=== PATIENT | female | born 1960 | race Caucasian/White ===

== ENCOUNTER → 2020-01-26 13:50 | Outpatient (BNVA) | payer MEDICARE, MEDICAID, OTHER, SELFPAY | PROVIDERS: PCP Internal Medicine; Referring Provider Internal Medicine; Visit Provider Hospitalist | DX: G47.33 Obstructive sleep apnea (adult) (pediatric) (principal); J44.9 Chronic obstructive pulmonary disease, unspecified; Z79.899 Other long term (current) drug therapy | CPT/HCPCS: 99214 ==

== ENCOUNTER → 2020-01-29 14:03 | Outpatient (BNVA) | payer MEDICARE, MEDICAID, SELFPAY | PROVIDERS: PCP Internal Medicine; Referring Provider Internal Medicine; Visit Provider Internal Medicine Gastroenterology | DX: K21.9 Gastro-esophageal reflux disease without esophagitis (principal); E66.01 Morbid (severe) obesity due to excess calories; Z79.899 Other long term (current) drug therapy | CPT/HCPCS: 99214 ==

== ENCOUNTER → 2020-02-05 14:02 | Outpatient (REF) | payer MEDICARE, SELFPAY | LOC: HO.SL 14:02 | PROVIDERS: PCP Internal Medicine; Visit Provider Hospitalist | DX: G47.33 Obstructive sleep apnea (adult) (pediatric) (principal) | CPT/HCPCS: 95806 ==

== ENCOUNTER 2020-04-01 13:27 | Outpatient (REF) | payer MEDICARE, SELFPAY ==
--- NOTE | 2020-04-01 13:32 | MM_ITS ---
EXAMINATION: MM SCREENING DIGITAL BREAST TOMOSYNTHESIS, BILATERAL CLINICAL INFORMATION: Screening. Asymptomatic. Prior history benign right stereotactic biopsy 02/24/2017 on upright unit [facility] (adenosis and ductal epithelial hyperplasia, without atypia. Microcalcifications are present in association with sclerotic stroma, adenosis and otherwise unremarkable terminal duct lobular units). The lifetime risk of breast cancer based on the Tyrer-Cuzick Model is 6%. COMPARISON: Mammography: 03/27/2019, 03/21/2018, 09/17/2017, 02/10/2017, 02/01/2017 TECHNIQUE: Digital breast tomosynthesis is performed in both the craniocaudal and mediolateral oblique views along with computer-aided detection (CAD). Synthesized 2D images are generated from the tomosynthesis. Additional right CC and right MLO views are provided. FINDINGS: There are scattered areas of fibroglandular density (ACR BI-RADS breast composition Category b). Parenchymal pattern is similar to prior studies. There is no developing density or interval mass or architectural abnormality. Left breast shows no abnormal calcifications. Right breast has a biopsy clip marker central right breast with some adjacent punctate calcifications. There is a group of similar appearing calcifications posterior and inferior to the biopsy clip marker which are increased in number from prior studies. Patient will be recalled for additional imaging. MM/MM tomosynthesis screening BI IMPRESSION: 1. Right: Increased grouped calcifications posterior inferior to prior biopsy clip marker. 2. Left: No mammographic evidence of malignancy. ASSESSMENT: BI-RADS 0: Incomplete - Need Additional Imaging Evaluation RECOMMENDATION: 1. Additional views of the right breast (magnification CC, magnification ML). 2. Radiology department staff will contact the patient for additional imaging. This patient's information was entered into a reminder system with a target due date for their next mammogram.
== END 2020-04-01 13:28 | disposition home or self-care (01) ==
LOC: HO.MAMMO 13:27
PROVIDERS: PCP Internal Medicine; Visit Provider Internal Medicine
DX: Z12.31 Encounter for screening mammogram for malignant neoplasm of breast (principal)
CPT/HCPCS: 77063; 77067

== ENCOUNTER → 2020-04-26 13:38 | Outpatient (BNVA) | payer MEDICARE, MEDICAID, SELFPAY | PROVIDERS: PCP Internal Medicine; Visit Provider Hospitalist | DX: G47.33 Obstructive sleep apnea (adult) (pediatric) (principal); J44.9 Chronic obstructive pulmonary disease, unspecified; E66.01 Morbid (severe) obesity due to excess calories; K21.9 Gastro-esophageal reflux disease without esophagitis; Z71.3 Dietary counseling and surveillance | CPT/HCPCS: 99212 ==

== ENCOUNTER 2020-05-03 13:32 | Outpatient (REF) | payer MEDICARE, MEDICAID, SELFPAY ==
--- NOTE | 2020-05-03 | MM_ITS ---
EXAMINATION: MM DIAGNOSTIC DIGITAL MAMMOGRAPHY, RIGHT CLINICAL INFORMATION: Recall from screening for increased grouped calcifications 6:00 right breast. Prior history benign right stereotactic biopsy central breast 02/24/2017 on upright unit [facility] (adenosis and ductal epithelial hyperplasia, without atypia. Microcalcifications are present in association with sclerotic stroma, adenosis and otherwise unremarkable terminal duct lobular units). COMPARISON: Mammography: 04/01/2020, 03/27/2019, 03/21/2018 TECHNIQUE: Digital mammography is performed in the following views: Magnification CC, magnification ML x4. Some ML views are repeated due to motion. FINDINGS: There are scattered areas of fibroglandular density (ACR BI-RADS breast composition Category b). The calcifications for additional evaluation at 6:00 position are tightly grouped, at least 15 in number, and represent change from prior mammography. Calcifications are predominantly round and slightly vary in size. Results are discussed with the patient at time of visit. The calcifications 6:00 position representing change from prior study. I suspect they may represent similar diagnosis to prior biopsy right breast 2016. Patient unable to lie prone for horizontal stereotactic table due to COPD. Patient willing to go to outside facility for upright stereotactic sampling. Results and recommendation are called to office ([facility]) for Dr. Hakeem Montgomery on 05/03/2020. MM/MM added views RT IMPRESSION: Grouped calcifications 6:00 right breast representing change from prior imaging. ASSESSMENT: BI-RADS 4: Suspicious (subcategory 4A: Low suspicion for malignancy) RECOMMENDATION: Stereotactic biopsy (will need to be performed at outside facility with upright table). This patient's information was entered into a reminder system with a target due date for their next mammogram.
== END 2020-05-03 13:33 | disposition home or self-care (01) ==
LOC: HO.MAMMO 13:32
PROVIDERS: Visit Provider Internal Medicine
DX: R92.1 Mammographic calcification found on diagnostic imaging of breast (principal)
CPT/HCPCS: 77065

== ENCOUNTER → 2020-05-22 15:33 | Outpatient (BNVA) | payer MEDICARE, SELFPAY | PROVIDERS: PCP Internal Medicine; Visit Provider Internal Medicine Gastroenterology | DX: Z76.89 Persons encountering health services in other specified circumstances (principal) | CPT/HCPCS: Q3014 ==

== ENCOUNTER 2020-05-24 13:27 | Outpatient (REF) | payer MEDICARE, SELFPAY ==
[2020-05-24 16:57] LABS: Alanine Aminotransferase 41 U/L (0-31); Albumin Level 4.2 g/dL (3.5-5.0); Alkaline Phosphatase 115 U/L (39-117); Aspartate Amino Transferase 28 U/L (5-31); Bilirubin Direct 0.2 mg/dL (0.0-0.5); Bilirubin Total 0.6 mg/dL (0.0-1.0); Cholesterol 171 mg/dL; HDL Cholesterol 45 mg/dL; LDL Cholesterol Calculated 91 mg/dl; Total Protein 7.2 g/dL (6.5-8.0); Triglycerides 178 mg/dL
[2020-05-24 19:02] LABS: Reflex LDLD? No
[2020-05-25 08:16] LABS: Estimated Average Glucose 120 mg/dL; Hemoglobin A1c % 5.8 %
== END 2020-05-24 13:28 | disposition home or self-care (01) ==
LOC: HO.HMGCLDS 13:27
PROVIDERS: PCP Internal Medicine; Visit Provider Internal Medicine
DX: E78.00 Pure hypercholesterolemia, unspecified (principal); E11.9 Type 2 diabetes mellitus without complications; R79.89 Other specified abnormal findings of blood chemistry
CPT/HCPCS: 36415; 80061; 80076; 83036

== ENCOUNTER 2020-07-08 12:55 | Outpatient (REF) | payer MEDICARE, SELFPAY ==
--- NOTE | ~2020-07-08 | XR_ITS ---
EXAMINATION: XR HIP, LEFT CLINICAL INFORMATION: Pain left hip. COMPARISON: None TECHNIQUE: Two views of the left hip. AP pelvis one view. FINDINGS: AP PELVIS: There is normal symmetry of bilateral SI and right hip joints. Mild loss of left hip joint space is noted. No bony erosive changes or periarticular spurring. No acute fracture, lytic or sclerotic process seen. There is mild pelvic tilt with right hip lower than left. The soft tissues are normal. XR/XR hip LT w PEL1V IMPRESSION: Mild loss of left hip joint space. No visible acute fracture, dislocation or subluxation seen. Mild pelvic tilt as described above.
== END 2020-07-08 12:56 | disposition home or self-care (01) ==
LOC: HO.HOSX 12:55
PROVIDERS: Visit Provider Orthopaedic Surgery
DX: M25.552 Pain in left hip (principal)
CPT/HCPCS: 73502

== ENCOUNTER → 2020-07-09 14:28 | Outpatient (BNVA) | payer MEDICARE, SELFPAY | PROVIDERS: PCP Internal Medicine; Visit Provider Orthopaedic Surgery | DX: M70.62 Trochanteric bursitis, left hip (principal) | CPT/HCPCS: 99212 ==

== ENCOUNTER 2020-09-03 12:55 | Outpatient (REF) | payer MEDICARE, MEDICAID, SELFPAY ==
--- NOTE | ~2020-09-03 | XR_ITS ---
EXAMINATION: XR HAND, LEFT CLINICAL INFORMATION: Left hand pain. COMPARISON: Left hand radiographs dated 05/04/2012. TECHNIQUE: AP, oblique, and lateral views of the left hand as well as AP and oblique views of the left hand. FINDINGS: No acute fracture or dislocation. Severe joint space narrowing with subchondral sclerosis and ossified loose bodies at the 1st carpometacarpal joint, new/increased when compared to the prior examination. Additional joint space narrowing with marginal osteophytes and subchondral cystic change throughout the interphalangeal joints. Possible small central erosions at the 2nd and 3rd distal interphalangeal joints. XR/XR hand LT min 3V IMPRESSION: 1. Severe degenerative arthritis at the 1st carpometacarpal joint with associated ossified loose bodies, new/increased when compared to the prior radiograph. 2. Additional degenerative arthritis throughout the interphalangeal joints, progressed when compared to the prior radiographs. Possible small central erosions at the 2nd and 3rd distal interphalangeal joints, which could indicate erosive osteoarthritis.
== END 2020-09-03 12:56 | disposition home or self-care (01) ==
LOC: HO.HOSX 12:55
PROVIDERS: PCP Internal Medicine; Visit Provider Orthopaedic Surgery
DX: M18.12 Unilateral primary osteoarthritis of first carpometacarpal joint, left hand (principal)
CPT/HCPCS: 20600; 73130; 99202; J1020

== ENCOUNTER → 2020-10-25 13:57 | Outpatient (BNVA) | payer MEDICARE, MEDICAID, SELFPAY | PROVIDERS: PCP Internal Medicine; Visit Provider Hospitalist | DX: G47.33 Obstructive sleep apnea (adult) (pediatric) (principal); J44.9 Chronic obstructive pulmonary disease, unspecified; K21.00 Gastro-esophageal reflux disease with esophagitis, without bleeding | CPT/HCPCS: 99212 ==

== ENCOUNTER → 2020-12-23 12:36 | Outpatient (BNVA) | payer MEDICARE, MEDICAID, SELFPAY | PROVIDERS: Visit Provider Orthopaedic Surgery | DX: M18.12 Unilateral primary osteoarthritis of first carpometacarpal joint, left hand (principal); E66.01 Morbid (severe) obesity due to excess calories; Z68.42 Body mass index [BMI] 45.0-49.9, adult; Z88.0 Allergy status to penicillin; Z88.2 Allergy status to sulfonamides | CPT/HCPCS: 20600; 99212; J1020 ==

== ENCOUNTER → 2020-12-30 13:00 | Outpatient (BNVA) | payer MEDICARE, SELFPAY | PROVIDERS: PCP Internal Medicine; Referring Provider Family Medicine; Visit Provider Internal Medicine Gastroenterology | DX: Z13.89 Encounter for screening for other disorder (principal) | CPT/HCPCS: 99212 ==

== ENCOUNTER 2021-02-11 12:18 | Outpatient (REF) | payer MEDICARE, MEDICAID, SELFPAY ==
[2021-02-11 14:17] LABS: Alanine Aminotransferase 19 U/L (0-31); Albumin Level 4.1 g/dL (3.5-5.0); Alkaline Phosphatase 92 U/L (39-117); Anion Gap 12 (12-20); Aspartate Amino Transferase 16 U/L (5-31); Bilirubin Total 0.5 mg/dL (0.0-1.0); Blood Urea Nitrogen 12 mg/dL (9-16); Calcium 9.5 mg/dL (8.4-10.2); Carbon Dioxide 27 mmol/L (22-29); Chloride 105 mmol/L (96-108); Cholesterol 294 mg/dL; Estimated Glomerular Filt Rate > 60; Glucose Fasting 107 mg/dL (60-99); HDL Cholesterol 45 mg/dL; LDL Cholesterol Calculated 196 mg/dl; Potassium 4.1 mmol/L (3.3-5.1); Sodium 140 mmol/L (135-145); Total Protein 6.9 g/dL (6.5-8.0); Triglycerides 267 mg/dL
[2021-02-11 14:38] LABS: TSH reflex Free T4 2.74 uIU/mL (0.32-4.0)
== END 2021-02-11 12:19 | disposition home or self-care (01) ==
LOC: HO.HMGCLDS 12:18
PROVIDERS: PCP Family Medicine; Visit Provider Family Medicine
DX: Z00.00 Encounter for general adult medical examination without abnormal findings (principal)
CPT/HCPCS: 36415; 80053; 80061; 84443

== ENCOUNTER → 2021-03-19 14:53 | Outpatient (BNVA) | payer MEDICARE, MEDICAID, SELFPAY | PROVIDERS: PCP Family Medicine; Referring Provider Family Medicine; Visit Provider Internal Medicine | DX: I35.9 Nonrheumatic aortic valve disorder, unspecified (principal); I25.10 Atherosclerotic heart disease of native coronary artery without angina pectoris; E66.01 Morbid (severe) obesity due to excess calories; Z68.42 Body mass index [BMI] 45.0-49.9, adult | CPT/HCPCS: 93005; 99202 ==

== ENCOUNTER 2021-03-21 12:16 | Outpatient (REF) | payer MEDICARE, MEDICAID, SELFPAY ==
[2021-03-21 14:15] LABS: Estimated Average Glucose 120 mg/dL; Hemoglobin A1c % 5.8 %
[2021-03-21 14:35] LABS: Alanine Aminotransferase 14 U/L (0-31); Albumin Level 4.1 g/dL (3.5-5.0); Alkaline Phosphatase 97 U/L (39-117); Anion Gap 14 (12-20); Aspartate Amino Transferase 12 U/L (5-31); Bilirubin Direct 0.2 mg/dL (0.0-0.5); Bilirubin Total 0.3 mg/dL (0.0-1.0); Blood Urea Nitrogen 15 mg/dL (9-16); Calcium 9.6 mg/dL (8.4-10.2); Carbon Dioxide 24 mmol/L (22-29); Chloride 107 mmol/L (96-108); Cholesterol 200 mg/dL; Estimated Glomerular Filt Rate > 60; Glucose Random 105 mg/dL (60-115); HDL Cholesterol 46 mg/dL; LDL Cholesterol Calculated 116 mg/dl; Potassium 4.2 mmol/L (3.3-5.1); Sodium 141 mmol/L (135-145); Total Protein 6.7 g/dL (6.5-8.0); Triglycerides 190 mg/dL
== END 2021-03-21 12:17 | disposition home or self-care (01) ==
LOC: HO.HMGCLDS 12:16
PROVIDERS: Absent Provider Internal Medicine; PCP Family Medicine; Visit Provider Family Medicine
DX: Z00.00 Encounter for general adult medical examination without abnormal findings (principal); R73.01 Impaired fasting glucose; R74.01 Elevation of levels of liver transaminase levels; I25.10 Atherosclerotic heart disease of native coronary artery without angina pectoris
CPT/HCPCS: 36415; 80048; 80061; 80076; 83036

== ENCOUNTER 2021-04-02 13:28 | Outpatient (REF) | payer MEDICARE, MEDICAID, SELFPAY ==
--- NOTE | ~2021-04-02 | MM_ITS ---
EXAMINATION: MM DIAGNOSTIC DIGITAL BREAST TOMOSYNTHESIS, BILATERAL CLINICAL INFORMATION: Due for yearly. Status post benign right upright stereotactic biopsy 06/12/2020 (microcalcifications associated with sclerosing adenosis. Minute intraductal papilloma, less than 1 mm). Also prior benign outside right stereotactic biopsy 02/24/2017 (adenosis and ductal epithelial hyperplasia without atypia). The lifetime risk of breast cancer based on the Tyrer-Cuzick Model is 6%. COMPARISON: Mammography: 05/03/2020, 04/01/2020, 03/27/2019; outside pathology report right breast biopsy 06/12/2020 ([facility]). TECHNIQUE: Digital breast tomosynthesis is performed in both the craniocaudal and mediolateral oblique views along with computer-aided detection (CAD). Synthesized 2D images are generated from the tomosynthesis. Additional magnification right CC and magnification right ML views are obtained. FINDINGS: There are scattered areas of fibroglandular density (ACR BI-RADS breast composition Category b). Breast tissue composition borders on predominantly fatty. Background stromal and fibroglandular densities are stable. There is no developing density or interval mass or architectural abnormality. There are no abnormal calcifications. There is old T-shaped biopsy clip marker central right breast. The most recent right biopsy clip marker is more posterior and cylinder shaped. Magnification views show some scattered stable calcifications right breast. The calcifications recently sampled are no longer demonstrated. Results are provided to the patient at time of visit by the technologist. MM/MM tomosynthesis diagnostic BI IMPRESSION: No mammographic evidence of malignancy. ASSESSMENT: BI-RADS 2: Benign RECOMMENDATION: Routine annual mammography screening. This patient's information was entered into a reminder system with a target due date for their next mammogram.
== END 2021-04-02 13:29 | disposition home or self-care (01) ==
LOC: HO.MAMMO 13:28
PROVIDERS: PCP Family Medicine; Visit Provider Family Medicine
DX: R92.8 Other abnormal and inconclusive findings on diagnostic imaging of breast (principal)
CPT/HCPCS: 77062; 77066

== ENCOUNTER → 2021-05-05 13:46 | Outpatient (REF) | payer MEDICARE, MEDICAID, SELFPAY ==
--- NOTE | 2021-05-05 13:53 | CA_ITS ---
Transthoracic Echocardiogram Patient (Last, First, Middle): Daxa Whitt (Mitzy), Gender: Female Date of : 1960 Age: 61 Procedure Date: 05/05/2021 Procedure Type: Transthoracic Echocardiogram Location: OP Height: 160.02 cm Weight: 113.4 kg BSA: 2.13 m2 Heart Rate: bpm BP: 128 / 80 mmHg Assembler Seat: Referring MD: Thad Muñoz MD Roving Teller: Eric Vincent MD Symptoms: I35.9 - Nonrheumatic aortic valve disorder, unspecified Study Quality: Fair ECG Rhythm: Sinus Conclusions: - 1. Normal LV systolic function with mild LVH with impaired relaxation filling pattern 2. Mild aortic stenosis 3. Normal RV systolic pressure 4. No gross pericardial effusion Findings Left Ventricle Normal left ventricular size and systolic function. There is mildly increased left ventricular wall thickness. The visually estimated ejection fraction is between 65-70%. Spectral Doppler is indicative of an impaired relaxation filling pattern. E/E prime ratio is between 8 and 15 consistent with indeterminate filling pressures. Right Ventricle Normal right ventricular cavity size and systolic function. Atria The left atrium is likely dilated. There is lipomatous hypertrophy of the interatrial septum. There is no evidence of interatrial shunt. The right atrium is normal in size. Aortic Valve The aortic valve was not well visualized. There is mild calcification of the aortic valve. There is mild aortic valve stenosis. The peak aortic gradient is 17 mmHg.The mean gradient is 8 mmHg. The aortic valve area is 1.80 cm2. There is no aortic valve regurgitation. Mitral Valve There is mild anterior and moderate posterior mitral leaflet thickening. There is moderate mitral annular calcification. There is trace mitral valve regurgitation. There is no mitral valve stenosis. Pulmonic Valve The pulmonic valve was not well visualized. Tricuspid Valve There is mild tricuspid valve regurgitation. The right ventricular systolic pressure is normal. There is no evidence of pulmonary hypertension. Great Vessels All visible segments of the aorta are normal in size. The pulmonary artery was not well visualized. Venous The inferior vena cava is normal in size and collapses greater than 50% with inspiration. Pericardium/Pleural There is no evidence of pericardial effusion. Prior Study Comparison Changes noted compared to prior study dated: 08/26/2016. Mild aortic stenosis noted Measurements 2D Linear Measurements IVSd: 1.28 0.6-0.9/0.6-1.0 cm LVIDd: 4.38 3.9-5.3/4.2-5.9 cm LVIDd Index: 2.06 2.4-3.2/2.2-3.1 cm/m2 LVIDs: 2.97 2.0-3.6 cm LVPWd: 1.33 0.7-1.1 cm Ao Root: 2.80 2.1-3.5 cm LA Diam: 3.90 2.7-3.8/3.0-4.0 cm LAIDs Index: 1.83 1.5-2.3 cm/m2 LV Mass: 267.80 67-162/88-224 g LV Mass Index: 125.73 43-95/49-115 g/m2 LVOT Diam: 2.00 3.0+(-)1.3 cm 2D Systolic Function EF 4C: 70.30 >55% EF 2C: 68.60 >55% EF BiP: 69.10 >55% Mitral Valve MV VTI: 0.40 MV Pk Ascencion: 1.39 MV Mn Ascencion: 0.80 MV Pk Grad: 8.00 MV Mn Grad: 3.00 MV Pk E: 0.94 MV PK A: 1.39 MV Decel Time: 157.00 E/A: 0.70 E'Lateral: 8.05 E'Medial: 5.87 E/E' Med: 16.00 E/E' Lat: 11.70 PHT: 46.00 MVA PHT: 4.78 MVA Continuity: 1.93 Decel [place]: 5.96 Aortic Valve AoV Pk Ascencion: 2.06 AoV Mn Ascencion: 1.29 AoV VTI: 0.43 AoV Pk Grad: 17.00 Aov Mn Grad: 8.00 JOHANA Cont.VTI: 1.80 LVOT LVOT Pk Ascencion: 1.08 LVOT Mn Ascencion: 0.77 LVOT VTI: 0.24 LVOT Pk Grad: 5.00 LVOT Mn Grad: 3.00 LVOT Diam: 2.00 LVOT Area: 3.14 Diastolic Function MV Pk E: 0.94 MV Pk A: 1.39 E/A: 0.70 E'Medial: 5.87 E/E' Med: 16.00 E' Laterial: 8.05 E/E' Lat: 11.70 Right Ventricle TAPSE (mm): 28.00 TVS' Ascencion: 14.00 Tricuspid Valve TR Pk Ascencion: 2.51 TR Pk Grad: 25.00 RA Press: 3.00 RVSP: 28.00 Great Vessels Aorta Ao Root-2D: 2.80 2.0-3.7 cm Ao Asc: 2.70 2.1-3.4 cm Pulmonary Valve PV Pk Ascencion: 1.21 Peak PV Grad: 6.00 Updated in Other Vendor System with Status of Final Eric Vincent MD electronically signed on 05/06/2021 11:54:40 AM with status of Final
== END ==
LOC: HO.CARD 13:46
PROVIDERS: Visit Provider Internal Medicine
DX: I35.9 Nonrheumatic aortic valve disorder, unspecified (principal)
CPT/HCPCS: 93306

== ENCOUNTER 2021-05-30 11:24 | Outpatient (REF) | payer MEDICARE, MEDICAID, SELFPAY ==
[2021-05-30 15:12] LABS: MANUAL DIFF FLAG NO
[2021-05-30 15:16] LABS: Basophils Percent Auto 0.4 % (0-2); Eosinophils Absolute Auto 0.2 X10*3/uL (0.0-0.4); Hemoglobin 12.4 g/dl (12.0-16.0); Imm Gran Abs Auto 0.03 X10*3/uL (0.00-0.03); Imm Gran Pct Auto 0.4 % (0.0-0.4); Lymphocytes Absolute Auto 1.2 X10*3/uL (1.2-4.9); Lymphocytes Percent Auto 18.1 % (20-40); Mean Corpuscular HGB Conc 32.6 g/dl (31.0-35.0); Mean Corpuscular Hemoglobin 29.9 pg (27.0-33.0); Mean Corpuscular Volume 91.6 fL (80.0-98.0); Mean Platelet Volume 9.7 fL (9.4-12.3); Monocytes Absolute Auto 0.4 X10*3/uL (0.1-1.2); Monocytes Percent Auto 6.4 % (2-11); Neutrophils Absolute Auto 4.8 x10*3/uL (2.0-8.3); Neutrophils Percent Auto 71.7 % (45-73); Platelet Count 323 X10*3/uL (160-400); Red Blood Count 4.15 X10*6/uL (4.20-5.50); Red Cell Distribution Width 12.2 % (11.0-16.0); White Blood Count 6.7 X10*3/uL (4.8-10.8)
[2021-05-30 16:13] LABS: Alanine Aminotransferase 10 U/L (0-31); Alkaline Phosphatase 105 U/L (39-117); Anion Gap 13 (12-20); Aspartate Amino Transferase 11 U/L (5-31); Bilirubin Total 0.2 mg/dL (0.0-1.0); Blood Urea Nitrogen 15 mg/dL (9-16); Calcium 9.3 mg/dL (8.4-10.2); Carbon Dioxide 24 mmol/L (22-29); Chloride 106 mmol/L (96-108); Estimated Glomerular Filt Rate > 60; Ferritin 111 ng/mL (10-250); Glucose Random 121 mg/dL (60-115); Iron 64 mcg/dL (30-160); Percent Iron Saturation 21 % (15-50); Potassium 3.9 mmol/L (3.3-5.1); Sodium 139 mmol/L (135-145); Total Iron Binding Capacity 301 mcg/dL (228-428); Total Protein 6.8 g/dL (6.5-8.0); Unsaturated Iron Binding 237 ug/dL
== END 2021-05-30 11:25 | disposition home or self-care (01) ==
LOC: HO.HMGCLDS 11:24
PROVIDERS: Family Medicine
DX: Z00.00 Encounter for general adult medical examination without abnormal findings (principal); R53.83 Other fatigue
CPT/HCPCS: 36415; 80053; 82728; 83540; 85025

== ENCOUNTER → 2021-06-03 14:25 | Outpatient (BNVA) | payer MEDICARE, MEDICAID, SELFPAY | PROVIDERS: PCP Family Medicine; Referring Provider Family Medicine; Visit Provider Internal Medicine | DX: I25.10 Atherosclerotic heart disease of native coronary artery without angina pectoris (principal); I35.0 Nonrheumatic aortic (valve) stenosis; I05.9 Rheumatic mitral valve disease, unspecified; E03.9 Hypothyroidism, unspecified; R53.83 Other fatigue; J44.9 Chronic obstructive pulmonary disease, unspecified; E66.01 Morbid (severe) obesity due to excess calories; R73.03 Prediabetes; G47.33 Obstructive sleep apnea (adult) (pediatric); Z68.42 Body mass index [BMI] 45.0-49.9, adult; Z88.0 Allergy status to penicillin; Z88.2 Allergy status to sulfonamides; Z79.899 Other long term (current) drug therapy | CPT/HCPCS: 99212 ==

== ENCOUNTER 2021-06-04 12:56 | Outpatient (REF) | payer MEDICARE, MEDICAID, SELFPAY ==
[2021-06-04 14:09] LABS: Appearance Urine HAZY; Color Urine YELLOW; Glucose Urine UA NEG (NEG); Leukocyte Esterase Urine NEG (NEG); Nitrite Urine NEG (NEG); Specific Gravity - Urine >= 1.030 (1.005-1.025); Urine Blood NEG (NEG); Urine Ketones NEG (NEG); Urine Protein TRACE MG/DL (NEG-TRACE)
[2021-06-04 14:53] LABS: Free T4 (Free Thyroxine) 0.88 ng/dL (0.71-1.85)
[2021-06-05 06:01] LABS: Triiodothyronine T3 Total 109 ng/dL (76-181)
== END 2021-06-04 12:57 | disposition home or self-care (01) ==
LOC: HO.HMGCLDS 12:56
PROVIDERS: Visit Provider Family Medicine
DX: Z00.00 Encounter for general adult medical examination without abnormal findings (principal); E03.9 Hypothyroidism, unspecified; R53.83 Other fatigue
CPT/HCPCS: 36415; 81003; 84439; 84443; 84480; 87086

== ENCOUNTER → 2021-06-27 14:24 | Outpatient (BNVA) | payer MEDICARE, MEDICAID, SELFPAY | PROVIDERS: PCP Family Medicine; Visit Provider Hospitalist | DX: G47.33 Obstructive sleep apnea (adult) (pediatric) (principal); J44.9 Chronic obstructive pulmonary disease, unspecified; K21.00 Gastro-esophageal reflux disease with esophagitis, without bleeding | CPT/HCPCS: 99212 ==

== ENCOUNTER 2021-07-03 13:58 | Outpatient (REF) | payer MEDICARE, MEDICAID, SELFPAY ==
[2021-07-03 16:46] LABS: Rheumatoid Factor < 15.0 IU/mL (<15.0)
[2021-07-03 17:20] LABS: Erythrocyte Sedimentation Rate 23 MM/HR (0-20)
[2021-07-04 17:27] LABS: CRP High Sensitivity 0.7 mg/L
[2021-07-05 11:35] LABS: Anti Nuclear Antibody Screen POSITIVE (NEGATIVE)
== END 2021-07-03 13:59 | disposition home or self-care (01) ==
LOC: HO.HMGCLDS 13:58
PROVIDERS: PCP Family Medicine; Visit Provider Family Medicine
DX: R53.83 Other fatigue (principal); M25.50 Pain in unspecified joint
CPT/HCPCS: 36415; 85652; 86038; 86039; 86141; 86431

== ENCOUNTER 2021-07-08 09:05 | Outpatient (REF) | payer MEDICARE, MEDICAID, SELFPAY ==
--- NOTE | ~2021-07-08 | XR_ITS ---
EXAMINATION: XR HAND, LEFT CLINICAL INFORMATION: Pain. COMPARISON: Previous x-ray August 2020. TECHNIQUE: PA, lateral, and oblique views of the left hand. FINDINGS: Bone alignment is normal. No fracture or dislocation is seen. There is arthritis at the IP joints with joint space narrowing, osteophyte formation and some cystic changes. There is arthritis at the 1st NURSING HOME joint with joint space narrowing and osteophyte formation. There are small cysts in the carpal bones. Soft tissues are unremarkable. XR/XR hand LT min 3V IMPRESSION: Arthritis at the IP joints and 1st NURSING HOME joint. Cystic changes in the carpal bones.
== END 2021-07-08 09:06 | disposition home or self-care (01) ==
LOC: HO.HOSX 09:05
PROVIDERS: Visit Provider Orthopaedic Surgery
DX: M18.12 Unilateral primary osteoarthritis of first carpometacarpal joint, left hand (principal)
CPT/HCPCS: 73130; 99212

== ENCOUNTER → 2021-08-14 13:05 | Outpatient (BNVA) | payer MEDICARE, SELFPAY | PROVIDERS: PCP Internal Medicine; Referring Provider Family Medicine; Visit Provider Internal Medicine Gastroenterology | DX: Z12.11 Encounter for screening for malignant neoplasm of colon (principal); K21.00 Gastro-esophageal reflux disease with esophagitis, without bleeding; E66.01 Morbid (severe) obesity due to excess calories; R19.7 Diarrhea, unspecified; K59.09 Other constipation; K80.20 Calculus of gallbladder without cholecystitis without obstruction | CPT/HCPCS: 99212 ==

== ENCOUNTER → 2021-08-18 14:49 | Outpatient (BNVA) | payer MEDICARE, MEDICAID, SELFPAY | PROVIDERS: PCP Family Medicine; Visit Provider Hospitalist | DX: Z23 Encounter for immunization (principal); J44.9 Chronic obstructive pulmonary disease, unspecified; G47.33 Obstructive sleep apnea (adult) (pediatric); K21.00 Gastro-esophageal reflux disease with esophagitis, without bleeding | CPT/HCPCS: 90471; 90732; 99212 ==

== ENCOUNTER → 2021-09-04 14:05 | Outpatient (BNVA) | payer MEDICARE, MEDICAID, SELFPAY | PROVIDERS: PCP Family Medicine; Referring Provider Family Medicine; Visit Provider Internal Medicine | DX: I25.10 Atherosclerotic heart disease of native coronary artery without angina pectoris (principal); I35.0 Nonrheumatic aortic (valve) stenosis; I05.9 Rheumatic mitral valve disease, unspecified; Z79.899 Other long term (current) drug therapy | CPT/HCPCS: 99212 ==

== ENCOUNTER 2021-09-15 15:07 | Outpatient (REF) | payer MEDICARE, MEDICAID, SELFPAY ==
[2021-09-16 15:50] LABS: SARS-COV-2 IgG Spike, Semi-Qnt 126.07 index (<1.00)
== END 2021-09-15 15:08 | disposition home or self-care (01) ==
LOC: HO.HMGCLDS 15:07
PROVIDERS: PCP Family Medicine; Visit Provider Family Medicine
DX: Z20.822 Contact with and (suspected) exposure to COVID-19 (principal); J44.9 Chronic obstructive pulmonary disease, unspecified
CPT/HCPCS: 36415; 86769

== ENCOUNTER 2021-09-30 | Outpatient (REF) | payer MEDICARE, MEDICAID, SELFPAY ==
[2021-10-03 08:01] LABS: FIT Int Ctl YES; FIT1 NEGATIVE (NEGATIVE); FIT2 NEGATIVE (NEGATIVE)
== END 2021-09-30 00:01 | disposition home or self-care (01) ==
LOC: HO.LNP
PROVIDERS: Visit Provider Internal Medicine Gastroenterology
DX: Z12.11 Encounter for screening for malignant neoplasm of colon (principal)
CPT/HCPCS: 82274

== ENCOUNTER 2021-11-14 13:02 | Outpatient (REF) | payer MEDICARE, MEDICAID, SELFPAY ==
--- NOTE | ~2021-11-14 | CT_ITS ---
EXAMINATION: CT CHEST WITHOUT CONTRAST CLINICAL INFORMATION: Pulmonary nodule COMPARISON: Previous chest x-ray January 2019 TECHNIQUE: Multidetector volumetric CT imaging of the chest was done. Axial MIP volume rendering provided. Sagittal and coronal reformatted images were obtained. This CT examination was performed using dose optimization techniques as appropriate, variously including the following: *Automated exposure control *Adjustment of mA and/or kV according to patient size (this includes techniques or standardized protocols for targeted exams where dose is matched to indication/reason for exam; i.e. extremities or head) *Use of iterative reconstruction technique DLP: 478 mGy-cm FINDINGS: LUNGS: There is a 1 to 2 mm right upper lobe nodule axial image 104 series 5. There is a 3 mm left upper lobe nodule axial image 106 series 5. There is a 4 mm peripheral or subpleural left lower lobe nodule adjacent to the fissure axial image 211 series 5. There is a 4 mm peripheral or subpleural right middle lobe nodule axial image 225 series 5. There is a 2 mm peripheral or subpleural left lower lobe nodule adjacent to the fissure axial image 252 series 5. There is scarring or subsegmental atelectasis in the inferior segment of the lingula. MEDIASTINUM: There is diffuse shotty mediastinal lymphadenopathy. Larger lymph nodes are upper normal in size. The heart size is normal. There is coronary artery calcification. There is no pericardial effusion. The thoracic aorta is normal in caliber. PLEURA: There is no pleural effusion. No pleural mass or thickening. AXILLA: No lymphadenopathy. UPPER ABDOMEN: Gallstones. OSSEOUS STRUCTURES: Degenerative changes of the spine. CT/CT chest wo con IMPRESSION: Small pulmonary nodules. Diffuse shotty mediastinal lymphadenopathy. Coronary artery calcification. According to the UPDATED 2017 Fleischner Society recommendations, the advised follow-up imaging for less than 6 mm solid nodule: Low risk, no chest CT follow-up and high risk, optional chest CT follow-up in one year. Fleischner guidelines were followed.
== END 2021-11-14 13:03 | disposition home or self-care (01) ==
LOC: HO.CT 13:02
PROVIDERS: PCP Family Medicine; Visit Provider Hospitalist
DX: R91.1 Solitary pulmonary nodule (principal)
CPT/HCPCS: 71250

== ENCOUNTER → 2021-11-20 13:47 | Outpatient (BNVA) | payer MEDICARE, MEDICAID, SELFPAY | PROVIDERS: PCP Family Medicine; Visit Provider Hospitalist | DX: J44.9 Chronic obstructive pulmonary disease, unspecified (principal); R91.8 Other nonspecific abnormal finding of lung field; G47.33 Obstructive sleep apnea (adult) (pediatric); K21.00 Gastro-esophageal reflux disease with esophagitis, without bleeding; E66.9 Obesity, unspecified | CPT/HCPCS: 99212 ==

== ENCOUNTER 2022-01-09 10:08 | Outpatient (REF) | payer MEDICARE, MEDICAID, SELFPAY ==
[2022-01-09 12:50] LABS: Alanine Aminotransferase 18 U/L (0-31); Albumin Level 4.1 g/dL (3.5-5.0); Alkaline Phosphatase 101 U/L (39-117); Aspartate Amino Transferase 12 U/L (5-31); Bilirubin Direct 0.2 mg/dL (0.0-0.5); Bilirubin Total 0.2 mg/dL (0.0-1.0); Cholesterol 173 mg/dL; HDL Cholesterol 45 mg/dL; LDL Cholesterol Calculated 88 mg/dl; Total Protein 6.4 g/dL (6.5-8.0); Triglycerides 201 mg/dL
== END 2022-01-09 10:09 | disposition home or self-care (01) ==
LOC: HO.WFDLDS 10:08
PROVIDERS: Visit Provider Internal Medicine
DX: I25.10 Atherosclerotic heart disease of native coronary artery without angina pectoris (principal)
CPT/HCPCS: 36415; 80061; 80076

== ENCOUNTER → 2022-03-02 14:50 | Outpatient (BNVA) | payer MEDICARE, MEDICAID, SELFPAY | PROVIDERS: PCP Family Medicine; Visit Provider Hospitalist | DX: J44.9 Chronic obstructive pulmonary disease, unspecified (principal); G47.33 Obstructive sleep apnea (adult) (pediatric); K21.00 Gastro-esophageal reflux disease with esophagitis, without bleeding | CPT/HCPCS: 99212 ==

== ENCOUNTER 2022-03-18 13:07 | Outpatient (REF) | payer MEDICARE, MEDICAID, SELFPAY ==
[2022-03-18 16:30] LABS: MANUAL DIFF FLAG NO
[2022-03-18 16:36] LABS: Basophils Percent Auto 0.7 % (0-2); Eosinophils Absolute Auto 0.2 X10*3/uL (0.0-0.4); Eosinophils Percent Auto 4.4 % (0-4); Hematocrit 37.5 % (37.0-47.0); Hemoglobin 12.2 g/dl (12.0-16.0); Imm Gran Abs Auto 0.02 X10*3/uL (0.00-0.03); Imm Gran Pct Auto 0.4 % (0.0-0.4); Lymphocytes Absolute Auto 1.2 X10*3/uL (1.2-4.9); Lymphocytes Percent Auto 21.9 % (20-40); Mean Corpuscular HGB Conc 32.5 g/dl (31.0-35.0); Mean Corpuscular Hemoglobin 29.8 pg (27.0-33.0); Mean Corpuscular Volume 91.7 fL (80.0-98.0); Mean Platelet Volume 9.6 fL (9.4-12.3); Monocytes Absolute Auto 0.5 X10*3/uL (0.1-1.2); Monocytes Percent Auto 9.3 % (2-11); Neutrophils Absolute Auto 3.5 x10*3/uL (2.0-8.3); Neutrophils Percent Auto 63.3 % (45-73); Platelet Count 292 X10*3/uL (160-400); Red Blood Count 4.09 X10*6/uL (4.20-5.50); Red Cell Distribution Width 12.2 % (11.0-16.0); White Blood Count 5.5 X10*3/uL (4.8-10.8)
[2022-03-18 16:38] LABS: Appearance Urine Turbid; Color Urine Yellow; Glucose Urine UA Negative (Negative); Leukocyte Esterase Urine Negative (Negative); Nitrite Urine Negative (Negative); PH 5.5 (5.0-9.0); Specific Gravity - Urine >= 1.030 (1.005-1.025); UMIC TRIGGER UA YES; Urine Blood Negative (Negative); Urine Ketones Negative (Negative); Urine Protein 30 (1+) mg/dL (Neg-Trace)
[2022-03-18 16:58] LABS: Bacteria Urine 1+ (None Seen); Calcium Oxalate Crystals Urine Present; Hyaline Casts Urine 0-2 /LPF (0-2); RBC Urine >20 /HPF (0-2); Squamous Epithelial Cell Urine >20 /HPF (0-2)
[2022-03-18 17:23] LABS: Alanine Aminotransferase 20 U/L (0-31); Albumin Level 3.9 g/dL (3.5-5.0); Alkaline Phosphatase 95 U/L (39-117); Anion Gap 12 (12-20); Aspartate Amino Transferase 13 U/L (5-31); Bilirubin Total 0.5 mg/dL (0.0-1.0); Blood Urea Nitrogen 11 mg/dL (9-16); Calcium 9.2 mg/dL (8.4-10.2); Carbon Dioxide 27 mmol/L (22-29); Chloride 107 mmol/L (96-108); Estimated Glomerular Filt Rate > 60; Glucose Fasting 93 mg/dL (60-99); Potassium 4.5 mmol/L (3.3-5.1); Sodium 141 mmol/L (135-145); TSH reflex Free T4 2.13 uIU/mL (0.32-4.0); Total Protein 6.2 g/dL (6.5-8.0)
== END 2022-03-18 13:08 | disposition home or self-care (01) ==
LOC: HO.HMGCLDS 13:07
PROVIDERS: PCP Family Medicine; Visit Provider Family Medicine
DX: Z00.00 Encounter for general adult medical examination without abnormal findings (principal)
CPT/HCPCS: 36415; 80053; 81001; 84443; 85025

== ENCOUNTER 2022-04-02 13:28 | Outpatient (REF) | payer MEDICARE, MEDICAID, SELFPAY | END 2022-04-02 13:29 | disposition home or self-care (01) | LOC: HO.MAMMO 13:28 | PROVIDERS: PCP Family Medicine; Visit Provider Family Medicine | DX: Z12.31 Encounter for screening mammogram for malignant neoplasm of breast (principal) | CPT/HCPCS: 77063; 77067 ==

== ENCOUNTER 2022-04-29 13:10 | Outpatient (REF) | payer MEDICARE, MEDICAID, SELFPAY ==
[2022-04-30 12:36] LABS: Influenza A PCR NEGATIVE (Negative); Influenza B PCR NEGATIVE (Negative); Resp Syncy Virus RNA Qual PCR NEGATIVE (Negative); SARS COV2 PCR INHOUSE NEGATIVE (Negative)
== END 2022-04-29 13:11 | disposition home or self-care (01) ==
LOC: HO.LAB 13:10
PROVIDERS: Visit Provider Family Medicine
DX: R09.81 Nasal congestion (principal); Z20.822 Contact with and (suspected) exposure to COVID-19
CPT/HCPCS: 0241U

== ENCOUNTER → 2022-04-30 13:39 | Outpatient (BNVA) | payer MEDICARE, MEDICAID, SELFPAY | PROVIDERS: PCP Family Medicine; Referring Provider Family Medicine; Visit Provider Internal Medicine | DX: I25.10 Atherosclerotic heart disease of native coronary artery without angina pectoris (principal); I35.9 Nonrheumatic aortic valve disorder, unspecified; I35.0 Nonrheumatic aortic (valve) stenosis; I05.9 Rheumatic mitral valve disease, unspecified | CPT/HCPCS: 93005; 99212 ==

== ENCOUNTER → 2022-05-28 13:26 | Outpatient (BNVA) | payer MEDICARE, MEDICAID, SELFPAY | PROVIDERS: PCP Family Medicine; Visit Provider Internal Medicine Gastroenterology | DX: K21.00 Gastro-esophageal reflux disease with esophagitis, without bleeding (principal); R13.10 Dysphagia, unspecified; R19.7 Diarrhea, unspecified; K80.20 Calculus of gallbladder without cholecystitis without obstruction; K86.9 Disease of pancreas, unspecified; E66.01 Morbid (severe) obesity due to excess calories; Z68.42 Body mass index [BMI] 45.0-49.9, adult | CPT/HCPCS: 99212 ==

== ENCOUNTER 2022-06-18 12:41 | Outpatient (REF) | payer MEDICARE, MEDICAID, SELFPAY ==
--- NOTE | ~2022-06-18 | CT_ITS ---
EXAMINATION: CT CHEST WITHOUT CONTRAST CLINICAL INFORMATION: Pulmonary nodule COMPARISON: CT chest 11/14/2021 TECHNIQUE: Multidetector volumetric CT imaging of the chest was done. Axial MIP volume rendering provided. Sagittal and coronal reformatted images were obtained. This CT examination was performed using dose optimization techniques as appropriate, variously including the following: *Automated exposure control *Adjustment of mA and/or kV according to patient size (this includes techniques or standardized protocols for targeted exams where dose is matched to indication/reason for exam; i.e. extremities or head) *Use of iterative reconstruction technique DLP: 322 mGy-cm FINDINGS: LUNGS: There is a 1.1 x 0.7 cm part solid nodule with central 2 mm solid component series 7 image 175. This is likely not significantly changed in size allowing for differences in technique. Additional other nodules are stable and are subpleural or perifissural in location and are likely benign in etiology. No new nodule. MEDIASTINUM: As before, there are shotty mediastinal lymph nodes to the upper limits of size are seen and are stable measuring up to 1.0 cm short axis dimension. CORONARY ARTERY CALCIFICATION: Present PLEURA: There is no pleural effusion. No pleural mass or thickening. AXILLA: No lymphadenopathy. UPPER ABDOMEN: Cholelithiasis. OSSEOUS STRUCTURES: Degenerative changes in the spine. CT/CT chest wo IV con IMPRESSION: Stable 1.1 x 0.7 cm part solid nodule with central 2 mm solid component. As per below recommendation, follow-up chest CT is recommended yearly for 5 years. 2017 Fleischner Society Recommendations for Lung Nodule(s): Follow-Up based on size (average of long- and short-axis diameters). Use most suspicious nodule for followup. Single Part Solid lung nodule >= 6 - <=15 mm: Recommend a non-contrast Chest CT at 3-6 months to confirm persistence. If unchanged and the solid component remains < 6 mm, an annual non-contrast Chest CT should be performed for 5 years. If the solid component is 6 - 8 mm on follow-up, recommend biopsy or resection. If the solid component is > 8 mm on follow-up, recommend PET/CT, biopsy or resection. These guidelines do not apply to patients younger than 35 years, immunocompromised patients, and patients with cancer. Follow up in patients with significant comorbidities as clinically warranted. For lung cancer screening, adhere to Lung-RADS guidelines. Reference: Radiology. 2017 [place]evin; 284(1):228-243 Fleischner guidelines were followed.
== END 2022-06-18 12:42 | disposition home or self-care (01) ==
LOC: HO.CT 12:41
PROVIDERS: Visit Provider Hospitalist
DX: R91.1 Solitary pulmonary nodule (principal)
CPT/HCPCS: 71250

== ENCOUNTER → 2022-06-25 13:50 | Outpatient (BNVA) | payer MEDICARE, MEDICAID, SELFPAY | PROVIDERS: PCP Family Medicine; Visit Provider Hospitalist | DX: J44.9 Chronic obstructive pulmonary disease, unspecified (principal); G47.33 Obstructive sleep apnea (adult) (pediatric); K21.00 Gastro-esophageal reflux disease with esophagitis, without bleeding; Z79.899 Other long term (current) drug therapy | CPT/HCPCS: 99212 ==

== ENCOUNTER 2022-07-02 12:45 | Outpatient (REF) | payer MEDICARE, MEDICAID, SELFPAY ==
--- NOTE | ~2022-07-02 | CT_ITS ---
EXAMINATION: CT SINUS WITHOUT CONTRAST CLINICAL INFORMATION: Sinonasal polyps and deviated septum. COMPARISON: There are no prior studies available for comparison. TECHNIQUE: Multidetector helical imaging was performed in the axial plane with generation of coronal and sagittal reformatted images. This CT examination was performed using dose optimization techniques as appropriate, variously including the following: *Automated exposure control *Adjustment of mA and/or kV according to patient size (this includes techniques or standardized protocols for targeted exams where dose is matched to indication/reason for exam; i.e. extremities or head) *Use of iterative reconstruction technique DLP: 94 mGy-cm. FINDINGS: FRONTAL SINUSES AND DRAINAGE PATHWAYS: The frontal sinuses are well developed bilaterally. They are well-aerated with patent frontal sinus drainage pathways. MAXILLARY SINUSES AND DRAINAGE PATHWAYS: The maxillary sinuses are well-developed and appear clear bilaterally. The ostiomeatal complexes are patent bilaterally. There is a secondary ostium in the medial wall of the right maxillary sinus. ETHMOID SINUSES: The ethmoid sinuses are well-developed and appear clear bilaterally. SPHENOID SINUSES AND DRAINAGE PATHWAYS: The sphenoid sinuses are well-aerated bilaterally. They are clear with patent sphenoethmoidal recesses. NASAL CAVITY AND NASAL SEPTUM: Anteriorly the nasal septum is deviated to the right, and more posteriorly it is slightly deviated to the left with a bony left-sided nasal septal spur. There are multiple small polyps off the inferior turbinate bones posteriorly bilaterally. There is a small left middle turbinate adriana bullosa. ADDITIONAL RELEVANT FINDINGS: The lamina papyracea are intact. The carotid canals are normally covered by bone. The ethmoid roofs are symmetric. The patient is edentulous in the mandible and maxilla. The TMJs and orbits are normal. The visualized mastoid air cells are clear. There are no acute intracranial findings. CT/CT sinus wo IV con IMPRESSION: 1. There is no active sinus disease. 2. The ostiomeatal complexes are patent bilaterally. 3. The nasal septum is deviated as described above and there is a left-sided bony nasal septal spur.
== END 2022-07-02 12:46 | disposition home or self-care (01) ==
LOC: HO.CT 12:45
PROVIDERS: PCP Nurse Practitioner Family; Visit Provider Otolaryngology
DX: J33.9 Nasal polyp, unspecified (principal); J34.2 Deviated nasal septum
CPT/HCPCS: 70486

== ENCOUNTER 2022-07-21 09:31 | Outpatient (REF) | payer MEDICARE, MEDICAID, SELFPAY ==
--- NOTE | ~2022-07-21 | XR_ITS ---
EXAMINATION: Bilateral knee x-ray CLINICAL INFORMATION: Pain COMPARISON: Previous exams most recent November 2018 TECHNIQUE: 3 views of each knee FINDINGS: Right: There is varus angulation. There is slight medial subluxation of the distal femur with respect to the proximal tibia. Bone alignment is otherwise normal. No fracture or dislocation. There is tricompartment arthritis greatest at the medial femoral tibial joint. There is a small joint effusion. Left: There is orthopedic hardware in the lateral plateau suggestive of ORIF of old fracture. No acute fracture or dislocation. There is severe tricompartment osteoarthritis with joint space narrowing and osteophyte formation. There is a small joint effusion. XR/XR knee standing BI IMPRESSION: Bilateral arthritis, left greater than right. Evidence of old trauma to the left proximal tibia.
--- NOTE | ~2022-07-21 | XR_ITS ---
EXAMINATION: Bilateral knee x-ray CLINICAL INFORMATION: Pain COMPARISON: Previous exams most recent November 2018 TECHNIQUE: 3 views of each knee FINDINGS: Right: There is varus angulation. There is slight medial subluxation of the distal femur with respect to the proximal tibia. Bone alignment is otherwise normal. No fracture or dislocation. There is tricompartment arthritis greatest at the medial femoral tibial joint. There is a small joint effusion. Left: There is orthopedic hardware in the lateral plateau suggestive of ORIF of old fracture. No acute fracture or dislocation. There is severe tricompartment osteoarthritis with joint space narrowing and osteophyte formation. There is a small joint effusion. XR/XR knee LT 2V IMPRESSION: Bilateral arthritis, left greater than right. Evidence of old trauma to the left proximal tibia.
--- NOTE | ~2022-07-21 | XR_ITS ---
EXAMINATION: Bilateral knee x-ray CLINICAL INFORMATION: Pain COMPARISON: Previous exams most recent November 2018 TECHNIQUE: 3 views of each knee FINDINGS: Right: There is varus angulation. There is slight medial subluxation of the distal femur with respect to the proximal tibia. Bone alignment is otherwise normal. No fracture or dislocation. There is tricompartment arthritis greatest at the medial femoral tibial joint. There is a small joint effusion. Left: There is orthopedic hardware in the lateral plateau suggestive of ORIF of old fracture. No acute fracture or dislocation. There is severe tricompartment osteoarthritis with joint space narrowing and osteophyte formation. There is a small joint effusion. XR/XR knee RT 2V IMPRESSION: Bilateral arthritis, left greater than right. Evidence of old trauma to the left proximal tibia.
== END 2022-07-21 09:32 | disposition home or self-care (01) ==
LOC: HO.HOSX 09:31
PROVIDERS: Visit Provider Physician Assistant
DX: M17.0 Bilateral primary osteoarthritis of knee (principal)
CPT/HCPCS: 20610; 73560; 73565; 99202; J1040

== ENCOUNTER → 2022-09-02 13:00 | Outpatient (BNVA) | payer MEDICARE, MEDICAID, SELFPAY | PROVIDERS: PCP Family Medicine; Visit Provider Nurse Practitioner Family | DX: J44.9 Chronic obstructive pulmonary disease, unspecified (principal); R05.9 Cough, unspecified; Z79.52 Long term (current) use of systemic steroids | CPT/HCPCS: 99212 ==

== ENCOUNTER 2022-10-29 13:24 | Outpatient (AMB) | payer MEDICARE, MEDICAID, SELFPAY ==
--- NOTE | 2022-10-29 13:30 | MHC.OFFVIS ---
Intake Vital Signs 10/29/22 13:37 Height 5 ft 3 in Weight 270 lb BMI 47.8 BP 132/76 Blood Pressure Location Lt brachial Position Sitting Pulse 76 Intake Visit Reasons: 4-5 month fu Intake Note: Patient follow up for Cholelithiasis. Patient cc: Nauseas, abdominal pain/bloating, GERD, and Constipation. Internal Communications Writer Required: No Accompanied by: Self / Same As Patient Allergies Penicillins Allergy (Intermediate, Verified 09/23/22 11:05) RASH-FULL BODY Sulfa (Sulfonamide Antibiotics) Allergy (Intermediate, Verified 09/23/22 11:05) RASH-FULL BODY Medication List - Last Reconciled 10/29/22 by Tonio Christianson MD albuterol sulfate 2.5 mg inhalation BID PRN albuterol sulfate 90 mcg/actuation 2 puffs PO Q6H PRN arformoterol 15 mcg (2 mL) inhalation BID aspirin 81 mg PO DAILY atorvastatin 80 mg PO QPM budesonide 0.25 mg (2 mL) inhalation BID [id number]-xmkmginuel-yxy-cod [id number] mg 1 cap PO Q4H PRN clobetasol 0.05% 1 appl topical BID PRN cyclobenzaprine 10 mg PO BEDTIME PRN 14 days Daliresp (roflumilast) 500 mcg PO DAILY NS estradiol 0.01%(0.1mg/gram) 1 g vaginal 3XW fluticasone propionate 50 mcg/actuation (Flonase Allergy Relief) 1 spray intranasal Q12H 30 days lorazepam 0.5 mg PO DAILY meclizine 12.5 mg PO DAILY PRN 30 days moxifloxacin 0.5% 1 drp ophthalmic (eye) TID 7 days nebulizers As directed omeprazole 40 mg PO BID 90 days Spiriva Respimat 2.5 mcg/actuation (tiotropium bromide) 2 puffs PO DAILY NS HPI 4-5 month fu HPI Details GI CLINIC VISIT FOR THIS 62-YEAR-OLD FEMALE FOR FOLLOW-UP OF GERD AND CHRONIC DIARRHEA IMAGING STUDIES:? 2017 GASTRIC EMPTYING STUDY SHOWED: Only subtle retention of activity noted at the end of 4 hours. Some of the measured retention may be from superimposed bowel activity. Visually there is no significant residual activity. ENDOSCOPIC STUDIES: 2013 EGD SHOWED: IMPRESSION: 1. Superficial gastritis primarily antral in location. 2. Possibility of diffuse esophageal spasm is raised. ?COMMENT: With patients elevated BMI and increased soft tissue presence in the posterior pharynx, this is certainly consistent with risk factors for obstructive sleep apnea. Some of these actually have difficulty swallowing due to redundant soft tissue in the posterior pharynx, which may allow food to collect in the vallecular region, etc. The patient will be seen back in our office in approximately 6 weeks to review options for further management. 2008 colonoscopy was performed by Dr. Austin - normal except small hemorrhoids. September, - stool FIT test was negative ?TODAY'S VISIT: Patient cc: Nauseas, abdominal pain/bloating, GERD, and Constipation. Not doing so good. Food seems to back up when she has a decent size meals Takes 1 meal a day and protein shakes the rest of the day. She is able to swallow and feels food and fluids move slowly from the esophagus into the stomach and feels pressure in her chest after eating Having reflux symptoms despite taking Omeprazole. Also had some constipation corretable with some laxatives Can feel very full in the upper abdomen. Had 4 courses of Prednisone for sinus infection over the past few months. PAST VISIT: Patient follow up for Asymptomatic gallstones. Pt upset since she lost her 58 year old friend and room mate - of small cell cancer (diagnosed in Dec, 2021) Denies RUQ or shoulder pain. Feels bloated after eating - likely related to gastroparesis Occasional LLQ pain after eating fatty foods. Has chronic LBP and a hx of kidney stones. Back pain improves with taking a muscle relaxant. Patient cc: abdominal bloating come and go, heart burn, diarrhea/constipation, and some dysphagia. Denies any other GI issues. Has been undergoing evaluation for fatigue/exhaustion - Cardiology and Pulmonary Seen by a Geographic Area Intelligence Officer for a positive ESTEBAN Intermittent dysphagia with solids - chicken, pasta. Taking more fruits and vegetables and takes an MVI daily. Having more reflux and indigestion especially an hour after dinner at night (between 6 and 8 pm) while she is sitting. Concerned about reaction to COVID Booster injection. Feels like indigestion. Also feels wiped out a few days a week. denies fever, chills or sweating. Takes Omeprazole at bedtime - 10 or 11 pm. Diagnosed with kidney stones and scheduled for cystoscopic removal at [facility]. Had CT scan recently at [facility] which showed gallstones. GERD symptoms well controlled with Omeprazole 40 mg twice daily. Continues to have dysphagia with pills and nuts - eats after taking pills to help swallow her medications. Denies dysphagia with liquids. Denies diarrhea and has constipation. Having a BM every 2-3 days with laxatives. Decreased appetite and is eating lightly. Patient denies major cardiac or pulmonary problems, and has a hx of sleep apnea Denies problems with anesthesia in the past. Denies being on chronic anticoagulation. Patient denies known family history of colon polyps, colon cancer or other GI malignancy [facility] Medical History Asthma-COPD overlap syndrome Blepharitis of eyelid of left eye GERD (gastroesophageal reflux disease) Morbid obesity ROSITA (obstructive sleep apnea) Surgical History H/O esophagogastroduodenoscopy H/O wisdom tooth extraction History of colonoscopy History of hernia repair History of tonsillectomy and adenoidectomy Family History Father Aneurysm Peptic ulcer disease Mother Cardiovascular disease Asthma Social History Household Members: Friend(s) Housing: House Alcohol intake: never Patient Tobacco Use Status: Never used Tobacco e-Cigarette/Vaping Use: Never Used Second Hand Smoke Exposure: No service: No Current occupational status: employed and disabled 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 Current occupational exposures/hazards: No Cognitive needs: No Hearing needs: No Vision needs: No Review of Systems Const All systems reviewed & are unremarkable except as noted in HPI and below Physical Exam Vital Signs: Last Vital Signs Pulse 76 10/29/22 13:37 BP 132/76 10/29/22 13:37 BMI result Body Mass Index 47.8 Const General: no acute distress Nutritional Appearance: obese Orientation/consciousness: patient oriented x3 Limitations: ambulation with cane and wheelchair HEENT Head: Yes normal to inspection Ears: hearing grossly normal bilaterally Eyes Sclerae: sclerae normal Pupils: Equal, round and reactive pupils present Neck Neck: Yes normal visual inspection Chest Chest palpation & inspection: normal inspection of the chest Resp Effort & Inspection: normal respiratory effort Auscultation: clear to auscultation bilaterally Cardio Palpation: normal PMI Rate: regular rate Rhythm: regular rhythm Heart sounds: S1 normal heart sound present, S2 normal heart sound present and no murmurs GI Palpation (GI): Soft to palpation, Tenderness to palpation present (GI) (Minimal left lower quadrant tenderness) and No hepatosplenomegaly present Auscultation: normal bowel sounds Rectal Exam - Female: deferred Skin General skin exam: no rashes or lesions noted Neuro General: patient oriented x3, gait normal and moves all extremities Cranial nerves: Yes Equal, round and reactive pupils present Psych Appearance: grossly normal Mental Status: mental status grossly normal Assessment & Plan Assessment & Plan (1) Cholelithiasis: Code(s): K80.20 - Calculus of gallbladder without cholecystitis without obstruction (2) Pancreatic lesion: Code(s): K86.9 - Disease of pancreas, unspecified (3) Colon cancer screening: Code(s): Z12.11 - Encounter for screening for malignant neoplasm of colon (4) Chronic constipation: Code(s): K59.09 - Other constipation (5) GERD (gastroesophageal reflux disease): Code(s): K21.9 - Gastro-esophageal reflux disease without esophagitis Qualifiers: Esophagitis bleeding: without hemorrhage Esophagitis presence: with esophagitis Qualified Code(s): K21.00 - Gastro-esophageal reflux disease with esophagitis, without bleeding (6) Diarrhea: Code(s): R19.7 - Diarrhea, unspecified (7) Abnormal CT scan: Comment: 03/[address] scan without contrast at [facility] showed mild to moderate tree true peritoneal lymphadenopathy. A 3.2 cm lobular lesion in left upper quadrant (stable since August 2020 and increased in size since 2016) - possible peripancreatic fluid collection, retroperitoneal lymph angioma, or necrotic lymph nodes. Pt is unable to have an open or closed MRI due to severe claustrophobia. 10/2022 order placed for follow-up CT scan with contrast Code(s): R93.89 - Abnormal findings on diagnostic imaging of other specified body structures (8) Dysphagia, pharyngoesophageal phase: Code(s): R13.14 - Dysphagia, pharyngoesophageal phase Plan 62 YF followed in GI for GERD, dysphagia and IBS with constipation and diarrhea. 2017 gastric emptying study showed subtle retention of activity noted at the end of 4 hours. Some of the measured retention may be from superimposed bowel activity - visually no significant residual activity. Had CT scan at [facility] which showed gallstones. GERD symptoms well controlled with Omeprazole 40 mg twice daily. Continues to have dysphagia with pills and nuts - eats after taking pills to help swallow her medications. Dysphagia felt to be related to esophageal spasm/ motility disorder 05/28/22 Fu of gallstones noted on outside CT scan. Denies RUQ or shoulder pain. Feels bloated after eating - likely related to gastroparesis Occasional LLQ pain after eating fatty foods. Has chronic LBP and a hx of kidney stones. Back pain improves with taking a muscle relaxant. HIDA scan was ordered - pt is concerned about claustrophobia and lying on the exam table for extended period of time. She was advised to hold off scheduling the HIDA scan since she does not have any biliary symptoms. Post prandial bloating is likely related to Gastroparesis. Pt was advised dietary modification. If symptoms persist, I will schedule repeat GES and EGD (Pt has COPD and sleep apnea). 03/[address] scan without contrast at [facility] showed mild to moderate tree true peritoneal lymphadenopathy. A 3.2 cm lobular lesion in left upper quadrant (stable since August 2020 and increased in size since 2016) - possible peripancreatic fluid collection, retroperitoneal lymph angioma, or necrotic lymph nodes. Pt is unable to have an open or closed MRI due to severe claustrophobia. 10/2022 order placed for follow-up CT scan with contrast Patient complains of dysphagia to solids and liquids - advised further evaluation with a barium swallow. FU in [address] scan and barium swallow Orders: Orders CT abdomen w IV con Today R93.89 - Abnormal findings on diagnostic imaging of other specified body structures FL barium swallow Today R13.14 - Dysphagia, pharyngoesophageal phase Coding Level of Care Code Est Pt Level 4 (71003) Diagnoses Cholelithiasis K80.20 Pancreatic lesion K86.9 Colon cancer screening Z12.11 Chronic constipation K59.09 GERD (gastroesophageal reflux disease) K21.00 Esophagitis bleeding: without hemorrhage Esophagitis presence: with esophagitis Diarrhea R19.[address] scan R93.89 Dysphagia, pharyngoesophageal phase R13.14 Time Spent (min) 29
[2022-10-29 13:37] VITALS: BP 132/76; PULSE 76; BMI 47.8
== END 2022-10-29 14:32 | disposition home or self-care (01) ==
PROVIDERS: PCP Family Medicine; Visit Provider Internal Medicine Gastroenterology
DX: K80.20 Calculus of gallbladder without cholecystitis without obstruction (principal)
CPT/HCPCS: 99213

== ENCOUNTER → 2022-10-29 13:24 | Outpatient (BNVA) | payer MEDICAID, SELFPAY | PROVIDERS: PCP Family Medicine; Visit Provider Internal Medicine Gastroenterology ==

== ENCOUNTER 2022-11-03 12:57 | Outpatient (REF) | payer MEDICARE, MEDICAID, SELFPAY ==
[2022-11-10 21:14] LABS: HPV mRNA E6/E7 rflx Not Detected (Not Detected)
== END 2022-11-03 12:58 | disposition home or self-care (01) ==
LOC: HO.LNP 12:57
PROVIDERS: PCP Family Medicine; Visit Provider Obstetrics & Gynecology
DX: Z01.419 Encounter for gynecological examination (general) (routine) without abnormal findings (principal)
CPT/HCPCS: 87624; 88142

== ENCOUNTER 2022-11-03 12:57 | Outpatient (AMB) | payer MEDICARE, MEDICAID, SELFPAY ==
--- NOTE | 2022-11-03 12:58 | A.OFFVIS_ITS ---
Intake Vital Signs 11/03/22 13:01 Height 5 ft 3 in Weight 270 lb BMI 47.8 BP 134/62 Intake Visit Reasons: New patient Annual Candy Wrapping Machine Operator Required: No Information Interpreted: non-clinical & clinical It Training Specialist: It Training Specialist Present (Aidyn) Allergies Penicillins Allergy (Intermediate, Verified 11/03/22 13:03) RASH-FULL BODY Sulfa (Sulfonamide Antibiotics) Allergy (Intermediate, Verified 11/03/22 13:03) RASH-FULL BODY Is last menstrual period known: No Post menopausal: Yes HPI HPI Comments History of Present Illness Details Presenting for annual exam. No complaints. Last Pap/HPV was negative in 11/25 Last Mammogram was BI-RADS 1 in 04/02 Last Colonoscopy was in 2019 and since then the patient has been having yearly guaiac test through her GI because of COPD and high surgical /anesthesia risk [facility] Medical History Asthma-COPD overlap syndrome Blepharitis of eyelid of left eye GERD (gastroesophageal reflux disease) Morbid obesity ROSITA (obstructive sleep apnea) Surgical History H/O esophagogastroduodenoscopy H/O wisdom tooth extraction History of colonoscopy History of hernia repair History of tonsillectomy and adenoidectomy Family History Father Aneurysm Peptic ulcer disease Mother Cardiovascular disease Asthma Social History Household Members: Friend(s) Housing: House Alcohol intake: never Patient Tobacco Use Status: Never used Tobacco e-Cigarette/Vaping Use: Never Used Second Hand Smoke Exposure: No service: No Current occupational status: employed and disabled 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 Current occupational exposures/hazards: No Cognitive needs: No Hearing needs: No Vision needs: No Female Reproductive History Menstrual Age of Menarche: 7 control method: none Total pregnancies: 0 Date of last pap smear: 11/21/15 Date of Mammogram: 04/02/22 Review of Systems Const All systems reviewed & are unremarkable except as noted in HPI and below Card Reports as per HPI Resp Reports as per HPI GI Reports as per HPI and Reports no additional complaints Reports as per HPI Physical Exam Vital Signs: Last Vital Signs BP 134/62 11/03/22 13:01 BMI result Body Mass Index 47.8 Const General: cooperative, healthy appearing and comfortable Chest Chest palpation & inspection: normal inspection of the chest and normal palpation of entire chest wall Breast/axilla inspection: normal inspection of the breasts and normal inspection of the axillae Breast/axilla palpation: normal palpation of the breasts, normal palpation of the axillae and no axillary lymphadenopathy Resp Effort & Inspection: normal respiratory effort Auscultation: clear to auscultation bilaterally Percussion: percussion normal Cardio Palpation: normal PMI Rate: regular rate Rhythm: regular rhythm Heart sounds: no murmurs and no rubs Peripheral pulses: Peripheral pulses 2+ throughout GI Inspection: Yes normal to inspection Palpation (GI): Soft to palpation, nontender, no guarding, not rigid and No hepatosplenomegaly present Percussion: Yes normal to percussion Auscultation: normal bowel sounds Rectal Exam - Female: deferred General: Yes bladder normal to palpation External Female Exam: No lesion Speculum Exam - Vagina: normal appearance of the vagina, normal palpation, normal vaginal discharge and not erythematous Speculum Exam - Cervix: normal appearance of the cervix and normal palpation Bimanual exam- vagina & uterus: normal bimanual exam, normal palpation, uterine size normal, bladder normal to palpation, consistency normal and normal palpation Bimanual Exam- Adnexa, other: normal adnexae, no masses and no tenderness Assessment & Plan Assessment & Plan (1) Well woman exam: Code(s): Z01.419 - Encounter for gynecological examination (general) (routine) without abnormal findings Plan: Co testing done. Counseled the patient about the recommended dietary allowance of 1200 mg of Calcium & 600 IU of vitamin D. Mammogram ordered for 04/03 , the patient being manage by GI for screening for colon cancer. Recommended DEXA scan at age of 63 the patient elected to discuss it with her PCP. The patient was instructed to perform monthly self-breast exams and schedule annual exam in a year; all questions answered and the patient verbalized understanding. Orders: Orders Pap Smear Today Z01.419 - Encounter for gynecological examination (general) (routine) without abnormal findings MM screening mammo BI 6 Months Z12.31 - Encounter for screening mammogram for malignant neoplasm of breast Coding Level of Care Code New Pt Prev Care 40-64y(84098) Diagnoses Well woman exam Z01.419
[2022-11-03 13:01] VITALS: BP 134/62; BMI 47.8
== END 2022-11-03 13:39 | disposition home or self-care (01) ==
LOC: HO.HWS 12:57
PROVIDERS: PCP Family Medicine; Visit Provider Obstetrics & Gynecology
DX: Z01.419 Encounter for gynecological examination (general) (routine) without abnormal findings (principal)
CPT/HCPCS: 99386

== ENCOUNTER 2022-11-12 14:00 | Outpatient (AMB) | payer MEDICARE, MEDICAID, SELFPAY ==
--- NOTE | 2022-11-12 14:07 | A.OFFPC_ITS ---
Vital Signs 11/12/22 14:09 Height 5 ft 3 in BP 122/68 Blood Pressure Location Lt brachial Position Sitting Pulse 73 Pulse Source Pulse Oximeter Temp 98.3 F Temp Source Oral Pulse Oximetry (%) 98 Oxygen Delivery Method Room Air Oxygen Flow Rate 98.3 Intake Visit Reasons: fatigue, lightheaded Intake Note: Patient is here with migraine headache, nausea, lightheaded, that comes and goes for 3 weeks. Allergies Penicillins Allergy (Intermediate, Verified 11/12/22 14:11) RASH-FULL BODY Sulfa (Sulfonamide Antibiotics) Allergy (Intermediate, Verified 11/12/22 14:11) RASH-FULL BODY Tobacco use date assessed: 11/12/22 Fall risk assessment: No Falls in past year Last assessed Fall Risk: 11/12/22 Dental Screening Dental Screen Date: 11/12/22 Did you have a dental visit in the last 12 months?: No Did you have a dental problem in the last 6 months where you did not have access to dental care?: No Was dental information given to patient?: No HPI fatigue, lightheaded HPI Details 62 y/o female presents today with complaints of fatigue/lightheadedness. No recent labs to review. Pt reports fatigue/lightheadedness that is worse in the afternoon. Pt reports she does have a mild sleep apnea. She does not use a CPAP machine. She has an appt. with Cardiology coming up. She continues to use a steroid nasal spray and zyrtec for her breathing daily. [facility] Medical History Asthma-COPD overlap syndrome Blepharitis of eyelid of left eye GERD (gastroesophageal reflux disease) Morbid obesity ROSITA (obstructive sleep apnea) Surgical History H/O esophagogastroduodenoscopy H/O wisdom tooth extraction History of colonoscopy History of hernia repair History of tonsillectomy and adenoidectomy Family History Father Aneurysm Peptic ulcer disease Mother Cardiovascular disease Asthma Social History Household Members: Friend(s) Housing: House Alcohol intake: never Patient Tobacco Use Status: Never used Tobacco e-Cigarette/Vaping Use: Never Used Second Hand Smoke Exposure: No service: No Current occupational status: employed and disabled 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 Current occupational exposures/hazards: No Cognitive needs: No Hearing needs: No Vision needs: No Female Reproductive History Menstrual Age of Menarche: 7 Questionnaire Thrive Questionnaire Date Thrive assessed: 04/02/21 Review of Systems Const Denies chills, Reports fatigue, Denies fever(s), Denies headache(s) and Denies w eakness ENT Denies dizziness and Denies headache(s) Card Denies dyspnea Resp Denies cough, Denies dyspnea, Denies wheezing and Denies other (shortness of breath) Musc Denies numbness and Denies tingling Neuro Denies dizziness, Denies headache(s), Denies numbness, Denies tingling and Denies weakness Psych Denies anxiety and Denies depression Endo Reports fatigue Aller/Immun Denies wheezing Physical exam (Primary Care) Vital Signs: Last Vital Signs Temp 98.3 F 11/12/22 14:09 Pulse 73 11/12/22 14:09 BP 122/68 11/12/22 14:09 Pulse Ox 98 11/12/22 14:09 Oxygen Delivery Method Room Air 11/12/22 14:09 Oxygen Flow Rate 98.3 11/12/22 14:09 Tobacco/Smoking Status: Tobacco use Status Tobacco use date assessed 11/12/22 11/12/22 14:18 Patient Tobacco Use Status Never used Tobacco 11/12/22 14:18 e-Cigarette/Vaping Use Never Used 11/12/22 14:18 Thrive Assessment: Date of Thrive Assessment Date Thrive assessed 04/02/21 11/12/22 14:18 Const General: well developed; No acute distress Nutritional Appearance: well nourished Orientation/consciousness: patient oriented x3 HENMT Head: Yes normocephalic and Yes atraumatic Eyes General: appearance normal, both eyes and all related structures Pupils: Equal, round and reactive pupils present EOM: EOMs intact bilaterally Resp Effort & Inspection: normal respiratory effort Neuro General: patient oriented x3 and gait normal Cranial nerves: Yes Equal, round and reactive pupils present Psych Affect: normal affect Assessment and Plan Assessment & Plan (1) Fatigue: Code(s): R53.83 - Other fatigue Plan: Fatigue and lightheadedness with unclear cause Symptoms occur her most often in the afternoon in a cyclic fashion so unlikely to be related to her heart. She has an appointment with cardiology at the end of the year. No cardiac chest pain. She does have fibromyalgia which can lead to fatigue. She does have sleep apnea without a CPAP and this may have worsened. Advised she sleep on her side with a wedge. May have electrolyte or metabolic changes causing fatigue so I am checking labs. Possibly allergic-continue nasal steroid and antihistamine Will follow-up in 1-2 weeks. Call or return to office if any new concerning symptoms (2) Lightheadedness: Code(s): R42 - Dizziness and giddiness Plan: As above (3) Sleep apnea: Code(s): G47.30 - Sleep apnea, unspecified Plan: As above (4) Asthma-COPD overlap syndrome: Code(s): J44.9 - Chronic obstructive pulmonary disease, unspecified Plan: As above (5) Migraines: Code(s): G43.909 - Migraine, unspecified, not intractable, without status migrainosus Plan: Frequent migraines and saw neurology who suggested beta-swathi medication Patient was apprehensive about this and concerned that her blood pressures would become too low. We discussed that in low doses beta-blockers can be effective at decreasing the incidence of migraines without significantly affecting blood pressure. She will continue to consider this. Follow-up with Neurology Orders: Orders Comprehensive [place]. Panel Fast Today R53.83 - Other fatigue, Z00.00 - Encounter for general adult medical examination without abnormal findings Troponin-I High Sensitivity Today R53.83 - Other fatigue TSH reflex Free T4 Today R53.83 - Other fatigue, Z00.00 - Encounter for general adult medical examination without abnormal findings Complete Blood Count Auto Diff Today R53.83 - Other fatigue, Z00.00 - Encounter for general adult medical examination without abnormal findings Vitamin B12 and Folate Today E53.8 - Deficiency of other specified B group vitamins, R53.83 - Other fatigue IRON PROFILE Today R53.83 - Other fatigue Vitamin D 25-OH Total Today E55.9 - Vitamin D deficiency, unspecified, R53.83 - Other fatigue Coding Level of Care Code Est Pt Level 4 (65292) Diagnoses Fatigue R53.83 Lightheadedness R42 Sleep apnea G47.30 Asthma-COPD overlap syndrome J44.9 Migraines G43.909
[2022-11-12 14:09] VITALS: BP 122/68; PULSE 73; TEMP 36.8; O2SAT 98
== END 2022-11-12 14:46 | disposition home or self-care (01) ==
PROVIDERS: PCP Family Medicine; Visit Provider Family Medicine
DX: R53.83 Other fatigue (principal); R42 Dizziness and giddiness; J44.9 Chronic obstructive pulmonary disease, unspecified; G47.30 Sleep apnea, unspecified
CPT/HCPCS: 99214

== ENCOUNTER 2022-11-13 12:38 | Outpatient (REF) | payer MEDICARE, MEDICAID, SELFPAY ==
[2022-11-13 16:09] LABS: MANUAL DIFF FLAG NO
[2022-11-13 16:28] LABS: Basophils Percent Auto 0.6 % (0-2); Eosinophils Absolute Auto 0.2 X10*3/uL (0.0-0.4); Eosinophils Percent Auto 3.6 % (0-4); Hematocrit 38.4 % (37.0-47.0); Hemoglobin 12.3 g/dl (12.0-16.0); Imm Gran Abs Auto 0.02 X10*3/uL (0.00-0.03); Imm Gran Pct Auto 0.3 % (0.0-0.4); Lymphocytes Absolute Auto 1.1 X10*3/uL (1.2-4.9); Mean Corpuscular Hemoglobin 29.6 pg (27.0-33.0); Mean Corpuscular Volume 92.3 fL (80.0-98.0); Mean Platelet Volume 10.1 fL (9.4-12.3); Monocytes Absolute Auto 0.4 X10*3/uL (0.1-1.2); Monocytes Percent Auto 6.6 % (2-11); Neutrophils Absolute Auto 4.8 x10*3/uL (2.0-8.3); Neutrophils Percent Auto 71.9 % (45-73); Platelet Count 309 X10*3/uL (160-400); Red Blood Count 4.16 X10*6/uL (4.20-5.50); Red Cell Distribution Width 12.8 % (11.0-16.0); White Blood Count 6.7 X10*3/uL (4.8-10.8)
[2022-11-13 16:54] LABS: Troponin-I High Sensitivity 4.2 ng/L (<3.5-17.0)
[2022-11-13 16:56] LABS: Alanine Aminotransferase 16 U/L (0-31); Alkaline Phosphatase 90 U/L (39-117); Anion Gap 15 (12-20); Aspartate Amino Transferase 13 U/L (5-31); Bilirubin Total 0.3 mg/dL (0.0-1.0); Blood Urea Nitrogen 16 mg/dL (9-16); Calcium 9.3 mg/dL (8.4-10.2); Carbon Dioxide 20 mmol/L (22-29); Chloride 110 mmol/L (96-108); Estimated Glomerular Filt Rate > 60; Glucose Fasting 130 mg/dL (60-99); Iron 79 mcg/dL (30-160); Percent Iron Saturation 30 % (15-50); Potassium 4.1 mmol/L (3.3-5.1); Sodium 141 mmol/L (135-145); Total Iron Binding Capacity 266 mcg/dL (228-428); Total Protein 6.8 g/dL (6.5-8.0); Unsaturated Iron Binding 187 ug/dL
[2022-11-13 17:12] LABS: TSH reflex Free T4 1.91 uIU/mL (0.32-4.0); Vitamin D 25-OH Total 35.5 ng/mL (>30)
[2022-11-13 17:17] LABS: Folate 13.1 ng/mL (> or = 4.0); Vitamin B12 442 pg/mL (200-900)
== END 2022-11-13 12:39 | disposition home or self-care (01) ==
LOC: HO.HMGCLDS 12:38
PROVIDERS: Absent Provider Internal Medicine Gastroenterology; PCP Family Medicine; Visit Provider Family Medicine
DX: Z00.00 Encounter for general adult medical examination without abnormal findings (principal); R53.83 Other fatigue; E55.9 Vitamin D deficiency, unspecified; E53.8 Deficiency of other specified B group vitamins; R93.89 Abnormal findings on diagnostic imaging of other specified body structures
CPT/HCPCS: 36415; 80053; 82306; 82607; 82746; 83540; 84443; 84484; 85025; 85027

== ENCOUNTER 2022-11-17 10:31 | Outpatient (REF) | payer MEDICARE, MEDICAID, SELFPAY ==
--- NOTE | ~2022-11-17 | FL_ITS ---
EXAMINATION: FL BARIUM SWALLOW CLINICAL INFORMATION: Dysphasia, parapharyngeal esophageal phase. Rule out stricture or motility disorder. COMPARISON: None available. TECHNIQUE: Barium swallow examination is performed using fluoroscopic evaluation in addition to multiple fluoroscopic spot views. The patient is imaged both upright addition only due to patient limitations using both thick barium sulfate along with effervescent granules. Fluoroscopy time: 1.0 minutes DAP: 8.495 Gycm2 Images: 15 FINDINGS: Study was somewhat limited due to patient inability to tolerate prolonged upright positioning. The oropharyngeal phase was normal. There is a prominent cricopharyngeal bar present, consistent with cricopharyngeal achalasia. There was significant hypopharyngeal contrast distention (best seen image 2 of 5 of series 1) which passed quickly without functional obstruction. No mass or mucosal lesion identified in the hypopharynx or proximal esophagus. There was significant pooling in the vallecula and mild pooling in the perform sinuses which cleared upon subsequent swallows. No esophageal stricture, mass, or definite mucosal abnormality identified. In particular, the proximal one half the esophagus appears normal. Mild presbyesophagus was noted in the distal one half of the esophagus although the primary peristaltic wave was propulsive. No definite reflux or hiatus hernia was seen. Incidentally noted moderate degenerative changes of the thoracic spine. FL/FL barium swallow IMPRESSION: 1. Slightly limited study due to inability of the patient to tolerate upright and generalized positioning for the examination due to knee pain and disabilities. 2. 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 The hypopharynx was somewhat significantly distended in the hypopharyngeal phase, however. 3. Contrast pooling in the vallecula and piriform sinuses, both which cleared upon subsequent swallows. No aspiration was evident. 4. Mild presbyesophagus. Esophagus otherwise normal.
== END 2022-11-17 10:32 | disposition home or self-care (01) ==
LOC: HO.XRAY 10:31
PROVIDERS: PCP Family Medicine; Visit Provider Internal Medicine Gastroenterology
DX: R13.14 Dysphagia, pharyngoesophageal phase (principal)
CPT/HCPCS: 20600; 74220; 99212; J1020

== ENCOUNTER → 2022-11-17 10:32 | Outpatient (BNV) | payer MEDICARE, MEDICAID, SELFPAY | PROVIDERS: PCP Family Medicine; Visit Provider Radiology Diagnostic Radiology | DX: R13.12 Dysphagia, oropharyngeal phase (principal) | CPT/HCPCS: 74221 ==

== ENCOUNTER 2022-11-17 12:17 | Outpatient (AMB) | payer MEDICARE, MEDICAID, SELFPAY ==
[2022-11-17 12:23] VITALS: BMI 47.8
--- NOTE | 2022-11-17 12:23 | MHC.OFFVIS ---
Intake Vital Signs 11/17/22 12:23 Height 5 ft 3 in Weight 270 lb BMI 47.8 Intake Visit Reasons: New Prob- b/L hand pain Intake Note: Daxa 62 yr old female presents today for a new problem visit for her right CMC joint pain. Patient is S/P left CMC joint injection from 12/23/[address] Caruso. Patient states her right index feels tight with extension motion and soreness in her right thumb CMC joint. Also she is having pain in her left CMC joint. States in October 2021 she received an injection by her tape stringer with some relief. 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 She has left basal joint OA, and has received multiple injections. By me: 09/03/20 & 12/23/20, and by her Global Account Manager in 10/2021, all with relief. She complains of pain in her right thumb with pinching and gripping activities, and says it is similar to her left thumb pain. She says her right thumb pain has improved somewhat in the last few months She complains of pain and a feeling of tightness in the dorsal aspect of the right index finger when she tries to bring it into a fist. She has bilateral knee OA and finds it difficult to walk. She has Fibromyalgia and cardiovascular disease [facility] Medical History Asthma-COPD overlap syndrome Blepharitis of eyelid of left eye GERD (gastroesophageal reflux disease) Morbid obesity ROSITA (obstructive sleep apnea) Surgical History H/O esophagogastroduodenoscopy H/O wisdom tooth extraction History of colonoscopy History of hernia repair History of tonsillectomy and adenoidectomy Family History Father Aneurysm Peptic ulcer disease Mother Cardiovascular disease Asthma Social History Household Members: Friend(s) Housing: House Alcohol intake: never Patient Tobacco Use Status: Never used Tobacco e-Cigarette/Vaping Use: Never Used Second Hand Smoke Exposure: No service: No Current occupational status: employed and disabled 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 Current occupational exposures/hazards: No Cognitive needs: No Hearing needs: No Vision needs: No Female Reproductive History Menstrual Age of Menarche: 7 Review of Systems Const All systems reviewed & are unremarkable except as noted in HPI and below Physical Exam Vital Signs: BMI result Body Mass Index 47.8 Const General: no acute distress and alert Orientation/consciousness: patient oriented x3 Neuro General: patient oriented x3 Extrem Other: Evaluation of Bilateral Upper Extremity: The patient is alert, oriented, and in no acute distress Neuro: Median, Ulnar, Radial nerves motor and sensory intact and sensation is normal to the tips of all digits Vascular: Cap refill brisk ROM: She can make a fist and extend all her digits Initially she could bring her right index finger MCP joint from full extension to ~70 degrees of flexion We worked on ROM exercises in clinic, and before leaving she could bring her MCP joint to ~85 degrees of flexion Some extrinsic tightness of the index finger No locking or catching Tender over the left basal joint Mild tenderness over the dorsal aspect of the right index finger MCP joint No tenderness over the 1st dorsal compartment No tenderness over the a1 gretel Psych Appearance: grossly normal Affect: normal affect Attitude: cooperative Office Procedures Fracture Care Details: No fracture, injection Fracture Billing Code: Fracture Billing Code Results Reviewed Results Reviewed: 11/17/22 12:39 Lidocaine HCl 1 % [Xylocaine 1 %] 2 ml .ROUTE .STK-MED ONE methylPREDNISolone acetate [DEPO-MedroL] 40 mg .ROUTE .STK-MED ONE Assessment & Plan Assessment & Plan (1) Arthritis of carpometacarpal (CMC) joint of left thumb: Code(s): M18.12 - Unilateral primary osteoarthritis of first carpometacarpal joint, left hand (2) Stiffness of finger joint of right hand: Code(s): M25.641 - Stiffness of right hand, not elsewhere classified Plan Assessment and plan: 1. Left basal joint osteoarthritis Date of injections: 11/17/22, 12/23/20, 09/03/20 by wi Rheumatology injection: 10/2021 I educated the patient about this condition I discussed treatment options I recommend a steroid injection and she continue to wear her splint I discussed activity modification, she is to limit or avoid any heavy or repetitive pinching or gripping activities She was fitted for a new comfort cool brace today to wear with activity Injection #1 : The risks and benefits of a steroid injection including but not limited to risk of damage to blood vessels, nerve, tendon, infection, skin bleaching, persistent or worsening pain, and failure to improve symptoms were discussed with the patient and they wish to proceed with the steroid injection. Once consent was obtained the skin over the dorsum of the left basal joint was sterilely prepped. The joint was then injected with a combination of 1 mL of (40 mg/ml} Depo-Medrol and 1% plain Lidocaine. The patient appears to have tolerated the procedure well and with no complications. She had good early relief before leaving clinic today. She knows that they may not have another steroid injection into this joint for least 4 months. 2. Right index finger pain & stiffness I educated her about arthritis and about stiffness. She is going to work on ROM exercises at home Follow-up p.r.n. Scribed for Montserrat Caruso MD by Surjit Cortez, medical support assistant, on 11/17/22 at 12:45 PM, EST. Coding Level of Care Code Est Pt Level 3 (30043) Diagnoses Arthritis of carpometacarpal (CMC) joint of left thumb M18.12 Stiffness of finger joint of right hand M25.641 CPT Codes Fracture Care - Fracture Billing Code: Fracture Billing Code ([id number])
== END 2022-11-17 13:01 | disposition home or self-care (01) ==
PROVIDERS: PCP Family Medicine; Visit Provider Orthopaedic Surgery
DX: M18.12 Unilateral primary osteoarthritis of first carpometacarpal joint, left hand (principal); M25.641 Stiffness of right hand, not elsewhere classified
CPT/HCPCS: 20600; 99213

== ENCOUNTER 2022-11-25 14:35 | Outpatient (AMB) | payer MEDICARE, MEDICAID, SELFPAY ==
--- NOTE | 2022-11-25 14:54 | MHC.PC.OV ---
Vital Signs 11/25/22 14:57 Height 5 ft 3 in BMI Reason not done Patient refused/unable BP 120/60 Blood Pressure Location Lt brachial Position Sitting Pulse 89 Pulse Source Pulse Oximeter Pulse Oximetry (%) 97 Oxygen Delivery Method Room Air Intake Visit Reasons: f/u chronic conditons Intake Note: Patient is here for follow up visit on chronic conditions. Allergies Penicillins Allergy (Intermediate, Verified 11/25/22 14:58) RASH-FULL BODY Sulfa (Sulfonamide Antibiotics) Allergy (Intermediate, Verified 11/25/22 14:58) RASH-FULL BODY Tobacco use date assessed: 11/12/22 HPI f/u chronic conditons HPI Details 62 y/o female presents to f/u chronic conditions. Labs were drawn 11/13/22. Reviewed labs with pt. RBC mildly low at 4.16. Labs were unrevealing. Pt reports medications seem to be working for her migraines but does feel fatigued after her migraines. She reports it has been about 10 days since her last migraine episode. She reports she continues to try and reduce her stress and has been watching what she eats. Pt reports ongoing ear pain. [facility] Medical History (Updated 11/25/22 @ 15:39 by Deny Geiger) Asthma-COPD overlap syndrome Blepharitis of eyelid of left eye GERD (gastroesophageal reflux disease) Morbid obesity ROSITA (obstructive sleep apnea) Pulmonary nodules Surgical History H/O esophagogastroduodenoscopy H/O wisdom tooth extraction History of colonoscopy History of hernia repair History of tonsillectomy and adenoidectomy Family History Father Aneurysm Peptic ulcer disease Mother Cardiovascular disease Asthma Social History Household Members: Friend(s) Housing: House Alcohol intake: never Patient Tobacco Use Status: Never used Tobacco e-Cigarette/Vaping Use: Never Used Second Hand Smoke Exposure: No service: No Current occupational status: employed and disabled 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 Current occupational exposures/hazards: No Cognitive needs: No Hearing needs: No Vision needs: No Female Reproductive History Menstrual Age of Menarche: 7 Questionnaire Thrive Questionnaire Date Thrive assessed: 04/02/21 Review of Systems Const Reports fatigue, Denies headache(s) and Denies weakness ENT Denies dizziness and Denies headache(s) Card Denies chest pain, Denies lightheadedness, Denies dyspnea and Denies other (Palpitations) Resp Denies cough, Denies dyspnea, Denies wheezing and Denies other ( shortness of breath) Musc Denies numbness and Denies tingling Neuro Denies dizziness, Denies headache(s), Denies numbness, Denies tingling, Denies paresthesias and Denies weakness Psych Denies anxiety and Denies depression Endo Reports fatigue Aller/Immun Denies wheezing Physical exam (Primary Care) Vital Signs: Last Vital Signs Pulse 89 11/25/22 14:57 BP 120/60 11/25/22 14:57 Pulse Ox 97 11/25/22 14:57 Oxygen Delivery Method Room Air 11/25/22 14:57 Tobacco/Smoking Status: Tobacco use Status Tobacco use date assessed 11/12/22 11/25/22 14:55 Patient Tobacco Use Status Never used Tobacco 11/25/22 14:55 e-Cigarette/Vaping Use Never Used 11/25/22 14:55 Thrive Assessment: Date of Thrive Assessment Date Thrive assessed 04/02/21 11/25/22 14:55 Const General: no acute distress and well developed Nutritional Appearance: well nourished Orientation/consciousness: patient oriented x3 HENMT Head: Yes normocephalic and Yes atraumatic Eyes General: appearance normal, both eyes and all related structures Pupils: Equal, round and reactive pupils present EOM: EOMs intact bilaterally Resp Effort & Inspection: normal respiratory effort Auscultation: clear to auscultation bilaterally Cardio Rate: regular rate Rhythm: regular rhythm Heart sounds: S1 normal heart sound present, S2 normal heart sound present, no gallops, no murmurs and no rubs Neuro General: patient oriented x3 and gait normal Cranial nerves: Yes Equal, round and reactive pupils present Psych Affect: normal affect Assessment and Plan Assessment & Plan (1) Fatigue: Code(s): R53.83 - Other fatigue Plan: Ongoing fatigue which is likely multifactorial in cause. Labs were unremarkable and no single underlying cause is found. She does have fibromyalgia and sleep apnea which may be more pronounced than she suspects. She refuses CPAP sleeps on her side. Encouraged optimization of some of the potential causes of her fatigue such as working on stress reduction and headache treatments. Getting good nutrition and good sleep. Getting regular exercise. She has an appointment with pulmonology in December and she has an appointment with her laborer mine in April. (2) Sleep apnea: Code(s): G47.30 - Sleep apnea, unspecified Plan: As above (3) Migraines: Code(s): G43.909 - Migraine, unspecified, not intractable, without status migrainosus Plan: Continue current medication regimen (4) Fibromyalgia: Code(s): M79.7 - Fibromyalgia Plan: Encouraged regular exercise as tolerated (5) Ear pain: Code(s): H92.09 - Otalgia, unspecified ear Plan: Ongoing and mildly worsened ear pain. Offer referral back to her ENT but she says she will think about this. Coding Level of Care Code Est Pt Level 4 (87561) Diagnoses Fatigue R53.83 Sleep apnea G47.30 Migraines G43.909 Fibromyalgia M79.7 Ear pain H92.09
[2022-11-25 14:57] VITALS: BP 120/60; PULSE 89; O2SAT 97
== END 2022-11-25 15:48 | disposition home or self-care (01) ==
PROVIDERS: PCP Family Medicine; Visit Provider Family Medicine
DX: R53.83 Other fatigue (principal); G47.30 Sleep apnea, unspecified; G43.909 Migraine, unspecified, not intractable, without status migrainosus; M79.7 Fibromyalgia; H92.09 Otalgia, unspecified ear
CPT/HCPCS: 99214

== ENCOUNTER 2022-12-08 13:20 | Outpatient (REF) | payer MEDICARE, MEDICAID, SELFPAY ==
--- NOTE | ~2022-12-08 | CT_ITS ---
EXAMINATION: CT CHEST WITHOUT IV CONTRAST CT ABDOMEN WITH IV CONTRAST CLINICAL INFORMATION: History of pulmonary nodule. Nonspecific abnormal finding of lung field. Also, history of abnormal findings on prior diagnostic imaging. Follow-up peripancreatic fluid collection. COMPARISON: Chest CT from 11/14/2021 and 06/18/2022. Abdomen CT from 03/30/2022. TECHNIQUE: Noncontrast multidetector CT imaging examination of the chest was performed. Also, multidetector CT imaging of the abdomen was performed with intravenous administration of 85 mL Omnipaque 350. Axial images are displayed at 0.6 mm and 5 mm slice thickness. Oral contrast was given. Coronal and sagittal reformatted images were generated at the technologist's workstation and submitted for review. This CT examination was performed using dose optimization techniques as appropriate, variously including the following: *Automated exposure control *Adjustment of mA and/or kV according to patient size (this includes techniques or standardized protocols for targeted exams where dose is matched to indication/reason for exam; i.e. extremities or head) *Use of iterative reconstruction technique DLP: 809 mGy-cm for the chest and abdomen CT FINDINGS: CHEST - LUNGS AND PLEURA: The airways are unremarkable. Findings include small stable lymph nodes or nodules along the left major fissure (images 221 and 235, series 5) and stable pleural-based nodule of 0.4 cm average diameter of the right middle lobe (223, series 5). 1 x 0.6 cm subsolid nodule of the left upper lobe (images 100-106, series 5) has a 0.3 cm solid component which remains unchanged compared to 11/14/2021, although the surrounding groundglass opacity is increased compared to 11/14/2021. This groundglass opacity is stable since 06/18/2022. No new pulmonary nodule, mass or pleural effusion. Mild atelectasis at lung bases. MEDIASTINUM/LOWER NECK: Cardiac chambers are normal in size. Mitral valve annulus is calcified. Mild atherosclerosis of the thoracic aorta without aneurysm. Pulmonary arteries are normal in caliber. There is atherosclerotic calcification of the left anterior descending coronary artery. The esophagus and thyroid gland are unremarkable. LYMPHATICS: No axillary or internal mammary lymphadenopathy. Again noted is mild prominence of mediastinal lymph nodes, largest measuring up to 1 cm short axis dimension. No enlarging lymph nodes. CHEST WALL/BONES OF THORAX: Large body habitus. No chest wall mass. No acute abnormalities within the degenerated spine. Skeletal hyperostosis with presence of bulky flowing anterior ligament ossification of the thoracic spine. ABDOMEN - HEPATOBILIARY: Liver is unremarkable. Cholelithiasis. No dilated bile ducts. PANCREAS: No edema, mass or pancreatic ductal dilatation. An old small peripancreatic fluid collection or simple cyst of the retroperitoneum located superior to the splenic vein is 1.4 x 2.5 cm, compared to 1.6 x 2.6 cm if measured in a similar fashion on 03/30/2022. It has a density in range of 13 - 21 HU on this current exam. It has a stable appearance compared to 11/14/2021. SPLEEN: Normal. ADRENAL GLANDS: Normal. KIDNEYS AND URETERS: Kidneys are normal in size. A few bilateral simple renal cortical cysts are present. No renal imaging follow-up is recommended for simple cysts. Again noted are bilateral calyceal stones without hydronephrosis. The largest stone of the mid right kidney measures up to 0.9 cm maximum dimension. A somewhat curvilinear shaped stone of the posterior lower pole of the left kidney measures up to 0.8 cm. The ureters are unremarkable. BOWEL AND PERITONEUM: No dilated loops of bowel. No overt bowel wall thickening. No mesenteric fat stranding, ascites or pneumoperitoneum. ABDOMINAL WALL: Unremarkable. VESSELS: Mild atherosclerosis of the abdominal aorta without aneurysm. LYMPH NODES: No pathologic sized lymph nodes. OTHER MUSCULOSKELETAL: No suspicious bone lesions. Disc degenerative change and lumbar spine is worst at L3-L4. CT/CT abdomen w IV con IMPRESSION: * 1 x 0.6 cm subsolid nodule of the left upper lobe is stable compared to 06/18/2022, although the surrounding groundglass opacity is increased compared to 11/14/2021. Based on Fleischner Society guidelines, and since the solid component remains small at < 0.6 cm, recommend annual CT to confirm stability for 5 years. No new pulmonary nodule, mass or pleural effusion. * Mild mediastinal lymphadenopathy is unchanged. * Cholelithiasis. * Bilateral nephrolithiasis without hydronephrosis. * Small simple appearing cyst or old peripancreatic fluid collection of the retroperitoneum superior to the splenic vein is stable compared to 11/14/2021. No new abnormalities in the abdomen compared to 11/14/2021.
[2022-12-08] MEDS: iohexoL 350 MG/ML 100 ML INFUS..BTL IV (15:23)
[2022-12-08] MEDS: Barium Sulfate Oral (Berry) 450 ML ORAL.SUSP PO (15:23)
== END 2022-12-08 13:21 | disposition home or self-care (01) ==
LOC: HO.CT 13:20
PROVIDERS: PCP Family Medicine; Visit Provider Internal Medicine Gastroenterology
DX: R91.8 Other nonspecific abnormal finding of lung field (principal); R93.89 Abnormal findings on diagnostic imaging of other specified body structures
CPT/HCPCS: 71250; 74160; Q9967

== ENCOUNTER 2022-12-23 15:41 | Outpatient (AMB) | payer MEDICARE, MEDICAID, SELFPAY ==
--- NOTE | 2022-12-23 15:50 | MHC.PC.OV ---
Vital Signs 12/23/22 15:52 Height 5 ft 3 in BMI Reason not done Patient refused/unable BP 122/68 Blood Pressure Location Lt brachial Position Sitting Respiration 14 Pulse 89 Pulse Source Pulse Oximeter Temp 97.9 F Temp Source Temporal Artery Scan Pulse Oximetry (%) 99 Oxygen Delivery Method Room Air Intake Visit Reasons: f/u pre-diabetes and chronic conditions Intake Note: Patient is here to discuss pre-diatebic care and reports she if feeling aches and pains due to her fibromyalgia. Ramp Lead Required: No Accompanied by: Self / Same As Patient Allergies Penicillins Allergy (Intermediate, Verified 12/23/22 15:58) RASH-FULL BODY Sulfa (Sulfonamide Antibiotics) Allergy (Intermediate, Verified 12/23/22 15:58) RASH-FULL BODY Medication List - Last Reconciled 12/23/22 by Stan Davila MD albuterol sulfate 2.5 mg inhalation BID PRN albuterol sulfate 90 mcg/actuation 2 puffs PO Q6H PRN arformoterol 15 mcg (2 mL) inhalation BID aspirin 81 mg PO DAILY atorvastatin 80 mg PO QPM budesonide 0.25 mg (2 mL) inhalation BID [id number]-[id number]-cod [id number] mg 1 cap PO Q4H PRN clobetasol 0.05% 1 appl topical BID PRN cyclobenzaprine 10 mg PO BEDTIME PRN 14 days Daliresp (roflumilast) 500 mcg PO DAILY NS fluticasone propionate 50 mcg/actuation (Flonase Allergy Relief) 1 spray intranasal Q12H 30 days lorazepam 0.5 mg PO DAILY meclizine 12.5 mg PO DAILY PRN 30 days moxifloxacin 0.5% 1 drp ophthalmic (eye) TID 7 days nebulizers As directed omeprazole 40 mg PO BID 90 days [propanolol PO] Spiriva Respimat 2.5 mcg/actuation (tiotropium bromide) 2 puffs PO DAILY NS Tobacco use date assessed: 11/12/22 Fall risk assessment: No Falls in past year (Does not want to be asked this question. ) Last assessed Fall Risk: 12/23/22 HPI f/u pre-diabetes and chronic conditions HPI Details 62 y/o female presents to f/u pre-diabetes and chronic conditions. Last A1c 06/22/22 was 6.0%. A1c today 12/23/22 is 5.9%. Pt reports ongoing complaints of fibromyalgia. Pt reports ongoing migraines. She declines going back to her neurologist. [facility] Medical History (Updated 12/23/22 @ 16:50 by Deny Geiger) Pulmonary nodules Blepharitis of eyelid of left eye Morbid obesity GERD (gastroesophageal reflux disease) Asthma-COPD overlap syndrome ROSITA (obstructive sleep apnea) Surgical History History of hernia repair H/O esophagogastroduodenoscopy History of colonoscopy H/O wisdom tooth extraction History of tonsillectomy and adenoidectomy Family History Father Aneurysm Peptic ulcer disease Mother Cardiovascular disease Asthma Social History Household Members: Friend(s) Housing: House Alcohol intake: never Patient Tobacco Use Status: Never used Tobacco e-Cigarette/Vaping Use: Never Used Second Hand Smoke Exposure: No service: No Current occupational status: employed and disabled 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 Current occupational exposures/hazards: No Cognitive needs: No Hearing needs: No Vision needs: No Female Reproductive History Menstrual Age of Menarche: 7 Questionnaire Thrive Questionnaire Date Thrive assessed: 04/02/21 Review of Systems Const Denies chills, Denies fatigue, Denies fever(s), Denies headache(s) and Denies weakness ENT Denies dizziness and Denies headache(s) Card Denies chest pain, Denies lightheadedness, Denies dyspnea and Denies other (Palpitations) Resp Denies cough, Denies dyspnea, Denies wheezing and Denies other ( shortness of breath) Musc Denies numbness and Denies tingling Neuro Denies dizziness, Denies headache(s), Denies numbness, Denies tingling, Denies paresthesias and Denies weakness Psych Denies anxiety and Denies depression Endo Denies fatigue Aller/Immun Denies wheezing Physical exam (Primary Care) Vital Signs: Last Vital Signs Temp 97.9 F 12/23/22 15:52 Pulse 89 12/23/22 15:52 Resp 14 12/23/22 15:52 BP 122/68 12/23/22 15:52 Pulse Ox 99 12/23/22 15:52 Oxygen Delivery Method Room Air 12/23/22 15:52 Tobacco/Smoking Status: Tobacco use Status Tobacco use date assessed 11/12/22 12/23/22 15:52 Patient Tobacco Use Status Never used Tobacco 12/23/22 15:52 e-Cigarette/Vaping Use Never Used 12/23/22 15:52 Thrive Assessment: Date of Thrive Assessment Date Thrive assessed 04/02/21 12/23/22 15:52 Const General: no acute distress and well developed Nutritional Appearance: well nourished Orientation/consciousness: patient oriented x3 HENMT Head: Yes normocephalic and Yes atraumatic Eyes General: appearance normal, both eyes and all related structures Pupils: Equal, round and reactive pupils present EOM: EOMs intact bilaterally Resp Effort & Inspection: normal respiratory effort Auscultation: clear to auscultation bilaterally Cardio Rate: regular rate Rhythm: regular rhythm Heart sounds: S1 normal heart sound present, S2 normal heart sound present, no gallops, no murmurs and no rubs Neuro General: patient oriented x3 and gait normal Cranial nerves: Yes Equal, round and reactive pupils present Psych Affect: normal affect Results AMB Hemoglobin A1c AMB Hemoglobin A1c 5.9 % Last Edit by Lisa Meyer on 12/23/22 16:06 Assessment and Plan Assessment & Plan (1) Prediabetes: Code(s): R73.03 - Prediabetes Plan: A1c 5.9% which is slightly improved from 6% at last check. Pre diabetes range (2) Fibromyalgia: Code(s): M79.7 - Fibromyalgia Plan: Ongoing chronic pain Has tried tricyclic antidepressants and gabapentin and Lyrica Has not tried duloxetine We can start duloxetine at 20 mg b.i.d. Follow-up in 1 month (3) Migraines: Code(s): G43.909 - Migraine, unspecified, not intractable, without status migrainosus Plan: Ongoing migraine headaches Did not tolerate topiramate. She is on low-dose propranolol and takes Fioricet p.r.n. Continue current medication regimen Use Fioricet sparingly and watch for rebound headaches Starting duloxetine as mentioned above and hopefully this will help with her headaches as well Seeing a chiropractor and this may help also (4) Fatigue: Code(s): R53.83 - Other fatigue Plan: No clear cause of her fatigue She is followed by pulmonology will see them tomorrow and she will discuss there as well Encouraged increased activity and exercise (5) Left thigh pain: Code(s): M79.652 - Pain in left thigh Plan: Left thigh pain and quadriceps and hamstring strain Will give her a short course of cyclobenzaprine (6) Lower extremity weakness: Code(s): R29.898 - Other symptoms and signs involving the musculoskeletal system Plan: Lower extremity weakness, knee pain and unsteady gait She uses a walker She has difficulty with long distances and would benefit from a motorized scooter - ordered (7) Unsteady gait: Code(s): R26.81 - Unsteadiness on feet Plan: As above Medications: New duloxetine 20 mg PO BID 30 days 60 caps 2RF miscellaneous medical supply Motorized scooter. Daily As directed, 999 days 1 ea 0RF M17.11 - Unilateral primary osteoarthritis, right knee, M17.12 - Unilateral primary osteoarthritis, left knee, M54.50 - Low back pain, unspecified, R26.81 - Unsteadiness on feet, R29.898 - Other symptoms and signs involving the musculoskeletal system Refilled lorazepam 0.5 mg PO DAILY 28 tabs 1RF cyclobenzaprine 10 mg PO BEDTIME 14 days PRN 14 tabs 0RF muscle spasm Coding Level of Care Code Est Pt Level 4 (72747) Diagnoses Prediabetes R73.03 Fibromyalgia M79.7 Migraines G43.909 Fatigue R53.83 Left thigh pain M79.652 Lower extremity weakness R29.898 Unsteady gait R26.81
[2022-12-23 15:52] VITALS: BP 122/68; PULSE 89; RESP 14; TEMP 36.6; O2SAT 99
== END 2022-12-23 16:49 | disposition home or self-care (01) ==
PROVIDERS: PCP Family Medicine; Visit Provider Family Medicine
DX: R73.03 Prediabetes (principal); M79.7 Fibromyalgia; G43.909 Migraine, unspecified, not intractable, without status migrainosus; R53.83 Other fatigue; M79.652 Pain in left thigh; R29.898 Other symptoms and signs involving the musculoskeletal system; R26.81 Unsteadiness on feet
CPT/HCPCS: 99214

== ENCOUNTER 2022-12-24 14:16 | Outpatient (AMB) | payer MEDICARE, MEDICAID, SELFPAY ==
--- NOTE | 2022-12-24 14:24 | A.OFFVIS_ITS ---
Intake Vital Signs 12/24/22 14:25 Height 5 ft 3 in Weight 270 lb 8.115 oz BMI 47.9 Pulse 80 Pulse Source Pulse Oximeter Pulse Oximetry (%) 97 Oxygen Delivery Method Room Air Intake Visit Reasons: copd Lead Qa Analyst Required: No Allergies Penicillins Allergy (Intermediate, Verified 12/24/22 14:26) RASH-FULL BODY Sulfa (Sulfonamide Antibiotics) Allergy (Intermediate, Verified 12/24/22 14:26) RASH-FULL BODY HPI HPI Comments History of Present Illness Details The patient is a 62-year-old woman with a known history of COPD, obstructive sleep apnea and obesity. Overall she has been responding very well to the respiratory therapy. Her respiratory status has improved dramatically. She has also been able to lose a good amunt f weigt with a combination of diet and also medications Daliresp. Hopefully she can lose enough weight to have her knee surgery. In the meantime she still has a diagnosis sleep apnea. She her allergy med. She does have daytime drowsiness. Her [place] score still elevated 1224. the patient needs to have a sleep study at this time. 04/26/2020 the patient is here for pulmo nary follow-up visit. She had been responded very well to the nebulized therapy with Brovana and budesonide. However, her [employer] is no longer covering the Brovana. She is concerned because she has finally gotten some stabilization. We did talk about considering Perforomist instead of the Brovana which may be covered by insurance. She does continue to have shortness of breath with activity. She does use a walker and also has a wheelchair available if needed. She has been responding well to the Daliresp. She also underwent a sleep study demonstrating very mild sleep apnea. Will further discuss during her next visit to see if she continues to be symptomatic. In the meantime positional therapy is warranted. 10/25/2020 the patient is here for pulmonary follow-up visit. She is doing better. She finally did get the Brovana and has been using the budesonide twice a day. Also continues to use the Spiriva and Daliresp. the patient has not required any prednisone. She has not to use her rescue inhaler more than twice a week. Patient is content where she is right now and the plan is to continue the respiratory regimen. 06/27/2021 the patient is here for a pulmonary follow-up visit. Since we last spoke the patient did follow-up with cardiology. She has been evaluated for her CAD ans aortic sclerosis.. She was referred for a cardiac CT. However, she could not lay flat for the amount of time needed to complete the imaging study. Therefore she had to reschedule. She felt very short of breath when she was lying flat. Therefore, we had her ambulate in the office and her pulse ox was within normal limits are 96%. Her shortness of breath was noted although she was also complaining of her significant knee discomfort and difficulty ambulating using her walker. the patient also was lay down flat on room air and she was able to maintain a pulse ox of 96% while laying completely flat for around 5 minutes. Patient seems very comfortable. I do believe that she is going to be able to lay flat for the procedure. Although she needs to be able to take all her medications and also consider anti anxiety medication as needed for the procedure. 08/19/2021 the patient is here for pulmonary follow-up visit. She continues to have dyspnea on exertion. Moderate severity. Even with minimal activity. Denies any chest pain associated with it. Denies any significant coughing wheezing. She is adherent to her respiratory therapy. She did try the prednisone but she did not feel any improvement. [facility] and the patient did not have any significant desaturation. She did not think she was going to have any. She usually sees well and wakes up rested. The patient continues on the current respiratory therapy. She is having a full cardiac evaluation in view of her symptoms that appear to be more multifactorial. She continues use a walker. She has significant limitations due to her musculoskeletal conditions. In the office we did provide her with a wheelchair that better assisted her. at this point will continue with current respiratory regimen and will follow up with cardiac evaluation. 11/20/2021 the patient is here for a pulmonary follow-up visit. Her respiratory status appears to be improved. Her breathing has improved and she is back to her baseline. She continues with respiratory therapy with good response. She is tolerating the Daliresp. The patient did undergo a CT scan of the chest to further evaluate the pulmonary nodules. The patient does have multiple pulmonary nodules measuring 1-4 mm in size. She also had some slightly enlarged mediastinal lymph nodes. Clinically the patient is feeling better will plan to repeat the CT scan in a year's time. In the meantime she will continue with current respiratory regimen. 03/02/2022 the patient is here for a Sick visit. Apparently she started developing worsening cough and shortness of breath along with chest tightness. She did test negative for COVID-19. We did call in some prednisone in addition to a course of doxycycline. She did complete the course of partially improved. Although still having some shortness of breath and chest tightness along with cough. She was evaluated by ENT just this morning. [place] to have a component of sinusitis. She had an azithromycin pack sent to the pharmacy. On examination she does not have any wheezing at this time. Therefore is likely that she does have upper airway cough syndrome. We did talk about using cough medications including Mucinex DM in addition to bed tonight. no imaging studies at this time. The patient is no better she will call us otherwise follow-up in June. 06/26/2022 the patient is here for pulmon michelle follow-up visit. The patient is back to her baseline. Her breathing is better. She has been very sad by the fact that she lost a good friend and roommate. She had early onset colon cancer. In regards of her pulmonary nodule she did undergo a repeat CT scan of the chest demonstrating a ground-glass nodular density measuring about 1.2 cm. Therefore, based on the fact that this nodular densities now greater than a cm and she has other pulmonary nodules will go ahead and repeat her CT scan in 6 months. In the meantime she will continue with current respiratory therapy. 12/24/2022 the patient is here for pulmonary follow-up visit. She does not feel well. Has been having increasing dyspnea in addition to cough. Moderate severity. Her respiratory therapy has been partially helpful. Over the summer she was diagnosed with migraines. She has been having hard time. She was placed on propanolol. Explained to her that possibly the propranolol is causing her respiratory symptoms to be worse. Although the propanolol seems to be helping her migraines. She will talk to her primary care doctor about potentially switching the beta-swathi to a calcium channel swathi or different agent altogether. The patient get try the Tessalon Perles. I did provide her with good Rx card that she can use to try to get it for a more reasonable cost. We also reviewed her CT scan of the chest that she had recently. We compared to the CT scan that she had back 6 months ago and also CT scan that she had a year ago. All were personally by me. It appears that this nodular density is subsolid nature and appears to be increasing size when compared to year ago. Therefore, based on the fact that is measuring 1 with 2 cm and appears to be slightly larger will go ahead and repeat the CT scan again 6 months. If he continues to change and or increase in size the patient will need to be evaluated by thoracic surgery. [facility] Medical History (Updated 12/23/22 @ 16:50 by Deny Geiger) Pulmonary nodules Blepharitis of eyelid of left eye Morbid obesity GERD (gastroesophageal reflux disease) Asthma-COPD overlap syndrome ROSITA (obstructive sleep apnea) Surgical History History of hernia repair H/O esophagogastroduodenoscopy History of colonoscopy H/O wisdom tooth extraction History of tonsillectomy and adenoidectomy Family History Father Aneurysm Peptic ulcer disease Mother Cardiovascular disease Asthma Social History Household Members: Friend(s) Housing: House Alcohol intake: never Patient Tobacco Use Status: Never used Tobacco e-Cigarette/Vaping Use: Never Used Second Hand Smoke Exposure: No service: No Current occupational status: employed and disabled 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 Current occupational exposures/hazards: No Cognitive needs: No Hearing needs: No Vision needs: No Female Reproductive History Menstrual Age of Menarche: 7 Review of Systems Const Denies chills, Denies fatigue, Denies fever(s), Denies headache(s) and Denies weakness ENT Denies dizziness and Denies headache(s) Card Denies dyspnea and Reports dyspnea on exertion Resp Denies cough, Denies dyspnea, Reports dyspnea on exertion, Denies wheezing and Denies other (shortness of breath) Musc Reports back pain, Reports myalgias, Denies numbness and Denies tingling Neuro Denies dizziness, Denies headache(s), Denies numbness, Denies tingling and Denies weakness Psych Denies anxiety and Denies depression Endo Denies fatigue Aller/Immun Denies wheezing Physical Exam Vital Signs: Last Vital Signs Pulse 80 12/24/22 14:25 Pulse Ox 97 12/24/22 14:25 Oxygen Delivery Method Room Air 12/24/22 14:25 BMI result Body Mass Index 47.9 Const General: comfortable and no acute distress Orientation/consciousness: patient oriented x3 HEENT Other: Unremarkable Head: Yes normal to inspection Neck Neck: Yes normal visual inspection Chest Chest palpation & inspection: normal inspection of the chest Resp Auscultation: no crackles, no rales, no rhonchi, no wheezes and diminished lung sounds Cardio Palpation: normal PMI Heart sounds: S1 normal heart sound present, S2 normal heart sound present, no gallops, Murmur heart sound present systolic early, II/ and at the right sternal border and no rubs GI Palpation (GI): Soft to palpation Back/Spine/Pelvis Other: unremarkable Skin General skin exam: no rashes or lesions noted Neuro General: patient oriented x3 Extrem General: Yes normal to inspection Psych Mental Status: mental status grossly normal Assessment & Plan Assessment & Plan (1) Asthma-COPD overlap syndrome: Code(s): J44.9 - Chronic obstructive pulmonary disease, unspecified (2) ROSITA (obstructive sleep apnea): Code(s): G47.33 - Obstructive sleep apnea (adult) (pediatric) (3) GERD (gastroesophageal reflux disease): Code(s): K21.9 - Gastro-esophageal reflux disease without esophagitis Qualifiers: Esophagitis bleeding: without hemorrhage Esophagitis presence: with esophagitis Qualified Code(s): K21.00 - Gastro-esophageal reflux disease with esophagitis, without bleeding (4) Pulmonary nodules: Code(s): R91.8 - Other nonspecific abnormal finding of lung field Plan continue respiratory therapy: Brovana, budesonide and Spiriva Benzonates as needed continue Daliresp 500 mcg daily short-acting beta agonist consider changing beta swathi therapy to CCB or alternative as it may be worsening her asthma symptoms repeat CT chest in 6 months follow-up in 6 months Orders: Orders CT chest wo IV con 6 Months R91.8 - Other nonspecific abnormal finding of lung field Medications: New benzonatate 200 mg PO BID 30 days PRN 30 caps 0RF cough benzonatate 200 mg PO BID PRN 30 caps 0RF cough 30 days Coding Level of Care Code Est Pt Level 4 (58649) Diagnoses Asthma-COPD overlap syndrome J44.9 ROSITA (obstructive sleep apnea) G47.33 Gastroesophageal reflux disease with esophagitis without hemorrhage K21.00 Esophagitis bleeding: without hemorrhage Esophagitis presence: with esophagitis Pulmonary nodules R91.8 Time Spent (min) 18
[2022-12-24 14:25] VITALS: PULSE 80; O2SAT 97; BMI 47.9
== END 2022-12-24 14:56 | disposition home or self-care (01) ==
PROVIDERS: PCP Family Medicine; Visit Provider Hospitalist
DX: J44.9 Chronic obstructive pulmonary disease, unspecified (principal); G47.33 Obstructive sleep apnea (adult) (pediatric); K21.00 Gastro-esophageal reflux disease with esophagitis, without bleeding; R91.8 Other nonspecific abnormal finding of lung field
CPT/HCPCS: 99214

== ENCOUNTER → 2022-12-24 14:16 | Outpatient (BNVA) | payer MEDICARE, MEDICAID, SELFPAY | PROVIDERS: PCP Family Medicine; Visit Provider Hospitalist | DX: J44.9 Chronic obstructive pulmonary disease, unspecified (principal); G47.33 Obstructive sleep apnea (adult) (pediatric); R91.8 Other nonspecific abnormal finding of lung field; K21.00 Gastro-esophageal reflux disease with esophagitis, without bleeding | CPT/HCPCS: 99212 ==

== ENCOUNTER 2022-12-31 13:39 | Outpatient (AMB) | payer MEDICARE, MEDICAID, SELFPAY ==
[2022-12-31 13:45] VITALS: BMI 47.8
--- NOTE | 2022-12-31 13:45 | MHC.OFFVIS ---
Intake Vital Signs 12/31/22 13:45 Height 5 ft 3 in Weight 270 lb BMI 47.8 Intake Visit Reasons: OV - B/L knee Durolane gel inj Intake Note: Daxa 62 yr old female presents today for her bilateral knee gel injection Durolane. Allergies Penicillins Allergy (Intermediate, Verified 12/31/22 13:47) RASH-FULL BODY Sulfa (Sulfonamide Antibiotics) Allergy (Intermediate, Verified 12/31/22 13:47) RASH-FULL BODY HPI OV - B/L knee Durolane gel inj HPI Details 62-year-old female who presents in the office today for a follow up of bilateral knee pain. She presents in the office today for Durolane injections in the bilateral knees. [facility] Medical History (Updated 12/31/22 @ 13:50 by Kristina Hardwick) Pulmonary nodules Blepharitis of eyelid of left eye Morbid obesity GERD (gastroesophageal reflux disease) Asthma-COPD overlap syndrome ROSITA (obstructive sleep apnea) Surgical History History of hernia repair H/O esophagogastroduodenoscopy History of colonoscopy H/O wisdom tooth extraction History of tonsillectomy and adenoidectomy Family History Father Aneurysm Peptic ulcer disease Mother Cardiovascular disease Asthma Social History Household Members: Friend(s) Housing: House Alcohol intake: never Patient Tobacco Use Status: Never used Tobacco e-Cigarette/Vaping Use: Never Used Second Hand Smoke Exposure: No service: No Current occupational status: employed and disabled 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 Current occupational exposures/hazards: No Cognitive needs: No Hearing needs: No Vision needs: No Female Reproductive History Menstrual Age of Menarche: 7 Review of Systems Const All systems reviewed & are unremarkable except as noted in HPI and below Physical Exam Vital Signs: BMI result Body Mass Index 47.8 Const General: cooperative, healthy appearing and no acute distress Resp Effort & Inspection: normal respiratory effort and able to speak in complete sentences Cardio Rate: regular rate Peripheral pulses: Peripheral pulses 2+ throughout GI Palpation (GI): Soft to palpation Skin Lesions: no lesions Rashes: no rashes Extrem Other: Bilateral knees: Normal to inspection. No ecchymosis, erythema, or joint effusion. Crepitus felt with ROM. ROM is 0-100 degrees. NVI. Office Procedures Joint Injection/Drain Joint Injection/Drain Primary Site: right knee Secondary Site: left knee Prep: site was prepped using aseptic technique, ethochloride spray was applied and injection warnings given Injected: in the joint (Durolane injection) Approach Used: anterolateral Procedure: The patient tolerated the procedure well, but had some pain with the injection and there was some relief with the local anesthesia Coding 75325 - Large joint Procedure code (CPT) selection complete Results Reviewed Results Reviewed: 12/31/22 13:37 Hyaluronate Sodium, Stabilized [Durolane] 60 mg INTRAARTIC .[facility] [employer] Assessment & Plan Assessment & Plan (1) Osteoarthritis of left knee: Code(s): M17.12 - Unilateral primary osteoarthritis, left knee Qualifiers: Osteoarthritis type: unspecified Qualified Code(s): M17.12 - Unilateral primary osteoarthritis, left knee (2) Osteoarthritis of right knee: Code(s): M17.11 - Unilateral primary osteoarthritis, right knee Qualifiers: Osteoarthritis type: unspecified Qualified Code(s): M17.11 - Unilateral primary osteoarthritis, right knee Plan Ms. Whitt is a 62-year-old female who presents in the office today for a follow up of bilateral knee pain. She presents in the office today for Durolane injections in the bilateral knees. The patient was offered a Durolane injection in the bilateral knees. The patient was explained the risk, benefits, and alternatives to receiving this injection. After receiving consent for the injection, the patient had the procedure done while in office today. The patient tolerated the procedure well with no complications. Follow up will be PRN, or sooner if needed. Patient Instructions: Scribed for Nallely Rocha PA-C by pola Daugherty scribe, on 12/31/2022 at 1:47 pm, EST. Coding Level of Care Code Procedure Only Diagnoses Osteoarthritis of left knee, unspecified osteoarthritis type M17.12 Osteoarthritis type: unspecified Osteoarthritis of right knee, unspecified osteoarthritis type M17.11 Osteoarthritis type: unspecified CPT Codes Coding - 77291 Large joint: 01717 - Large joint ([id number])
== END 2022-12-31 14:10 | disposition home or self-care (01) ==
PROVIDERS: PCP Family Medicine; Visit Provider Physician Assistant
DX: M17.0 Bilateral primary osteoarthritis of knee (principal)
CPT/HCPCS: 20610

== ENCOUNTER → 2022-12-31 13:39 | Outpatient (BNVA) | payer MEDICARE, MEDICAID, SELFPAY | PROVIDERS: PCP Family Medicine; Visit Provider Physician Assistant | DX: M17.12 Unilateral primary osteoarthritis, left knee (principal); M17.11 Unilateral primary osteoarthritis, right knee | CPT/HCPCS: 20610; J7318 ==

== ENCOUNTER 2023-01-25 14:16 | Outpatient (AMB) | payer MEDICARE, MEDICAID, SELFPAY ==
[2023-01-25 14:23] VITALS: BP 120/68; PULSE 83; O2SAT 96
--- NOTE | 2023-01-25 14:23 | MHC.PC.OV ---
Vital Signs 01/25/23 14:23 Height 5 ft 3 in BMI Reason not done Patient refused/unable BP 120/68 Blood Pressure Location Lt brachial Position Sitting Pulse 83 Pulse Source Pulse Oximeter Pulse Oximetry (%) 96 Oxygen Delivery Method Room Air Intake Visit Reasons: f/u fibromyalgia and migraines Intake Note: Patient is here to follow up on fibromyalgia and migraines. Allergies Penicillins Allergy (Intermediate, Verified 01/25/23 14:26) RASH-FULL BODY Sulfa (Sulfonamide Antibiotics) Allergy (Intermediate, Verified 01/25/23 14:26) RASH-FULL BODY Medication List - Last Reconciled 01/25/23 by Stan Davila MD albuterol sulfate 2.5 mg inhalation BID PRN albuterol sulfate 90 mcg/actuation 2 puffs PO Q6H PRN arformoterol 15 mcg (2 mL) inhalation BID aspirin 81 mg PO DAILY atorvastatin 80 mg PO QPM benzonatate 200 mg PO BID PRN 30 days budesonide 0.25 mg (2 mL) inhalation BID lnzoowmmwg-[id number] [id number] mg 1 cap PO Q4H PRN clobetasol 0.05% 1 appl topical BID PRN cyclobenzaprine 10 mg PO BEDTIME PRN 14 days Daliresp (roflumilast) 500 mcg PO DAILY NS duloxetine 20 mg PO BID 30 days fluticasone propionate 50 mcg/actuation (Flonase Allergy Relief) 1 spray intranasal Q12H 30 days lorazepam 0.5 mg PO DAILY meclizine 12.5 mg PO DAILY PRN 30 days miscellaneous medical supply Motorized Vquenceooter. Daily As directed, 999 days moxifloxacin 0.5% 1 drp ophthalmic (eye) TID 7 days nebulizers As directed omeprazole 40 mg PO BID 90 days [propanolol PO] tiotropium bromide 2.5 mcg/actuation (Spiriva Respimat) 2 puffs PO DAILY Tobacco use date assessed: 01/25/23 HPI f/u fibromyalgia and migraines HPI Details 62 y/o female presents to f/u fibromyalgia and migraines. Had given her a script for duloxetine. Had also given her a short course of cyclobenzaprine for muscle strain of hamstring and quadriceps. She reports she thinks duloxetine has been working. Pt reports cervicalgia and is requesting physical therapy. She reports L hand pain. [facility] Medical History (Updated 01/25/23 @ 15:31 by Deny Geiger) Pulmonary nodules Blepharitis of eyelid of left eye Morbid obesity GERD (gastroesophageal reflux disease) Asthma-COPD overlap syndrome ROSITA (obstructive sleep apnea) Surgical History History of hernia repair H/O esophagogastroduodenoscopy History of colonoscopy H/O wisdom tooth extraction History of tonsillectomy and adenoidectomy Family History Father Aneurysm Peptic ulcer disease Mother Cardiovascular disease Asthma Social History Household Members: Friend(s) Housing: House Alcohol intake: never Patient Tobacco Use Status: Never used Tobacco e-Cigarette/Vaping Use: Never Used Second Hand Smoke Exposure: No service: No Current occupational status: employed and disabled 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 Current occupational exposures/hazards: No Cognitive needs: No Hearing needs: No Vision needs: No Female Reproductive History Menstrual Age of Menarche: 7 Questionnaire Thrive Questionnaire Date Thrive assessed: 04/02/21 ACT Questionnaire In the past 4 weeks, how much of the time did your asthma keep you from getting as much done at work, school or at home?: None of the time During the past 4 weeks, how often have you had shortness of breath?: Not at all During the past 4 weeks, how often did your asthma symptoms wake you up at night or earlier than usual in the morning?: Once or twice per week (once in the past 4 months.) During the past 4 weeks, how often have you had to use your rescue inhaler or nebulizer medication?: 2-3 times a week How would you rate your asthma control during the past 4 weeks?: Well controlled Score: 21 Review of Systems Const Denies chills, Denies fatigue, Denies fever(s), Denies headache(s) and Denies weakness ENT Denies dizziness and Denies headache(s) Card Denies dyspnea Resp Denies cough, Denies dyspnea, Denies wheezing and Denies other (shortness of breath) Musc Denies numbness and Denies tingling Neuro Denies dizziness, Denies headache(s), Denies numbness, Denies tingling and Denies weakness Psych Denies anxiety and Denies depression Endo Denies fatigue Aller/Immun Denies wheezing Physical exam (Primary Care) Vital Signs: Last Vital Signs Pulse 83 01/25/23 14:23 BP 120/68 01/25/23 14:23 Pulse Ox 96 01/25/23 14:23 Oxygen Delivery Method Room Air 01/25/23 14:23 Tobacco/Smoking Status: Tobacco use Status Tobacco use date assessed 01/25/23 01/25/23 14:29 Patient Tobacco Use Status Never used Tobacco 01/25/23 14:29 e-Cigarette/Vaping Use Never Used 01/25/23 14:29 Thrive Assessment: Date of Thrive Assessment Date Thrive assessed 04/02/21 01/25/23 14:29 Const General: well developed; No acute distress Nutritional Appearance: well nourished Orientation/consciousness: patient oriented x3 HENMT Head: Yes normocephalic and Yes atraumatic Eyes General: appearance normal, both eyes and all related structures Pupils: Equal, round and reactive pupils present EOM: EOMs intact bilaterally Resp Effort & Inspection: normal respiratory effort Auscultation: clear to auscultation bilaterally Cardio Rate: regular rate Rhythm: regular rhythm Heart sounds: S1 normal heart sound present, S2 normal heart sound present, no gallops, no murmurs and no rubs Neuro General: patient oriented x3 and gait normal Cranial nerves: Yes Equal, round and reactive pupils present Extrem Other: 1 cm lump at the base of the thumb at the webbing area No erythema No warmth Mobile Psych Affect: normal affect Assessment and Plan Assessment & Plan (1) Fibromyalgia: Code(s): M79.7 - Fibromyalgia Plan: Improved?with?duloxetine Also?improving?with?chiropractic.??Patient?requests?x-rays?for?chiropractic?and?I?have?ordered?these. Continue?duloxetine Encouraged?exercise?as?tolerated (2) Migraines: Code(s): G43.909 - Migraine, unspecified, not intractable, without status migrainosus Plan: Uses?propranolol?for?prevention?which?helps.??Discussed?that?beta-blockers?can?worsen?asthma?but?patient?says?her?asthma?has?been?quite?stable?and?she?does?not?feel?that?the?propranolol?exacerbates?this She?will?continue?to?monitor Continue?propranolol?and?she?can?use?Fioricet?for?acute?onset?of?her?migraine (3) Left hand pain: Code(s): M79.642 - Pain in left hand Plan: She?has?a?small?lump?adjacent?to?the?base?of?her?thumb?and?the?webbing?which?is?tender.??No?warmth?or?erythema. Possible?tendon?sheath?cyst Check?x-ray May?need?ultrasound May?need?referral?to?hand?surgery?for?drainage Use?heat?and?elevation?for?now. (4) Back pain: Code(s): M54.9 - Dorsalgia, unspecified Plan: Back?pain?and?neck?pain. Checking?x-rays?for?her?chiropractor. Improved?with?duloxetine?which?she?will?continue (5) Left hand pain: Code(s): M79.642 - Pain in left hand Plan: As?above (6) Back pain: Code(s): M54.9 - Dorsalgia, unspecified Plan: As?above Orders: Orders XR cervical spine 2V Today M54.2 - Cervicalgia, M54.9 - Dorsalgia, unspecified XR lumbar spine 2-3V Today M54.9 - Dorsalgia, unspecified XR hand LT 2V Today M79.642 - Pain in left hand XR thoracic spine 2V Today M54.9 - Dorsalgia, unspecified Coding Level of Care Code Est Pt Level 4 (67430) Diagnoses Fibromyalgia M79.7 Migraines G43.909 Left hand pain M79.642 Back pain M54.9
== END 2023-01-25 15:51 | disposition home or self-care (01) ==
PROVIDERS: PCP Family Medicine; Visit Provider Family Medicine
DX: Z23 Encounter for immunization (principal)
CPT/HCPCS: 90471; 90686; 99214

== ENCOUNTER 2023-01-26 12:56 | Outpatient (REF) | payer MEDICARE, MEDICAID, SELFPAY ==
--- NOTE | ~2023-01-26 | XR_ITS ---
EXAMINATION: XR THORACOLUMBAR SPINE CLINICAL INFORMATION: Pain in thoracic spine COMPARISON: None available. TECHNIQUE: AP and lateral views of thoracic spine FINDINGS: Vertebral bodies are well aligned and intervertebral discs are preserved. There is marginal spurring along the lateral and anterior margins of thoracic spine vertebral bodies due to degenerative spondylosis. Pedicles are preserved soft tissues unremarkable. There is no fracture or subluxation seen. XR/XR thoracic spine 2V IMPRESSION: Multilevel degenerative changes with marginal spurring.
--- NOTE | ~2023-01-26 | XR_ITS ---
EXAMINATION: XR LUMBOSACRAL SPINE CLINICAL INFORMATION: Low back pain COMPARISON: CT of abdomen from 12/08/2022 TECHNIQUE: Three views of the lumbosacral spine. FINDINGS: There are 5 not ribs bearing vertebral bodies and lumbar spine. There are multilevel degenerative changes in lumbar spine with narrowing, subchondral sclerosis, vacuum phenomenon and marginal spurring. The level of L5-S1 and L3-L4. There is no very mild anterior spondylolysis of L3 over L4 XR/XR lumbar spine 2-3V IMPRESSION: Multilevel degenerative changes in lumbar spine.
--- NOTE | ~2023-01-26 | XR_ITS ---
EXAMINATION: XR HAND, LEFT CLINICAL INFORMATION: Pain in left hand COMPARISON: June 2021 TECHNIQUE: PA, lateral, and oblique views of the left hand. FINDINGS: When compared to the previous study, there is no significant interval change in an appearance of periarticular osteopenia and marked narrowing of interphalangeal joints, more prominent in the second and third fingers, but seen through the second, third and fourth fingers with narrowing cough distal interphalangeal joints less prominent medially interphalangeal joints. There is soft tissue swelling surrounding second-fourth fingers. There are changes of osteoarthritis at the base of the first metacarpal joint with deformity of first carpometacarpal joint and osteophytes formation in the soft tissues medially. No evidence of fractures. XR/XR hand LT 2V IMPRESSION: Changes of osteoarthritis in the left hand.
--- NOTE | ~2023-01-26 | XR_ITS ---
EXAMINATION: XR CERVICAL SPINE CLINICAL INFORMATION: Cervicalgia COMPARISON: None available. TECHNIQUE: 3 views of the cervical spine were obtained. FINDINGS: Vertebral bodies are well aligned. C7 vertebral body is obscured by soft tissues of shoulders. There is narrowing of C5-C6 and C6-C7 intervertebral disc spaces with marginal spurring and subchondral sclerosis at the level of C5-C6. There is no spondylolysis or listhesis. Soft tissues unremarkable. XR/XR cervical spine 2V IMPRESSION: Degenerative changes at the level of C5-C6 and C6-C7.
== END 2023-01-26 12:57 | disposition home or self-care (01) ==
LOC: HO.HMGCX 12:56
PROVIDERS: PCP Family Medicine; Visit Provider Family Medicine
DX: M79.642 Pain in left hand (principal); M54.2 Cervicalgia; M54.50 Low back pain, unspecified; M54.6 Pain in thoracic spine
CPT/HCPCS: 72040; 72070; 72100; 73120

== ENCOUNTER 2023-02-15 15:51 | Outpatient (AMB) | payer MEDICARE, MEDICAID, SELFPAY ==
--- NOTE | 2023-02-15 15:43 | A.OFFPC_ITS ---
Intake Visit Reasons: Follow up xray Intake Note: Patient is calling to follow up on x-nir today. Allergies Penicillins Allergy (Intermediate, Verified 02/15/23 15:45) RASH-FULL BODY Sulfa (Sulfonamide Antibiotics) Allergy (Intermediate, Verified 02/15/23 15:45) RASH-FULL BODY Tobacco use date assessed: 02/15/23 HPI Follow up xray HPI Details Patient?presents?to?follow-up?hand?x-ray. [facility] Medical History (Updated 01/25/23 @ 15:31 by Deny Geiger) Pulmonary nodules Blepharitis of eyelid of left eye Morbid obesity GERD (gastroesophageal reflux disease) Asthma-COPD overlap syndrome ROSITA (obstructive sleep apnea) Surgical History History of hernia repair H/O esophagogastroduodenoscopy History of colonoscopy H/O wisdom tooth extraction History of tonsillectomy and adenoidectomy Family History Father Aneurysm Peptic ulcer disease Mother Cardiovascular disease Asthma Social History Household Members: Friend(s) Housing: House Alcohol intake: never Patient Tobacco Use Status: Never used Tobacco e-Cigarette/Vaping Use: Never Used Second Hand Smoke Exposure: No service: No Current occupational status: employed and disabled 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 Current occupational exposures/hazards: No Cognitive needs: No Hearing needs: No Vision needs: No Female Reproductive History Menstrual Age of Menarche: 7 Questionnaire Thrive Questionnaire Date Thrive assessed: 04/02/21 Review of Systems Const Denies chills, Denies fatigue, Denies fever(s), Denies headache(s) and Denies weakness ENT Denies dizziness and Denies headache(s) Card Denies chest pain, Denies lightheadedness, Denies dyspnea and Denies other (Palpitations) Resp Denies cough, Denies dyspnea, Denies wheezing and Denies other ( shortness of breath) Musc Details: Ongoing?left?hand?pain Denies numbness and Denies tingling Neuro Denies dizziness, Denies headache(s), Denies numbness, Denies tingling, Denies paresthesias and Denies weakness Psych Denies anxiety and Denies depression Endo Denies fatigue Aller/Immun Denies wheezing Physical exam (Primary Care) Tobacco/Smoking Status: Tobacco use Status Tobacco use date assessed 02/15/23 02/15/23 15:47 Patient Tobacco Use Status Never used Tobacco 02/15/23 15:47 e-Cigarette/Vaping Use Never Used 02/15/23 15:47 Thrive Assessment: Date of Thrive Assessment Date Thrive assessed 04/02/21 02/15/23 15:47 Const Other: Telemedicine?appointment.??Audio?only.??No?exam Telehealth Telehealth Location of provider rendering services: practice address Location of patient: address on file Patient Identification confirmed using: Name, : Yes Telehealth method: voice only Patient verbally consented to treatment: Yes Patient verbally consented to billing insurance company: Yes Patient informed of any privacy concerns related to visit: Yes Minutes spent on Phone/Video with Pt.: 10 Assessment and Plan Assessment & Plan (1) Left hand pain: Code(s): M79.642 - Pain in left hand Plan: X-ray?of?her?left?hand?shows changes of osteoarthritis at the base of the first metacarpal joint with deformity of first carpometacarpal joint and osteophytes formation in the soft tissues medially This?is?the?location?of?her?pain. She?is?followed?by??but?she?i s?out?until?April.??Patient?was?hoping?she?could?get?injection?therapy?which?h as?helped?in?the?past. She?says?she?has?also?had?an?injection?from?her?claims sorter?once?which?was?al so?helpful.??We?d iscussed?that?she?may?want?to?contact?Rheumatology?to?see?if?this?can?be?done?th ere. Follow- up?with??subsequently?to?see?if?any?more?definitive?treatment?is?ind icated. Coding Level of Care Code Tele Est Pt Level 2 (44876) Diagnoses Left hand pain M79.642
== END 2023-02-16 15:50 | disposition home or self-care (01) ==
LOC: HO.HMGFM 15:51
PROVIDERS: PCP Family Medicine; Visit Provider Family Medicine
DX: M79.642 Pain in left hand (principal)
CPT/HCPCS: 99441

== ENCOUNTER 2023-04-08 14:09 | Outpatient (REF) | payer MEDICARE, SELFPAY ==
--- NOTE | ~2023-04-08 | MM_ITS ---
EXAMINATION: MM SCREENING DIGITAL BREAST TOMOSYNTHESIS, BILATERAL CLINICAL INFORMATION: Screening. Asymptomatic. COMPARISON: Mammography: This study is compared with prior exams dating back to 2019. TECHNIQUE: Digital breast tomosynthesis is performed in both the craniocaudal and mediolateral oblique views along with computer-aided detection (CAD). Synthesized 2D images are generated from the tomosynthesis. FINDINGS: There are scattered areas of fibroglandular density (ACR BI-RADS breast composition Category b). There are no significant masses, abnormal calcifications, or other abnormalities. There are 2 tissue markers in the right breast. There are few, bilateral, benign calcifications. MM/MM tomosynthesis screening BI IMPRESSION: No mammographic evidence of malignancy. ASSESSMENT: BI-RADS BI-RADS 2 - Benign Findings RECOMMENDATION: Routine annual mammography screening. 1 year F/U This examination should not preclude the clinical evaluation of a suspicious palpable abnormality. This patient's information was entered into a reminder system with a target due date for their next mammogram.
== END 2023-04-08 14:10 | disposition home or self-care (01) ==
LOC: HO.MAMMO 14:09
PROVIDERS: PCP Family Medicine; Visit Provider Family Medicine
DX: Z12.31 Encounter for screening mammogram for malignant neoplasm of breast (principal)
CPT/HCPCS: 77063; 77067

== ENCOUNTER → 2023-04-08 14:15 | Outpatient (BNV) | payer MEDICARE, SELFPAY | PROVIDERS: PCP Family Medicine; Visit Provider Radiology Diagnostic Radiology | DX: Z12.31 Encounter for screening mammogram for malignant neoplasm of breast (principal) | CPT/HCPCS: 77063; 77067 ==

== ENCOUNTER 2023-04-21 13:15 | Outpatient (AMB) | payer MEDICARE, MEDICAID, SELFPAY ==
--- NOTE | 2023-04-21 13:54 | A.OFFVIS_ITS ---
Intake Intake Visit Reasons: OV-Left hand pain/possibly ganglion cyst? Intake Note: Daxa 63 yr old right hand dominant female presents today for his s/p Left basal joint osteoarthritis injection from . States injection gave her relief. Also states she has a ganglion cyst on her dorsal aspect of the left hand which is causing her a lot of pain. No changes in size per patient. Allergies Penicillins Allergy (Intermediate, Verified 04/21/23 14:01) RASH-FULL BODY Sulfa (Sulfonamide Antibiotics) Allergy (Intermediate, Verified 04/21/23 14:01) RASH-FULL BODY HPI OV-Left hand pain/possibly ganglion cyst? HPI Details Mitzy is a 63 year old right hand dominant woman who returns to discuss her left basal joint OA, and has received multiple injections. By me: 11/17/22, 09/03/20 & 12/23/20, and by her Human Services Care Specialist in 10/2021, all with relief. She has a new complaint today. She has a cystic mass over the dorsal base of the 1st web space in her left hand. This is her chief complaint today. She complains of pain in her left thumb with pinching and gripping activities, but her chief complaint today is of a left hand ganglion. She says her right thumb pain has improved somewhat in the last few months following an injection. She has bilateral knee OA and finds it difficult to walk. She has Fibromyalgia and cardiovascular disease [facility] Medical History (Updated 04/21/23 @ 14:43 by Surjit Cortez) Pulmonary nodules Blepharitis of eyelid of left eye Morbid obesity GERD (gastroesophageal reflux disease) Asthma-COPD overlap syndrome ROSITA (obstructive sleep apnea) Surgical History History of hernia repair H/O esophagogastroduodenoscopy History of colonoscopy H/O wisdom tooth extraction History of tonsillectomy and adenoidectomy Family History Father Aneurysm Peptic ulcer disease Mother Cardiovascular disease Asthma Social History Household Members: Friend(s) Housing: House Alcohol intake: never Patient Tobacco Use Status: Never used Tobacco e-Cigarette/Vaping Use: Never Used Second Hand Smoke Exposure: No service: No Current occupational status: employed and disabled 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 Current occupational exposures/hazards: No Cognitive needs: No Hearing needs: No Vision needs: No Female Reproductive History Menstrual Age of Menarche: 7 Review of Systems Const All systems reviewed & are unremarkable except as noted in HPI and below Physical Exam Const General: no acute distress and alert Orientation/consciousness: patient oriented x3 Neuro General: patient oriented x3 Extrem Other: Evaluation of LeftUpper Extremity: The patient is alert, oriented, and in no acute distress Neuro: Median, Ulnar, Radial nerves motor and sensory intact and sensation is normal to the tips of all digits Vascular: Cap refill brisk ROM: She can make a fist and extend all her digits Tender over the left basal joint Mild tenderness over the dorsal aspect of the right index finger MCP joint No tenderness over the 1st dorsal compartment No tenderness over the a1 gretel She has a mass in the base of the left 1st dorsal webspace, measuring ~1.2cm in diameter. There are no overlying skin changes. The skin is mobile over cyst but the cyst itself is not particularly mobile Not pulsatile. This is her chief complaint today. Psych Appearance: grossly normal Affect: normal affect Attitude: cooperative Office Procedures Fracture Care Details: No fracture, aspiration Fracture Billing Code: Fracture Billing Code Assessment & Plan Assessment & Plan (1) Arthritis of carpometacarpal (CMC) joint of left thumb: Code(s): M18.12 - Unilateral primary osteoarthritis of first carpometacarpal joint, left hand (2) Ganglion of left hand: Code(s): M67.442 - Ganglion, left hand (3) Arthritis of carpometacarpal (CMC) joint of right thumb: Code(s): M18.11 - Unilateral primary osteoarthritis of first carpometacarpal joint, right hand Plan Assessment and plan: 1. Left dorsal hand/wrist ganglion, base of 1st webspace Measuring ~1.2cm in diameter, in the 1st webspace I educated her about this condition I discussed operative and non-operative treatment options The patient would like to proceed with an aspiration Aspiration #1: The risks and benefits of aspiration, including but not limited to risk of damage to blood vessels, nerves, tendons, infection, failure to improve symptoms, increased pain, and possible need for further aspirations or surgical intervention. After obtaining written consent, I sterilely prepped the area over the left 1st dorsal webspace. I then injected subcutaneously with a small amount 1% lidocaine. I then passed an 18 gauge needle into the ganglion and aspirated some clear viscous fluid consistent with a ganglion. Some remaining viscous fluid was then pushed out of the ganglion. The patient tolerated this well and with no complications. The patient and I both palpated the area and the ganglion was no longer palpable after the aspiration. 2. Left basal joint osteoarthritis Date of injections: 11/17/22, 12/23/20, 09/03/20 by in Rheumatology injection: 10/2021 I educated the patient about this condition I discussed treatment options I recommend a steroid injection and she continue to wear her splint I discussed activity modification, she is to limit or avoid any heavy or repetitive pinching or gripping activities 3 . Right basal joint OA She received a recent right CMC joint injection & right ECU tendon sheath injection done by Rheumatology on 02/19/23 Scribed for Montserrat Caruso MD by Surjit Cortez, medical technologist microbiology, on [ ] at [ ], EST. Coding Level of Care Code Est Pt Level 3 (99912) Diagnoses Arthritis of carpometacarpal (CMC) joint of left thumb M18.12 Ganglion of left hand M67.442 Arthritis of carpometacarpal (CMC) joint of right thumb M18.11 CPT Codes Fracture Care - Fracture Billing Code: Fracture Billing Code ([id number])
== END 2023-04-21 15:07 | disposition home or self-care (01) ==
PROVIDERS: PCP Family Medicine; Visit Provider Orthopaedic Surgery
DX: M18.0 Bilateral primary osteoarthritis of first carpometacarpal joints (principal); M67.442 Ganglion, left hand
CPT/HCPCS: 20612; 99213

== ENCOUNTER → 2023-04-21 13:15 | Outpatient (BNVA) | payer MEDICARE, MEDICAID, SELFPAY | PROVIDERS: PCP Family Medicine; Visit Provider Orthopaedic Surgery | DX: M18.12 Unilateral primary osteoarthritis of first carpometacarpal joint, left hand (principal); M18.11 Unilateral primary osteoarthritis of first carpometacarpal joint, right hand; M67.442 Ganglion, left hand | CPT/HCPCS: 20612; 99212 ==

== ENCOUNTER 2023-05-03 13:15 | Outpatient (AMB) | payer MEDICARE, MEDICAID, SELFPAY ==
--- NOTE | 2023-05-03 13:37 | MHC.OFFVIS ---
Intake Vital Signs 05/03/23 13:40 Height 5 ft 3 in BMI Reason not done Patient refused/unable BP 118/60 Blood Pressure Location Lt brachial Position Sitting Pulse 85 Intake Visit Reasons: 1Y follow up Intake Note: 1 year follow up w/ EKG Form Builder Required: No Accompanied by: Self / Same As Patient Allergies Penicillins Allergy (Intermediate, Verified 05/03/23 13:37) RASH-FULL BODY Sulfa (Sulfonamide Antibiotics) Allergy (Intermediate, Verified 05/03/23 13:37) RASH-FULL BODY Medication List - Last Reconciled 05/03/23 by Thad Muñoz MD albuterol sulfate 2.5 mg inhalation BID PRN albuterol sulfate 2.5 mg (3 mL) inhalation Q6H PRN 30 days albuterol sulfate 90 mcg/actuation 2 puffs PO Q6H PRN arformoterol 15 mcg (2 mL) inhalation BID aspirin 81 mg PO DAILY atorvastatin 80 mg PO QPM beclomethasone dipropionate 80 mcg/actuation (Qvar RediHaler) 2 inhalations inhalation BID 30 days budesonide 180 mcg/actuation (Pulmicort Flexhaler) 2 inhalations inhalation BID 30 days budesonide 0.5 mg (2 mL) inhalation BID 30 days mrlrmeifqn-ewvdgkvvqcrsz-ngsx 50-300-40 mg (Fioricet) 1 cap PO Q8H PRN clobetasol 0.05% 1 appl topical BID PRN cyclobenzaprine 10 mg PO BEDTIME PRN Daliresp (roflumilast) 500 mcg PO DAILY NS duloxetine 20 mg PO BID fluticasone propionate 50 mcg/actuation 1 spray intranasal Q12H lorazepam 0.5 mg PO DAILY meclizine 12.5 mg PO DAILY PRN 30 days miscellaneous medical supply Motorized scooter. Daily As directed, 999 days moxifloxacin 0.5% 1 drp ophthalmic (eye) TID 7 days nebulizers As directed omeprazole 40 mg PO BID propranolol 10 mg PO BID tiotropium bromide 2.5 mcg/actuation (Spiriva Respimat) 2 puffs PO DAILY HPI HPI Comments History of Present Illness Details Daxa returns for follow-up regarding coronary disease. Overall, she is doing good. No cardiac symptoms like angina. 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 Strong family history of cardiac issues and brother has had bypass surgery. Overall, she states she is doing fine. No new issues. Comes in a wheelchair. Lots of knee issues. FORMERLY [facility] Medical History (Updated 04/21/23 @ 14:43 by Surjit Cortez) Pulmonary nodules Blepharitis of eyelid of left eye Morbid obesity GERD (gastroesophageal reflux disease) Asthma-COPD overlap syndrome ROSITA (obstructive sleep apnea) Surgical History History of hernia repair H/O esophagogastroduodenoscopy History of colonoscopy H/O wisdom tooth extraction History of tonsillectomy and adenoidectomy Family History Father Aneurysm Peptic ulcer disease Mother Cardiovascular disease Asthma Social History Household Members: Friend(s) Housing: House Alcohol intake: never Patient Tobacco Use Status: Never used Tobacco e-Cigarette/Vaping Use: Never Used Second Hand Smoke Exposure: No service: No Current occupational status: employed and disabled 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 Current occupational exposures/hazards: No Cognitive needs: No Hearing needs: No Vision needs: No Female Reproductive History Menstrual Age of Menarche: 7 Review of Systems Const Denies weakness ENT Denies dizziness Card Denies chest pain, Denies chest pain with activity, Denies syncope, Denies rapid heart rate, Denies pedal edema, Denies edema, Denies leg edema, Denies lightheadedness, Denies palpitations, Denies dyspnea, Denies dyspnea on exertion and Denies orthopnea Resp Denies cough, Denies dyspnea and Denies dyspnea on exertion GI Denies hematochezia and Denies change in stool character Musc Denies abnormal gait, Denies muscle cramps, Denies muscle weakness, Denies numbness, Denies radiating pain into limb and Denies tingling Neuro Denies abnormal gait, Denies dizziness, Denies syncope, Denies numbness, Denies tingling and Denies weakness Endo Denies palpitations Physical Exam Vital Signs: Last Vital Signs Pulse 85 05/03/23 13:40 BP 118/60 05/03/23 13:40 Const General: comfortable and no acute distress Orientation/consciousness: patient oriented x3 HEENT Other: Unremarkable Head: Yes normal to inspection Neck Neck: Yes normal visual inspection Chest Chest palpation & inspection: normal inspection of the chest Resp Auscultation: clear to auscultation bilaterally Cardio Palpation: normal PMI Heart sounds: S1 normal heart sound present, S2 normal heart sound present, no gallops, no murmurs and no rubs GI Palpation (GI): Soft to palpation Back/Spine/Pelvis Other: unremarkable Skin General skin exam: no rashes or lesions noted Neuro General: patient oriented x3 Extrem General: Yes normal to inspection Psych Mental Status: mental status grossly normal Office Procedures EKG Details: EKG with sinus rhythm at 85/Min; low-voltage QRS complexes; [place] [id number], Complete Assessment & Plan Assessment & Plan (1) Atherosclerotic cardiovascular disease: Code(s): I25.10 - Atherosclerotic heart disease of [place] coronary artery without angina pectoris (2) Aortic valve calcification: Code(s): I35.9 - Nonrheumatic aortic valve disorder, unspecified (3) Non-rheumatic aortic stenosis: Code(s): I35.0 - Nonrheumatic aortic (valve) stenosis (4) Mitral annular calcification: Code(s): I05.9 - Rheumatic mitral valve disease, unspecified Plan Cardiac studies reviewed. Echocardiogram with LVEF 65-70%. Mild aortic stenosis. Moderate mitral annular calcification. Coronary CTA reviewed. There is probably 50% stenosis in the mid LAD. Mild calcifications circumflex. Otherwise unremarkable. May remain on aspirin, statins. With regard to weight loss, she is trying, but due to knee issues not able to walk or do much exercise. Hence may not be able to lose much. Last LDL cholesterol 88 mg/dL. She will call us with ongoing concerns. Otherwise, follow-up in 1 year. Medications: Changed From cyclobenzaprine 10 mg PO BEDTIME 14 days PRN 14 tabs 0RF muscle spasm To cyclobenzaprine 10 mg PO BEDTIME PRN From duloxetine 20 mg PO BID 30 days 60 caps 2RF To duloxetine 20 mg PO BID From dbnehqzpua-ssefryehicucl-mtzg 50-300-40 mg (Fioricet) 1 cap PO Q8H 30 days PRN 90 caps 0RF pain To cltjkhyzxs-xduhehcmpcwho-eybj 50-300-40 mg (Fioricet) 1 cap PO Q8H PRN Coding Level of Care Code Est Pt Level 4 (78502) Diagnoses Atherosclerotic cardiovascular disease I25.10 Aortic valve calcification I35.9 Non-rheumatic aortic stenosis I35.0 Mitral annular calcification I05.9 CPT Codes EKG - CPT: 07215-[id number], Complete ([id number])
[2023-05-03 13:40] VITALS: BP 118/60; PULSE 85
== END 2023-05-03 14:22 | disposition home or self-care (01) ==
PROVIDERS: Visit Provider Internal Medicine
DX: I25.10 Atherosclerotic heart disease of native coronary artery without angina pectoris (principal); I35.9 Nonrheumatic aortic valve disorder, unspecified; I35.0 Nonrheumatic aortic (valve) stenosis; I05.9 Rheumatic mitral valve disease, unspecified
CPT/HCPCS: 93010; 99214

== ENCOUNTER → 2023-05-03 13:15 | Outpatient (BNVA) | payer MEDICARE, MEDICAID, SELFPAY | PROVIDERS: Visit Provider Internal Medicine | DX: I25.10 Atherosclerotic heart disease of native coronary artery without angina pectoris (principal); I35.9 Nonrheumatic aortic valve disorder, unspecified; I35.0 Nonrheumatic aortic (valve) stenosis; I05.9 Rheumatic mitral valve disease, unspecified | CPT/HCPCS: 93005; 99212 ==

== ENCOUNTER 2023-05-04 11:05 | Outpatient (AMB) | payer MEDICARE, MEDICAID, SELFPAY ==
[2023-05-04 11:12] VITALS: BP 116/70; PULSE 82; O2SAT 97; BMI 48.7
--- NOTE | 2023-05-04 11:12 | A.OFFPC_ITS ---
Vital Signs 05/04/23 11:12 Height 5 ft 3 in Weight 275 lb BMI 48.7 BP 116/70 Blood Pressure Location Lt brachial Position Sitting Pulse 82 Pulse Source Pulse Oximeter Pulse Oximetry (%) 97 Oxygen Delivery Method Room Air Intake Visit Reasons: rash Intake Note: Patient is here with complaint of rash on chest, abdomen, and back. Allergies Penicillins Allergy (Intermediate, Verified 05/04/23 11:14) RASH-FULL BODY Sulfa (Sulfonamide Antibiotics) Allergy (Intermediate, Verified 05/04/23 11:14) RASH-FULL BODY Medication List - Last Reconciled 05/04/23 by Stan Davila MD albuterol sulfate 2.5 mg inhalation BID PRN albuterol sulfate 2.5 mg (3 mL) inhalation Q6H PRN 30 days albuterol sulfate 90 mcg/actuation 2 puffs PO Q6H PRN arformoterol 15 mcg (2 mL) inhalation BID aspirin 81 mg PO DAILY atorvastatin 80 mg PO QPM beclomethasone dipropionate 80 mcg/actuation (Qvar RediHaler) 2 inhalations inhalation BID 30 days budesonide 180 mcg/actuation (Pulmicort Flexhaler) 2 inhalations inhalation BID 30 days budesonide 0.5 mg (2 mL) inhalation BID 30 days htdbtuihmf-ztdmnpbcdgcqy-nvgs 50-300-40 mg (Fioricet) 1 cap PO Q8H PRN clobetasol 0.05% 1 appl topical BID PRN cyclobenzaprine 10 mg PO BEDTIME PRN Daliresp (roflumilast) 500 mcg PO DAILY NS duloxetine 20 mg PO BID fluticasone propionate 50 mcg/actuation 1 spray intranasal Q12H lorazepam 0.5 mg PO DAILY meclizine 12.5 mg PO DAILY PRN 30 days miscellaneous medical supply Motorized scooter. Daily As directed, 999 days moxifloxacin 0.5% 1 drp ophthalmic (eye) TID 7 days nebulizers As directed omeprazole 40 mg PO BID propranolol 10 mg PO BID tiotropium bromide 2.5 mcg/actuation (Spiriva Respimat) 2 puffs PO DAILY Tobacco use date assessed: 05/04/23 Last assessed Fall Risk: 05/04/23 HPI rash HPI Details 63 y/o female presents today with compla ints of a rash on her chest, abdomen and back. Pt notes she thinks dry air/dry heat has been causing the rash. She notes rash has been improving. Pt reports ongoing issues with restless legs. She notes lorazepam has not been helping as much. REPLACED BY [facility] Medical History Pulmonary nodules Blepharitis of eyelid of left eye Morbid obesity GERD (gastroesophageal reflux disease) Asthma-COPD overlap syndrome ROSITA (obstructive sleep apnea) Surgical History History of hernia repair H/O esophagogastroduodenoscopy History of colonoscopy H/O wisdom tooth extraction History of tonsillectomy and adenoidectomy Family History Father Aneurysm Peptic ulcer disease Mother Cardiovascular disease Asthma Social History Household Members: Friend(s) Housing: House Alcohol intake: never Patient Tobacco Use Status: Never used Tobacco e-Cigarette/Vaping Use: Never Used Second Hand Smoke Exposure: No service: No Current occupational status: employed and disabled 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 1. Little interest or pleasure in doing things: not at all 2. Feeling down, depressed, or hopeless: not at all 3. Trouble falling or staying asleep, or sleeping too much: not at all 4. Feeling tired or having little energy: not at all 5. Poor appetite or overeating: not at all 6. Feeling bad about yourself - or that you are a failure or have let yourself or your family down: not at all 7. Trouble concentrating on things, such as reading the newspaper or watching television: not at all 8. Moving or speaking so slowly that other people could have noticed. Or the opposite - being so fidgety or restless that you have been moving around a lot more than usual: not at all 9. Thoughts that you would be better off or of hurting yourself in some way: not at all Total score: 0 Source: Developed by Drs. Zohaib Coffman, Ashley Short, hSaka Austin and colleagues, with an educational tracy from [employer]. Thrive Questionnaire Date Thrive assessed: 05/04/23 I am a: Patient AUDIT C Alcohol Use Questionnaire (AUDIT-C) 1. How often do you have a drink containing alcohol?: Never 3. How often do you have six or more drinks on one occasion?: Never Total Score: 0 MAGGIE-7 AMB Questionnaire MAGGIE-7 Date MAGGIE - 7 assessed: 05/04/23 Feeling nervous, anxious, or on edge: 0 = Not at all Not being able to stop or control worryin = Not at all Worrying too much about different things: 0 = Not at all Trouble relaxin = Not at all Being so restless that it is hard to sit still: 0 = Not at all Becoming easily annoyed or irritable: 0 = Not at all Feeling afraid as if something awful might happen: 0 = Not at all Total MAGGIE-7 score (0-4 normal; 5-9 mild; 10-14 moderate; 15-21 severe): 0 Source: Developed by Drs. Zohaib Coffman, Ashley Short, Shaka Austin and colleagues, with an educational tracy from [employer]. Review of Systems Const Denies chills, Denies fatigue, Denies fever(s), Denies headache(s) and Denies weakness ENT Denies dizziness and Denies headache(s) Card Denies dyspnea Resp Denies cough, Denies dyspnea, Denies wheezing and Denies other (shortness of breath) Musc Denies numbness and Denies tingling Skin/Breast Reports rash Neuro Denies dizziness, Denies headache(s), Denies numbness, Denies tingling and Denies weakness Psych Denies anxiety and Denies depression Endo Denies fatigue Aller/Immun Denies wheezing Physical exam (Primary Care) Vital Signs: Last Vital Signs Pulse 82 05/04/23 11:12 BP 116/70 05/04/23 11:12 Pulse Ox 97 05/04/23 11:12 Oxygen Delivery Method Room Air 05/04/23 11:12 BMI result Body Mass Index 48.7 Tobacco/Smoking Status: Tobacco use Status Tobacco use date assessed 05/04/23 05/04/23 11:16 Patient Tobacco Use Status Never used Tobacco 05/04/23 11:16 e-Cigarette/Vaping Use Never Used 05/04/23 11:16 PHQ-9: PHQ-9 Score PHQ-9: Total score 0 05/04/23 11:20 Thrive Assessment: Date of Thrive Assessment Date Thrive assessed 05/04/23 05/04/23 11:20 Const General: well developed; No acute distress Nutritional Appearance: well nourished Orientation/consciousness: patient oriented x3 HENNE Head: Yes normocephalic and Yes atraumatic Eyes General: appearance normal, both eyes and all related structures Pupils: Equal, round and reactive pupils present EOM: EOMs intact bilaterally Resp Effort & Inspection: normal respiratory effort Auscultation: clear to auscultation bilaterally Cardio Rate: regular rate Rhythm: regular rhythm Heart sounds: S1 normal heart sound present, S2 normal heart sound present, no gallops, no murmurs and no rubs Neuro General: patient oriented x3 and gait normal Cranial nerves: Yes Equal, round and reactive pupils present Psych Affect: normal affect Assessment and Plan Assessment & Plan (1) Rash: Code(s): R21 - Rash and other nonspecific skin eruption Plan: Likely?a?reactive?dermatitis?secondary?to?dry?skin.??This?has?already?mostly?res olved?with?moisturizers?and?some?Benadryl?early?on. Hydrate?well?and?continue?moisturize Advised?humidified?air (2) Asthma-COPD overlap syndrome: Code(s): J44.9 - Chronic obstructive pulmonary disease, unspecified Plan: Lungs?are?clear?today?though?she?notes?some?increased?tightness?related?to?her?a sthma-COPD?overlap. She?is?working?with?pulmonology?to?get?her?inhaled?medications?correct. Follow-up?with?pulmonology?as?recommended (3) Fibromyalgia: Code(s): M79.7 - Fibromyalgia Plan: Worsened?discomfort?with?cold?weather Try?to?keep?warm Increased?duloxetine?to?40?mg?b.i.d. (4) Epistaxis: Code(s): R04.0 - Epistaxis Plan: This?also?may?be?secondary?to?dry?air Advised?humidified?air?and?nasal?saline Hydrate?well (5) Restless leg syndrome: Code(s): G25.81 - Restless legs syndrome Plan: Patient?does?not?tolerate?gabapentin We?discussed?ropi nirole?but?she?does?not?like?the?idea?of?the?side?effects?for?this?medication Hopefully?duloxetine?will?help?restless?legs?as?well?by?keeping?her?more?comfort able?at?bedtime Orders: Orders Lipid Panel Today Z00.00 - Encounter for general adult medical examination without abnormal findings UA and rflx microscopic Today Z00.00 - Encounter for general adult medical examination without abnormal findings Comprehensive [place]. Panel Fast Today Z00.00 - Encounter for general adult medical examination without abnormal findings Complete Blood Count Auto Diff Today Z00.00 - Encounter for general adult medical examination without abnormal findings Microalbumin, Random (w Creat) Today I10 - Essential (primary) hypertension TSH reflex Free T4 Today Z00.00 - Encounter for general adult medical examination without abnormal findings Medications: Changed From duloxetine 20 mg PO BID To duloxetine 40 mg PO BID 90 days 180 caps 3RF From cyclobenzaprine 10 mg PO BEDTIME PRN muscle spasm To cyclobenzaprine 10 mg PO BEDTIME PRN 30 tabs 0RF muscle spasm 30 days Refilled lorazepam 0.5 mg PO DAILY 28 tabs 1RF Coding Level of Care Code Est Pt Level 4 (26736) Diagnoses Rash R21 Asthma-COPD overlap syndrome J44.9 Fibromyalgia M79.7 Epistaxis R04.0 Restless leg syndrome G25.81
== END 2023-05-04 11:48 | disposition home or self-care (01) ==
PROVIDERS: PCP Family Medicine; Visit Provider Family Medicine
DX: R21 Rash and other nonspecific skin eruption (principal); J44.9 Chronic obstructive pulmonary disease, unspecified; M79.7 Fibromyalgia; R04.0 Epistaxis; G25.81 Restless legs syndrome
CPT/HCPCS: 99214

== ENCOUNTER 2023-05-17 12:46 | Outpatient (REF) | payer MEDICARE, MEDICAID, SELFPAY ==
--- NOTE | ~2023-05-17 | CT_ITS ---
EXAMINATION: CT CHEST WITHOUT CONTRAST CLINICAL INFORMATION: Prior abnormal imaging. COMPARISON: 12/08/2022 and 06/18/2022 TECHNIQUE: Multidetector volumetric CT imaging of the chest was done. Axial MIP volume rendering provided. Sagittal and coronal reformatted images were obtained. This CT examination was performed using dose optimization techniques as appropriate, variously including the following: *Automated exposure control *Adjustment of mA and/or kV according to patient size (this includes techniques or standardized protocols for targeted exams where dose is matched to indication/reason for exam; i.e. extremities or head) *Use of iterative reconstruction technique DLP: 280 mGy-cm FINDINGS: LUNGS: Stable nodules along the left major fissure (images 257 and 273) and stable pleural-based nodule of the right middle lobe (image 266). Stable 1 cm subsolid nodule of the left upper lobe (image 140) with a 4 mm solid component. No new pulmonary nodule or mass. Mild atelectasis at lung bases. MEDIASTINUM: Enlarged mediastinal lymph nodes appear stable. No axillary or hilar lymphadenopathy. Great vessels are of normal caliber. Heart size is normal. No pericardial effusion. CORONARY ARTERY CALCIFICATION: Moderate. PLEURA: There is no pleural effusion. No pleural mass or thickening. UPPER ABDOMEN: Unremarkable. OSSEOUS STRUCTURES: No destructive bone lesions. CT/CT chest wo IV con IMPRESSION: Stable 1 cm subsolid nodule of the left upper lobe compared to 06/18/2022. Recommend annual CT to confirm stability for 5 years. Stable mediastinal lymphadenopathy.
== END 2023-05-17 12:47 | disposition home or self-care (01) ==
LOC: HO.CT 12:46
PROVIDERS: PCP Family Medicine; Visit Provider Hospitalist
DX: R91.8 Other nonspecific abnormal finding of lung field (principal)
CPT/HCPCS: 71250

== ENCOUNTER 2023-06-24 14:24 | Outpatient (AMB) | payer MEDICARE, MEDICAID, SELFPAY ==
--- NOTE | 2023-06-24 14:42 | MHC.OFFVIS ---
Intake Vital Signs 06/24/23 14:43 Height 5 ft 3 in Weight 270 lb BMI 47.8 Pulse 92 Pulse Source Pulse Oximeter Pulse Oximetry (%) 96 Oxygen Delivery Method Room Air Intake Visit Reasons: copd Enterprise Systems Administrator Required: No Allergies Penicillins Allergy (Intermediate, Verified 06/24/23 14:42) RASH-FULL BODY Sulfa (Sulfonamide Antibiotics) Allergy (Intermediate, Verified 06/24/23 14:42) RASH-FULL BODY HPI HPI Comments History of Present Illness Details The patient is a 63-year-old woman with a known history of COPD, obstructive sleep apnea and obesity. Overall she has been responding very well to the respiratory therapy. Her respiratory status has improved dramatically. She has also been able to lose a good amunt f weigt with a combination of diet and also medications Daliresp. Hopefully she can lose enough weight to have her knee surgery. In the meantime she still has a diagnosis sleep apnea. She her allergy med. She does have daytime drowsiness. Her [place] score still elevated 04/04. the patient needs to have a sleep study at this time. 06/26/2022 the patient is here for pulmonary follow-up visit. The patient is back to her baseline. Her breathing is better. She has been very sad by the fact that she lost a good friend and roommate. She had early onset colon cancer. In regards of her pulmonary nodule she did undergo a repeat CT scan of the chest demonstrating a ground-glass nodular density measuring about 1.2 cm. Therefore, based on the fact that this nodular densities now greater than a cm and she has other pulmonary nodules will go ahead and repeat her CT scan in 6 months. In the meantime she will continue with current respiratory therapy. 12/24/2022 the patient is here for pulmonary follow-up visit. She does not feel well. Has been having increasing dyspnea in addition to cough. Moderate severity. Her respiratory therapy has been partially helpful. Over the summer she was diagnosed with migraines. She has been having hard time. She was placed on propanolol. Explained to her that possibly the propranolol is causing her respiratory symptoms to be worse. Although the propanolol seems to be helping her migraines. She will talk to her primary care doctor about potentially switching the beta-swathi to a calcium channel swathi or different agent altogether. The patient get try the Tessalon Perles. I did provide her with good Rx card that she can use to try to get it for a more reasonable cost. We also reviewed her CT scan of the chest that she had recently. We compared to the CT scan that she had back 6 months ago and also CT scan that she had a year ago. All were personally by me. It appears that this nodular density is subsolid nature and appears to be increasing size when compared to year ago. Therefore, based on the fact that is measuring 1 with 2 cm and appears to be slightly larger will go ahead and repeat the CT scan again 6 months. If he continues to change and or increase in size the patient will need to be evaluated by thoracic surgery. 06/24/2023 the patient is here for pulmonary follow-up visit. She continues to complain of significant dyspnea. Moderate severity be with minimal activity. She has been on maximum respiratory therapy with only partial resolution in her symptoms. On examination she does not have significant wheezing. She does have evidence of 2+ pitting edema in lower extremities. The patient is agreeable to taking a short course of diuretics. Based on her significant lower extremity edema and echocardiogram will be warranted. She does follow-up with cardiology here. I will let the no about her symptoms and findings. The patient did have a CT scan of the chest done May 2023. we personally reviewed the images together. It appears that she has a stable 1 cm pulmonary nodule. Subsolid nature. She will need another CT scan in a year's time. Still, no explanation for significant dyspnea except for volume overload status. Need to consider pulmonary hypertension. Therefore will request a repeat echocardiogram. ON LICENSE OF [facility] Medical History (Updated 06/27/23 @ 22:03 by Ascencion Cardona MD) Leg edema Dyspnea Pulmonary nodules Blepharitis of eyelid of left eye Morbid obesity GERD (gastroesophageal reflux disease) Asthma-COPD overlap syndrome ROSITA (obstructive sleep apnea) Surgical History History of hernia repair H/O esophagogastroduodenoscopy History of colonoscopy H/O wisdom tooth extraction History of tonsillectomy and adenoidectomy Family History Father Aneurysm Peptic ulcer disease Mother Cardiovascular disease Asthma Social History Household Members: Friend(s) Housing: House Alcohol intake: never Patient Tobacco Use Status: Never used Tobacco e-Cigarette/Vaping Use: Never Used Second Hand Smoke Exposure: No service: No Current occupational status: employed and disabled 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 Current occupational exposures/hazards: No Cognitive needs: No Hearing needs: No Vision needs: No Female Reproductive History Menstrual Age of Menarche: 7 Review of Systems Const Denies chills, Denies fatigue, Denies fever(s), Denies headache(s) and Denies weakness ENT Denies dizziness and Denies headache(s) Card Reports dyspnea on exertion Resp Reports cough, Reports dyspnea on exertion, Denies wheezing and Denies other (shortness of breath) Musc Reports back pain, Reports myalgias, Denies numbness and Denies tingling Neuro Denies dizziness, Denies headache(s), Denies numbness, Denies tingling and Denies weakness Psych Denies anxiety and Denies depression Endo Denies fatigue Aller/Immun Denies wheezing Physical Exam Vital Signs: Last Vital Signs Pulse 92 06/24/23 14:43 Pulse Ox 96 06/24/23 14:43 Oxygen Delivery Method Room Air 06/24/23 14:43 BMI result Body Mass Index 47.8 Const General: comfortable and no acute distress Orientation/consciousness: patient oriented x3 HEENT Other: Unremarkable Head: Yes normal to inspection Neck Neck: Yes normal visual inspection Chest Chest palpation & inspection: normal inspection of the chest Resp Auscultation: no crackles, no rales, no rhonchi, no wheezes and diminished lung sounds Cardio Palpation: normal PMI Heart sounds: S1 normal heart sound present, S2 normal heart sound present, no gallops, Murmur heart sound present systolic early, II/ and at the right sternal border and no rubs GI Palpation (GI): Soft to palpation Back/Spine/Pelvis Other: unremarkable Skin General skin exam: no rashes or lesions noted Neuro General: patient oriented x3 Extrem General: No clubbing, No cyanosis and Yes edema Psych Mental Status: mental status grossly normal Results Reviewed Results Reviewed: [address] [address] [address] Scan Report Signed Patient: Daxa Whitt MR#: [id number] : 1960 Acct:[id number] Age/Sex: 63 / F ADM Date: 05/17/23 Loc: HO.CT Attending Dr: Ascencion Cardona MD Ordering Physician: Ascencion Cardona MD Date of Service: 05/17/23 Procedure(s): CT chest wo IV con Accession Number(s): [id number] cc: Stan Davila MD; Ascencion Cardona MD~ EXAMINATION: CT CHEST WITHOUT CONTRAST CLINICAL INFORMATION: Prior abnormal imaging. COMPARISON: 12/08/2022 and 06/18/2022 TECHNIQUE: Multidetector volumetric CT imaging of the chest was done. Axial MIP volume rendering provided. Sagittal and coronal reformatted images were obtained. This CT examination was performed using dose optimization techniques as appropriate, variously including the following: *Automated exposure control *Adjustment of mA and/or kV according to patient size (this includes techniques or standardized protocols for targeted exams where dose is matched to indication/reason for exam; i.e. extremities or head) *Use of iterative reconstruction technique DLP: 280 mGy-cm FINDINGS: LUNGS: Stable nodules along the left major fissure (images 257 and 273) and stable pleural-based nodule of the right middle lobe (image 266). Stable 1 cm subsolid nodule of the left upper lobe (image 140) with a 4 mm solid component. No new pulmonary nodule or mass. Mild atelectasis at lung bases. MEDIASTINUM: Enlarged mediastinal lymph nodes appear stable. No axillary or hilar lymphadenopathy. Great vessels are of normal caliber. Heart size is normal. No pericardial effusion. CORONARY ARTERY CALCIFICATION: Moderate. PLEURA: There is no pleural effusion. No pleural mass or thickening. UPPER ABDOMEN: Unremarkable. OSSEOUS STRUCTURES: No destructive bone lesions. CT/CT chest wo IV con IMPRESSION: Stable 1 cm subsolid nodule of the left upper lobe compared to 06/18/2022. Recommend annual CT to confirm stability for 5 years. Stable mediastinal lymphadenopathy. Dictated By: Christoph Sung MD Signed By: <Electronically signed by Christoph Sung MD in OV> 05/20/23 1549 DD/ 1316 TD/TT: Engineering Project Manager: Assessment & Plan Assessment & Plan (1) Asthma-COPD overlap syndrome: Code(s): J44.9 - Chronic obstructive pulmonary disease, unspecified (2) ROSITA (obstructive sleep apnea): Code(s): G47.33 - Obstructive sleep apnea (adult) (pediatric) (3) GERD (gastroesophageal reflux disease): Code(s): K21.9 - Gastro-esophageal reflux disease without esophagitis Qualifiers: Esophagitis presence: with esophagitis Esophagitis bleeding: without hemorrhage Qualified Code(s): K21.00 - Gastro-esophageal reflux disease with esophagitis, without bleeding (4) Pulmonary nodules: Code(s): R91.8 - Other nonspecific abnormal finding of lung field (5) Dyspnea: Code(s): R06.00 - Dyspnea, unspecified Qualifiers: Dyspnea type: dyspnea on exertion Qualified Code(s): R06.09 - Other forms of dyspnea (6) Leg edema: Code(s): R60.0 - Localized edema Plan continue respiratory therapy: Brovana, budesonide and Spiriva lasix x 3 days ECHO continue Daliresp 500 mcg daily short-acting beta agonist repeat CT chest in 12 months follow-up in 2-3 months Medications: New furosemide (Lasix) 20 mg PO DAILY 3 days 3 tabs 0RF Refilled albuterol sulfate 2.5 mg (3 mL) inhalation Q6H 30 days PRN 180 mL 11RF shortness of breath or wheezing Coding Level of Care Code Est Pt Level 4 (64151) Diagnoses Asthma-COPD overlap syndrome J44.9 ROSITA (obstructive sleep apnea) G47.33 Gastroesophageal reflux disease with esophagitis without hemorrhage K21.00 Esophagitis presence: with esophagitis Esophagitis bleeding: without hemorrhage Pulmonary nodules R91.8 Dyspnea on exertion R06.09 Dyspnea type: dyspnea on exertion Leg edema R60.0 Time Spent (min) 18
[2023-06-24 14:43] VITALS: PULSE 92; O2SAT 96; BMI 47.8
== END 2023-06-24 15:08 | disposition home or self-care (01) ==
PROVIDERS: PCP Family Medicine; Visit Provider Hospitalist
DX: J44.9 Chronic obstructive pulmonary disease, unspecified (principal); G47.33 Obstructive sleep apnea (adult) (pediatric); K21.00 Gastro-esophageal reflux disease with esophagitis, without bleeding; R91.8 Other nonspecific abnormal finding of lung field; R06.09 Other forms of dyspnea; R60.0 Localized edema
CPT/HCPCS: 99214

== ENCOUNTER → 2023-06-24 14:24 | Outpatient (BNVA) | payer MEDICARE, MEDICAID, SELFPAY | PROVIDERS: PCP Family Medicine; Visit Provider Hospitalist | DX: J44.9 Chronic obstructive pulmonary disease, unspecified (principal); R06.09 Other forms of dyspnea; R91.8 Other nonspecific abnormal finding of lung field; R60.0 Localized edema; G47.33 Obstructive sleep apnea (adult) (pediatric); E66.9 Obesity, unspecified | CPT/HCPCS: 99212 ==

== ENCOUNTER 2023-08-05 13:05 | Outpatient (AMB) | payer MEDICARE, MEDICAID, SELFPAY ==
--- NOTE | 2023-08-05 13:08 | A.OFFVIS_ITS ---
Vital Signs 08/05/23 13:10 Height 5 ft 3 in Weight 270 lb BMI 47.8 BP 115/58 L Blood Pressure Location Lt brachial Position Sitting Intake Visit Reasons: 6 month follow up Allergies Penicillins Allergy (Intermediate, Verified 08/05/23 13:10) RASH-FULL BODY Sulfa (Sulfonamide Antibiotics) Allergy (Intermediate, Verified 08/05/23 13:10) RASH-FULL BODY Medication List - Last Reconciled 08/05/23 by Tonio Christianson MD albuterol sulfate 2.5 mg inhalation BID PRN albuterol sulfate 2.5 mg (3 mL) inhalation Q6H PRN 30 days albuterol sulfate 90 mcg/actuation 2 puffs PO Q6H PRN arformoterol 15 mcg (2 mL) inhalation BID aspirin 81 mg PO DAILY atorvastatin 80 mg PO QPM beclomethasone dipropionate 80 mcg/actuation (Qvar RediHaler) 2 inhalations inhalation BID 30 days budesonide 180 mcg/actuation (Pulmicort Flexhaler) 2 inhalations inhalation BID 30 days budesonide 0.5 mg (2 mL) inhalation BID 30 days issvejbrje-jfnezpmlzfeoc-cbfb 50-300-40 mg (Fioricet) 1 cap PO Q8H PRN clobetasol 0.05% 1 appl topical BID PRN cyclobenzaprine 10 mg PO BEDTIME PRN 30 days duloxetine 40 mg (2 x 20 mg) PO BID fluticasone propionate 50 mcg/actuation 1 spray intranasal Q12H furosemide (Lasix) 20 mg PO DAILY 3 days lorazepam 0.5 mg PO DAILY meclizine 12.5 mg PO DAILY PRN 30 days [employer] Motorized scooter. Daily As directed, 999 days moxifloxacin 0.5% 1 drp ophthalmic (eye) TID 7 days nebulizers As directed omeprazole 40 mg PO BID propranolol 10 mg PO BID 90 days roflumilast 500 mcg PO DAILY sennosides-docusate sodium 8.6-50 mg (Senna Plus) 1 tab-cap PO BEDTIME 60 days tiotropium bromide 2.5 mcg/actuation (Spiriva Respimat) 2 puffs PO DAILY HPI HPI 6 month follow up: Details: GI CLINIC VISIT FOR THIS 62-YEAR-OLD FEMALE FOR FOLLOW-UP OF GERD AND CHRONIC DIARRHEA IMAGING STUDIES:?11/[address] SCAN SHOWED: 1 x 0.6 cm subsolid nodule of the left upper lobe is stable compared to 06/18/2022, although the surrounding groundglass opacity is increased compared to 11/14/2021. Based on Fleischner Society guidelines, and since the solid component remains small at < 0.6 cm, recommend annual CT to confirm stability for 5 years. No new pulmonary nodule, mass or pleural effusion. * Mild mediastinal lymphadenopathy is unchanged. * Cholelithiasis. * Bilateral nephrolithiasis without hydronephrosis. * Small simple appearing cyst or old peripancreatic fluid collection of the retroperitoneum superior to the splenic vein is stable compared to 11/14/2021. No new abnormalities in the abdomen compared to 11/14/2021. 11/2022 BARIUM SWALLOW SHOWED: 1. Slightly limited study due to inability of the patient to tolerate upright and generalized positioning for the examination due to knee pain and disabilities. 2. 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 The hypopharynx was somewhat significantly distended in the hypopharyngeal phase, however. 3. Contrast pooling in the vallecula and piriform sinuses, both which cleared upon subsequent swallows. No aspiration was evident. 4. Mild presbyesophagus. Esophagus otherwise normal. 2016 GASTRIC EMPTYING STUDY SHOWED: Only subtle retention of activity noted at the end of 4 hours. Some of the measured retention may be from superimposed bowel activity. Visually there is no significant residual activity. ENDOSCOPIC STUDIES: 2013 EGD SHOWED: IMPRESSION: 1. Superficial gastritis primarily antral in location. 2. Possibility of diffuse esophageal spasm is raised. ?COMMENT: With patients elevated BMI and increased soft tissue presence in the posterior pharynx, this is certainly consistent with risk factors for obstructive sleep apnea. Some of these actually have difficulty swallowing due to redundant soft tissue in the posterior pharynx, which may allow food to collect in the vallecular region, etc. The patient will be seen back in our office in approximately 6 weeks to review options for further management. 2008 colonoscopy was performed by Dr. Austin - normal except small hemorrhoids. September, - stool FIT test was negative ?TODAY'S VISIT: Results of barium swallow and CT scan were re- reviewed with the pt. Pt is managing dysphagia symptoms with dietary modification Notes post prandial fullness associated with upper abdominal distension Has a BM daily - stools are large and on the hard side and formed Can be hard to flush once in a while - has used OTC laxatives in the past which was helpful PAST VISITS: Patient cc: Nauseas, abdominal pain/bloating, GERD, and Constipation. Not doing so good. Food seems to back up when she has a decent size meals Takes 1 meal a day and protein shakes the rest of the day. She is able to swallow and feels food and fluids move slowly from the esophagus into the stomach and feels pressure in her chest after eating Having reflux symptoms despite taking Omeprazole. Also had some constipation corretable with some laxatives Can feel very full in the upper abdomen. Had 4 courses of Prednisone for sinus infection over the past few months. Patient follow up for Asymptomatic gallstones. Pt upset since she lost her 58 year old friend and room mate - of small cell cancer (diagnosed in Dec, 2021) Denies RUQ or shoulder pain. Feels bloated after eating - likely related to gastroparesis Occasional LLQ pain after eating fatty foods. Has chronic LBP and a hx of kidney stones. Back pain improves with taking a muscle relaxant. Patient cc: abdominal bloating come and go, heart burn, diarrhea/constipation, and some dysphagia. Denies any other GI issues. Has been undergoing evaluation for fatigue/exhaustion - Cardiology and Pulmonary Seen by a Electric Motor Winders Assembler for a positive ESTEBAN Intermittent dysphagia with solids - chicken, pasta. Taking more fruits and vegetables and takes an MVI daily. Having more reflux and indigestion especially an hour after dinner at night (between 6 and 8 pm) while she is sitting. Concerned about reaction to COVID Booster injection. Feels like indigestion. Also feels wiped out a few days a week. denies fever, chills or sweating. Takes Omeprazole at bedtime - 10 or 11 pm. Diagnosed with kidney stones and scheduled for cystoscopic removal at [facility]. Had CT scan recently at [facility] which showed gallstones. GERD symptoms well controlled with Omeprazole 40 mg twice daily. Continues to have dysphagia with pills and nuts - eats after taking pills to help swallow her medications. Denies dysphagia with liquids. Denies diarrhea and has constipation. Having a BM every 2-3 days with laxatives. Decreased appetite and is eating lightly. Patient denies major cardiac or pulmonary problems, and has a hx of sleep apnea Denies problems with anesthesia in the past. Denies being on chronic anticoagulation. Patient denies known family history of colon polyps, colon cancer or other GI malignanc [facility] Medical History Leg edema Dyspnea Pulmonary nodules Blepharitis of eyelid of left eye Morbid obesity GERD (gastroesophageal reflux disease) Asthma-COPD overlap syndrome ROSITA (obstructive sleep apnea) Surgical History History of hernia repair H/O esophagogastroduodenoscopy History of colonoscopy H/O wisdom tooth extraction History of tonsillectomy and adenoidectomy Family History Father Aneurysm Peptic ulcer disease Mother Cardiovascular disease Asthma Social History Household Members: Friend(s) Housing: House Alcohol intake: never Patient Tobacco Use Status: Never used Tobacco e-Cigarette/Vaping Use: Never Used Second Hand Smoke Exposure: No service: No Current occupational status: employed and disabled 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 Current occupational exposures/hazards: No Cognitive needs: No Hearing needs: No Vision needs: No Female Reproductive History Menstrual Age of Menarche: 7 Review of Systems Const All systems reviewed & are unremarkable except as noted in HPI and below Physical Exam Vital Signs: Last Vital Signs BP 115/58 L 08/05/23 13:10 BMI result Body Mass Index 47.8 Const General: no acute distress Nutritional Appearance: obese Orientation/consciousness: patient oriented x3 Limitations: wheelchair HEENT Head: Yes normal to inspection Ears: hearing grossly normal bilaterally Eyes Sclerae: sclerae normal Pupils: Equal, round and reactive pupils present Neck Neck: Yes normal visual inspection Chest Chest palpation & inspection: normal inspection of the chest Resp Effort & Inspection: normal respiratory effort Auscultation: clear to auscultation bilaterally Cardio Palpation: normal PMI Rate: regular rate Rhythm: regular rhythm Heart sounds: S1 normal heart sound present, S2 normal heart sound present and no murmurs GI Palpation (GI): Soft to palpation, nontender and No hepatosplenomegaly present Auscultation: normal bowel sounds Rectal Exam - Female: deferred Skin General skin exam: no rashes or lesions noted Neuro General: patient oriented x3, gait normal and moves all extremities Cranial nerves: Yes Equal, round and reactive pupils present Psych Appearance: grossly normal Mental Status: mental status grossly normal Assessment & Plan Assessment & Plan (1) GERD (gastroesophageal reflux disease): Code(s): K21.9 - Gastro-esophageal reflux disease without esophagitis Category: Medical Qualifiers: Esophagitis presence: with esophagitis Esophagitis bleeding: without hemorrhage Qualified Code(s): K21.00 - Gastro-esophageal reflux disease with esophagitis, without bleeding (2) Pancreatic lesion: Code(s): K86.9 - Disease of pancreas, unspecified Category: Medical (3) Abnormal CT scan: Comment: 03/[address] scan without contrast at [facility] showed mild to moderate tree true peritoneal lymphadenopathy. A 3.2 cm lobular lesion in left upper quadrant (stable since August 2020 and increased in size since 2016) - possible peripancreatic fluid collection, retroperitoneal lymph angioma, or necrotic lymph nodes. Pt is unable to have an open or closed MRI due to severe claustrophobia. 10/2022 order placed for follow-up CT scan with contrast Code(s): R93.89 - Abnormal findings on diagnostic imaging of other specified body structures Category: Medical (4) Dysphagia, pharyngoesophageal phase: Code(s): R13.14 - Dysphagia, pharyngoesophageal phase Category: Medical (5) Chronic constipation: Code(s): K59.09 - Other constipation Category: Medical (6) Bulky stools: Code(s): R19.5 - Other fecal abnormalities Category: Medical Plan 63 YF followed in GI for GERD, dysphagia and IBS with constipation and diarrhea. 2017 gastric emptying study showed subtle retention of activity noted at the end of 4 hours. Some of the measured retention may be from superimposed bowel activity - visually no significant residual activity. Had CT scan at [facility] which showed gallstones. GERD symptoms well controlled with Omeprazole 40 mg twice daily. Continues to have dysphagia with pills and nuts - eats after taking pills to help swallow her medications. Dysphagia felt to be related to esophageal spasm/ motility disorder 05/28/22 Fu of gallstones noted on outside CT scan. Denies RUQ or shoulder pain. Feels bloated after eating - likely related to gastroparesis Occasional LLQ pain after eating fatty foods. Has chronic LBP and a hx of kidney stones. Back pain improves with taking a muscle relaxant. HIDA scan was ordered - pt is concerned about claustrophobia and lying on the exam table for extended period of time. She was advised to hold off scheduling the HIDA scan since she does not have any biliary symptoms. Post prandial bloating is likely related to Gastroparesis. Pt was advised dietary modification. If symptoms persist, I will schedule repeat GES and EGD (Pt has COPD and sleep apnea). 03/[address] scan without contrast at [facility] showed mild to moderate tree true peritoneal lymphadenopathy. A 3.2 cm lobular lesion in left upper quadrant (stable since August 2020 and increased in size since 2016) - possible peripancreatic fluid collection, retroperitoneal lymph angioma, or necrotic lymph nodes. Pt is unable to have an open or closed MRI due to severe claustrophobia. 10/2022 order placed for follow-up CT scan with contrast Patient complains of dysphagia to solids and liquids - advised further evaluation with a barium swallow. 08/05/23 Results of barium swallow and CT scan were re- reviewed with the pt. Pt is managing dysphagia symptoms with dietary modification Notes post prandial fullness associated with upper abdominal distension Has a BM daily - stools are large and on the hard side and formed Can be hard to flush once in a while - has used OTC laxatives in the past which was helpful Chekc stool pancreatic elastase and take senna 2-3 times a week FU in 6 months Orders: Orders Pancreatic Elastase-1 Today R19.5 - Other fecal abnormalities Medications: New sennosides-docusate sodium 8.6-50 mg (Senna Plus) 1 tab-cap PO BEDTIME 60 days 60 caps 3RF K59.09 - Other constipation Coding Level of Care Code Est Pt Level 4 (60474) Diagnoses Gastroesophageal reflux disease with esophagitis without hemorrhage K21.00 Esophagitis presence: with esophagitis Esophagitis bleeding: without hemorrhage Pancreatic lesion K86.[address] scan R93.89 Dysphagia, pharyngoesophageal phase R13.14 Chronic constipation K59.09 Bulky stools R19.5 Time Spent (min) 21
[2023-08-05 13:10] VITALS: BP 115/58; BMI 47.8
== END 2023-08-05 14:22 | disposition home or self-care (01) ==
PROVIDERS: PCP Family Medicine; Visit Provider Internal Medicine Gastroenterology
DX: K21.00 Gastro-esophageal reflux disease with esophagitis, without bleeding (principal); K86.9 Disease of pancreas, unspecified; R93.89 Abnormal findings on diagnostic imaging of other specified body structures; R13.14 Dysphagia, pharyngoesophageal phase; K59.09 Other constipation; R19.5 Other fecal abnormalities
CPT/HCPCS: 99214

== ENCOUNTER → 2023-08-05 13:05 | Outpatient (BNVA) | payer MEDICARE, MEDICAID, SELFPAY | PROVIDERS: PCP Family Medicine; Visit Provider Internal Medicine Gastroenterology | DX: K21.00 Gastro-esophageal reflux disease with esophagitis, without bleeding (principal); K86.9 Disease of pancreas, unspecified; R93.89 Abnormal findings on diagnostic imaging of other specified body structures; R13.14 Dysphagia, pharyngoesophageal phase; K59.09 Other constipation; R19.5 Other fecal abnormalities | CPT/HCPCS: 99212 ==

== ENCOUNTER 2023-08-06 14:37 | Outpatient (REF) | payer MEDICARE, MEDICAID, SELFPAY ==
[2023-08-06 16:17] LABS: MANUAL DIFF FLAG NO
[2023-08-06 16:22] LABS: Basophils Percent Auto 0.4 % (0-2); Eosinophils Absolute Auto 0.4 X10*3/uL (0.0-0.4); Eosinophils Percent Auto 4.3 % (0-4); Hematocrit 35.4 % (37.0-47.0); Hemoglobin 11.4 g/dl (12.0-16.0); Imm Gran Abs Auto 0.03 X10*3/uL (0.00-0.03); Imm Gran Pct Auto 0.4 % (0.0-0.4); Lymphocytes Absolute Auto 1.3 X10*3/uL (1.2-4.9); Lymphocytes Percent Auto 15.8 % (20-40); Mean Corpuscular HGB Conc 32.2 g/dl (31.0-35.0); Mean Corpuscular Hemoglobin 28.9 pg (27.0-33.0); Mean Corpuscular Volume 89.8 fL (80.0-98.0); Mean Platelet Volume 9.3 fL (9.4-12.3); Monocytes Absolute Auto 0.8 X10*3/uL (0.1-1.2); Monocytes Percent Auto 9.3 % (2-11); Neutrophils Absolute Auto 5.7 x10*3/uL (2.0-8.3); Neutrophils Percent Auto 69.8 % (45-73); Platelet Count 276 X10*3/uL (160-400); Red Blood Count 3.94 X10*6/uL (4.20-5.50); White Blood Count 8.2 X10*3/uL (4.8-10.8)
[2023-08-06 16:58] LABS: Alanine Aminotransferase 26 U/L (0-31); Albumin Level 3.7 g/dL (3.5-5.0); Alkaline Phosphatase 101 U/L (39-117); Anion Gap 12 (12-20); Aspartate Amino Transferase 16 U/L (5-31); Bilirubin Total 0.4 mg/dL (0.0-1.0); Blood Urea Nitrogen 21 mg/dL (9-16); Calcium 9.2 mg/dL (8.4-10.2); Carbon Dioxide 26 mmol/L (22-29); Chloride 107 mmol/L (96-108); Cholesterol 138 mg/dL (<200); Estimated Glomerular Filt Rate > 60; Glucose Fasting 113 mg/dL (60-99); HDL Cholesterol 44 mg/dL (>40); LDL Cholesterol Calculated 76 mg/dL (<100); Potassium 4.2 mmol/L (3.3-5.1); Sodium 141 mmol/L (135-145); Total Protein 6.7 g/dL (6.5-8.0); Triglycerides 91 mg/dL (<150)
[2023-08-06 17:05] LABS: TSH reflex Free T4 1.84 uIU/mL (0.32-4.0)
== END 2023-08-06 14:38 | disposition home or self-care (01) ==
LOC: HO.HMGCLDS 14:37
PROVIDERS: PCP Family Medicine; Visit Provider Family Medicine
DX: Z00.00 Encounter for general adult medical examination without abnormal findings (principal); Z20.2 Contact with and (suspected) exposure to infections with a predominantly sexual mode of transmission
CPT/HCPCS: 36415; 80053; 80061; 84443; 85025

== ENCOUNTER 2023-08-31 11:33 | Outpatient (REF) | payer MEDICARE, SELFPAY ==
[2023-08-31 16:11] LABS: Appearance Urine Clear; Color Urine Yellow; Glucose Urine UA Negative (Negative); Leukocyte Esterase Urine Trace (Negative); Nitrite Urine Negative (Negative); PH 5.5 (5.0-9.0); Specific Gravity - Urine 1.025 (1.005-1.025); UMIC TRIGGER UA YES; Urine Blood Negative (Negative); Urine Ketones Negative (Negative); Urine Protein Negative (Neg-Trace)
[2023-08-31 16:17] LABS: Bacteria Urine None Seen (None Seen); Hyaline Casts Urine 0-2 /LPF (0-2); RBC Urine 0-2 /HPF (0-2); Squamous Epithelial Cell Urine 0-2 /HPF (0-2)
[2023-08-31 17:31] LABS: Creatinine Urine 71.38 mg/dL; Microalbum/Creatinine Ratio Ur 18.2 ug/mg cr (<30)
[2023-09-09 19:43] LABS: Pancreatic Elastase-1 >500 mcg/g
== END 2023-08-31 11:34 | disposition home or self-care (01) ==
LOC: HO.HMGCLNP 11:33
PROVIDERS: PCP Family Medicine; Referring Provider Internal Medicine Gastroenterology; Visit Provider Family Medicine
DX: Z00.00 Encounter for general adult medical examination without abnormal findings (principal); I10 Essential (primary) hypertension; R19.5 Other fecal abnormalities
CPT/HCPCS: 81001; 82043; 82570; 82656

== ENCOUNTER 2023-09-03 13:29 | Outpatient (AMB) | payer MEDICARE, MEDICAID, SELFPAY ==
[2023-09-03 13:32] VITALS: BP 117/60; PULSE 86; O2SAT 96; BMI 47.8
--- NOTE | 2023-09-03 13:32 | A.OFFPC_ITS ---
Vital Signs 09/03/23 13:32 Height 5 ft 3 in Weight 270 lb BMI 47.8 BP 117/60 Blood Pressure Location Lt brachial Position Sitting Pulse 86 Pulse Source Pulse Oximeter Pulse Oximetry (%) 96 Oxygen Delivery Method Room Air Intake Visit Reasons: CPE with f/u labs and health maint. - see comments Intake Note: Patient is here for a physical today, and to follow up on labs and health maintenance. Allergies Penicillins Allergy (Intermediate, Verified 09/03/23 13:34) RASH-FULL BODY Sulfa (Sulfonamide Antibiotics) Allergy (Intermediate, Verified 09/03/23 13:34) RASH-FULL BODY Tobacco use date assessed: 09/03/23 Fall risk assessment: No Falls in past year Last assessed Fall Risk: 09/03/23 Dental Screening Dental Screen Date: 09/03/23 Did you have a dental visit in the last 12 months?: No Did you have a dental problem in the last 6 months where you did not have access to dental care?: No Was dental information given to patient?: Patient declined HPI CPE with f/u labs and health maint. - see comments HPI Details 63 y/o female presents for a CPE with f/ u labs and health maintenance. Had increased her duloxetine to 40mg b.i.d. Labs were drawn 08/06/23. Reviewed labs with pt. Mild anemia. Elevated fasting glucose of 113. Triglycerides 91. TC 138. LDL 76. HDL 44. Pt reports laceration of L forearm. PFSH Medical History Leg edema Dyspnea Pulmonary nodules Blepharitis of eyelid of left eye Morbid obesity GERD (gastroesophageal reflux disease) Asthma-COPD overlap syndrome ROSITA (obstructive sleep apnea) Surgical History History of hernia repair H/O esophagogastroduodenoscopy History of colonoscopy H/O wisdom tooth extraction History of tonsillectomy and adenoidectomy Family History Father Aneurysm Peptic ulcer disease Mother Cardiovascular disease Asthma Social History Household Members: Friend(s) Housing: House Alcohol intake: never Patient Tobacco Use Status: Never used Tobacco e-Cigarette/Vaping Use: Never Used Second Hand Smoke Exposure: No service: No Current occupational status: employed and disabled 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 1. Little interest or pleasure in doing things: not at all 2. Feeling down, depressed, or hopeless: not at all 3. Trouble falling or staying asleep, or sleeping too much: not at all 4. Feeling tired or having little energy: not at all 5. Poor appetite or overeating: not at all 6. Feeling bad about yourself - or that you are a failure or have let yourself or your family down: not at all 7. Trouble concentrating on things, such as reading the newspaper or watching television: not at all 8. Moving or speaking so slowly that other people could have noticed. Or the opposite - being so fidgety or restless that you have been moving around a lot more than usual: not at all 9. Thoughts that you would be better off or of hurting yourself in some way: not at all Total score: 0 Depression Screening Interpretation: Negative Depression Screening Done: Yes 54471 - PHQ-9 Billing: Yes Source: Developed by Drs. Zohaib Coffman, Ashley Short, Shaka Austin and colleagues, with an educational tracy from [employer]. Thrive Questionnaire Date Thrive assessed: 09/03/23 I am a: Patient What is your living situation today?: I have a steady place to live Within the past 12 months, did the food you bought not last and you didn't have the money to get more?: Never true Within the past 12 months, did you worry whether your food would run out before you got money to buy more?: Never true Do you have trouble paying for medicines?: No Do you have trouble getting transportation to medical appointments?: No Do you have trouble paying your heating and electricity bill?: No Do you have trouble taking care of your child, family member or friend?: No Do you have trouble with day-to-day activities such as bathing, preparing meals, shopping, managing finances, etc.?: No Are you currently unemployed and looking for a job?: No Are you interested in more education?: No THRIVE Score: 0 AUDIT C Alcohol Use Questionnaire (AUDIT-C) 1. How often do you have a drink containing alcohol?: Never 3. How often do you have six or more drinks on one occasion?: Never Total Score: 0 MAGGIE-7 AMB Questionnaire MAGGIE-7 Date MAGGIE - 7 assessed: 09/03/23 Feeling nervous, anxious, or on edge: 0 = Not at all Not being able to stop or control worryin = Not at all Worrying too much about different things: 0 = Not at all Trouble relaxin = Not at all Being so restless that it is hard to sit still: 0 = Not at all Becoming easily annoyed or irritable: 0 = Not at all Feeling afraid as if something awful might happen: 0 = Not at all Total MAGGIE-7 score (0-4 normal; 5-9 mild; 10-14 moderate; 15-21 severe): 0 Source: Developed by Drs. Zohaib Coffman, Ashley Short, Shaka Austin and colleagues, with an educational tracy from [employer]. MAGGIE-7 Assessment Billing MAGGIE-7 Assessment Tool: MAGGIE-7 Assessment 79743 Review of Systems Const Denies chills, Denies fatigue, Denies fever(s), Denies headache(s) and Denies weakness Eyes Denies change in vision ENT Denies dizziness, Denies headache(s), Denies hearing loss, Denies nasal congestion, Denies sinus pain, Denies sinus pressure and Denies sore throat Card Denies chest pain, Denies lightheadedness, Denies dyspnea and Denies other (palpitations) Resp Denies cough, Denies dyspnea and Denies wheezing GI Denies abdominal pain, Denies melena, Denies hematochezia, Denies change in bowel habits, Denies dyspepsia and Denies nausea Denies hematuria and Denies dysuria Musc Denies abnormal gait, Denies myalgias, Denies arthralgias, Denies numbness and Denies tingling Skin/Breast Denies rash, Denies unusual bruising and Denies wounds Neuro Denies abnormal gait, Denies dizziness, Denies headache(s), Denies memory loss, Denies numbness, Denies Sensory deficit (Neuro), Denies tingling and Denies weakness Psych Denies anxiety, Denies depression and Denies memory loss Endo Denies cold intolerance, Denies fatigue, Denies heat intolerance, Denies polydipsia and Denies polyuria El/Lymph Denies easy bleeding and Denies easy bruising Aller/Immun Denies wheezing Physical exam (Primary Care) Vital Signs: Last Vital Signs Pulse 86 09/03/23 13:32 BP 117/60 09/03/23 13:32 Pulse Ox 96 09/03/23 13:32 Oxygen Delivery Method Room Air 09/03/23 13:32 BMI result Body Mass Index 47.8 Tobacco/Smoking Status: Tobacco use Status Tobacco use date assessed 09/03/23 09/03/23 13:44 Patient Tobacco Use Status Never used Tobacco 09/03/23 13:33 e-Cigarette/Vaping Use Never Used 09/03/23 13:33 PHQ-9: PHQ-9 Score PHQ-9: Total score 0 09/03/23 13:53 Depression Screening Interpretation: Negative Thrive Assessment: Date of Thrive Assessment Date Thrive assessed 09/03/23 09/03/23 13:44 Const General: no acute distress, well developed, alert and awake Nutritional Appearance: well nourished and obese morbidly obese Orientation/consciousness: patient oriented x3 HENMT Head: Yes normocephalic and Yes atraumatic Ears: hearing grossly normal bilaterally and TM's normal bilaterally General nose exam: Normal external nose present and Normal nares present Mouth: Normal oral and palatal mucosa present and moist mucous membranes Teeth and gingiva: dentition normal Throat: Yes posterior oropharynx normal Eyes General: appearance normal, both eyes and all related structures Pupils: Equal, round and reactive pupils present and Pupil accommodation reflex normal EOM: EOMs intact bilaterally Neck Neck: Yes normal visual inspection, Yes no lymphadenopathy and Yes trachea midline Thyroid: Thyroid normal Carotids: no bruits Lymphatic: no lymphadenopathy noted Chest Chest palpation & inspection: normal inspection of the chest Resp Effort & Inspection: normal respiratory effort Auscultation: clear to auscultation bilaterally Cardio Rate: regular rate Rhythm: regular rhythm Heart sounds: S1 normal heart sound present, S2 normal heart sound present, no gallops, no murmurs and no rubs Bruits: no abdominal aortic bruits and no carotid bruits GI Palpation (GI): No Abdominal aortic bruit present, Soft to palpation, nontender, No hepatosplenomegaly present and No Rebound tenderness present Auscultation: normal bowel sounds General: Yes no CVA tenderness Back/Spine/Pelvis Back: no CVA tenderness Cervical Spine: cervical ROM normal and No Cervical spine tenderness Thoracic/Lumbar Spine: thoraco-lumbar ROM normal, No pain with thoraco-lumbar ROM, No thoracic spinal tenderness and No lumbar spinal tenderness Skin Lesions: no lesions Rashes: no rashes Trauma: no lacerations or abrasions Wounds: no wounds Nails: normal Neuro General: patient oriented x3 Cranial nerves: Yes Equal, round and reactive pupils present Cognition (Neuro): normal cognition Gait exam (Neuro): Normal gait present Motor exam (neuro): 5/5 motor strength present throughout Sensory Exam: No Sensory deficit (Neuro) Deep tendon reflexes (DTR's): Right patellar reflex intensity grade: 2+ and Left patellar reflex intensity grade: 2+ Extrem General: Yes normal to inspection and No edema Psych Appearance: grossly normal Affect: normal affect Attitude: cooperative Thought process: Normal thought process present Results AMB Hemoglobin A1c AMB Hemoglobin A1c 7.1 % Last Edit by Ivett Cohn CMA on 09/03/23 13:57 Assessment and Plan Assessment & Plan (1) Adult general medical exam: Code(s): Z00.00 - Encounter for general adult medical examination without abnormal findings Plan: 63-year-old?female?presents?for?complete?physical?exam Stable (2) Mild anemia: Code(s): D64.9 - Anemia, unspecified Plan: We?can?continue?to?monitor?this (3) Elevated fasting glucose: Code(s): R73.01 - Impaired fasting glucose Plan: Elevated?fasting?blood?sugar?with?an?A1c?in?diabet es?range.??However?she?has?been?on?steroid?fairly?recently. I?discussed?that?I?suspect?she?still?has?pre?diabetes?and?possibly?diabetes We?will?recheck?in?about?2?months We?discussed?that?if?she?is?s till?in?pre?diabetes?range?we?may?want?to?use?medication?and?she?understands?thi s. Meantime?she?will?work?on?a?diet?low?in?sugars?and?starches?and?she?will?let?me? know?if?she?needs?to?use?any?steroids?again. (4) Abnormal CT scan: Code(s): R93.89 - Abnormal findings on diagnostic imaging of other specified body structures Plan: Follow-up?with? (5) Laceration of left forearm: Code(s): S51.812A - Laceration without foreign body of left forearm, initial encounter Plan: Does?not?require?sutures She?is?overdue?for?tetanus?shot?and?I?will?order?this.??We?do?not?have?teta nus?shots?in?stock?here?today?so?she?will?go?to?the?[place]?walk-in?get?this. (6) Breast cancer screening by mammogram: Code(s): Z12.31 - Encounter for screening mammogram for malignant neoplasm of breast Plan: Up-to-date (7) Colon cancer screening: Code(s): Z12.11 - Encounter for screening for malignant neoplasm of colon Plan: Followed?by?[facility]?gastroenterology Gets?Cologuard?tests Up-to-date (8) Screening for osteoporosis: Code(s): Z13.820 - Encounter for screening for osteoporosis Plan: Has?not?had?a?bone?density?test?recently?and?is?now?63 Start?screening?for?osteoporosis?with?bone?density?test Ordered (9) Immunization counseling: Code(s): Z71.85 - Encounter for immunization safety counseling Plan: Patient?has?had?PCV?13?and?PPSV in?the?last?few?years. 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 walk-in?in?[place] Orders: Orders TDaP Immunization Today Z23 - Encounter for immunization AMB Hemoglobin A1c Today Z13.9 - Encounter for screening, unspecified XR DEXA axial skeleton Today M81.0 - Age-related osteoporosis without current pathological fracture Medications: New Boostrix Tdap (diphth,pertus(acell),tetanus) 0.5 mL IM ONCE 0.5 mL 0RF NS Z23 - Encounter for immunization Coding Level of Care Code Est Pt Level 3 (81741) Est Pt Prev Care >65y(87969) Diagnoses Adult general medical exam Z00.00 Mild anemia D64.9 Elevated fasting glucose R73.[address] scan R93.89 Laceration of left forearm S51.812A Breast cancer screening by mammogram Z12.31 Colon cancer screening Z12.11 Screening for osteoporosis Z13.820 Immunization counseling Z71.85 Additional Codes MAGGIE-7 Assessment Billing - MAGGIE-7 Assessment Tool: MAGGIE-7 Assessment 47508 ([id number])
== END 2023-09-03 14:31 | disposition home or self-care (01) ==
PROVIDERS: PCP Family Medicine; Visit Provider Family Medicine
DX: Z00.00 Encounter for general adult medical examination without abnormal findings (principal); D64.9 Anemia, unspecified; R73.01 Impaired fasting glucose; R93.89 Abnormal findings on diagnostic imaging of other specified body structures; S51.812A Laceration without foreign body of left forearm, initial encounter; Z12.31 Encounter for screening mammogram for malignant neoplasm of breast; Z12.11 Encounter for screening for malignant neoplasm of colon; Z13.820 Encounter for screening for osteoporosis; Z71.85 Encounter for immunization safety counseling
CPT/HCPCS: 83036; 99397

== ENCOUNTER → 2023-09-28 14:42 | Outpatient (REF) | payer MEDICARE, SELFPAY ==
--- NOTE | 2023-09-28 14:46 | CA_ITS ---
Transthoracic Echocardiogram Patient (Last, First, Middle): Daxa Whitt M Gender: Female Date of : 1960 Age: 63 Procedure Date: 09/28/2023 Procedure Type: Transthoracic Echocardiogram Location: OP Height: 160.02 cm Weight: 127.92 kg BSA: 2.24 m2 Heart Rate: bpm BP: 130 / 80 mmHg Pouncing Lathe Operator: Referring MD: Ascencion Cardona MD Symptoms: R06.09 - Other forms of dyspnea Study Quality: Fair ECG Rhythm: Sinus Conclusions: - The left ventricular systolic function is normal. The calculated ejection fraction is 56% by biplane method. - The left atrium is moderately dilated. - There is mild aortic valve stenosis. - There is moderate mitral annular calcification. - There is no evidence of pulmonary hypertension. Findings Left Ventricle Normal left ventricular cavity size. There is mildly increased left ventricular wall thickness. The left ventricular systolic function is normal. The calculated ejection fraction is 56% by biplane method. There is no evidence of regional wall motion abnormalities. Evidence suggests grade I (mild) diastolic dysfunction. Right Ventricle Normal right ventricular cavity size and systolic function. Atria The left atrium is moderately dilated. The right atrium is normal in size. Aortic Valve There is mild calcification of the aortic valve. There is mild aortic valve stenosis. The peak aortic velocity is 2.39 m/s with a calculated peak gradient of 23 mmHg. The mean gradient is 10 mmHg. The aortic valve area is 1.69 cm2. There is no aortic valve regurgitation. Mitral Valve There is moderate mitral annular calcification. There is trace mitral valve regurgitation. There is no mitral valve stenosis. Pulmonic Valve The pulmonic valve is likely normal. Tricuspid Valve There is trace tricuspid valve regurgitation. There is no evidence of pulmonary hypertension. Great Vessels The asc aorta is normal in size. Venous The inferior vena cava is normal in size and collapses greater than 50% with inspiration. Pericardium/Pleural There is no evidence of pericardial effusion. Prior Study Comparison No significant change compared to prior study dated: 05/05/2021. Measurements 2D Linear Measurements IVSd: 1.22 0.6-0.9/0.6-1.0 cm LVIDd: 3.54 3.9-5.3/4.2-5.9 cm LVIDd Index: 1.58 2.4-3.2/2.2-3.1 cm/m2 LVIDs: 2.39 2.0-3.6 cm LVPWd: 1.24 0.7-1.1 cm Ao Root: 2.70 2.1-3.5 cm LA Diam: 4.30 2.7-3.8/3.0-4.0 cm LAIDs Index: 1.92 1.5-2.3 cm/m2 LV Mass: 178.50 67-162/88-224 g LV Mass Index: 79.69 43-95/49-115 g/m2 LVOT Diam: 2.00 3.0+(-)1.3 cm 2D Systolic Function EF 4C: 54.90 >55% EF 2C: 58.50 >55% EF BiP: 55.80 >55% Mitral Valve MV VTI: 0.39 MV Pk Ascencion: 1.52 MV Mn Ascencion: 0.86 MV Pk Grad: 9.00 MV Mn Grad: 4.00 MV Pk E: 1.08 MV PK A: 1.53 MV Decel Time: 179.00 E/A: 0.70 E'Lateral: 6.42 E'Medial: 4.68 E/E' Med: 23.10 E/E' Lat: 16.80 PHT: 52.00 MVA PHT: 4.23 MVA Continuity: 2.10 [place]: 6.02 Aortic Valve AoV Pk Ascencion: 2.39 AoV Mn Ascencion: 1.47 AoV VTI: 0.48 AoV Pk Grad: 23.00 Aov Mn Grad: 10.00 JOHANA Cont.VTI: 1.69 LVOT LVOT Pk Ascencion: 1.15 LVOT Mn Ascencion: 0.75 LVOT VTI: 0.26 LVOT Pk Grad: 5.00 LVOT Mn Grad: 3.00 LVOT Diam: 2.00 LVOT Area: 3.14 Diastolic Function MV Pk E: 1.08 MV Pk A: 1.53 E/A: 0.70 E'Medial: 4.68 E/E' Med: 23.10 E' Laterial: 6.42 E/E' Lat: 16.80 Right Ventricle TAPSE (mm): 23.00 TVS' Ascencion: 11.00 Tricuspid Valve TR Pk Ascencion: 2.30 TR Pk Grad: 21.00 RA Press: 3.00 RVSP: 24.00 Great Vessels Aorta Ao Root-2D: 2.70 2.0-3.7 cm Ao Asc: 2.70 2.1-3.4 cm Pulmonary Valve PV Pk Ascencion: 1.21 Peak PV Grad: 6.00 Updated in Other Vendor System with Status of Final Thad Muñoz MD electronically signed on 09/29/2023 8:44:17 AM with status of Final
== END ==
LOC: HO.CARD 14:42
PROVIDERS: PCP Family Medicine; Visit Provider Hospitalist
DX: R06.09 Other forms of dyspnea (principal); R60.0 Localized edema
CPT/HCPCS: 93306

== ENCOUNTER → 2023-09-28 14:46 | Outpatient (BNV) | payer MEDICARE, SELFPAY | PROVIDERS: PCP Family Medicine; Visit Provider Internal Medicine | DX: I35.0 Nonrheumatic aortic (valve) stenosis (principal); I34.81 Nonrheumatic mitral (valve) annulus calcification | CPT/HCPCS: 93306 ==

== ENCOUNTER 2023-10-01 13:23 | Outpatient (REF) | payer MEDICARE, SELFPAY ==
--- NOTE | ~2023-10-01 | MM_ITS ---
EXAMINATION: BONE DENSITOMETRY CLINICAL INDICATION: Age-related osteoporosis without current pathological fracture. COMPARISON: This is the patient's baseline examination. TECHNIQUE: Using a [employer] DXA System (software version: 13.1) manufactured by [employer], dual-energy x-ray absorptiometry was performed of the lumbar spine and left hip. The images are of good technical quality. Summary results are attached. FINDINGS: LEFT FEMUR, NECK: BMD 0.582 g/cm2, Z-score -2.6, T-score -3.3, osteoporosis. LEFT FEMUR, TOTAL: BMD 0.626 g/cm2, Z-score -2.6, T-score -3.0, osteoporosis. AP SPINE L1-L4: BMD 1.051 g/cm2, Z-score -0.6, T-score -1.1, osteopenia. IDENTIFIED RISK FACTORS: Early menopause, secondary osteoporosis, rheumatoid arthritis. HISTORY OF FRACTURE: None listed. MEDICATIONS: Multivitamin. MM/XR DEXA axial skeleton IMPRESSION: 1. DIAGNOSIS: Osteoporosis based on the lowest T-score value of -3.3 in the femoral neck applying World Health Organization criteria. 2. 10-YEAR FRACTURE RISK PREDICTION, FRAX: According to the guidelines, FRAX calculation should only be performed on patients in the osteopenia bone density category. Therefore, FRAX was not performed on this patient.? 3. Treatment Recommendations: NOF guidelines recommend consideration for treatment in postmenopausal women and men age 50 and older presenting with the following: -A hip or vertebral (clinical or morphometric) fracture. -T-score less than or equal to -2.5 at the femoral neck or spine after appropriate evaluation to exclude secondary causes. -Low bone mass at the hip or spine and a 10-year fracture probability by FRAX of greater than or equal to 3% for hip fracture or greater than or equal to 20% for major osteoporotic fracture based on the [place] adapted WHO algorithm. 4. Other Recommendations: All treatment decisions require clinical judgment and consideration of individual patient factors, including patient preferences, comorbidities, previous drug use, risk factors not captured in the FRAX model (e.g. frailty, falls, vitamin D deficiency, increased bone turnover, interval significant decline in bone density) and possible under or overestimation of fracture risk by FRAX. Additional medical evaluation for secondary cause of low bone mineral density may be appropriate. FUTURE SCAN RECOMMENDATION: People with diagnosed cases of osteoporosis or at high risk for fracture should have regular bone mineral density tests. For patients eligible for Medicare, routine testing is allowed once every 2 years. The testing frequency can be increased to one year for patients who have rapidly progressing disease, those who are receiving or discontinuing medical therapy to restore bone mass, or have additional risk factors. .
== END 2023-10-01 13:24 | disposition home or self-care (01) ==
LOC: HO.MAMMO 13:23
PROVIDERS: PCP Family Medicine; Visit Provider Family Medicine
DX: Z13.820 Encounter for screening for osteoporosis (principal); M81.0 Age-related osteoporosis without current pathological fracture; Z78.0 Asymptomatic menopausal state
CPT/HCPCS: 77080

== ENCOUNTER 2023-10-08 14:38 | Outpatient (AMB) | payer MEDICARE, SELFPAY ==
[2023-10-08 14:43] VITALS: PULSE 90; O2SAT 96; BMI 47.8
--- NOTE | 2023-10-08 14:43 | MHC.OFFVIS ---
Vital Signs 10/08/23 14:43 Height 5 ft 3 in Weight 269 lb 13.533 oz BMI 47.8 Pulse 90 Pulse Source Pulse Oximeter Pulse Oximetry (%) 96 Oxygen Delivery Method Room Air Intake Visit Reasons: COPD/PFT Follow Up [employer] Faculty Member Required: No Allergies Penicillins Allergy (Intermediate, Verified 10/08/23 14:45) RASH-FULL BODY Sulfa (Sulfonamide Antibiotics) Allergy (Intermediate, Verified 10/08/23 14:45) RASH-FULL BODY HPI Comments Details: The patient is a 63-year-old woman with a known history of COPD, obstructive sleep apnea and obesity. Overall she has been responding very well to the respiratory therapy. Her respiratory status has improved dramatically. She has also been able to lose a good amunt f weigt with a combination of diet and also medications Daliresp. Hopefully she can lose enough weight to have her knee surgery. In the meantime she still has a diagnosis sleep apnea. She her allergy med. She does have daytime drowsiness. Her Longview score still elevated 04/04. the patient needs to have a sleep study at this time. 06/26/2022 the patient is here for pulmonary follow-up visit. The patient is back to her baseline. Her breathing is better. She has been very sad by the fact that she lost a good friend and roommate. She had early onset colon cancer. In regards of her pulmonary nodule she did undergo a repeat CT scan of the chest demonstrating a ground-glass nodular density measuring about 1.2 cm. Therefore, based on the fact that this nodular densities now greater than a cm and she has other pulmonary nodules will go ahead and repeat her CT scan in 6 months. In the meantime she will continue with current respiratory therapy. 12/24/2022 the patient is here for pulmonary follow-up visit. She does not feel well. Has been having increasing dyspnea in addition to cough. Moderate severity. Her respiratory therapy has been partially helpful. Over the summer she was diagnosed with migraines. She has been having hard time. She was placed on propanolol. Explained to her that possibly the propranolol is causing her respiratory symptoms to be worse. Although the propanolol seems to be helping her migraines. She will talk to her primary care doctor about potentially switching the beta-swathi to a calcium channel swathi or different agent altogether. The patient get try the Tessalon Perles. I did provide her with good Rx card that she can use to try to get it for a more reasonable cost. We also reviewed her CT scan of the chest that she had recently. We compared to the CT scan that she had back 6 months ago and also CT scan that she had a year ago. All were personally by me. It appears that this nodular density is subsolid nature and appears to be increasing size when compared to year ago. Therefore, based on the fact that is measuring 1 with 2 cm and appears to be slightly larger will go ahead and repeat the CT scan again 6 months. If he continues to change and or increase in size the patient will need to be evaluated by thoracic surgery. 06/24/2023 the patient is here for pulmonary follow-up visit. She continues to complain of significant dyspnea. Moderate severity be with minimal activity. She has been on maximum respiratory therapy with only partial resolution in her symptoms. On examination she does not have significant wheezing. She does have evidence of 2+ pitting edema in lower extremities. The patient is agreeable to taking a short course of diuretics. Based on her significant lower extremity edema and echocardiogram will be warranted. She does follow-up with cardiology here. I will let the no about her symptoms and findings. The patient did have a CT scan of the chest done May 2023. we personally reviewed the images together. It appears that she has a stable 1 cm pulmonary nodule. Subsolid nature. She will need another CT scan in a year's time. Still, no explanation for significant dyspnea except for volume overload status. Need to consider pulmonary hypertension. Therefore will request a repeat echocardiogram. 09/30/2023 the patient is here for pulmonary follow-up visit. She Is overall feeling better. Her chest tightness and wheezing has improved. She did take the short course of diuretic. also, underwent an echocardiogram which we did review together demonstrating a mild decrease in the ejection fraction in addition to some mild diastolic dysfunction. She continues use her respiratory therapy with good effect. Her last CT scan of the chest was back in 06/01/2023 demonstrating 1 cm subsolid nodular density in the right upper lobe. This appears to be stable when compared to previous. This will need a longer course follow-up secondary to the subsolid nature of it. Will discuss additional imaging when she returns in 4-6 months. [facility] Medical History Leg edema Dyspnea Pulmonary nodules Blepharitis of eyelid of left eye Morbid obesity GERD (gastroesophageal reflux disease) Asthma-COPD overlap syndrome ROSITA (obstructive sleep apnea) Surgical History History of hernia repair H/O esophagogastroduodenoscopy History of colonoscopy H/O wisdom tooth extraction History of tonsillectomy and adenoidectomy Family History Father Aneurysm Peptic ulcer disease Mother Cardiovascular disease Asthma Social History Household Members: Friend(s) Housing: House Alcohol intake: never Patient Tobacco Use Status: Never used Tobacco e-Cigarette/Vaping Use: Never Used Second Hand Smoke Exposure: No service: No Current occupational status: employed and disabled 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 Current occupational exposures/hazards: No Cognitive needs: No Hearing needs: No Vision needs: No Female Reproductive History Menstrual Age of Menarche: 7 Review of Systems Const Denies chills, Denies fatigue, Denies fever(s), Denies headache(s) and Denies weakness ENT Denies dizziness and Denies headache(s) Card Reports dyspnea on exertion Resp Reports cough, Reports dyspnea on exertion, Denies wheezing and Denies other (shortness of breath) Musc Reports back pain, Reports myalgias, Denies numbness and Denies tingling Neuro Denies dizziness, Denies headache(s), Denies numbness, Denies tingling and Denies weakness Psych Denies anxiety and Denies depression Endo Denies fatigue Aller/Immun Denies wheezing Physical Exam Vital Signs: Last Vital Signs Pulse 90 10/08/23 14:43 Pulse Ox 96 10/08/23 14:43 Oxygen Delivery Method Room Air 10/08/23 14:43 BMI result Body Mass Index 47.8 Const General: comfortable and no acute distress Orientation/consciousness: patient oriented x3 HEENT Other: Unremarkable Head: Yes normal to inspection Neck Neck: Yes normal visual inspection Chest Chest palpation & inspection: normal inspection of the chest Resp Auscultation: no crackles, no rales, no rhonchi, no wheezes and diminished lung sounds Cardio Palpation: normal PMI Heart sounds: S1 normal heart sound present, S2 normal heart sound present, no gallops, Murmur heart sound present systolic early, II/ and at the right sternal border and no rubs GI Palpation (GI): Soft to palpation Back/Spine/Pelvis Other: unremarkable Skin General skin exam: no rashes or lesions noted Neuro General: patient oriented x3 Extrem General: No clubbing, No cyanosis and Yes edema Psych Mental Status: mental status grossly normal Assessment & Plan Assessment & Plan (1) Asthma-COPD overlap syndrome: Code(s): J44.9 - Chronic obstructive pulmonary disease, unspecified Category: Medical (2) ROSITA (obstructive sleep apnea): Code(s): G47.33 - Obstructive sleep apnea (adult) (pediatric) Category: Medical (3) GERD (gastroesophageal reflux disease): Code(s): K21.9 - Gastro-esophageal reflux disease without esophagitis Category: Medical Qualifiers: Esophagitis bleeding: without hemorrhage Esophagitis presence: with esophagitis Qualified Code(s): K21.00 - Gastro-esophageal reflux disease with esophagitis, without bleeding (4) Pulmonary nodules: Code(s): R91.8 - Other nonspecific abnormal finding of lung field Category: Medical (5) Dyspnea: Code(s): R06.00 - Dyspnea, unspecified Category: Medical Qualifiers: Dyspnea type: dyspnea on exertion Qualified Code(s): R06.09 - Other forms of dyspnea (6) Leg edema: Code(s): R60.0 - Localized edema Category: Medical Plan continue respiratory therapy: Brovana, budesonide and Spiriva continue Daliresp 500 mcg daily short-acting beta agonist repeat CT chest in 05/2024 follow-up in 4-[address]: [address] chest wo IV con 6 Months R91.1 - Solitary pulmonary nodule Coding Level of Care Code Est Pt Level 4 (44700) Diagnoses Asthma-COPD overlap syndrome J44.9 ROSITA (obstructive sleep apnea) G47.33 Gastroesophageal reflux disease with esophagitis without hemorrhage K21.00 Esophagitis bleeding: without hemorrhage Esophagitis presence: with esophagitis Pulmonary nodules R91.8 Dyspnea on exertion R06.09 Dyspnea type: dyspnea on exertion Leg edema R60.0 Time Spent (min) 17
== END 2023-10-08 15:02 | disposition home or self-care (01) ==
PROVIDERS: PCP Family Medicine; Visit Provider Hospitalist
DX: J44.9 Chronic obstructive pulmonary disease, unspecified (principal); G47.33 Obstructive sleep apnea (adult) (pediatric); K21.00 Gastro-esophageal reflux disease with esophagitis, without bleeding; R91.8 Other nonspecific abnormal finding of lung field; R06.09 Other forms of dyspnea; R60.0 Localized edema
CPT/HCPCS: 99214

== ENCOUNTER → 2023-10-08 14:38 | Outpatient (BNVA) | payer MEDICARE, SELFPAY | PROVIDERS: PCP Family Medicine; Visit Provider Hospitalist | DX: J44.9 Chronic obstructive pulmonary disease, unspecified (principal); G47.33 Obstructive sleep apnea (adult) (pediatric); R91.8 Other nonspecific abnormal finding of lung field; R06.09 Other forms of dyspnea; R60.0 Localized edema; K21.00 Gastro-esophageal reflux disease with esophagitis, without bleeding | CPT/HCPCS: 99212 ==

== ENCOUNTER 2023-10-19 11:14 | Outpatient (AMB) | payer MEDICARE, SELFPAY ==
--- NOTE | 2023-10-19 11:18 | MHC.PC.OV ---
Vital Signs 10/19/23 11:20 Height 5 ft 3 in Weight 270 lb BMI 47.8 BP 122/74 Blood Pressure Location Lt brachial Position Sitting Pulse 92 Pulse Source Pulse Oximeter Pulse Oximetry (%) 96 Oxygen Delivery Method Room Air Intake Visit Reasons: Right foot swelling Intake Note: Patient is here with concern of right foot swelling, noticed this past weekend. Allergies Penicillins Allergy (Intermediate, Verified 10/19/23 11:22) RASH-FULL BODY Sulfa (Sulfonamide Antibiotics) Allergy (Intermediate, Verified 10/19/23 11:22) RASH-FULL BODY Tobacco use date assessed: 09/03/23 Fall risk assessment: No Falls in past year Last assessed Fall Risk: 10/19/23 Dental Screening Dental Screen Date: 09/03/23 HPI Right foot swelling HPI Details 63 y/o female presents today with complaints of R foot swelling. She reports symptoms started a few days ago over the weekend. She also notes she feels like she pulled a muscle under her breast. [facility]END[facility] S[facility] TO [facility] Medical History Leg edema Dyspnea Pulmonary nodules Blepharitis of eyelid of left eye Morbid obesity GERD (gastroesophageal reflux disease) Asthma-COPD overlap syndrome ROSITA (obstructive sleep apnea) Surgical History History of hernia repair H/O esophagogastroduodenoscopy History of colonoscopy H/O wisdom tooth extraction History of tonsillectomy and adenoidectomy Family History (Updated 10/19/23 @ 11:26 by Ivett Cohn CMA) Father Aneurysm Peptic ulcer disease Mother Cardiovascular disease Asthma Social History Household Members: Friend(s) Housing: House Alcohol intake: never Patient Tobacco Use Status: Never used Tobacco e-Cigarette/Vaping Use: Never Used Second Hand Smoke Exposure: No service: No Current occupational status: employed and disabled 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 Zohaib Coffman, Ashley Short, Shaka Austin and colleagues, with an educational tracy from [employer]. Review of Systems Const Denies chills, Denies fatigue, Denies fever(s), Denies headache(s) and Denies weakness ENT Denies dizziness and Denies headache(s) Card Denies dyspnea Resp Denies cough, Denies dyspnea, Denies wheezing and Denies other (shortness of breath) Musc Denies numbness and Denies tingling Neuro Denies dizziness, Denies headache(s), Denies numbness, Denies tingling and Denies weakness Psych Denies anxiety and Denies depression Endo Denies fatigue Aller/Immun Denies wheezing Physical exam (Primary Care) Vital Signs: Last Vital Signs Pulse 92 10/19/23 11:20 BP 122/74 10/19/23 11:20 Pulse Ox 96 10/19/23 11:20 Oxygen Delivery Method Room Air 10/19/23 11:20 BMI result Body Mass Index 47.8 Tobacco/Smoking Status: Tobacco use Status Tobacco use date assessed 09/03/23 10/19/23 11:20 Patient Tobacco Use Status Never used Tobacco 10/19/23 11:20 e-Cigarette/Vaping Use Never Used 10/19/23 11:20 Thrive Assessment: Date of Thrive Assessment Date Thrive assessed 09/03/23 10/19/23 11:20 Const General: well developed; No acute distress Nutritional Appearance: well nourished Orientation/consciousness: patient oriented x3 HENMT Head: Yes normocephalic and Yes atraumatic Eyes General: appearance normal, both eyes and all related structures Pupils: Equal, round and reactive pupils present EOM: EOMs intact bilaterally Resp Effort & Inspection: normal respiratory effort Auscultation: clear to auscultation bilaterally Cardio Rate: regular rate Rhythm: regular rhythm Heart sounds: S1 normal heart sound present, S2 normal heart sound present, no gallops, no murmurs and no rubs Neuro General: patient oriented x3 and gait normal Cranial nerves: Yes Equal, round and reactive pupils present Extrem Other: Palpable lump at her posteromedial aspect of her R calf 1+ edema at R foot and ankle Psych Affect: normal affect Assessment and Plan Assessment & Plan (1) Swelling of right lower extremity: Code(s): M79.89 - Other specified soft tissue disorders Plan: Patient?has?mild, nontender?right?foot?and?ankle?swelling?with?palpable?lump?at?posteromedial?aspect?of?proximal?right?calf. Need?to?rule?out?DVT Venous?duplex?of?right?calf?is?ordered More?likely?lower?extremity?swelling?is?due?to?venous?insufficiency?and?I?will?give?her?another?script?for?Lasix. Also?advised?she?elevate?her?leg (2) Screening for osteoporosis: Code(s): Z13.820 - Encounter for screening for osteoporosis Plan: Briefly?discussed?alendronate?but?patient?wants?to?hold?off?on?another?medication.??She?has?an?upcoming?appointment?with?Ortho. 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 She?has?an?appointment?with?me?coming?up?soon?and?we?will?readdress?this.??She?may?want?a?referral?to?her?adjunct english instructor?again?regarding?osteoporosis. Orders: Orders US venous duplex LE RT Today M79.89 - Other specified soft tissue disorders Medications: Changed From furosemide (Lasix) 20 mg PO DAILY 3 days 3 tabs 0RF To furosemide (Lasix) 20 mg PO DAILY 5 days 5 tabs 0RF Coding Level of Care Code Est Pt Level 3 (28800) Diagnoses Swelling of right lower extremity M79.89 Screening for osteoporosis Z13.820
[2023-10-19 11:20] VITALS: BP 122/74; PULSE 92; O2SAT 96; BMI 47.8
== END 2023-10-19 12:12 | disposition home or self-care (01) ==
PROVIDERS: PCP Family Medicine; Visit Provider Family Medicine
DX: M79.89 Other specified soft tissue disorders (principal); Z13.820 Encounter for screening for osteoporosis
CPT/HCPCS: 99213

== ENCOUNTER 2023-10-19 14:58 | Outpatient (AMB) | payer MEDICARE, SELFPAY ==
--- NOTE | 2023-10-19 15:03 | A.OFFVIS_ITS ---
Intake Visit Reasons: OV-B/L knee pain, last gel inj 12/31/22 Intake Note: Daxa is a 62 year old female who presents today for a follow up for her bilateral knee OA, last Durolane gel injections was on 12/31/22. Patient reports that her gel injections only gave her a couple of days of relief. She wants to hold off on getting cortisone injection because she would like to know how bad her knees are. Allergies Penicillins Allergy (Intermediate, Verified 10/19/23 15:04) RASH-FULL BODY Sulfa (Sulfonamide Antibiotics) Allergy (Intermediate, Verified 10/19/23 15:04) RASH-FULL BODY HPI HPI OV-B/L knee pain, last gel inj 12/31/22: Details: 63-year-old female who presents in the office today for a follow-up of bilateral knee pain, left worse than the right. I last saw the patient in the office on 12/31/2022, when she was given Durolane injection in the bilateral knees.? While in the office today, the patient reports that her left knee is more painful. She reports that?she had gel injections in December 2022, which did not help the left knee, but it believs it worked well for the right knee. She claims that she has lot of pressure in the knee. She is currently on blood thinner. She met Dr. Davila this morning and was recommended to do ultrasound of the legs to rule out DVT. [facility] Medical History Leg edema Dyspnea Pulmonary nodules Blepharitis of eyelid of left eye Morbid obesity GERD (gastroesophageal reflux disease) Asthma-COPD overlap syndrome ROSITA (obstructive sleep apnea) Surgical History History of hernia repair H/O esophagogastroduodenoscopy History of colonoscopy H/O wisdom tooth extraction History of tonsillectomy and adenoidectomy Family History (Updated 10/19/23 @ 11:26 by Ivett Cohn CMA) Father Aneurysm Peptic ulcer disease Mother Cardiovascular disease Asthma Social History Household Members: Friend(s) Housing: House Alcohol intake: never Patient Tobacco Use Status: Never used Tobacco e-Cigarette/Vaping Use: Never Used Second Hand Smoke Exposure: No service: No Current occupational status: employed and disabled 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 Current occupational exposures/hazards: No Cognitive needs: No Hearing needs: No Vision needs: No Female Reproductive History Menstrual Age of Menarche: 7 Review of Systems Const All systems reviewed & are unremarkable except as noted in HPI and below Physical Exam Const General: cooperative, healthy appearing and no acute distress Resp Effort & Inspection: normal respiratory effort and able to speak in complete sentences Cardio Rate: regular rate Peripheral pulses: Peripheral pulses 2+ throughout GI Palpation (GI): Soft to palpation Skin Lesions: no lesions Rashes: no rashes Extrem Other: Bilateral knees: Normal to inspection. No ecchymosis, erythema, or joint effusion. Crepitus felt with ROM. ROM is 0-100 degrees. NVI. Assessment & Plan Assessment & Plan (1) Osteoarthritis of left knee: Code(s): M17.12 - Unilateral primary osteoarthritis, left knee Category: Medical Qualifiers: Osteoarthritis type: unspecified Qualified Code(s): M17.12 - Unilateral primary osteoarthritis, left knee (2) Osteoarthritis of right knee: Code(s): M17.11 - Unilateral primary osteoarthritis, right knee Category: Medical Qualifiers: Osteoarthritis type: unspecified Qualified Code(s): M17.11 - Unilateral primary osteoarthritis, right knee Plan 63-year-old female who presents in the office today for a follow-up of bilateral knee pain, left worse than the right. I last saw the patient in the office on 12/31/2022, when she was given Durolane injection in the bilateral knees.? While in the office today, the patient reports that her left knee is more painful. She reports that?she had gel injections in December 2022, which did not help the left knee, but it believs it worked well for the right knee. She claims that she has lot of pressure in the knee. She is currently on blood thinner. She met Dr. Davila this morning and was recommended to do ultrasound of the legs to rule out DVT.? ? We discussed the role of cortisone injections, but deferred at this time. This decision was based on her pending ultrasound to rule out DVT and she does not feel as though the cortisone has been effective in the past. We discussed a referral to pain management for evaluation of geniculate nerve blocks was made in the office today. Follow-up with the orthopedics will be PRN, or sooner if needed. ? Orders: Referrals Pain Management Referral M17.11 - Unilateral primary osteoarthritis, right knee, M17.12 - Unilateral primary osteoarthritis, left knee Patient Instructions: Scribed by Scarlett Hernandez medical delivery driver, for Nallely Rocha PA-C on 10/19/2023 at?3:15 PM EST.? Coding Level of Care Code Est Pt Level 3 (47960) Diagnoses Osteoarthritis of left knee, unspecified osteoarthritis type M17.12 Osteoarthritis type: unspecified Osteoarthritis of right knee, unspecified osteoarthritis type M17.11 Osteoarthritis type: unspecified
== END 2023-10-19 16:00 | disposition home or self-care (01) ==
PROVIDERS: PCP Family Medicine; Visit Provider Physician Assistant
DX: M17.0 Bilateral primary osteoarthritis of knee (principal)
CPT/HCPCS: 99213

== ENCOUNTER → 2023-10-19 14:58 | Outpatient (BNVA) | payer MEDICARE, SELFPAY | PROVIDERS: PCP Family Medicine; Visit Provider Physician Assistant | DX: M17.0 Bilateral primary osteoarthritis of knee (principal) | CPT/HCPCS: 99212 ==

== ENCOUNTER 2023-10-20 15:36 | Outpatient (REF) | payer MEDICARE, SELFPAY ==
--- NOTE | ~2023-10-20 | US_ITS ---
EXAMINATION: US VENOUS ULTRASOUND WITH DOPPLER LOWER EXTREMITY, RIGHT CLINICAL INFORMATION: Swelling of the right lower extremity. COMPARISON: None available. TECHNIQUE: Ultrasound of the deep veins is performed from the hip to the calf with compression sonography and color and pulse Doppler assessment. Spectral analysis with color-flow imaging is performed. FINDINGS: The common femoral vein is compressible and exhibits a normal phasic waveform; this suggests that the iliac veins are widely patent above. Within the proximal thigh, the visualized profunda femoris vein is normal. The examined greater saphenous vein and saphenofemoral junction are normal. Superficial femoral vein is patent in the proximal, mid and distal thigh. Popliteal vein is normal to the level of the trifurcation. On compression dorsey scale and color Doppler images, the visualized posterior tibial and peroneal veins of the calf are patent. No evidence of Gordon's cyst. US/US venous duplex LE RT IMPRESSION: No evidence of deep vein thrombosis in the right lower extremity.
== END 2023-10-20 15:37 | disposition home or self-care (01) ==
LOC: HO.HMGCX 15:36
PROVIDERS: PCP Family Medicine; Visit Provider Family Medicine
DX: M79.89 Other specified soft tissue disorders (principal)
CPT/HCPCS: 93971

== ENCOUNTER 2023-10-27 10:19 | Outpatient (REF) | payer MEDICARE, SELFPAY | END 2023-10-27 10:20 | disposition home or self-care (01) | LOC: HO.HOSX 10:19 | PROVIDERS: Visit Provider Orthopaedic Surgery | DX: Z13.89 Encounter for screening for other disorder (principal) ==

== ENCOUNTER 2023-11-01 14:47 | Outpatient (AMB) | payer MEDICARE, SELFPAY ==
--- NOTE | 2023-11-01 14:49 | MHC.PC.OV ---
Vital Signs 11/01/23 14:50 Height 5 ft 3 in BP 124/82 Blood Pressure Location Lt brachial Position Sitting Pulse 99 Pulse Source Pulse Oximeter Pulse Oximetry (%) 96 Oxygen Delivery Method Room Air Intake Visit Reasons: f/u elevated fasting blood sugars Intake Note: Daxa is a 63 year old female who presents to the office today for follow up elevated fasting blood sugar. Pt states she is still concerned about the fluid in her right leg. Allergies Penicillins Allergy (Intermediate, Verified 11/01/23 14:53) RASH-FULL BODY Sulfa (Sulfonamide Antibiotics) Allergy (Intermediate, Verified 11/01/23 14:53) RASH-FULL BODY Medication List - Last Reconciled 11/01/23 by Stan Davila MD albuterol sulfate 2.5 mg inhalation BID PRN albuterol sulfate 2.5 mg (3 mL) inhalation Q6H PRN 30 days albuterol sulfate 90 mcg/actuation 2 puffs PO Q6H PRN arformoterol 15 mcg (2 mL) inhalation BID aspirin 81 mg PO DAILY atorvastatin 80 mg PO QPM budesonide 0.5 mg (2 mL) inhalation BID 30 days uzaqwkamih-ksvcwridhohnv-rpso 50-300-40 mg (Fioricet) 1 cap PO Q8H PRN clobetasol 0.05% 1 appl topical BID PRN cyclobenzaprine 10 mg PO BEDTIME PRN 30 days duloxetine 40 mg (2 x 20 mg) PO BID fluticasone propionate 50 mcg/actuation 1 spray intranasal Q12H lorazepam 0.5 mg PO DAILY meclizine 12.5 mg PO DAILY PRN 30 days miscellaneous medical supply Motorized scooter. Daily As directed, 999 days nebulizers As directed omeprazole 40 mg PO BID 90 days propranolol 10 mg PO BID 90 days roflumilast 500 mcg PO DAILY tiotropium bromide 2.5 mcg/actuation (Spiriva Respimat) 2 puffs PO DAILY Tobacco use date assessed: 11/01/23 Dental Screening Dental Screen Date: 11/01/23 Did you have a dental visit in the last 12 months?: No Did you have a dental problem in the last 6 months where you did not have access to dental care?: No Was dental information given to patient?: Patient declined HPI f/u elevated fasting blood sugars HPI Details 63 y/o female presents to f/u on her blood sugars. Patient has right lower extremity swelling which is most likely secondary to venous insufficiency so I have given her a script for Lasix and advise she elevate her leg. However, she had a palpable lump at posteromedial aspect of proximal right calf so I am checking an ultrasound as well. Ultrasound 10/20/23 showed no evidence of deep vein thrombosis in RLE. Lower extremity swelling resolved. Last A1c 7.1% and pt had been on steroids. A1c today 11/01/23 7.0%. [facility] Medical History Leg edema Dyspnea Pulmonary nodules Blepharitis of eyelid of left eye Morbid obesity GERD (gastroesophageal reflux disease) Asthma-COPD overlap syndrome ROSITA (obstructive sleep apnea) Surgical History History of hernia repair H/O esophagogastroduodenoscopy History of colonoscopy H/O wisdom tooth extraction History of tonsillectomy and adenoidectomy Family History Father Aneurysm Peptic ulcer disease Mother Cardiovascular disease Asthma Social History Household Members: Friend(s) Housing: House Alcohol intake: never Patient Tobacco Use Status: Never used Tobacco e-Cigarette/Vaping Use: Never Used Second Hand Smoke Exposure: No service: No Current occupational status: employed and disabled 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 1. Little interest or pleasure in doing things: not at all 2. Feeling down, depressed, or hopeless: not at all 3. Trouble falling or staying asleep, or sleeping too much: not at all 4. Feeling tired or having little energy: not at all 5. Poor appetite or overeating: not at all 6. Feeling bad about yourself - or that you are a failure or have let yourself or your family down: not at all 7. Trouble concentrating on things, such as reading the newspaper or watching television: not at all 8. Moving or speaking so slowly that other people could have noticed. Or the opposite - being so fidgety or restless that you have been moving around a lot more than usual: not at all 9. Thoughts that you would be better off or of hurting yourself in some way: not at all Total score: 0 Depression Screening Interpretation: Negative Depression Screening Done: Yes 28532 - PHQ-9 Billing: Yes Source: Developed by Drs. Zohaib Coffman, Ashley Short, Shaka Austin and colleagues, with an educational tracy from [employer]. Thrive Questionnaire Date Thrive assessed: 09/03/23 I am a: Patient What is your living situation today?: I have a steady place to live Within the past 12 months, did the food you bought not last and you didn't have the money to get more?: Never true Within the past 12 months, did you worry whether your food would run out before you got money to buy more?: Never true Do you have trouble paying for medicines?: No Do you have trouble getting transportation to medical appointments?: No Do you have trouble paying your heating and electricity bill?: No Do you have trouble taking care of your child, family member or friend?: No Do you have trouble with day-to-day activities such as bathing, preparing meals, shopping, managing finances, etc.?: No Are you currently unemployed and looking for a job?: No Are you interested in more education?: No THRIVE Score: 0 AUDIT C Alcohol Use Questionnaire (AUDIT-C) 1. How often do you have a drink containing alcohol?: Never 3. How often do you have six or more drinks on one occasion?: Never Total Score: 0 MAGGIE-7 AMB Questionnaire MAGGIE-7 Date MAGGIE - 7 assessed: 09/03/23 Feeling nervous, anxious, or on edge: 0 = Not at all Not being able to stop or control worryin = Not at all Worrying too much about different things: 0 = Not at all Trouble relaxin = Not at all Being so restless that it is hard to sit still: 0 = Not at all Becoming easily annoyed or irritable: 0 = Not at all Feeling afraid as if something awful might happen: 0 = Not at all Total MAGGIE-7 score (0-4 normal; 5-9 mild; 10-14 moderate; 15-21 severe): 0 Source: Developed by Drs. Zohaib Coffman, Ashley Short, Shaka Austin and colleagues, with an educational tracy from [employer]. MAGGIE-7 Assessment Billing MAGGIE-7 Assessment Tool: MAGGIE-7 Assessment 84401 ACT Questionnaire In the past 4 weeks, how much of the time did your asthma keep you from getting as much done at work, school or at home?: None of the time During the past 4 weeks, how often have you had shortness of breath?: 1-2 times a week During the past 4 weeks, how often did your asthma symptoms wake you up at night or earlier than usual in the morning?: Not at all During the past 4 weeks, how often have you had to use your rescue inhaler or nebulizer medication?: Once a week or less How would you rate your asthma control during the past 4 weeks?: Well controlled Score: 22 Review of Systems Const Denies chills, Denies fatigue, Denies fever(s), Denies headache(s) and Denies weakness ENT Denies dizziness and Denies headache(s) Card Denies dyspnea Resp Denies cough, Denies dyspnea, Denies wheezing and Denies other (shortness of breath) Musc Denies numbness and Denies tingling Neuro Denies dizziness, Denies headache(s), Denies numbness, Denies tingling and Denies weakness Psych Denies anxiety and Denies depression Endo Denies fatigue Aller/Immun Denies wheezing Physical exam (Primary Care) Vital Signs: Last Vital Signs Pulse 99 11/01/23 14:50 BP 124/82 11/01/23 14:50 Pulse Ox 96 11/01/23 14:50 Oxygen Delivery Method Room Air 11/01/23 14:50 Tobacco/Smoking Status: Tobacco use Status Tobacco use date assessed 11/01/23 11/01/23 15:03 Patient Tobacco Use Status Never used Tobacco 11/01/23 14:49 e-Cigarette/Vaping Use Never Used 11/01/23 14:49 PHQ-9: PHQ-9 Score PHQ-9: Total score 0 11/01/23 15:03 Depression Screening Interpretation: Negative Thrive Assessment: Date of Thrive Assessment Date Thrive assessed 09/03/23 11/01/23 14:49 Const General: well developed; No acute distress Nutritional Appearance: well nourished Orientation/consciousness: patient oriented x3 [facility] [place] Head: Yes normocephalic and Yes atraumatic Eyes General: appearance normal, both eyes and all related structures Pupils: Equal, round and reactive pupils present EOM: EOMs intact bilaterally Resp Effort & Inspection: normal respiratory effort Auscultation: clear to auscultation bilaterally Cardio Rate: regular rate Rhythm: regular rhythm Heart sounds: S1 normal heart sound present, S2 normal heart sound present, no gallops, no murmurs and no rubs Neuro General: patient oriented x3 and gait normal Cranial nerves: Yes Equal, round and reactive pupils present Psych Affect: normal affect Results AMB Hemoglobin A1c AMB Hemoglobin A1c 7.0 % Last Edit by Lorene Copeland CMA on 11/01/23 15:21 Assessment and Plan Assessment & Plan (1) Swelling of right lower extremity: Code(s): M79.89 - Other specified soft tissue disorders Plan: Currently?resolved. Improved?with?a?5?day?course?of?Lasix. Likely?a?combination?of?some?venous?insufficiency?and?increased?salt/sodium Elevate?leg Avoid?salt/sodium Call?or?return?to?office?if?this?returns.??Could?try?a?short?course?of?Lasix?again. If?recurring?more?frequently?or?not?responding?well?to?diuretics,?could?refer?to?vascular (2) Diabetes: Code(s): E11.9 - Type 2 diabetes mellitus without complications Plan: A1c?is?still?in?diabetic?range?despite?not?being?on?steroids?since?last?check. This?is?diabetes. Starting?a?low?dose?of?metformin Will?follow-up?in?3?months (3) Bilateral knee pain: Code(s): M25.561 - Pain in right knee; M25.562 - Pain in left knee Plan: Followed?by?[facility].??They?do?not?recommend?a?replacement?or?injection?at?this?time They?have?referred?her?to?pain?management?to?consider?nerve?ablation Follow-up?with?[facility]?on?pain?management?as?recommended Orders: Orders AMB Hemoglobin A1c Today R73.01 - Impaired fasting glucose, R73.09 - Other abnormal glucose Medications: New metformin 250 mg (1/2 x 500 mg) PO DAILY 90 days 45 tabs 2RF Coding Level of Care Code Est Pt Level 4 (46308) Diagnoses Swelling of right lower extremity M79.89 Diabetes E11.9 Bilateral knee pain M25.561; M25.562 Additional Codes MAGGIE-7 Assessment Billing - MAGGIE-7 Assessment Tool: MAGGIE-7 Assessment 44791 ([id number])
[2023-11-01 14:50] VITALS: BP 124/82; PULSE 99; O2SAT 96
== END 2023-11-01 15:39 | disposition home or self-care (01) ==
PROVIDERS: PCP Family Medicine; Visit Provider Family Medicine
DX: E11.9 Type 2 diabetes mellitus without complications (principal); M79.89 Other specified soft tissue disorders; M25.561 Pain in right knee; M25.562 Pain in left knee; R73.09 Other abnormal glucose; R73.01 Impaired fasting glucose
CPT/HCPCS: 83036; 99214

== ENCOUNTER 2023-11-04 11:06 | Outpatient (REF) | payer MEDICARE, SELFPAY ==
--- NOTE | ~2023-11-04 | XR_ITS ---
EXAMINATION: XR HIP, LEFT CLINICAL INFORMATION: Left hip pain COMPARISON: None available. TECHNIQUE: Two views of the left hip and AP pelvis. FINDINGS: No fracture. Alignment is anatomic. Hip joint space is mildly narrowed without deformity. Soft tissues are unremarkable. XR/XR hip LT min 2V IMPRESSION: Mild degenerative changes in the left hip joint
== END 2023-11-04 11:07 | disposition home or self-care (01) ==
LOC: HO.HOSX 11:06
PROVIDERS: Visit Provider Physician Assistant
DX: M16.12 Unilateral primary osteoarthritis, left hip (principal); M54.16 Radiculopathy, lumbar region; E11.9 Type 2 diabetes mellitus without complications
CPT/HCPCS: 73502; 99212

== ENCOUNTER 2023-11-04 13:33 | Outpatient (AMB) | payer MEDICARE, SELFPAY ==
[2023-11-04 13:44] VITALS: BMI 47.8
--- NOTE | 2023-11-04 13:44 | A.OFFVIS_ITS ---
Vital Signs 11/04/23 13:44 Height 5 ft 3 in Weight 270 lb BMI 47.8 Intake Visit Reasons: NewProb - left hip pain Intake Note: Daxa is a 63 year old female who presents today for a evaluation of her left hip pain. Patient reports ongoing pain for a couple months. Her pain is on the lateral aspect of the hip and it moves down to her groin area. Patient states that her pain does radiates up to her back sometime. Allergies Penicillins Allergy (Intermediate, Verified 11/04/23 13:46) RASH-FULL BODY Sulfa (Sulfonamide Antibiotics) Allergy (Intermediate, Verified 11/04/23 13:46) RASH-FULL BODY HPI HPI NewProb - left hip pain: Details: 63-year-old female who presents in the office today for an evaluation of left hip pain. ? ? While in the office today, the patient reports ongoing pain for a couple of months. She claims her pain is along the lateral aspect of the left hip and radiates to the groin area. She confirms radiation to her back occasionally. ? ? Patient has a significant medical history of diabetes mellitus. A1c of 7.0% as of 11/01/23.? [facility] Medical History Leg edema Dyspnea Pulmonary nodules Blepharitis of eyelid of left eye Morbid obesity GERD (gastroesophageal reflux disease) Asthma-COPD overlap syndrome ROSITA (obstructive sleep apnea) Surgical History History of hernia repair H/O esophagogastroduodenoscopy History of colonoscopy H/O wisdom tooth extraction History of tonsillectomy and adenoidectomy Family History Father Aneurysm Peptic ulcer disease Mother Cardiovascular disease Asthma Social History Household Members: Friend(s) Housing: House Alcohol intake: never Patient Tobacco Use Status: Never used Tobacco e-Cigarette/Vaping Use: Never Used Second Hand Smoke Exposure: No service: No Current occupational status: employed and disabled 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 Current occupational exposures/hazards: No Cognitive needs: No Hearing needs: No Vision needs: No Female Reproductive History Menstrual Age of Menarche: 7 Review of Systems Const All systems reviewed & are unremarkable except as noted in HPI and below Physical Exam Vital Signs: BMI result Body Mass Index 47.8 Const General: cooperative, healthy appearing and no acute distress Resp Effort & Inspection: normal respiratory effort and able to speak in complete sentences Cardio Rate: regular rate Peripheral pulses: Peripheral pulses 2+ throughout GI Palpation (GI): Soft to palpation Skin Lesions: no lesions Rashes: no rashes Extrem Other: Left hip: Normal to inspection. No ecchymosis, erythema, or edema. Full hip ROM in all planes. No tenderness to palpation over the greater trochanteric bursa. 5/5 strength with resisted hip flexion, knee extension, abduction, and abduction. Able to perform straight leg raise. NVI. ? ? Reports occasional numbness in the second, third, and fourth digits of left foot.? Assessment & Plan Assessment & Plan (1) Osteoarthritis of left hip: Code(s): M16.12 - Unilateral primary osteoarthritis, left hip Category: Medical (2) Lumbar radiculopathy: Code(s): M54.16 - Radiculopathy, lumbar region Category: Medical (3) Diabetes: Code(s): E11.9 - Type 2 diabetes mellitus without complications Category: Medical Plan Ms. Whitt is a 63-year-old female who presents in the office today for an evaluation of left hip pain. ? ? While in the office today, the patient reports ongoing pain for a couple of months. She claims her pain is along the lateral aspect of the left hip and radiates to the groin area. She confirms radiation to her back occasionally. ? ? Patient has a significant medical history of diabetes mellitus. A1c of 7.0% as of 11/01/23.? ? We discussed the role of an intra-articular injection in the left hip. However, the patient has declined, stating her symptoms are not severe enough to move forward with this. She is more interested in knowing her baseline for the arthritis changes seen on x-ray and how to monitor it. ? ? We discussed a referral to Physiatry for further evaluation and treatment of her lower back pain and radiculopathy symptoms. She will call the office should she wish to move forward with this referral. ? ? At the patient?s last appointment, she was referred to pain management. She states she never received a call to schedule an appointment. The office will assist the patient by reaching out to the pain management office to help facilitate an appointment. ? ? The patient would also like to be scheduled for an appointment with Dr. Caruso to discuss surgical intervention of a left thumb ganglion cyst removal. ? ? Follow-up will be PRN, or sooner if needed. ? Orders: Orders XR hip LT min 2V Today M25.559 - Pain in unspecified hip Patient Instructions: Scribed by Kristina Hardwick claim review medical director, for Nallely Rocha PA-C on 11/04/2023 at 2:01 pm, EST.? Coding Level of Care Code Est Pt Level 3 (91419) Diagnoses Osteoarthritis of left hip M16.12 Lumbar radiculopathy M54.16 Diabetes E11.9
== END 2023-11-04 14:46 | disposition home or self-care (01) ==
PROVIDERS: PCP Family Medicine; Visit Provider Physician Assistant
DX: M16.12 Unilateral primary osteoarthritis, left hip (principal); M54.16 Radiculopathy, lumbar region; E11.9 Type 2 diabetes mellitus without complications
CPT/HCPCS: 99213

== ENCOUNTER 2023-12-01 14:16 | Outpatient (AMB) | payer MEDICARE, SELFPAY ==
[2023-12-01 14:52] VITALS: BMI 47.8
--- NOTE | 2023-12-01 14:52 | MHC.OFFVIS ---
Vital Signs 12/01/23 14:52 Height 5 ft 3 in Weight 270 lb BMI 47.8 Intake Visit Reasons: OV-:LT thumb joint pain/ RT thumb pain Intake Note: Daxa 63 yr old right hand dominant female presents today for a follow up evaluation of the left basal joint pain that has been worsening. Patient feel she is having a recurrence of left wrist cyst. Patient denies numbness, tingling, or locking on fingers. Patient would like to discuss left basal joint injection today. Last injection done 11/17/22. Patient also would like a new comfort cool brace. Allergies Penicillins Allergy (Intermediate, Verified 12/01/23 14:52) RASH-FULL BODY Sulfa (Sulfonamide Antibiotics) Allergy (Intermediate, Verified 12/01/23 14:52) RASH-FULL BODY HPI HPI OV-:LT thumb joint pain/ RT thumb pain: Details: Mitzy is a 63 year old right hand dominant woman who returns to discuss her left basal joint OA, and has received multiple injections. 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 She feels the ganglion cyst to the dorsal base of the 1st web space in her left hand is returning, S/P aspiration on 04/21/23. She complains of worsening pain in her left thumb with pinching and gripping activities. She was somewhat upset that her previous appointment had to be cancelled due to an emergency, and the next available appointment to have her rescheduled 4 weeks later, until today. She also complains that her ganglion cyst may be returning. She complains of right thumb pain, but says this is not as bothersome as her left. She has Fibromyalgia and cardiovascular disease [facility] Medical History Leg edema Dyspnea Pulmonary nodules Blepharitis of eyelid of left eye Morbid obesity GERD (gastroesophageal reflux disease) Asthma-COPD overlap syndrome ROSITA (obstructive sleep apnea) Surgical History History of hernia repair H/O esophagogastroduodenoscopy History of colonoscopy H/O wisdom tooth extraction History of tonsillectomy and adenoidectomy Family History Father Aneurysm Peptic ulcer disease Mother Cardiovascular disease Asthma Social History (Updated 12/01/23 @ 09:00 by TELMA Lira) Household Members: Friend(s) Housing: House Alcohol intake: never Patient Tobacco Use Status: Never used Tobacco e-Cigarette/Vaping Use: Never Used Second Hand Smoke Exposure: No service: No Current occupational status: employed and disabled 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 Current occupational exposures/hazards: No Cognitive needs: No Hearing needs: No Vision needs: No Female Reproductive History Menstrual Age of Menarche: 7 Physical Exam Vital Signs: BMI result Body Mass Index 47.8 Const General: no acute distress and alert Orientation/consciousness: patient oriented x3 Neuro General: patient oriented x3 Extrem Other: Evaluation of Left Upper Extremity: The patient is alert, oriented, and in no acute distress Neuro: Median, Ulnar, Radial nerves motor and sensory intact and sensation is normal to the tips of all digits Vascular: Cap refill brisk ROM: She can make a fist and extend all her digits Tender over the left basal joint Mild tenderness over the dorsal aspect of the right index finger MCP joint No tenderness over the 1st dorsal compartment No tenderness over the a1 gretel Radiographs: 3 views of the right hand were taken today as she originally had been scheduled for her right basal joint. These were viewed by me today in clinic. They show no fractures or dislocations. There is basal joint osteoarthritis, with joint space narrowing, and osteophyte formation, as well as some arthritis changes to multiple IP joints of the fingers. Psych Appearance: grossly normal Affect: normal affect Attitude: cooperative Office Procedures Fracture Care Details: No fracture, injection Fracture Billing Code: Fracture Billing Code Assessment & Plan Assessment & Plan (1) Arthritis of carpometacarpal (CMC) joint of left thumb: Code(s): M18.12 - Unilateral primary osteoarthritis of first carpometacarpal joint, left hand Category: Medical (2) Ganglion of left hand: Code(s): M67.442 - Ganglion, left hand Category: Medical (3) Arthritis of carpometacarpal (CMC) joint of right thumb: Code(s): M18.11 - Unilateral primary osteoarthritis of first carpometacarpal joint, right hand Category: Medical Plan Assessment and plan: 1. Left basal joint osteoarthritis Date of injections: 12/01/23, 11/17/22, 12/23/20, 09/03/20 by oh Rheumatology injection: 10/2021 I educated the patient about this condition I discussed treatment options I recommend a steroid injection and she continue to wear her splint I discussed activity modification, she is to limit or avoid any heavy or repetitive pinching or gripping activities She was fitted for a new comfort cool splint to wear with daily activity Injection #1: The risks and benefits of a steroid injection including but not limited to risk of damage to blood vessels, nerve, tendon, infection, skin bleaching, persistent or worsening pain, and failure to improve symptoms were discussed with the patient and they wish to proceed with the steroid injection. Once consent was obtained the skin over the dorsum of the Left basal joint was sterilely prepped. The joint was then injected with a combination of 1 mL of (40 mg/ml} Depo-Medrol and 1% plain Lidocaine. The patient appears to have tolerated the procedure well and with no complications. She had good early relief before leaving clinic today. She knows that they may not have another steroid injection into this joint for least 4 months. 2. Left dorsal hand/wrist ganglion, base of 1st webspace, S/P aspiration Date of procedure: 04/21/23 No recurrence 3 . Right basal joint osteoarthritis, S/P injection S/P CMC joint & ECU tendon sheath injections done by Rheumatology on 02/19/23 Scribed for Montserrat Caruso MD by Surjit Cortez, medical physics teacher, on 12/01/23 at 3:15 PM, EST. Orders: Orders XR hand RT min 3V Today M79.641 - Pain in right hand Coding Level of Care Code Est Pt Level 3 (95663) Diagnoses Arthritis of carpometacarpal (CMC) joint of left thumb M18.12 Ganglion of left hand M67.442 Arthritis of carpometacarpal (CMC) joint of right thumb M18.11 CPT Codes Fracture Care - Fracture Billing Code: Fracture Billing Code ([id number])
== END 2023-12-01 16:05 | disposition home or self-care (01) ==
PROVIDERS: PCP Family Medicine; Visit Provider Orthopaedic Surgery
DX: M18.0 Bilateral primary osteoarthritis of first carpometacarpal joints (principal); M67.442 Ganglion, left hand
CPT/HCPCS: 20600; 99213

== ENCOUNTER 2023-12-01 15:11 | Outpatient (REF) | payer MEDICARE, SELFPAY ==
--- NOTE | ~2023-12-01 | XR_ITS ---
EXAMINATION: XR HAND, RIGHT CLINICAL INFORMATION: Right hand pain. Attention to the base of the thumb. COMPARISON: None available. TECHNIQUE: PA, lateral, and oblique views of the right hand. FINDINGS: Moderate to severe osteoarthritis of the first CMC joint with nonuniform joint space narrowing, marginal osteophytes, and articular cortical irregularity. Mild osteoarthritis in the interphalangeal joints diffusely and at the MCP joints, most notably the second MCP joint. Soft tissue swelling is evident around the thumb CMC joint. No fractures. No soft tissue calcifications or osseous lesions. XR/XR hand RT min 3V IMPRESSION: 1. Moderate to severe osteoarthritis at the first CMC joint. 2. Mild osteoarthritis in the interphalangeal joints and MCP joints. Electronically signed by: Kostas Mayo MD 12/26/2023 01:11 AM EDT
== END 2023-12-01 15:12 | disposition home or self-care (01) ==
LOC: HO.HOSX 15:11
PROVIDERS: Visit Provider Orthopaedic Surgery
DX: M18.12 Unilateral primary osteoarthritis of first carpometacarpal joint, left hand (principal); M67.442 Ganglion, left hand; M18.11 Unilateral primary osteoarthritis of first carpometacarpal joint, right hand
CPT/HCPCS: 20600; 73130; 99212; J1010

== ENCOUNTER 2023-12-28 20:01 | Emergency (ER) | payer MEDICARE, SELFPAY ==
[2023-12-28 20:07] VITALS: BP 180/100; PULSE 108; O2SAT 98
--- NOTE | 2023-12-28 20:13 | ECG_ITS ---
Test Reason : Dizziness Blood Pressure : / mmHG Vent. Rate : 102 BPM Atrial Rate : 102 BPM P-R Int : 156 ms QRS Dur : 090 ms QT Int : 350 ms P-R-T Axes : 053 014 041 degrees QTc Int : 456 ms Sinus tachycardia Otherwise normal ECG When compared with ECG of 23-MAR-2019 09:30, Premature ventricular complexes are no longer Present Referred By: Generic ED Physician Electronically Signed By:JANAY VALENTIN
[2023-12-28 20:31] VITALS: BP 156/73; PULSE 102; RESP 19; TEMP 36.9; O2SAT 99; BMI 56.1
[2023-12-28 20:57] LABS: MANUAL DIFF FLAG NO
[2023-12-28 21:00] LABS: Basophils Absolute Auto 0.1 X10*3/uL (0.0-0.2); Basophils Percent Auto 0.5 % (0-2); Eosinophils Absolute Auto 0.3 X10*3/uL (0.0-0.4); Eosinophils Percent Auto 3.1 % (0-4); Hematocrit 37.8 % (37.0-47.0); Hemoglobin 11.9 g/dl (12.0-16.0); Imm Gran Abs Auto 0.05 X10*3/uL (0.00-0.03); Imm Gran Pct Auto 0.5 % (0.0-0.4); Lymphocytes Percent Auto 9.9 % (20-40); Mean Corpuscular HGB Conc 31.5 g/dl (31.0-35.0); Mean Corpuscular Hemoglobin 28.4 pg (27.0-33.0); Mean Corpuscular Volume 90.2 fL (80.0-98.0); Mean Platelet Volume 8.8 fL (9.4-12.3); Monocytes Absolute Auto 0.7 X10*3/uL (0.1-1.2); Monocytes Percent Auto 7.1 % (2-11); Neutrophils Absolute Auto 7.8 x10*3/uL (2.0-8.3); Neutrophils Percent Auto 78.9 % (45-73); Platelet Count 284 X10*3/uL (160-400); Red Blood Count 4.19 X10*6/uL (4.20-5.50); Red Cell Distribution Width 13.4 % (11.0-16.0); White Blood Count 9.9 X10*3/uL (4.8-10.8)
[2023-12-28 21:15] LABS: Anion Gap 13 (12-20); Blood Urea Nitrogen 25 mg/dL (9-16); Calcium 9.4 mg/dL (8.4-10.2); Carbon Dioxide 24 mmol/L (22-29); Chloride 108 mmol/L (96-108); Estimated Glomerular Filt Rate > 60; Glucose Random 159 mg/dL (60-115); Potassium 3.7 mmol/L (3.3-5.1); Sodium 141 mmol/L (135-145)
[2023-12-28 21:25] LABS: Troponin-I High Sensitivity < 2.7 ng/L (<3.5-17.0)
[2023-12-28 22:27] VITALS: BP 133/62; PULSE 104; RESP 16; TEMP 36.9; O2SAT 98
[2023-12-28 22:37] LABS: Appearance Urine Clear; Color Urine Yellow; Glucose Urine UA Negative (Negative); Leukocyte Esterase Urine Negative (Negative); Nitrite Urine Negative (Negative); PH 5.5 (5.0-9.0); Specific Gravity - Urine 1.025 (1.005-1.025); UMIC TRIGGER UACC YES; Urine Blood Moderate (2+) (Negative); Urine Ketones Negative (Negative); Urine Protein Negative (Neg-Trace)
[2023-12-28 22:42] LABS: Bacteria Urine None Seen (None Seen); Hyaline Casts Urine 0-2 /LPF (0-2); RBC Urine >20 /HPF (0-2); Squamous Epithelial Cell Urine 0-2 /HPF (0-2); WBC Urine 0-5 /HPF (0-5)
--- NOTE | 2023-12-29 00:55 | ED.GENADULT ---
HPI - General Adult General Chief complaint: Dizziness Stated complaint: coming from urgent care dizzy Time Seen by Provider: 12/29/23 00:24 Source: patient, RN notes reviewed and old records reviewed Mode of arrival: ambulatory Limitations: no limitations History of Present Illness ED Provider: Jarred HPI narrative: 63-year-old female with past medical history significant for type 2 diabetes, coronary artery disease, hyperlipidemia, COPD/asthma, osteoarthritis, sleep apnea, GERD, obesity presents for evaluation of dizziness. Patient reports that yesterday while standing in her kitchen she felt dizzy which lasted for a few moments before resolving on its own. She did not have any chest pain at the time. She would not have any shortness of breath or palpitations. Patient states that today again while standing to go let her dog outside she had a similar episode of dizziness. This time worsening was did not go away. A persisted when she has a take her dog to the vet and on her way home. She felt as though her symptoms may be related to low blood sugar and she was recently diagnosed diabetic. She tried to drink armando beatriz any peanut butter crackers with no improvement in her symptoms She went to urgent care and was referred to ED due to dizziness with diaphoresis. The urgent care provider was concerned for AFib despite the EKG showing normal sinus rhythm. The patient has no history of AFib She is currently asymptomatic. She reports that she had an echocardiogram 3 months ago Denies any leg swelling or recent travel Related Data Home Medications ?Medication ?Instructions ?Recorded ?Confirmed albuterol sulfate 2.5 mg/3 mL 2.5 mg inhalation BID PRN 04/30/22 11/01/23 (0.083 %) solution for nebulization clobetasol 0.05 % topical cream 1 appl topical BID PRN 04/30/22 11/01/23 nebulizers 06/25/22 11/01/23 [id number]-[id number] 1 cap PO Q8H PRN pain 05/03/23 11/01/23 50 mg-300 mg-40 mg capsule (Fioricet) Previous Rx's ?Medication ?Instructions ?Recorded meclizine 12.5 mg tablet 12.5 mg PO DAILY PRN dizziness 30 08/17/22 days #15 tabs arformoterol 15 mcg/2 mL solution 15 mcg (2 mL) inhalation BID #360 05/10/23 for nebulization mL propranolol 10 mg tablet 10 mg PO BID 90 days #180 tabs 05/13/23 albuterol sulfate 2.5 mg/3 mL 2.5 mg (3 mL) inhalation Q6H PRN 06/24/23 (0.083 %) solution for nebulization shortness of breath or wheezing 30 days #180 mL miscellaneous medical supply #1 ea 08/13/23 aspirin 81 mg tablet,delayed 81 mg PO DAILY #90 tabs 08/26/23 release omeprazole 40 mg capsule,delayed 40 mg PO BID 90 days #180 caps 10/26/23 release metformin 500 mg tablet 250 mg (1/2 x 500 mg) PO DAILY 90 11/01/23 days #45 tabs fluticasone propionate 50 1 spray intranasal Q12H #48 grams 11/05/23 mcg/actuation nasal spray,suspension lorazepam 0.5 mg tablet 0.5 mg PO DAILY #28 tabs 11/05/23 roflumilast 500 mcg tablet 500 mcg PO DAILY #90 tabs 11/08/23 atorvastatin 80 mg tablet 80 mg PO QPM #90 tabs 11/22/23 budesonide 0.25 mg/2 mL suspension 0.25 mg (2 mL) inhalation BID #360 11/23/23 for nebulization mL duloxetine 20 mg capsule,delayed 40 mg (2 x 20 mg) PO BID #120 caps 11/30/23 release cyclobenzaprine 10 mg tablet 10 mg PO BEDTIME PRN muscle spasm 12/21/23 30 days #30 tabs albuterol sulfate 90 mcg/actuation 2 puff PO Q6H PRN for wheezing 12/22/23 aerosol inhaler #8.5 grams tiotropium bromide 2.5 2 puff PO DAILY #4 grams 12/27/23 mcg/actuation mist for inhalation (Spiriva Respimat) Allergies Allergy/AdvReac Type Severity Reaction Status Date / Time Penicillins Allergy Intermediate RASH-FULL Verified 12/28/23 20:32 BODY Sulfa (Sulfonamide Allergy Intermediate RASH-FULL Verified 12/28/23 20:32 Antibiotics) BODY Review of Systems Constitutional: Constitutional: Denies body ache(s), Denies chills, Denies fever(s) and Denies weakness Eyes: Eyes: Denies blurry vision ENT: Denies vertigo and Reports dizziness Cardiovascular: Cardiovascular: Denies chest pain, Reports diaphoresis, Reports lightheadedness, Denies radiating jaw, neck or arm pain, Denies palpitations, Denies dyspnea and Denies dyspnea on exertion Respiratory: Respiratory: Denies cough, Denies dyspnea and Denies dyspnea on exertion Gastrointestinal: Gastrointestinal: Denies abdominal pain, Denies nausea and Denies vomiting Musculoskeletal: Musculoskeletal: Denies back pain and Denies tingling Integumentary/Breasts: Skin/Breast: Denies rash Neurologic: Denies vertigo, Reports dizziness, Denies tingling, Denies paresthesias and Denies weakness Endocrine: Endocrine: Denies palpitations [facility] Past Medical History Medical History Leg edema Dyspnea Pulmonary nodules Blepharitis of eyelid of left eye Morbid obesity GERD (gastroesophageal reflux disease) Asthma-COPD overlap syndrome ROSITA (obstructive sleep apnea) Surgical History History of hernia repair H/O esophagogastroduodenoscopy History of colonoscopy H/O wisdom tooth extraction History of tonsillectomy and adenoidectomy Family History Family History Father Aneurysm Peptic ulcer disease Mother Cardiovascular disease Asthma Social History Social History (Updated 12/01/23 @ 09:00 by TELMA Lira) Household Members: Friend(s) Housing: House Alcohol intake: never Patient Tobacco Use Status: Never used Tobacco Smoked in Last 30 Days: No e-Cigarette/Vaping Use: Never Used Second Hand Smoke Exposure: No Use of substances other than those prescribed or required for medical reasons: No Advance Directives: No Advance Directives Information Provided: No service: No Current occupational status: employed and disabled 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 Current occupational exposures/hazards: No Cognitive needs: No Hearing needs: No Vision needs: No Physical Exam ED Vital Signs: Vital Signs - 24 hr 12/28/23 20:31 12/28/23 22:27 Temperature 98.4 F 98.5 F Pulse Rate 102 H 104 H Respiratory Rate 19 16 Blood Pressure 156/73 H 133/62 Pulse Oximetry 99 98 Oxygen Delivery Method Room Air Room Air BMI result Body Mass Index 56.1 Const General: healthy appearing, comfortable, no acute distress, alert and awake Nutritional Appearance: well nourished Orientation/consciousness: patient oriented x3 HENMT Head: Yes normocephalic and Yes atraumatic Eyes Eyelids: Yes eyelids normal Conjunctivae: conjunctivae normal Sclerae: sclerae normal Corneas: corneas normal Pupils: Equal, round and reactive pupils present EOM: EOMs intact bilaterally Neck Neck: Yes full ROM Resp Effort & Inspection: normal respiratory effort, able to speak in complete sentences, no audible wheezes and not labored Auscultation: clear to auscultation bilaterally Cardio Rate: regular rate Rhythm: regular rhythm GI Inspection: No distended Palpation (GI): Soft to palpation, not firm, nontender, no guarding and not rigid Skin General skin exam: no rashes or lesions noted and elasticity normal Neuro General: patient oriented x3 Cranial nerves: Yes Equal, round and reactive pupils present and Yes Bilaterally intact EOM present Cognition (Neuro): normal cognition Extrem Other: Moving all extremities well without any obvious deformities Medical Decision Making Medical Decision Making MDM Narrative: 63-year-old female with past medical history as documented above presents for evaluation of diaphoresis and dizziness. She is currently asymptomatic, she never had any chest pain, her EKG shows a sinus tachycardia rate of 102 beats minute. No ectopy, no ST changes. Her EKG is largely unchanged when compared to March of 2019. Initial troponin is negative, repeat pending. The patient is not hypoglycemic with a glucose of 159, she had no abdominal pain, nausea, vomiting to suggest a GI cause of her symptoms. She has a negative neurologic exam, no focal neurologic deficits to suggest neurologic cause of her dizziness. Differential Diagnosis Differential Diagnoses: The differential diagnosis associated with the presentation includes Dizziness ACS Hyperglycemia Arrhythmia Orthostasis [facility] Lab Data [facility] Lab Attestation statement: I reviewed the patient's lab results. No leukocytosis or significant anemia. Normal platelet count. No significant electrolyte abnormalities. Glucose elevated to 159, the patient is a known diabetic 12/28/23 20:52 12/28/23 20:52 Labs: Lab Results 12/28/23 12/28/23 Range/Units 20:52 22:24 WBC 9.9 (4.8-10.8) X10*3/uL RBC 4.19 L (4.20-5.50) X10*6/uL Hgb 11.9 L (12.0-16.0) g/dl Hct 37.8 (37.0-47.0) % MCV 90.2 (80.0-98.0) fL MCH 28.4 (27.0-33.0) pg MCHC 31.5 (31.0-35.0) g/dl RDW 13.4 (11.0-16.0) % Plt Count 284 (160-400) X10*3/uL MPV 8.8 L (9.4-12.3) fL Immature Gran % (Auto) 0.5 H (0.0-0.4) % Neut % (Auto) 78.9 H (45-73) % Lymph % (Auto) 9.9 L (20-40) % [place] % (Auto) 7.1 (2-11) % Eos % (Auto) 3.1 (0-4) % Baso % (Auto) 0.5 (0-2) % Lymph # (Auto) 1.0 L (1.2-4.9) X10*3/uL [place] # (Auto) 0.7 (0.1-1.2) X10*3/uL Eos # (Auto) 0.3 (0.0-0.4) X10*3/uL Baso # (Auto) 0.1 (0.0-0.2) X10*3/uL Abs Immat Gran (auto) 0.05 H (0.00-0.03) X10*3/uL Absolute Neuts (auto) 7.8 (2.0-8.3) x10*3/uL Absolute Nucleated RBC 0.000 (0.0-0.012) X10*3/uL Nucleated RBC % (auto) 0.0 (0.0-0.2) /100WBC Sodium 141 (135-145) mmol/L Potassium 3.7 (3.3-5.1) mmol/L Chloride 108 (96-108) mmol/L Carbon Dioxide 24 (22-29) mmol/L Anion Gap 13 (12-20) BUN 25 H (9-16) mg/dL Creatinine 0.69 (0.5-1.4) mg/dL Estim Creat Clear Calc 114.0 Estimated GFR > 60 Random Glucose 159 H (60-115) mg/dL Calcium 9.4 (8.4-10.2) mg/dL Troponin I High Sens < 2.7 (<3.5-17.0) ng/L Urine Color Yellow Urine Appearance Clear Urine pH 5.5 (5.0-9.0) Ur Specific [place] 1.025 (1.005-1.025) Urine Protein Negative (Neg-Trace) mg/dL Urine Glucose (UA) Negative (Negative) mg/dL Urine Ketones Negative (Negative) mg/dL Urine Blood Moderate (2+) H (Negative) Urine Nitrite Negative (Negative) Ur Leukocyte Esterase Negative (Negative) Urine RBC >20 H (0-2) /HPF Urine WBC 0-5 (0-5) /HPF Ur Squamous Epith Cells 0-2 (0-2) /HPF Urine Bacteria None Seen (None Seen) Hyaline Casts 0-2 (0-2) /LPF Independent Interpretation I performed an independent interpretation of an: EKG Discharge Plan Discharge Clinical Impression: Dizziness Patient Disposition: Still a Patient Prescriptions: No Action meclizine 12.5 mg tablet 12.5 mg PO DAILY PRN (Reason: dizziness) 30 Days Qty: 15 3RF arformoterol 15 mcg/2 mL solution for nebulization 15 mcg inhalation BID Qty: 360 3RF propranolol 10 mg tablet 10 mg PO BID 90 Days Qty: 180 3RF (DME) miscellaneous medical supply Misc See Rx Instructions .ROUTE .MEDSUPPLY Qty: 1 0RF Rx Instructions: Motorized scooter. Daily As directed, 999 days aspirin 81 mg tablet,delayed release (DR/EC) 81 mg PO DAILY Qty: 90 1RF omeprazole 40 mg capsule,delayed release(DR/EC) 40 mg PO BID 90 Days Qty: 180 1RF fluticasone propionate 50 mcg/actuation spray,suspension 1 spray intranasal Q12H Qty: 48 0RF lorazepam 0.5 mg tablet 0.5 mg PO DAILY Qty: 28 1RF roflumilast 500 mcg tablet 500 mcg PO DAILY Qty: 90 0RF atorvastatin 80 mg tablet 80 mg PO QPM Qty: 90 3RF budesonide 0.25 mg/2 mL suspension for nebulization 0.25 mg inhalation BID Qty: 360 0RF duloxetine 20 mg capsule,delayed release(DR/EC) 40 mg PO BID Qty: 120 0RF cyclobenzaprine 10 mg tablet 10 mg PO BEDTIME PRN (Reason: muscle spasm) 30 Days Qty: 30 0RF albuterol sulfate 90 mcg/actuation HFA aerosol inhaler 2 puff PO Q6H PRN (Reason: for wheezing) Qty: 8.5 0RF Spiriva Respimat 2.5 mcg/actuation mist 2 puff PO DAILY Qty: 4 0RF ketorolac 30 mg/mL solution 30 mg IM ONCE Qty: 1 0RF Boostrix Tdap 2.5-8-5 Lf-mcg-Lf/0.5mL syringe 0.5 ml IM ONCE Qty: 0.5 0RF metformin 500 mg tablet 250 mg PO DAILY 90 Days Qty: 45 2RF (DME) nebulizers Misc See Rx Instructions .Route Rx Instructions: As directed [id number]-dpgfodilxkrbv-pjva [Fioricet] 50-300-40 mg capsule 1 cap PO Q8H PRN (Reason: pain) clobetasol 0.05 % cream 1 appl topical BID PRN albuterol sulfate 2.5 mg /3 mL (0.083 %) solution for nebulization 2.5 mg inhalation BID PRN albuterol sulfate 2.5 mg /3 mL (0.083 %) solution for nebulization 2.5 mg inhalation Q6H PRN (Reason: shortness of breath or wheezing) 30 Days Qty: 180 11RF Print Language: Portuguese
[2023-12-29 01:24] LABS: Troponin-I High Sensitivity < 2.7 ng/L (<3.5-17.0)
[2023-12-29 01:41] VITALS: BP 106/70; PULSE 100; RESP 16; TEMP 37.1; O2SAT 96
[2023-12-29] MEDS: Ibuprofen 600 MG TABLET PO (01:48)
[2023-12-29 01:51] VITALS: BP 106/70; PULSE 100; RESP 16; TEMP 37.1; O2SAT 96
== END 2023-12-29 01:54 | disposition home or self-care (01) ==
PROVIDERS: Physician Assistant; Emergency Provider Emergency Medicine
DX: R42 Dizziness and giddiness (principal); R00.0 Tachycardia, unspecified; I25.10 Atherosclerotic heart disease of native coronary artery without angina pectoris; Z79.899 Other long term (current) drug therapy
CPT/HCPCS: 36415; 80048; 81001; 84484; 85025; 93005; 99284; 99285

== ENCOUNTER 2023-12-30 14:33 | Outpatient (AMB) | payer MEDICARE, SELFPAY ==
--- NOTE | 2023-12-30 14:57 | A.OFFPC_ITS ---
Vital Signs 12/30/23 14:59 Height 5 ft 3 in Weight 265 lb BMI 46.9 BP 120/60 Blood Pressure Location Lt brachial Position Sitting Respiration 12 Pulse 99 Pulse Source Pulse Oximeter Temp 97.8 F Temp Source Tympanic Pulse Oximetry (%) 96 Oxygen Delivery Method Room Air Intake Visit Reasons: ed fu/ lightheaded Intake Note: ed f/u for lightheadedness Allergies Penicillins Allergy (Intermediate, Verified 12/30/23 14:58) RASH-FULL BODY Sulfa (Sulfonamide Antibiotics) Allergy (Intermediate, Verified 12/30/23 14:58) RASH-FULL BODY Tobacco use date assessed: 11/01/23 Dental Screening Dental Screen Date: 11/01/23 HPI ed fu/ lightheaded HPI Details 63 y/o female presents to f/u ED visit for lightheadedness She had felt lightheaded while standing in her kitchen. Denied chest pain, shortness of breath or palpitations. EKG showed a sinus tachycardia rate of 102 beats minute. No ectopy, no ST changes. Glucose 159. Reports she frequently gets sinus headache along with ear discomfort. Notes ongoing complaints of dysphagia. [facility] Medical History Leg edema Dyspnea Pulmonary nodules Blepharitis of eyelid of left eye Morbid obesity GERD (gastroesophageal reflux disease) Asthma-COPD overlap syndrome ROSITA (obstructive sleep apnea) Surgical History History of hernia repair H/O esophagogastroduodenoscopy History of colonoscopy H/O wisdom tooth extraction History of tonsillectomy and adenoidectomy Family History Father Aneurysm Peptic ulcer disease Mother Cardiovascular disease Asthma Social History (Updated 12/01/23 @ 09:00 by TELMA Lira) Household Members: Friend(s) Housing: House Alcohol intake: never Patient Tobacco Use Status: Never used Tobacco e-Cigarette/Vaping Use: Never Used Second Hand Smoke Exposure: No service: No Current occupational status: employed and disabled 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 Zohaib Coffman, Ashley Short, Shaka Austin and colleagues, with an educational tracy from [employer]. Review of Systems Const Denies chills, Denies fatigue, Denies fever(s), Denies headache(s) and Denies weakness ENT Denies dizziness and Denies headache(s) Card Denies dyspnea Resp Denies cough, Denies dyspnea, Denies wheezing and Denies other (shortness of breath) Musc Denies numbness and Denies tingling Neuro Denies dizziness, Denies headache(s), Denies numbness, Denies tingling and Denies weakness Psych Denies anxiety and Denies depression Endo Denies fatigue Aller/Immun Denies wheezing Physical exam (Primary Care) Vital Signs: Last Vital Signs Temp 97.8 F 12/30/23 14:59 Pulse 99 12/30/23 14:59 Resp 12 12/30/23 14:59 BP 120/60 12/30/23 14:59 Pulse Ox 96 12/30/23 14:59 Oxygen Delivery Method Room Air 12/30/23 14:59 BMI result Body Mass Index 46.9 Tobacco/Smoking Status: Tobacco use Status Tobacco use date assessed 11/01/23 12/30/23 15:02 Patient Tobacco Use Status Never used Tobacco 12/30/23 15:02 e-Cigarette/Vaping Use Never Used 12/30/23 15:02 Thrive Assessment: Date of Thrive Assessment Date Thrive assessed 09/03/23 12/30/23 15:02 Const General: well developed; No acute distress Nutritional Appearance: well nourished and obese morbidly obese Orientation/consciousness: patient oriented x3 HENMT Head: Yes normocephalic and Yes atraumatic Eyes General: appearance normal, both eyes and all related structures Pupils: Equal, round and reactive pupils present EOM: EOMs intact bilaterally Resp Effort & Inspection: normal respiratory effort Auscultation: clear to auscultation bilaterally Cardio Rate: regular rate Rhythm: regular rhythm Heart sounds: S1 normal heart sound present, S2 normal heart sound present, no gallops, no murmurs and no rubs Neuro General: patient oriented x3 and gait normal Cranial nerves: Yes Equal, round and reactive pupils present Psych Affect: normal affect Assessment and Plan Assessment & Plan (1) Dizziness: Code(s): R42 - Dizziness and giddiness Plan: Patient?actually?describes?this?as?lightheadedness. ED did?a?workup?and?does?not?appear?to?have?a?cardiac?etiology. ?Neuro?exam?was?normal?as?well. Probably?some?orthostasis?as?she?notes?that?it?was?over?80?degrees?that?day?and? she?may?not?have?been?drinking?enough?water. She?also?has?a?chronic?sinusitis?and?allergies. I?am?referring?her?back?to?ear?nose?and?throat?to?address?these?as?well?as?any?l ightheadedness?they?may?cause. Also?advising ?her?to?stay?well?hydrated?and?eat?regular?snacks?without?increasing?her?daily?c aloric?intake. - patient?has?diabetes?and?requests diabetic?nutrition?teaching- referred (2) Dysphagia: Code(s): R13.10 - Dysphagia, unspecified Plan: Patient?notes?that?food?sometimes?feels?like?he?gets?hung?up ?or?like?there?is?something?in?her?throat. Referred?to?GI Orders: Referrals Gastroenterology Referral R13.10 - Dysphagia, unspecified Medications: Changed From duloxetine 40 mg (2 x 20 mg) PO BID 120 caps 0RF To duloxetine 40 mg PO BID 90 days 180 caps 3RF Coding Level of Care Code Est Pt Level 3 (15348) Diagnoses Dizziness R42 Dysphagia R13.10
[2023-12-30 14:59] VITALS: BP 120/60; PULSE 99; RESP 12; TEMP 36.6; O2SAT 96; BMI 46.9
== END 2023-12-30 16:00 | disposition home or self-care (01) ==
PROVIDERS: Visit Provider Family Medicine
DX: R42 Dizziness and giddiness (principal); R13.10 Dysphagia, unspecified

== ENCOUNTER → 2023-12-30 14:33 | Outpatient (BNVA) | payer MEDICARE, SELFPAY | PROVIDERS: Visit Provider Family Medicine | DX: R42 Dizziness and giddiness (principal); R13.10 Dysphagia, unspecified | CPT/HCPCS: 99212 ==

== ENCOUNTER 2024-02-03 12:58 | Outpatient (AMB) | payer MEDICARE, SELFPAY ==
--- NOTE | 2024-02-03 13:12 | MHC.OFFVIS ---
Vital Signs 02/03/24 13:18 Height 5 ft 3 in Weight 270 lb BMI 47.8 BP 126/72 Blood Pressure Location Lt brachial Position Sitting Pulse 89 Intake Visit Reasons: 6 month follow up Intake Note: Patient follow up for abnormal CT scan Patient cc: LLQ after using the bathroom, acid reflex, and some swallowing difficulty. 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 Notes LLQ pain after she uses the bathroom - sometimes after straining Notes worsening dysphagia to solids - food would go down eventually - denies regurgitation Has increased intake of liquids when she is eating. Notes regurgitation into the nasal passages after she is done eating - rice and cereal PAST VISITS: Results of barium swallow and CT scan were re- reviewed with the pt. Pt is managing dysphagia symptoms with dietary modification Notes post prandial fullness associated with upper abdominal distension Has a BM daily - stools are large and on the hard side and formed Can be hard to flush once in a while - has used OTC laxatives in the past which was helpful Patient cc: Nauseas, abdominal pain/bloating, GERD, and Constipation. Not doing so good. Food seems to back up when she has a decent size meals Takes 1 meal a day and protein shakes the rest of the day. She is able to swallow and feels food and fluids move slowly from the esophagus into the stomach and feels pressure in her chest after eating Having reflux symptoms despite taking Omeprazole. Also had some constipation corretable with some laxatives Can feel very full in the upper abdomen. Had 4 courses of Prednisone for sinus infection over the past few months. Patient follow up for Asymptomatic gallstones. Pt upset since she lost her 58 year old friend and room mate - of small cell cancer (diagnosed in Dec, 2021) Denies RUQ or shoulder pain. Feels bloated after eating - likely related to gastroparesis Occasional LLQ pain after eating fatty foods. Has chronic LBP and a hx of kidney stones. Back pain improves with taking a muscle relaxant. Patient cc: abdominal bloating come and go, heart burn, diarrhea/constipation, and some dysphagia. Denies any other GI issues. Has been undergoing evaluation for fatigue/exhaustion - Cardiology and Pulmonary Seen by a Swatch Paster for a positive ESTEBAN Intermittent dysphagia with solids - chicken, pasta. Taking more fruits and vegetables and takes an MVI daily. Having more reflux and indigestion especially an hour after dinner at night (between 6 and 8 pm) while she is sitting. Concerned about reaction to COVID Booster injection. Feels like indigestion. Also feels wiped out a few days a week. denies fever, chills or sweating. Takes Omeprazole at bedtime - 10 or 11 pm. Diagnosed with kidney stones and scheduled for cystoscopic removal at [facility]. Had CT scan recently at [facility] which showed gallstones. GERD symptoms well controlled with Omeprazole 40 mg twice daily. Continues to have dysphagia with pills and nuts - eats after taking pills to help swallow her medications. Denies dysphagia with liquids. Denies diarrhea and has constipation. Having a BM every 2-3 days with laxatives. Decreased appetite and is eating lightly. Patient denies major cardiac or pulmonary problems, and has a hx of sleep apnea Denies problems with anesthesia in the past. Denies being on chronic anticoagulation. Patient denies known family history of colon polyps, colon cancer or other GI malignancy IMAGING STUDIES:?11/[address] SCAN SHOWED: 1 x 0.6 cm subsolid nodule of the left upper lobe is stable compared to 06/18/2022, although the surrounding groundglass opacity is increased compared to 11/14/2021. Based on Fleischner Society guidelines, and since the solid component remains small at < 0.6 cm, recommend annual CT to confirm stability for 5 years. No new pulmonary nodule, mass or pleural effusion. * Mild mediastinal lymphadenopathy is unchanged. * Cholelithiasis. * Bilateral nephrolithiasis without hydronephrosis. * Small simple appearing cyst or old peripancreatic fluid collection of the retroperitoneum superior to the splenic vein is stable compared to 11/14/2021. No new abnormalities in the abdomen compared to 11/14/2021. 11/2022 BARIUM SWALLOW SHOWED: 1. Slightly limited study due to inability of the patient to tolerate upright and generalized positioning for the examination due to knee pain and disabilities. 2. 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 The hypopharynx was somewhat significantly distended in the hypopharyngeal phase, however. 3. Contrast pooling in the vallecula and piriform sinuses, both which cleared upon subsequent swallows. No aspiration was evident. 4. Mild presbyesophagus. Esophagus otherwise normal. 2016 GASTRIC EMPTYING STUDY SHOWED: Only subtle retention of activity noted at the end of 4 hours. Some of the measured retention may be from superimposed bowel activity. Visually there is no significant residual activity. ENDOSCOPIC STUDIES: 2013 EGD SHOWED: IMPRESSION: 1. Superficial gastritis primarily antral in location. 2. Possibility of diffuse esophageal spasm is raised. ?COMMENT: With patients elevated BMI and increased soft tissue presence in the posterior pharynx, this is certainly consistent with risk factors for obstructive sleep apnea. Some of these actually have difficulty swallowing due to redundant soft tissue in the posterior pharynx, which may allow food to collect in the vallecular region, etc. The patient will be seen back in our office in approximately 6 weeks to review options for further management. 2008 colonoscopy was performed by Dr. Austin - normal except small hemorrhoids. September, - stool FIT test was negative [facility] Medical History Leg edema Dyspnea Pulmonary nodules Blepharitis of eyelid of left eye Morbid obesity GERD (gastroesophageal reflux disease) Asthma-COPD overlap syndrome ROSITA (obstructive sleep apnea) Surgical History History of hernia repair H/O esophagogastroduodenoscopy History of colonoscopy H/O wisdom tooth extraction History of tonsillectomy and adenoidectomy Family History Father Aneurysm Peptic ulcer disease Mother Cardiovascular disease Asthma Social History Household Members: Friend(s) Housing: House Alcohol intake: never Patient Tobacco Use Status: Never used Tobacco e-Cigarette/Vaping Use: Never Used Second Hand Smoke Exposure: No service: No Current occupational status: employed and disabled 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 Current occupational exposures/hazards: No Cognitive needs: No Hearing needs: No Vision needs: No Female Reproductive History Menstrual Age of Menarche: 7 Review of Systems Const All systems reviewed & are unremarkable except as noted in HPI and below Physical Exam Vital Signs: Last Vital Signs Pulse 89 02/03/24 13:18 BP 126/72 02/03/24 13:18 BMI result Body Mass Index 47.8 Const General: healthy appearing and no acute distress Nutritional Appearance: obese Orientation/consciousness: patient oriented x3 Limitations: wheelchair HEENT Head: Yes normal to inspection Ears: hearing grossly normal bilaterally Eyes Sclerae: sclerae normal Pupils: Equal, round and reactive pupils present Neck Neck: Yes normal visual inspection Chest Chest palpation & inspection: normal inspection of the chest Resp Effort & Inspection: normal respiratory effort Auscultation: clear to auscultation bilaterally Cardio Palpation: normal PMI Rate: regular rate Rhythm: regular rhythm Heart sounds: S1 normal heart sound present, S2 normal heart sound present and no murmurs GI Inspection: Yes obesity Palpation (GI): Soft to palpation, nontender and No hepatosplenomegaly present Auscultation: normal bowel sounds Rectal Exam - Female: deferred Skin General skin exam: no rashes or lesions noted Neuro General: patient oriented x3, gait normal and moves all extremities Cranial nerves: Yes Equal, round and reactive pupils present Psych Appearance: grossly normal Mental Status: mental status grossly normal Assessment & Plan Assessment & Plan (1) GERD (gastroesophageal reflux disease): Code(s): K21.9 - Gastro-esophageal reflux disease without esophagitis Category: Medical Qualifiers: Esophagitis bleeding: without hemorrhage Esophagitis presence: with esophagitis Qualified Code(s): K21.00 - Gastro-esophageal reflux disease with esophagitis, without bleeding (2) Diarrhea: Code(s): R19.7 - Diarrhea, unspecified Category: Medical (3) Chronic constipation: Code(s): K59.09 - Other constipation Category: Medical (4) Asymptomatic gallstones: Code(s): K80.20 - Calculus of gallbladder without cholecystitis without obstruction Category: Medical (5) Colon cancer screening: Code(s): Z12.11 - Encounter for screening for malignant neoplasm of colon Category: Medical (6) Bulky stools: Code(s): R19.5 - Other fecal abnormalities Category: Medical (7) Dysphagia: Code(s): R13.10 - Dysphagia, unspecified Category: Medical (8) Abdominal pain, chronic, left lower quadrant: Code(s): R10.32 - Left lower quadrant pain; G89.29 - Other chronic pain Category: Medical Plan 63 YF followed in GI for GERD, dysphagia and IBS with constipation and diarrhea. 2016 gastric emptying study showed subtle retention of activity noted at the end of 4 hours. Some of the measured retention may be from superimposed bowel activity - visually no significant residual activity. Had CT scan at [facility] which showed gallstones. GERD symptoms well controlled with Omeprazole 40 mg twice daily. Continues to have dysphagia with pills and nuts - eats after taking pills to help swallow her medications. Dysphagia felt to be related to esophageal spasm/ motility disorder 05/28/22 Fu of gallstones noted on outside CT scan. Denies RUQ or shoulder pain. Feels bloated after eating - likely related to gastroparesis Occasional LLQ pain after eating fatty foods. Has chronic LBP and a hx of kidney stones. Back pain improves with taking a muscle relaxant. HIDA scan was ordered - pt is concerned about claustrophobia and lying on the exam table for extended period of time. She was advised to hold off scheduling the HIDA scan since she does not have any biliary symptoms. Post prandial bloating is likely related to Gastroparesis. Pt was advised dietary modification. If symptoms persist, I will schedule repeat GES and EGD (Pt has COPD and sleep apnea). 03/[address] scan without contrast at [facility] showed mild to moderate tree true peritoneal lymphadenopathy. A 3.2 cm lobular lesion in left upper quadrant (stable since August 2020 and increased in size since 2016) - possible peripancreatic fluid collection, retroperitoneal lymph angioma, or necrotic lymph nodes. Pt is unable to have an open or closed MRI due to severe claustrophobia. 10/2022 order placed for follow-up CT scan with contrast Patient complains of dysphagia to solids and liquids - advised further evaluation with a barium swallow. 08/05/23 Results of barium swallow and CT scan were re- reviewed with the pt. Pt is managing dysphagia symptoms with dietary modification Notes post prandial fullness associated with upper abdominal distension Has a BM daily - stools are large and on the hard side and formed Can be hard to flush once in a while - has used OTC laxatives in the past which was helpful Check stool pancreatic elastase and take senna 2-3 times a week 02/03/24 patient complains of worsening dysphagia and intermittent left lower quadrant pain. She has a known history of cricopharyngeal achalasia on previous barium swallow. Advised referral to ENT for evaluation for Botox injection versus cricopharyngeal myotomy. Pt would like to think this over and will send me a message via portal if she wants to proceed Declined Speech Pathology referral Abd CT scan (FU of peripancreatic fluid collection) - to be scheduled with Chest CT scan on 03/30/24 FU in 6 months Orders: Orders CT abdomen w IV con Today G89.29 - Other chronic pain, R10.32 - Left lower quadrant pain Coding Level of Care Code Est Pt Level 4 (77903) Diagnoses Gastroesophageal reflux disease with esophagitis without hemorrhage K21.00 Esophagitis bleeding: without hemorrhage Esophagitis presence: with esophagitis Diarrhea R19.7 Chronic constipation K59.09 Asymptomatic gallstones K80.20 Colon cancer screening Z12.11 Bulky stools R19.5 Dysphagia R13.10 Abdominal pain, chronic, left lower quadrant R10.32; G89.29 Time Spent (min) 21
[2024-02-03 13:18] VITALS: BP 126/72; PULSE 89; BMI 47.8
== END 2024-02-03 13:50 | disposition home or self-care (01) ==
PROVIDERS: PCP Family Medicine; Visit Provider Internal Medicine Gastroenterology
DX: K21.00 Gastro-esophageal reflux disease with esophagitis, without bleeding (principal); R19.7 Diarrhea, unspecified; K59.09 Other constipation; K80.20 Calculus of gallbladder without cholecystitis without obstruction; Z12.11 Encounter for screening for malignant neoplasm of colon; R19.5 Other fecal abnormalities; R13.10 Dysphagia, unspecified; R10.32 Left lower quadrant pain; G89.29 Other chronic pain
CPT/HCPCS: 99214

== ENCOUNTER → 2024-02-03 12:58 | Outpatient (BNVA) | payer MEDICARE, SELFPAY | PROVIDERS: PCP Family Medicine; Visit Provider Internal Medicine Gastroenterology | DX: K21.00 Gastro-esophageal reflux disease with esophagitis, without bleeding (principal); K59.09 Other constipation; K80.20 Calculus of gallbladder without cholecystitis without obstruction; R10.32 Left lower quadrant pain; R13.10 Dysphagia, unspecified; R19.7 Diarrhea, unspecified; R19.5 Other fecal abnormalities; G89.29 Other chronic pain | CPT/HCPCS: 99212 ==

== ENCOUNTER 2024-02-10 14:56 | Outpatient (AMB) | payer MEDICARE, SELFPAY ==
--- NOTE | 2024-02-10 14:59 | MHC.OFFVIS ---
Vital Signs 02/10/24 15:01 BP 126/78 Blood Pressure Location Rt brachial Position Sitting Pulse 106 H Pulse Source Pulse Oximeter Pulse Oximetry (%) 97 Oxygen Delivery Method Room Air Intake Visit Reasons: COPD Brim Setter Required: No Pocket Flap Creasing Machine Operator: Pocket Flap Creasing Machine Operator offered & declined Accompanied by: Self / Same As Patient Allergies Penicillins Allergy (Intermediate, Verified 02/10/24 15:05) RASH-FULL BODY Sulfa (Sulfonamide Antibiotics) Allergy (Intermediate, Verified 02/10/24 15:05) RASH-FULL BODY Medication List - Last Reconciled 02/10/24 by Marybeth Daley LPN albuterol sulfate 2.5 mg inhalation BID PRN albuterol sulfate 2.5 mg (3 mL) inhalation Q6H PRN 30 days albuterol sulfate 90 mcg/actuation 2 puffs PO Q6H PRN arformoterol 15 mcg (2 mL) inhalation BID aspirin 81 mg PO DAILY atorvastatin 80 mg PO QPM budesonide 0.25 mg (2 mL) inhalation BID kpvoucjbdn-dkwbdotqqoroe-eyso 50-300-40 mg (Fioricet) 1 cap PO Q8H PRN clobetasol 0.05% 1 appl topical BID PRN cyclobenzaprine 10 mg PO BEDTIME PRN 30 days duloxetine 40 mg (2 x 20 mg) PO BID 90 days fluticasone propionate 50 mcg/actuation 1 spray intranasal Q12H lorazepam 0.5 mg PO DAILY meclizine 12.5 mg PO DAILY PRN 30 days metformin 250 mg (1/2 x 500 mg) PO DAILY 90 days [employer] Motorized scooter. Daily As directed, 999 days nebulizers As directed omeprazole 40 mg PO BID 90 days propranolol 10 mg PO BID 90 days roflumilast 500 mcg PO DAILY tiotropium bromide 2.5 mcg/actuation (Spiriva Respimat) 2 puffs PO DAILY HPI Comments Details: The patient is a 63-year-old woman with a known history of COPD, obstructive sleep apnea and obesity. Overall she has been responding very well to the respiratory therapy. Her respiratory status has improved dramatically. She has also been able to lose a good amunt f weigt with a combination of diet and also medications Daliresp. Hopefully she can lose enough weight to have her knee surgery. In the meantime she still has a diagnosis sleep apnea. She her allergy med. She does have daytime drowsiness. Her [place] score still elevated 12/24. the patient needs to have a sleep study at this time. 06/26/2022 the patient is here for pulmonary follow-up visit. The patient is back to her baseline. Her breathing is better. She has been very sad by the fact that she lost a good friend and roommate. She had early onset colon cancer. In regards of her pulmonary nodule she did undergo a repeat CT scan of the chest demonstrating a ground-glass nodular density measuring about 1.2 cm. Therefore, based on the fact that this nodular densities now greater than a cm and she has other pulmonary nodules will go ahead and repeat her CT scan in 6 months. In the meantime she will continue with current respiratory therapy. 12/24/2022 the patient is here for pulmonary follow-up visit. She does not feel well. Has been having increasing dyspnea in addition to cough. Moderate severity. Her respiratory therapy has been partially helpful. Over the summer she was diagnosed with migraines. She has been having hard time. She was placed on propanolol. Explained to her that possibly the propranolol is causing her respiratory symptoms to be worse. Although the propanolol seems to be helping her migraines. She will talk to her primary care doctor about potentially switching the beta-swathi to a calcium channel swathi or different agent altogether. The patient get try the Tessalon Perles. I did provide her with good Rx card that she can use to try to get it for a more reasonable cost. We also reviewed her CT scan of the chest that she had recently. We compared to the CT scan that she had back 6 months ago and also CT scan that she had a year ago. All were personally by me. It appears that this nodular density is subsolid nature and appears to be increasing size when compared to year ago. Therefore, based on the fact that is measuring 1 with 2 cm and appears to be slightly larger will go ahead and repeat the CT scan again 6 months. If he continues to change and or increase in size the patient will need to be evaluated by thoracic surgery. 06/24/2023 the patient is here for pulmonary follow-up visit. She continues to complain of significant dyspnea. Moderate severity be with minimal activity. She has been on maximum respiratory therapy with only partial resolution in her symptoms. On examination she does not have significant wheezing. She does have evidence of 2+ pitting edema in lower extremities. The patient is agreeable to taking a short course of diuretics. Based on her significant lower extremity edema and echocardiogram will be warranted. She does follow-up with cardiology here. I will let the no about her symptoms and findings. The patient did have a CT scan of the chest done May 2023. we personally reviewed the images together. It appears that she has a stable 1 cm pulmonary nodule. Subsolid nature. She will need another CT scan in a year's time. Still, no explanation for significant dyspnea except for volume overload status. Need to consider pulmonary hypertension. Therefore will request a repeat echocardiogram. 09/30/2023 the patient is here for pulmonary follow-up visit. She Is overall feeling better. Her chest tightness and wheezing has improved. She did take the short course of diuretic. also, underwent an echocardiogram which we did review together demonstrating a mild decrease in the ejection fraction in addition to some mild diastolic dysfunction. She continues use her respiratory therapy with good effect. Her last CT scan of the chest was back in 06/01/2023 demonstrating 1 cm subsolid nodular density in the right upper lobe. This appears to be stable when compared to previous. This will need a longer course follow-up secondary to the subsolid nature of it. Will discuss additional imaging when she returns in 4-6 months. 02/10/2024 the patient is here for pulmonary follow-up visit. The patient well until about a week ago. She had gone to a wedding in [place]. She stayed in hotel and felt that the air was cold and dry and she was a little uncomfortable. Her breathing started getting more labored with chest tightness and a dry cough. Her symptoms then persistent when she came back to [place]. She always call for medications but she was going to see her primary care doctor. But then she had to cancel. She has felt that her breathing has been off. She has been having to use her nebulizer at nighttime because waking up with wheezing. She is not able to expectorate anything right now. Although her cough just keeps her up. On exam she is moving good air. No significant wheezing at this time although she did her treatments before coming in. I will go ahead and send her medicines in case she develops worsening symptoms treated for an asthma exacerbation. And also something to help with the cough. The patient is due for a CT scan sometime in 03/31/2024 will follow-up with her after that. If any issues arise the patient will call for further evaluation. [facility] Medical History Leg edema Dyspnea Pulmonary nodules Blepharitis of eyelid of left eye Morbid obesity GERD (gastroesophageal reflux disease) Asthma-COPD overlap syndrome ROSITA (obstructive sleep apnea) Surgical History History of hernia repair H/O esophagogastroduodenoscopy History of colonoscopy H/O wisdom tooth extraction History of tonsillectomy and adenoidectomy Family History Father Aneurysm Peptic ulcer disease Mother Cardiovascular disease Asthma Social History (Updated 02/10/24 @ 15:07 by Marybeth Daley LPN) Household Members: Friend(s) Housing: House Alcohol intake: never Patient Tobacco Use Status: Never used Tobacco e-Cigarette/Vaping Use: Never Used Second Hand Smoke Exposure: No service: No Current occupational status: employed and disabled 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 Current occupational exposures/hazards: No Cognitive needs: No Hearing needs: No Vision needs: No Female Reproductive History Menstrual Age of Menarche: 7 Review of Systems Const Denies chills, Denies fatigue, Denies fever(s), Denies headache(s) and Denies weakness ENT Denies dizziness and Denies headache(s) Card Reports dyspnea on exertion Resp Reports cough, Reports dyspnea on exertion, Reports wheezing and Denies other (shortness of breath) Musc Reports back pain, Reports myalgias, Denies numbness and Denies tingling Neuro Denies dizziness, Denies headache(s), Denies numbness, Denies tingling and Denies weakness Psych Denies anxiety and Denies depression Endo Denies fatigue Aller/Immun Reports wheezing Physical Exam Vital Signs: Last Vital Signs Pulse 106 H 02/10/24 15:01 BP 126/78 02/10/24 15:01 Pulse Ox 97 02/10/24 15:01 Oxygen Delivery Method Room Air 02/10/24 15:01 Const General: comfortable and no acute distress Orientation/consciousness: patient oriented x3 HEENT Other: Unremarkable Head: Yes normal to inspection Neck Neck: Yes normal visual inspection Chest Chest palpation & inspection: normal inspection of the chest Resp Auscultation: no crackles, no rales, no rhonchi, no wheezes and diminished lung sounds Cardio Palpation: normal PMI Heart sounds: S1 normal heart sound present, S2 normal heart sound present, no gallops, Murmur heart sound present systolic early, II/ and at the right sternal border and no rubs GI Palpation (GI): Soft to palpation Back/Spine/Pelvis Other: unremarkable Skin General skin exam: no rashes or lesions noted Neuro General: patient oriented x3 Extrem General: No clubbing, No cyanosis and Yes edema Psych Mental Status: mental status grossly normal Assessment & Plan Assessment & Plan (1) Asthma-COPD overlap syndrome: Code(s): J44.9 - Chronic obstructive pulmonary disease, unspecified Category: Medical (2) ROSITA (obstructive sleep apnea): Code(s): G47.33 - Obstructive sleep apnea (adult) (pediatric) Category: Medical (3) GERD (gastroesophageal reflux disease): Code(s): K21.9 - Gastro-esophageal reflux disease without esophagitis Category: Medical Qualifiers: Esophagitis bleeding: without hemorrhage Esophagitis presence: with esophagitis Qualified Code(s): K21.00 - Gastro-esophageal reflux disease with esophagitis, without bleeding (4) Pulmonary nodules: Code(s): R91.8 - Other nonspecific abnormal finding of lung field Category: Medical (5) Dyspnea: Code(s): R06.00 - Dyspnea, unspecified Category: Medical Qualifiers: Dyspnea type: dyspnea on exertion Qualified Code(s): R06.09 - Other forms of dyspnea (6) Leg edema: Code(s): R60.0 - Localized edema Category: Medical Plan continue respiratory therapy: Brovana, budesonide and Spiriva continue Daliresp 500 mcg daily short-acting beta agonist repeat CT chest in 03/2024 follow-up in 4-6 months Medications: New prednisone PO daily; Take 6 tabs daily x 3 days, then 5 tabs x 3 days, then 4 tabs x 3 days, then 3 tabs x 3 days, then 2 tabs daily x 3 days, then 1 tab x 3 days to complete. 63 tabs 0RF 18 days codeine-guaifenesin 10-100 mg/5 mL 10 mL PO Q6H PRN 300 mL 0RF cough 10 days azithromycin 500 mg PO DAILY 5 tabs 0RF 5 days Coding Level of Care Code Est Pt Level 4 (47613) Diagnoses Asthma-COPD overlap syndrome J44.9 ROSITA (obstructive sleep apnea) G47.33 Gastroesophageal reflux disease with esophagitis without hemorrhage K21.00 Esophagitis bleeding: without hemorrhage Esophagitis presence: with esophagitis Pulmonary nodules R91.8 Dyspnea on exertion R06.09 Dyspnea type: dyspnea on exertion Leg edema R60.0 Time Spent (min) 16
[2024-02-10 15:01] VITALS: BP 126/78; PULSE 106; O2SAT 97
== END 2024-02-10 15:24 | disposition home or self-care (01) ==
LOC: HO.HPS 14:57
PROVIDERS: PCP Family Medicine; Visit Provider Hospitalist
DX: J44.9 Chronic obstructive pulmonary disease, unspecified (principal); G47.33 Obstructive sleep apnea (adult) (pediatric); K21.00 Gastro-esophageal reflux disease with esophagitis, without bleeding; R91.8 Other nonspecific abnormal finding of lung field; R06.09 Other forms of dyspnea; R60.0 Localized edema
CPT/HCPCS: 99214

== ENCOUNTER → 2024-02-10 14:56 | Outpatient (BNVA) | payer MEDICARE, SELFPAY | PROVIDERS: PCP Family Medicine; Visit Provider Hospitalist | DX: J44.9 Chronic obstructive pulmonary disease, unspecified (principal); R91.8 Other nonspecific abnormal finding of lung field; R06.09 Other forms of dyspnea; G47.33 Obstructive sleep apnea (adult) (pediatric); R60.0 Localized edema; K21.00 Gastro-esophageal reflux disease with esophagitis, without bleeding | CPT/HCPCS: 99212 ==

== ENCOUNTER 2024-02-23 14:47 | Outpatient (AMB) | payer MEDICARE, SELFPAY ==
--- NOTE | 2024-02-23 14:57 | A.OFFPC_ITS ---
Vital Signs 02/23/24 15:01 Height 5 ft 3 in Weight 146 lb BMI 25.9 BP 130/66 Blood Pressure Location Rt brachial Position Sitting Respiration 14 Pulse 94 Pulse Source Pulse Oximeter Temp 97.7 F Temp Source Oral Pulse Oximetry (%) 98 Oxygen Delivery Method Room Air Intake Visit Reasons: f/u DM Allergies Penicillins Allergy (Intermediate, Verified 02/10/24 15:05) RASH-FULL BODY Sulfa (Sulfonamide Antibiotics) Allergy (Intermediate, Verified 02/10/24 15:05) RASH-FULL BODY Medication List - Last Reconciled 02/23/24 by Stan Davila MD albuterol sulfate 2.5 mg inhalation BID PRN albuterol sulfate 2.5 mg (3 mL) inhalation Q6H PRN 30 days albuterol sulfate 90 mcg/actuation 2 puffs PO Q6H PRN arformoterol 15 mcg (2 mL) inhalation BID aspirin 81 mg PO DAILY atorvastatin 80 mg PO QPM azithromycin 500 mg PO DAILY 5 days budesonide 0.25 mg (2 mL) inhalation BID pfmvrransr-wbnowvwqaqdes-qpnv 50-300-40 mg (Fioricet) 1 cap PO Q8H PRN clobetasol 0.05% 1 appl topical BID PRN codeine-guaifenesin 10-100 mg/5 mL 10 mL PO Q6H PRN 10 days cyclobenzaprine 10 mg PO BEDTIME PRN 30 days duloxetine 40 mg (2 x 20 mg) PO BID 90 days fluticasone propionate 50 mcg/actuation 1 spray intranasal Q12H lorazepam 0.5 mg PO DAILY meclizine 12.5 mg PO DAILY PRN 30 days metformin 250 mg (1/2 x 500 mg) PO DAILY 90 days [employer]. Daily As directed, 999 days nebulizers As directed omeprazole 40 mg PO BID 90 days prednisone PO daily; Take 6 tabs daily x 3 days, then 5 tabs x 3 days, then 4 tabs x 3 days, then 3 tabs x 3 days, then 2 tabs daily x 3 days, then 1 tab x 3 days to complete. 18 days propranolol 10 mg PO BID 90 days roflumilast 500 mcg PO DAILY tiotropium bromide 2.5 mcg/actuation (Spiriva Respimat) 2 puffs PO DAILY Tobacco use date assessed: 11/01/23 Dental Screening Dental Screen Date: 11/01/23 HPI f/u DM HPI Details 63 y/o female presents to f/u diabetes. Last A1c 11/01/23 7.0%. A1c today 02/23/24 is 7.0%. She is on metformin 250mg daily. Working on dietary changes. Has been swimming for exercise. Notes knee pain after walking down a few houses. Recently seen GI for worsening dysphagia, intermittent LLQ pain. Known hx of cricopharyngeal aschalasia on previous barium swallow. They had advised referral to ENT For evaluation for Botox injection vs cricopharyngeal myotomy. Notes dysphagia seems to have improved a bit. Has increased fluid intake with her food. Had followed up with pulmonology for pulm. nodules and asthma-COPD overlap syndrome. Weight today 270lbs, unchanged from last office visit January. Last diabetic eye exam with José Luis Kenney recently. She notes no diabetic retinopathy. HPI Comments History of Present Illness Details Documentation assistance for Stan Davila MD, was provided by Deny Geiger, [employer] Press Helper on 02/23/2024 at 3:18 PM EST. I, Dr. Davila, have read, observed, and verified documentation. [facility] Medical History Leg edema Dyspnea Pulmonary nodules Blepharitis of eyelid of left eye Morbid obesity GERD (gastroesophageal reflux disease) Asthma-COPD overlap syndrome ROSITA (obstructive sleep apnea) Surgical History History of hernia repair H/O esophagogastroduodenoscopy History of colonoscopy H/O wisdom tooth extraction History of tonsillectomy and adenoidectomy Family History Father Aneurysm Peptic ulcer disease Mother Cardiovascular disease Asthma Social History (Updated 02/10/24 @ 15:07 by Marybeth Daley LPN) Household Members: Friend(s) Housing: House Alcohol intake: never Patient Tobacco Use Status: Never used Tobacco e-Cigarette/Vaping Use: Never Used Second Hand Smoke Exposure: No service: No Current occupational status: employed and disabled 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 1. Little interest or pleasure in doing things: not at all 2. Feeling down, depressed, or hopeless: not at all 3. Trouble falling or staying asleep, or sleeping too much: not at all 4. Feeling tired or having little energy: not at all 5. Poor appetite or overeating: not at all 6. Feeling bad about yourself - or that you are a failure or have let yourself or your family down: not at all 7. Trouble concentrating on things, such as reading the newspaper or watching television: not at all 8. Moving or speaking so slowly that other people could have noticed. Or the opposite - being so fidgety or restless that you have been moving around a lot more than usual: not at all 9. Thoughts that you would be better off or of hurting yourself in some way: not at all Total score: 0 Source: Developed by Drs. Zohaib Coffman, Ashley Short, Shaka Austin and colleagues, with an educational tracy from [employer]. Thrive Questionnaire Date Thrive assessed: 02/01/24 I am a: Patient What is your living situation today?: I choose not to answer this question Within the past 12 months, did the food you bought not last and you didn't have the money to get more?: I choose not to answer this question Within the past 12 months, did you worry whether your food would run out before you got money to buy more?: I choose not to answer this question Do you have trouble paying for medicines?: I choose not to answer this question Do you have trouble getting transportation to medical appointments?: No Do you have trouble paying your heating and electricity bill?: No Do you have trouble taking care of your child, family member or friend?: No Do you have trouble with day-to-day activities such as bathing, preparing meals, shopping, managing finances, etc.?: No Are you currently unemployed and looking for a job?: No Are you interested in more education?: No Please select the resources that you would like help with: None Currently or been in a relationship where the following occur: No concerns reported THRIVE Score: 0 MAGGIE-7 AMB Questionnaire MAGGIE-7 Date MAGGIE - 7 assessed: 09/03/23 Source: Developed by Drs. Zohaib Coffman, Ashley Short, Shaka Austin and colleagues, with an educational tracy from [employer]. Review of Systems Const Denies chills, Denies fatigue, Denies fever(s), Denies headache(s) and Denies weakness ENT Denies dizziness and Denies headache(s) Card Denies dyspnea Resp Denies cough, Denies dyspnea, Denies wheezing and Denies other (shortness of breath) Musc Details: Knee pain Denies numbness and Denies tingling Neuro Denies dizziness, Denies headache(s), Denies numbness, Denies tingling and Denies weakness Psych Denies anxiety and Denies depression Endo Denies fatigue Aller/Immun Denies wheezing Physical exam (Primary Care) Vital Signs: Last Vital Signs Temp 97.7 F 02/23/24 15:01 Pulse 94 02/23/24 15:01 Resp 14 02/23/24 15:01 BP 130/66 02/23/24 15:01 Pulse Ox 98 02/23/24 15:01 Oxygen Delivery Method Room Air 02/23/24 15:01 BMI result Body Mass Index 25.9 Tobacco/Smoking Status: Tobacco use Status Tobacco use date assessed 11/01/23 02/23/24 14:58 Patient Tobacco Use Status Never used Tobacco 02/23/24 14:58 e-Cigarette/Vaping Use Never Used 02/23/24 14:58 PHQ-9: PHQ-9 Score PHQ-9: Total score 0 02/23/24 15:03 Thrive Assessment: Date of Thrive Assessment Date Thrive assessed 02/01/24 02/23/24 14:58 Currently or been in a relationship where the following occur: No concerns reported Const General: well developed; No acute distress Nutritional Appearance: well nourished and obese Orientation/consciousness: patient oriented x3 HENMT Head: Yes normocephalic and Yes atraumatic Eyes General: appearance normal, both eyes and all related structures Pupils: Equal, round and reactive pupils present EOM: EOMs intact bilaterally Resp Effort & Inspection: normal respiratory effort Auscultation: clear to auscultation bilaterally Cardio Rate: regular rate Rhythm: regular rhythm Heart sounds: S1 normal heart sound present, S2 normal heart sound present, no gallops, no murmurs and no rubs Neuro General: patient oriented x3 and gait normal Cranial nerves: Yes Equal, round and reactive pupils present Gait exam (Neuro): gait abnormal and Assisted gait required Gait assisted method: walker Psych Affect: normal affect Coding Level of Care Code Est Pt Level 4 (12727) Diagnoses Diabetes E11.9 Dysphagia R13.10 Asthma-COPD overlap syndrome J44.9 Bilateral knee pain M25.561; M25.562 Assessment & Plan Assessment & Plan (1) Diabetes: Code(s): E11.9 - Type 2 diabetes mellitus without complications Category: Medical Plan: A1c?7.0%. ?Essentially?at?goal?of?7% Continue?current?medication Work?at?diet?lower?in?sugars?and?starches Work?at?weight?loss Exercise?as?tolerated Patient?saw?her?die drawing checker?recently?and?I?do?not?have?the?note-will?request (2) Dysphagia: Code(s): R13.10 - Dysphagia, unspecified Category: Medical Plan: Followed?by??Sammy?and?referred?to?ENT Consideration?of?Botox?or?surgery.??However?patient?is?holding?off?on?this?as?sh e?feels?that?symptoms?have?eased?up. Follow-up?with?above?specialists?as?necessary (3) Asthma-COPD overlap syndrome: Code(s): J44.9 - Chronic obstructive pulmonary disease, unspecified Category: Medical Plan: Lungs?are?clear?today Stable Follow-up?with?Pulmonary?Medicine?as?recommended Continue?inhaled?medications (4) Bilateral knee pain: Code(s): M25.561 - Pain in right knee; M25.562 - Pain in left knee Category: Medical Plan: Patient?is?still?using?Rollator?walker. She?received a motorized?stroller?but?feels?this?is?unstable. She?is?looking?into?other?options?currently.
[2024-02-23 15:01] VITALS: BP 130/66; PULSE 94; RESP 14; TEMP 36.5; O2SAT 98; BMI 25.9
== END 2024-02-23 15:37 | disposition home or self-care (01) ==
PROVIDERS: PCP Family Medicine; Visit Provider Family Medicine
DX: E11.9 Type 2 diabetes mellitus without complications (principal); R13.10 Dysphagia, unspecified; J44.9 Chronic obstructive pulmonary disease, unspecified; M25.561 Pain in right knee; M25.562 Pain in left knee

== ENCOUNTER → 2024-02-23 14:47 | Outpatient (BNVA) | payer MEDICARE, SELFPAY | PROVIDERS: PCP Family Medicine; Visit Provider Family Medicine | DX: E11.9 Type 2 diabetes mellitus without complications (principal); R13.10 Dysphagia, unspecified; J44.9 Chronic obstructive pulmonary disease, unspecified; M25.561 Pain in right knee; M25.562 Pain in left knee | CPT/HCPCS: 99212 ==

== ENCOUNTER 2024-03-30 12:46 | Outpatient (REF) | payer MEDICARE, SELFPAY ==
[2024-03-30] MEDS: iohexoL 350 MG/ML 100 ML INFUS..BTL IV (13:28)
[2024-03-30 14:35] LABS: Creatinine POC 0.6 mg/dL (0.5-1.4); GFR POC > 60
== END 2024-03-30 12:47 | disposition home or self-care (01) ==
LOC: HO.CT 12:46
PROVIDERS: Internal Medicine Gastroenterology; PCP Family Medicine; Visit Provider Hospitalist
DX: R91.1 Solitary pulmonary nodule (principal)
CPT/HCPCS: 71250; 74177; 82565; Q9967

== ENCOUNTER → 2024-03-30 12:48 | Outpatient (BNV) | payer MEDICARE, SELFPAY | PROVIDERS: PCP Family Medicine; Visit Provider Radiology Diagnostic Radiology | DX: R91.1 Solitary pulmonary nodule (principal) | CPT/HCPCS: 71250; 74177 ==

== ENCOUNTER 2024-04-10 14:06 | Outpatient (REF) | payer MEDICARE, SELFPAY | END 2024-04-10 14:07 | disposition home or self-care (01) | LOC: HO.MAMMO 14:06 | PROVIDERS: PCP Family Medicine; Visit Provider Family Medicine | DX: Z12.31 Encounter for screening mammogram for malignant neoplasm of breast (principal) | CPT/HCPCS: 77063; 77067 ==

== ENCOUNTER → 2024-04-10 14:15 | Outpatient (BNV) | payer MEDICARE, SELFPAY | PROVIDERS: PCP Family Medicine; Visit Provider Internal Medicine | DX: Z12.31 Encounter for screening mammogram for malignant neoplasm of breast (principal) | CPT/HCPCS: 77063; 77067 ==

== ENCOUNTER 2024-05-02 14:14 | Outpatient (AMB) | payer MEDICARE, SELFPAY ==
[2024-05-02 14:29] VITALS: BP 122/78; PULSE 109; O2SAT 97; BMI 57.4
--- NOTE | 2024-05-02 14:29 | MHC.OFFVIS ---
Vital Signs 05/02/24 14:29 Height 5 ft 3 in Weight 324 lb 1.272 oz BMI 57.4 BP 122/78 Blood Pressure Location Rt brachial Position Sitting Pulse 109 H Pulse Source Pulse Oximeter Pulse Oximetry (%) 97 Oxygen Delivery Method Room Air Intake Visit Reasons: COPD Allergies Penicillins Allergy (Intermediate, Verified 02/10/24 15:05) RASH-FULL BODY Sulfa (Sulfonamide Antibiotics) Allergy (Intermediate, Verified 02/10/24 15:05) RASH-FULL BODY HPI Comments Details: The patient is a 64-year-old woman with a known history of COPD, obstructive sleep apnea and obesity. Overall she has been responding very well to the respiratory therapy. Her respiratory status has improved dramatically. She has also been able to lose a good amunt f weigt with a combination of diet and also medications Daliresp. Hopefully she can lose enough weight to have her knee surgery. In the meantime she still has a diagnosis sleep apnea. She her allergy med. She does have daytime drowsiness. Her [place] score still elevated 04/04. the patient needs to have a sleep study at this time. 06/26/2022 the patient is here for pulmonary follow-up visit. The patient is back to her baseline. Her breathing is better. She has been very sad by the fact that she lost a good friend and roommate. She had early onset colon cancer. In regards of her pulmonary nodule she did undergo a repeat CT scan of the chest demonstrating a ground-glass nodular density measuring about 1.2 cm. Therefore, based on the fact that this nodular densities now greater than a cm and she has other pulmonary nodules will go ahead and repeat her CT scan in 6 months. In the meantime she will continue with current respiratory therapy. 12/24/2022 the patient is here for pulmonary follow-up visit. She does not feel well. Has been having increasing dyspnea in addition to cough. Moderate severity. Her respiratory therapy has been partially helpful. Over the summer she was diagnosed with migraines. She has been having hard time. She was placed on propanolol. Explained to her that possibly the propranolol is causing her respiratory symptoms to be worse. Although the propanolol seems to be helping her migraines. She will talk to her primary care doctor about potentially switching the beta-swathi to a calcium channel swathi or different agent altogether. The patient get try the Tessalon Perles. I did provide her with good Rx card that she can use to try to get it for a more reasonable cost. We also reviewed her CT scan of the chest that she had recently. We compared to the CT scan that she had back 6 months ago and also CT scan that she had a year ago. All were personally by me. It appears that this nodular density is subsolid nature and appears to be increasing size when compared to year ago. Therefore, based on the fact that is measuring 1 with 2 cm and appears to be slightly larger will go ahead and repeat the CT scan again 6 months. If he continues to change and or increase in size the patient will need to be evaluated by thoracic surgery. 06/24/2023 the patient is here for pulmonary follow-up visit. She continues to complain of significant dyspnea. Moderate severity be with minimal activity. She has been on maximum respiratory therapy with only partial resolution in her symptoms. On examination she does not have significant wheezing. She does have evidence of 2+ pitting edema in lower extremities. The patient is agreeable to taking a short course of diuretics. Based on her significant lower extremity edema and echocardiogram will be warranted. She does follow-up with cardiology here. I will let the no about her symptoms and findings. The patient did have a CT scan of the chest done May 2023. we personally reviewed the images together. It appears that she has a stable 1 cm pulmonary nodule. Subsolid nature. She will need another CT scan in a year's time. Still, no explanation for significant dyspnea except for volume overload status. Need to consider pulmonary hypertension. Therefore will request a repeat echocardiogram. 09/30/2023 the patient is here for pulmonary follow-up visit. She Is overall feeling better. Her chest tightness and wheezing has improved. She did take the short course of diuretic. also, underwent an echocardiogram which we did review together demonstrating a mild decrease in the ejection fraction in addition to some mild diastolic dysfunction. She continues use her respiratory therapy with good effect. Her last CT scan of the chest was back in 06/01/2023 demonstrating 1 cm subsolid nodular density in the right upper lobe. This appears to be stable when compared to previous. This will need a longer course follow-up secondary to the subsolid nature of it. Will discuss additional imaging when she returns in 4-6 months. 02/10/2024 the patient is here for pulmonary follow-up visit. The patient well until about a week ago. She had gone to a wedding in [place]. She stayed in hotel and felt that the air was cold and dry and she was a little uncomfortable. Her breathing started getting more labored with chest tightness and a dry cough. Her symptoms then persistent when she came back to [place]. She always call for medications but she was going to see her primary care doctor. But then she had to cancel. She has felt that her breathing has been off. She has been having to use her nebulizer at nighttime because waking up with wheezing. She is not able to expectorate anything right now. Although her cough just keeps her up. On exam she is moving good air. No significant wheezing at this time although she did her treatments before coming in. I will go ahead and send her medicines in case she develops worsening symptoms treated for an asthma exacerbation. And also something to help with the cough. The patient is due for a CT scan sometime in 03/31/2024 will follow-up with her after that. If any issues arise the patient will call for further evaluation. 05/02/2024 the patient is here for a pulmonary follow-up visit. She is finally feeling better after the last course of prednisone. She has been able to do the activities of daily living without significant shortness of breath. Denies any significant congestion. As far as her breathing medications Spiriva is no longer covered. In addition to that Brovana been difficult to use. Will go ahead and discontinue the Brovana and switch over to DuoNeb in order for her to be able to get the combination nebulized therapy in conjunction with the budesonide to provide her with triple therapy. This will be more effective in beneficial for her. If she has any issues with this regimen she can always call we can switch her back to her previous regimen. Otherwise follow-up in 4 months. She has any issues she will call for an earlier assessment. [facility] Medical History Leg edema Dyspnea Pulmonary nodules Blepharitis of eyelid of left eye Morbid obesity GERD (gastroesophageal reflux disease) Asthma-COPD overlap syndrome ROSITA (obstructive sleep apnea) Surgical History History of hernia repair H/O esophagogastroduodenoscopy History of colonoscopy H/O wisdom tooth extraction History of tonsillectomy and adenoidectomy Family History Father Aneurysm Peptic ulcer disease Mother Cardiovascular disease Asthma Social History (Updated 02/10/24 @ 15:07 by Marybeth Daley LPN) Household Members: Friend(s) Housing: House Alcohol intake: never Patient Tobacco Use Status: Never used Tobacco e-Cigarette/Vaping Use: Never Used Second Hand Smoke Exposure: No service: No Current occupational status: employed and disabled 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 Current occupational exposures/hazards: No Cognitive needs: No Hearing needs: No Vision needs: No Female Reproductive History Menstrual Age of Menarche: 7 Review of Systems Const Denies chills, Denies fatigue, Denies fever(s), Denies headache(s) and Denies weakness ENT Denies dizziness and Denies headache(s) Card Reports dyspnea on exertion Resp Reports cough, Reports dyspnea on exertion, Reports wheezing and Denies other (shortness of breath) Musc Reports back pain, Reports myalgias, Denies numbness and Denies tingling Neuro Denies dizziness, Denies headache(s), Denies numbness, Denies tingling and Denies weakness Psych Denies anxiety and Denies depression Endo Denies fatigue Aller/Immun Reports wheezing Physical Exam Vital Signs: Last Vital Signs Pulse 109 H 05/02/24 14:29 BP 122/78 05/02/24 14:29 Pulse Ox 97 05/02/24 14:29 Oxygen Delivery Method Room Air 05/02/24 14:29 BMI result Body Mass Index 57.4 Const General: comfortable and no acute distress Orientation/consciousness: patient oriented x3 HEENT Other: Unremarkable Head: Yes normal to inspection Neck Neck: Yes normal visual inspection Chest Chest palpation & inspection: normal inspection of the chest Resp Auscultation: no crackles, no rales, no rhonchi, no wheezes and diminished lung sounds Cardio Palpation: normal PMI Heart sounds: S1 normal heart sound present, S2 normal heart sound present, no gallops, Murmur heart sound present systolic early, II/ and at the right sternal border and no rubs GI Palpation (GI): Soft to palpation Back/Spine/Pelvis Other: unremarkable Skin General skin exam: no rashes or lesions noted Neuro General: patient oriented x3 Extrem General: No clubbing, No cyanosis and Yes edema Psych Mental Status: mental status grossly normal Assessment & Plan Assessment & Plan (1) Asthma-COPD overlap syndrome: Code(s): J44.9 - Chronic obstructive pulmonary disease, unspecified Category: Medical (2) ROSITA (obstructive sleep apnea): Code(s): G47.33 - Obstructive sleep apnea (adult) (pediatric) Category: Medical (3) GERD (gastroesophageal reflux disease): Code(s): K21.9 - Gastro-esophageal reflux disease without esophagitis Category: Medical Qualifiers: Esophagitis bleeding: without hemorrhage Esophagitis presence: with esophagitis Qualified Code(s): K21.00 - Gastro-esophageal reflux disease with esophagitis, without bleeding (4) Pulmonary nodules: Code(s): R91.8 - Other nonspecific abnormal finding of lung field Category: Medical (5) Dyspnea: Code(s): R06.00 - Dyspnea, unspecified Category: Medical Qualifiers: Dyspnea type: dyspnea on exertion Qualified Code(s): R06.09 - Other forms of dyspnea (6) Leg edema: Code(s): R60.0 - Localized edema Category: Medical Plan stop Brovana Start Duoneb budesonide stop Spiriva continue Daliresp 500 mcg daily short-acting beta agonist follow-up in 4 months Medications: New ipratropium-albuterol 0.5 mg-3 mg(2.5 mg base)/3 mL 3 mL inhalation QID 360 mL 11RF 30 days J44.9 - Chronic obstructive pulmonary disease, unspecified Refilled budesonide 0.25 mg (2 mL) inhalation BID 360 mL 0RF J44.9 - Chronic obstructive pulmonary disease, unspecified Discontinued arformoterol Discontinued Reason: Doctor's Order 15 mcg (2 mL) inhalation BID 360 mL 3RF J44.9 - Chronic obstructive pulmonary disease, unspecified Coding Level of Care Code Est Pt Level 4 (10857) Complex EM visit Add On G2211 Diagnoses Asthma-COPD overlap syndrome J44.9 ROSITA (obstructive sleep apnea) G47.33 Gastroesophageal reflux disease with esophagitis without hemorrhage K21.00 Esophagitis bleeding: without hemorrhage Esophagitis presence: with esophagitis Pulmonary nodules R91.8 Dyspnea on exertion R06.09 Dyspnea type: dyspnea on exertion Leg edema R60.0 Time Spent (min) 17
== END 2024-05-02 15:01 | disposition home or self-care (01) ==
PROVIDERS: PCP Family Medicine; Visit Provider Hospitalist
DX: J44.9 Chronic obstructive pulmonary disease, unspecified (principal); G47.33 Obstructive sleep apnea (adult) (pediatric); K21.00 Gastro-esophageal reflux disease with esophagitis, without bleeding; R91.8 Other nonspecific abnormal finding of lung field; R06.09 Other forms of dyspnea; R60.0 Localized edema
CPT/HCPCS: 99214; G2211

== ENCOUNTER → 2024-05-02 14:14 | Outpatient (BNVA) | payer MEDICARE, SELFPAY | PROVIDERS: PCP Family Medicine; Visit Provider Hospitalist | DX: J44.9 Chronic obstructive pulmonary disease, unspecified (principal); G47.33 Obstructive sleep apnea (adult) (pediatric); E66.9 Obesity, unspecified; K21.00 Gastro-esophageal reflux disease with esophagitis, without bleeding; R91.8 Other nonspecific abnormal finding of lung field; R06.09 Other forms of dyspnea; R60.0 Localized edema; Z68.43 Body mass index [BMI] 50.0-59.9, adult | CPT/HCPCS: 99212 ==

== ENCOUNTER 2024-05-04 13:08 | Outpatient (AMB) | payer MEDICARE, MEDICAID, SELFPAY ==
[2024-05-04 13:23] VITALS: BP 118/58; PULSE 88
--- NOTE | 2024-05-04 13:23 | A.OFFVIS_ITS ---
Vital Signs 05/04/24 13:23 Height 5 ft 3 in BMI Reason not done Patient refused/unable BP 118/58 L Blood Pressure Location Lt brachial Position Sitting Pulse 88 Pulse Source Pulse Oximeter Intake Visit Reasons: 1 yr f/up Allergies Penicillins Allergy (Intermediate, Verified 02/10/24 15:05) RASH-FULL BODY Sulfa (Sulfonamide Antibiotics) Allergy (Intermediate, Verified 02/10/24 15:05) RASH-FULL BODY Medication List - Last Reconciled 05/04/24 by Thad Muñoz MD albuterol sulfate 2.5 mg (3 mL) inhalation Q6H PRN 30 days albuterol sulfate 90 mcg/actuation 2 puffs PO Q6H PRN aspirin 81 mg PO DAILY atorvastatin 80 mg PO QPM budesonide 0.25 mg (2 mL) inhalation BID [id number] 50-300-40 mg (Fioricet) 1 cap PO Q8H PRN clobetasol 0.05% 1 appl topical BID PRN cyclobenzaprine 10 mg PO BEDTIME PRN 30 days duloxetine 40 mg (2 x 20 mg) PO BID 90 days fluticasone propionate 50 mcg/actuation 1 spray intranasal Q12H ipratropium-albuterol 0.5 mg-3 mg(2.5 mg base)/3 mL 3 mL inhalation QID lorazepam 0.5 mg PO DAILY meclizine 12.5 mg PO DAILY PRN 30 days metformin 250 mg (1/2 x 500 mg) PO DAILY 90 days miscellaneous medical supply Motorized scooter. Daily As directed, 999 days nebulizers As directed omeprazole 40 mg PO BID 90 days propranolol 10 mg PO BID 90 days roflumilast 500 mcg PO DAILY HPI Comments Details: Daxa returns for follow-up regarding coronary disease. Overall, she is feeling fine. No cardiac symptoms like angina. Musculoskeletal pain and she comes in a wheelchair. [facility] Medical History Leg edema Dyspnea Pulmonary nodules Blepharitis of eyelid of left eye Morbid obesity GERD (gastroesophageal reflux disease) Asthma-COPD overlap syndrome ROSITA (obstructive sleep apnea) Surgical History History of hernia repair H/O esophagogastroduodenoscopy History of colonoscopy H/O wisdom tooth extraction History of tonsillectomy and adenoidectomy Family History Father Aneurysm Peptic ulcer disease Mother Cardiovascular disease Asthma Social History (Updated 02/10/24 @ 15:07 by Marybeth Daley LPN) Household Members: Friend(s) Housing: House Alcohol intake: never Patient Tobacco Use Status: Never used Tobacco e-Cigarette/Vaping Use: Never Used Second Hand Smoke Exposure: No service: No Current occupational status: employed and disabled 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 Current occupational exposures/hazards: No Cognitive needs: No Hearing needs: No Vision needs: No Female Reproductive History Menstrual Age of Menarche: 7 Review of Systems Const Denies weakness ENT Denies dizziness Card Denies chest pain, Denies chest pain with activity, Denies syncope, Denies rapid heart rate, Denies pedal edema, Denies edema, Denies leg edema, Denies lightheadedness, Denies palpitations, Denies dyspnea, Denies dyspnea on exertion and Denies orthopnea Resp Denies cough, Denies dyspnea and Denies dyspnea on exertion GI Denies hematochezia and Denies change in stool character Musc Denies abnormal gait, Denies muscle cramps, Denies muscle weakness, Denies numbness, Denies radiating pain into limb and Denies tingling Neuro Denies abnormal gait, Denies dizziness, Denies syncope, Denies numbness, Denies tingling and Denies weakness Endo Denies palpitations Physical Exam Vital Signs: Last Vital Signs Pulse 88 05/04/24 13:23 BP 118/58 L 05/04/24 13:23 Const General: comfortable and no acute distress Orientation/consciousness: patient oriented x3 HEENT Other: Unremarkable Head: Yes normal to inspection Neck Neck: Yes normal visual inspection Chest Chest palpation & inspection: normal inspection of the chest Resp Auscultation: clear to auscultation bilaterally Cardio Palpation: normal PMI Heart sounds: S1 normal heart sound present, S2 normal heart sound present, no gallops, no murmurs and no rubs GI Palpation (GI): Soft to palpation Back/Spine/Pelvis Other: unremarkable Skin General skin exam: no rashes or lesions noted Neuro General: patient oriented x3 Extrem General: Yes normal to inspection Psych Mental Status: mental status grossly normal Assessment & Plan Assessment & Plan (1) Atherosclerotic cardiovascular disease: Code(s): I25.10 - Atherosclerotic heart disease of [place] coronary artery without angina pectoris Category: Medical (2) Aortic valve calcification: Code(s): I35.9 - Nonrheumatic aortic valve disorder, unspecified Category: Medical (3) Non-rheumatic aortic stenosis: Code(s): I35.0 - Nonrheumatic aortic (valve) stenosis Category: Medical (4) Mitral annular calcification: Code(s): I05.9 - Rheumatic mitral valve disease, unspecified Category: Medical Plan Cardiac studies reviewed. Echocardiogram with LVEF 65-70%. Mild aortic stenosis. Moderate mitral annular calcification. Coronary CTA reviewed (2021). There is probably 50% stenosis in the mid LAD. Mild calcifications circumflex. Otherwise unremarkable. May remain on aspirin, statins. Last LDL cholesterol 76 mg/dL. In the past, as much as 196 mg/dL. Triglycerides 91 mg/dL and has been much higher before. Otherwise, with regard to weight, not clear how much she can lose as she is in a wheelchair. Hence may not change long-term. Follow-up in 1 year. In the interim, she will call with concerns. Coding Level of Care Code Est Pt Level 4 (94114) Diagnoses Atherosclerotic cardiovascular disease I25.10 Aortic valve calcification I35.9 Non-rheumatic aortic stenosis I35.0 Mitral annular calcification I05.9
== END 2024-05-04 13:58 | disposition home or self-care (01) ==
PROVIDERS: PCP Family Medicine; Visit Provider Internal Medicine
DX: I25.10 Atherosclerotic heart disease of native coronary artery without angina pectoris (principal); I35.9 Nonrheumatic aortic valve disorder, unspecified; I35.0 Nonrheumatic aortic (valve) stenosis; I05.9 Rheumatic mitral valve disease, unspecified
CPT/HCPCS: 99214

== ENCOUNTER → 2024-05-04 13:08 | Outpatient (BNVA) | payer MEDICARE, MEDICAID, SELFPAY | PROVIDERS: PCP Family Medicine; Visit Provider Internal Medicine | DX: I25.10 Atherosclerotic heart disease of native coronary artery without angina pectoris (principal); I35.9 Nonrheumatic aortic valve disorder, unspecified; I35.0 Nonrheumatic aortic (valve) stenosis; I05.9 Rheumatic mitral valve disease, unspecified | CPT/HCPCS: 99212 ==

== ENCOUNTER 2024-05-12 13:16 | Outpatient (AMB) | payer MEDICARE, SELFPAY ==
[2024-05-12 13:27] VITALS: BMI 57.4
--- NOTE | 2024-05-12 13:27 | A.OFFVIS_ITS ---
Vital Signs 05/12/24 13:27 Height 5 ft 3 in Weight 324 lb BMI 57.4 BP not taken reason Patient Refused Intake Visit Reasons: Osteoarthritis Both Knees Intake Note: Pain today 10/10 Screening Representative Required: No Accompanied by: Self / Same As Patient Allergies Penicillins Allergy (Intermediate, Verified 05/12/24 13:29) RASH-FULL BODY Sulfa (Sulfonamide Antibiotics) Allergy (Intermediate, Verified 05/12/24 13:29) RASH-FULL BODY HPI Comments Details: Patient presents to the office today for evaluation and management of her chronic knee pain Patient has been suffering with this pain for greater than 20 years. Denies inciting injury, fall, trauma. Previously diagnosed with arthritis of the knees. Pain today is rated as a 10/10, constant and worse with movement She last completed physical therapy in the s. She continues with home exercises. Previously participated in aquatherapy but has put on some weight and getting to the pool is difficulty due to the walking distance from parking lot She has undergone multiple steroid injections and gel injections with minimal relief. States not a candidate for knee replacement surgeries due to her weight and respiratory status. She has COPD secondary to secondhand smoke She has a Rollator walker for ambulation In terms of muscle damage condition is described as aching, stabbing, sharp, squeezing Pain is negatively impacting patient's enjoyment of life, general activity, recreational activities, sleep and walking Denies current use of anticoagulants Denies implantable devices, pacemaker defibrillator Denies current use of nicotine, tobacco, alcohol or illicit substances [facility] Medical History Leg edema Dyspnea Pulmonary nodules Blepharitis of eyelid of left eye Morbid obesity GERD (gastroesophageal reflux disease) Asthma-COPD overlap syndrome ROSITA (obstructive sleep apnea) Surgical History History of hernia repair H/O esophagogastroduodenoscopy History of colonoscopy H/O wisdom tooth extraction History of tonsillectomy and adenoidectomy Family History Father Aneurysm Peptic ulcer disease Mother Cardiovascular disease Asthma Social History Household Members: Friend(s) Housing: House Alcohol intake: never Patient Tobacco Use Status: Never used Tobacco e-Cigarette/Vaping Use: Never Used Second Hand Smoke Exposure: No service: No Current occupational status: employed and disabled 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 Answers questions appropriately. Fully engaged in examination. Obese Skin: warm, dry, intact HEENT: Normocephalic. Hearing intact. Cardiac: External chest normal in appearance. Respiratory: No cough, audible wheezing or stridor. Abdomen: without gross distension. MS: No obvious swelling or deformities. Right knee: Tenderness to palpation proximal tibia. Decreased range of motion. Positive crepitus Left knee: Tenderness to palpation anterior and lateral joint lines. Posterior tenderness. Decreased range motion. Positive crepitus. Neurological: Oriented to person, place, time and situation. Thought process intact. Ambulates with a Rollator walker Psychiatric: Appropriate mood and affect. Good judgment and insight. Results Reviewed Results Reviewed: 07/21/22 Bilateral Knee Pain FINDINGS: Right: There is varus angulation. There is slight medial subluxation of the distal femur with respect to the proximal tibia. Bone alignment is otherwise normal. No fracture or dislocation. There is tricompartment arthritis greatest at the medial femoral tibial joint. There is a small joint effusion. Left: There is orthopedic hardware in the lateral plateau suggestive of ORIF of old fracture. No acute fracture or dislocation. There is severe tricompartment osteoarthritis with joint space narrowing and osteophyte formation. There is a small joint effusion. IMPRESSION: Bilateral arthritis, left greater than right. Evidence of old trauma to the left proximal tibia. Assessment & Plan Assessment & Plan (1) Osteoarthritis of left knee: Code(s): M17.12 - Unilateral primary osteoarthritis, left knee Category: Medical Qualifiers: Osteoarthritis type: unspecified Qualified Code(s): M17.12 - Unilateral primary osteoarthritis, left knee (2) Osteoarthritis of right knee: Code(s): M17.11 - Unilateral primary osteoarthritis, right knee Category: Medical Qualifiers: Osteoarthritis type: unspecified Qualified Code(s): M17.11 - Unilateral primary osteoarthritis, right knee Plan Patient presented to the office today for evaluation management of her chronic knee pain Order placed for PT eval and treat Continue with ibuprofen, Salonpas topical patches and Cymbalta Discussed options for treatment including diagnostic interventional testing, epidural steroid injections, peripheral nerve stimulation with Sprint, RFA and more permanent neuromodulation. If no improvement after physical therapy will plan for bilateral fluoroscopy guided genicular nerve blocks with local anesthetic. All questions and concerns have been answered and patient agrees with the plan. Follow up after PT, sooner if needed. Orders: Orders PT Evaluation and Treatment Today M17.11 - Unilateral primary osteoarthritis, right knee, M17.12 - Unilateral primary osteoarthritis, left knee Coding Level of Care Code New Pt Level 4 (43553) Complex EM visit Add On G2211 Diagnoses Osteoarthritis of left knee, unspecified osteoarthritis type M17.12 Osteoarthritis type: unspecified Osteoarthritis of right knee, unspecified osteoarthritis type M17.11 Osteoarthritis type: unspecified
== END 2024-05-12 14:00 | disposition home or self-care (01) ==
PROVIDERS: PCP Family Medicine; Referring Provider Physician Assistant; Visit Provider Registered Nurse Emergency
DX: M17.0 Bilateral primary osteoarthritis of knee (principal)
CPT/HCPCS: 99204; G2211

== ENCOUNTER → 2024-05-12 13:16 | Outpatient (BNVA) | payer MEDICARE, SELFPAY | PROVIDERS: PCP Family Medicine; Referring Provider Physician Assistant; Visit Provider Registered Nurse Emergency | DX: M17.0 Bilateral primary osteoarthritis of knee (principal) | CPT/HCPCS: 99202 ==

== ENCOUNTER 2024-05-26 14:39 | Outpatient (REF) | payer MEDICARE, SELFPAY ==
[2024-05-26 16:20] LABS: Appearance Urine Clear; Color Urine Yellow; Glucose Urine UA Negative (Negative); Leukocyte Esterase Urine Small (1+) (Negative); Nitrite Urine Negative (Negative); PH 5.5 (5.0-9.0); Specific Gravity - Urine 1.025 (1.005-1.025); UMIC TRIGGER UA YES; Urine Blood Small (1+) (Negative); Urine Ketones Negative (Negative); Urine Protein Trace mg/dL (Neg-Trace)
[2024-05-26 16:26] LABS: Bacteria Urine None Seen (None Seen); Hyaline Casts Urine 0-2 /LPF (0-2)
[2024-05-26 16:36] LABS: Alanine Aminotransferase 26 U/L (0-31); Albumin Level 3.9 g/dL (3.5-5.0); Alkaline Phosphatase 117 U/L (39-117); Anion Gap 13 (12-20); Aspartate Amino Transferase 20 U/L (5-31); Bilirubin Total 0.5 mg/dL (0.0-1.0); Blood Urea Nitrogen 19 mg/dL (9-16); Calcium 9.5 mg/dL (8.4-10.2); Carbon Dioxide 26 mmol/L (22-29); Chloride 103 mmol/L (96-108); Estimated Glomerular Filt Rate > 60; Glucose Fasting 140 mg/dL (60-99); Potassium 4.6 mmol/L (3.3-5.1); Sodium 137 mmol/L (135-145); Total Protein 7.2 g/dL (6.5-8.0)
[2024-05-26 16:59] LABS: Creatinine Urine 119.37 mg/dL; Microalbum/Creatinine Ratio Ur 59.4 ug/mg cr (<30)
== END 2024-05-26 14:40 | disposition home or self-care (01) ==
LOC: HO.HMGCLDS 14:39
PROVIDERS: PCP Family Medicine; Visit Provider Family Medicine
DX: Z00.00 Encounter for general adult medical examination without abnormal findings (principal); E11.9 Type 2 diabetes mellitus without complications; I10 Essential (primary) hypertension
CPT/HCPCS: 36415; 80053; 81001; 82043; 82570

== ENCOUNTER 2024-05-29 14:34 | Outpatient (AMB) | payer MEDICARE, SELFPAY ==
--- NOTE | 2024-05-29 14:48 | MHC.PC.OV ---
Vital Signs 05/29/24 14:54 Height 5 ft 3 in BMI Reason not done Patient refused/unable BP 124/68 Blood Pressure Location Lt brachial Position Sitting Respiration 14 Pulse 88 Pulse Source Pulse Oximeter Temp 97.3 F Temp Source Oral Pulse Oximetry (%) 98 Oxygen Delivery Method Room Air Intake Visit Reasons: f/u diabetes Intake Note: f/u dm Allergies Penicillins Allergy (Intermediate, Verified 05/29/24 14:56) RASH-FULL BODY Sulfa (Sulfonamide Antibiotics) Allergy (Intermediate, Verified 05/29/24 14:56) RASH-FULL BODY Medication List - Last Reconciled 05/29/24 by Stan Davila MD albuterol sulfate 90 mcg/actuation 2 puffs PO Q6H PRN aspirin 81 mg PO DAILY atorvastatin 80 mg PO QPM budesonide 0.25 mg (2 mL) inhalation BID [id number] 50-300-40 mg (Fioricet) 1 cap PO Q8H PRN clobetasol 0.05% 1 appl topical BID PRN cyclobenzaprine 10 mg PO BEDTIME PRN 30 days duloxetine 40 mg (2 x 20 mg) PO BID 90 days fluticasone propionate 50 mcg/actuation 1 spray intranasal Q12H ipratropium-albuterol 0.5 mg-3 mg(2.5 mg base)/3 mL 3 mL inhalation QID lorazepam 0.5 mg PO DAILY meclizine 12.5 mg PO DAILY PRN 30 days metformin 250 mg (1/2 x 500 mg) PO DAILY 90 days miscellaneous medical supply Motorized scooter. Daily As directed, 999 days nebulizers As directed omeprazole 40 mg PO BID propranolol 10 mg PO BID 90 days roflumilast 500 mcg PO DAILY Tobacco use date assessed: 11/01/23 Dental Screening Dental Screen Date: 11/01/23 HPI f/u diabetes HPI Details Patient?presents?to?follow-up?diabetes A1c?climbed?from?7.0%?at?last?check?to?8.5% She?says?that?she?has?been?eating?well?and?his?surprise?regarding?elevation?blood?sugar control However,?she?has?been?few?rounds?of?steroids?for?respiratory?issues. [facility] Medical History Leg edema Dyspnea Pulmonary nodules Blepharitis of eyelid of left eye Morbid obesity GERD (gastroesophageal reflux disease) Asthma-COPD overlap syndrome ROSITA (obstructive sleep apnea) Surgical History History of hernia repair H/O esophagogastroduodenoscopy History of colonoscopy H/O wisdom tooth extraction History of tonsillectomy and adenoidectomy Family History Father Aneurysm Peptic ulcer disease Mother Cardiovascular disease Asthma Social History Household Members: Friend(s) Housing: House Alcohol intake: never Patient Tobacco Use Status: Never used Tobacco e-Cigarette/Vaping Use: Never Used Second Hand Smoke Exposure: No service: No Current occupational status: employed and disabled 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 1. Little interest or pleasure in doing things: not at all 2. Feeling down, depressed, or hopeless: not at all 3. Trouble falling or staying asleep, or sleeping too much: not at all 4. Feeling tired or having little energy: not at all 5. Poor appetite or overeating: not at all 6. Feeling bad about yourself - or that you are a failure or have let yourself or your family down: not at all 7. Trouble concentrating on things, such as reading the newspaper or watching television: not at all 8. Moving or speaking so slowly that other people could have noticed. Or the opposite - being so fidgety or restless that you have been moving around a lot more than usual: not at all 9. Thoughts that you would be better off or of hurting yourself in some way: not at all Total score: 0 Source: Developed by Drs. Zohaib Coffman, Ashley B.Shaka Machado and colleagues, with an educational tracy from [employer]. Thrive Questionnaire Date Thrive assessed: 02/01/24 I am a: Patient What is your living situation today?: I have a steady place to live Within the past 12 months, did the food you bought not last and you didn't have the money to get more?: I choose not to answer this question Within the past 12 months, did you worry whether your food would run out before you got money to buy more?: I choose not to answer this question Do you have trouble paying for medicines?: I choose not to answer this question Do you have trouble getting transportation to medical appointments?: I choose not to answer this question Do you have trouble paying your heating and electricity bill?: I choose not to answer this question Do you have trouble taking care of your child, family member or friend?: I choose not to answer this question Do you have trouble with day-to-day activities such as bathing, preparing meals, shopping, managing finances, etc.?: I choose not to answer this question Are you currently unemployed and looking for a job?: I choose not to answer this question Are you interested in more education?: No Please select the resources that you would like help with: None Currently or been in a relationship where the following occur: I choose not to answer THRIVE Score: 0 AUDIT C Alcohol Use Questionnaire (AUDIT-C) 1. How often do you have a drink containing alcohol?: Never Total Score: 0 MAGGIE-7 AMB Questionnaire MAGGIE-7 Date MAGGIE - 7 assessed: 09/03/23 Feeling nervous, anxious, or on edge: 0 = Not at all Not being able to stop or control worryin = Not at all Worrying too much about different things: 0 = Not at all Trouble relaxin = Not at all Being so restless that it is hard to sit still: 0 = Not at all Becoming easily annoyed or irritable: 0 = Not at all Feeling afraid as if something awful might happen: 0 = Not at all Total MAGGIE-7 score (0-4 normal; 5-9 mild; 10-14 moderate; 15-21 severe): 0 Source: Developed by Drs. Zohaib Coffman, Shaka Barcenas and colleagues, with an educational tracy from [employer]. Review of Systems Const Denies chills, Denies fatigue, Denies fever(s), Denies headache(s) and Denies weakness ENT Denies dizziness and Denies headache(s) Card Denies chest pain, Denies lightheadedness, Denies dyspnea and Denies other (Palpitations) Resp Denies cough, Denies dyspnea, Denies wheezing and Denies other ( shortness of breath) Musc Details: Ongoing?bilateral?knee?pain. Denies numbness and Denies tingling Neuro Details: Uses?walker?for?ambulation Denies dizziness, Denies headache(s), Denies numbness, Denies tingling, Denies paresthesias and Denies weakness Psych Denies anxiety and Denies depression Endo Denies fatigue Aller/Immun Denies wheezing Physical exam (Primary Care) Vital Signs: Last Vital Signs Temp 97.3 F 05/29/24 14:54 Pulse 88 05/29/24 14:54 Resp 14 05/29/24 14:54 BP 124/68 05/29/24 14:54 Pulse Ox 98 05/29/24 14:54 Oxygen Delivery Method Room Air 05/29/24 14:54 Tobacco/Smoking Status: Tobacco use Status Tobacco use date assessed 11/01/23 05/29/24 14:50 Patient Tobacco Use Status Never used Tobacco 05/29/24 14:50 e-Cigarette/Vaping Use Never Used 05/29/24 14:50 PHQ-9: PHQ-9 Score PHQ-9: Total score 0 05/29/24 14:50 Thrive Assessment: Date of Thrive Assessment Date Thrive assessed 02/01/24 05/29/24 14:50 Currently or been in a relationship where the following occur: I choose not to answer Const General: no acute distress and well developed Nutritional Appearance: well nourished Orientation/consciousness: patient oriented x3 HENMT Head: Yes normocephalic and Yes atraumatic Eyes General: appearance normal, both eyes and all related structures Pupils: Equal, round and reactive pupils present EOM: EOMs intact bilaterally Resp Effort & Inspection: normal respiratory effort Auscultation: clear to auscultation bilaterally Cardio Rate: regular rate Rhythm: regular rhythm Heart sounds: S1 normal heart sound present, S2 normal heart sound present, no gallops, no murmurs and no rubs Neuro Other: Unsteady?gait.??Uses?walker General: patient oriented x3 and gait normal Cranial nerves: Yes Equal, round and reactive pupils present Psych Affect: normal affect Coding Level of Care Code Est Pt Level 5 (30835) Diagnoses Diabetes E11.9 Arthritis of both knees M17.0 Asthma-COPD overlap syndrome J44.9 Aortic valve calcification I35.9 Assessment & Plan Assessment & Plan (1) Diabetes: Code(s): E11.9 - Type 2 diabetes mellitus without complications Category: Medical Plan: A1c?climbed?from?7.0%?to?8.5%.??Goal?is?less?than?7.0% She?has?been?on?prednisone?due?to?respiratory?issues. Will?increase?metformin?from?250?mg?daily?to?500?mg?daily?which?she?takes?around?dinnertime. Will?follow-up?in?3?months.??Patient?would?like?to?bring?this?back?to?250?mg?daily?if?her?blood?sugars?are?well?controlled. (2) Arthritis of both knees: Code(s): M17.0 - Bilateral primary osteoarthritis of knee Category: Medical Plan: Has?now?seen?pain?management. Reviewed?notes?with?patient. They?are?recommending?nerve?ablation?therapy She?will?be?starting physical?therapy?prior?to?the?procedure. Follow-up?with?pain?management?as?recommended (3) Asthma-COPD overlap syndrome: Code(s): J44.9 - Chronic obstructive pulmonary disease, unspecified Category: Medical Plan: Reviewed?pulmonology?notes?with?patient Recent?steroid?use?and?breathing?easily?today.??Lungs?clear Inhaled?medications?were?changed?as?well Currently?stable Follow-up?with?pulmonology?as?recommended (4) Aortic valve calcification: Code(s): I35.9 - Nonrheumatic aortic valve disorder, unspecified Category: Medical Plan: Reviewed?cardiology?note?patient Stable Continue?atorvastatin?and?propranolol Blood?pressure?is?controlled. Follow-up?with?Cardiology?as?recommended Medications: Changed From metformin 250 mg (1/2 x 500 mg) PO DAILY 90 days 45 tabs 2RF To metformin 500 mg PO DAILY 90 days 90 tabs 2RF Refilled lorazepam 0.5 mg PO DAILY 28 tabs 1RF
[2024-05-29 14:54] VITALS: BP 124/68; PULSE 88; RESP 14; TEMP 36.3; O2SAT 98
== END 2024-05-29 15:29 | disposition home or self-care (01) ==
PROVIDERS: PCP Family Medicine; Visit Provider Family Medicine
DX: E11.9 Type 2 diabetes mellitus without complications (principal); M17.0 Bilateral primary osteoarthritis of knee; J44.9 Chronic obstructive pulmonary disease, unspecified; I35.9 Nonrheumatic aortic valve disorder, unspecified

== ENCOUNTER → 2024-05-29 14:34 | Outpatient (BNVA) | payer MEDICARE, SELFPAY | PROVIDERS: PCP Family Medicine; Visit Provider Family Medicine | DX: E11.9 Type 2 diabetes mellitus without complications (principal); M17.0 Bilateral primary osteoarthritis of knee; J44.9 Chronic obstructive pulmonary disease, unspecified; I35.9 Nonrheumatic aortic valve disorder, unspecified | CPT/HCPCS: 99212 ==

== ENCOUNTER 2024-07-20 13:01 | Outpatient (AMB) | payer MEDICARE, SELFPAY ==
--- NOTE | 2024-07-20 13:02 | A.OFFVIS_ITS ---
Vital Signs 07/20/24 13:03 Height 5 ft 3 in Weight 320 lb BMI 56.7 BP 118/77 Blood Pressure Location Lt brachial Position Sitting Intake Visit Reasons: 6 month follow up Intake Note: Mitzy presents in the office as a 6 month follow up. CC She states that she has been having some pains in the stomach that she would like to discuss with the Dr. Sales Support Assistant Required: No Allergies Penicillins Allergy (Intermediate, Verified 05/29/24 14:56) RASH-FULL BODY Sulfa (Sulfonamide Antibiotics) Allergy (Intermediate, Verified 05/29/24 14:56) RASH-FULL BODY Medication List - Last Reconciled 07/20/24 by Tonio Christianson MD albuterol sulfate 90 mcg/actuation 2 puffs PO Q6H PRN aspirin 81 mg PO DAILY atorvastatin 80 mg PO QPM budesonide 0.25 mg (2 mL) inhalation BID [id number] 50-300-40 mg (Fioricet) 1 cap PO Q8H PRN clobetasol 0.05% 1 appl topical BID PRN cyclobenzaprine 10 mg PO BEDTIME PRN 30 days duloxetine 40 mg (2 x 20 mg) PO BID 90 days fluticasone propionate 50 mcg/actuation 1 spray intranasal Q12H ipratropium-albuterol 0.5 mg-3 mg(2.5 mg base)/3 mL 3 mL inhalation QID lorazepam 0.5 mg PO DAILY meclizine 12.5 mg PO DAILY PRN 30 days metformin 500 mg PO DAILY 90 days miscellaneous medical supply Motorized scooter. Daily As directed, 999 days nebulizers As directed omeprazole 40 mg PO BID propranolol 10 mg PO BID 90 days roflumilast 500 mcg PO DAILY HPI HPI 6 month follow up: Details: GI CLINIC VISIT FOR THIS 63-YEAR-OLD FEMALE FOR FOLLOW-UP OF GERD AND CHRONIC DIARRHEA TODAY'S VISIT: Patient cc: CC She states that she has been having some pains in the stomach that she would like to discuss with the Dr. She had 5 stones removed from the left kidney Had a CT scan last week for FU of kidney stone on the rt side Notes discomfort in both kidneys sometimes Swallowing maybe a little better Has to be very careful with what she eats. Takes fluids with meals which helps. Every now and then, notes pain in the epigastric area a few times a week usually before eating. Pain is stabbing and 6/10 in intensity and does not last a long time - resolves spontaneously in 1/2 an hour. Notes LLQ pain after she uses the bathroom - aprox 3 times a week - sometimes after straining PAST VISITS: Notes worsening dysphagia to solids - food would go down eventually - denies regurgitation Has increased intake of liquids when she is eating. Notes regurgitation into the nasal passages after she is done eating - rice and cereal Results of barium swallow and CT scan were re- reviewed with the pt. Pt is managing dysphagia symptoms with dietary modification Notes post prandial fullness associated with upper abdominal distension Has a BM daily - stools are large and on the hard side and formed Can be hard to flush once in a while - has used OTC laxatives in the past which was helpful Patient cc: Nauseas, abdominal pain/bloating, GERD, and Constipation. Not doing so good. Food seems to back up when she has a decent size meals Takes 1 meal a day and protein shakes the rest of the day. She is able to swallow and feels food and fluids move slowly from the esophagus into the stomach and feels pressure in her chest after eating Having reflux symptoms despite taking Omeprazole. Also had some constipation corretable with some laxatives Can feel very full in the upper abdomen. Had 4 courses of Prednisone for sinus infection over the past few months. Patient follow up for Asymptomatic gallstones. Pt upset since she lost her 58 year old friend and room mate - of small cell cancer (diagnosed in Dec, 2021) Denies RUQ or shoulder pain. Feels bloated after eating - likely related to gastroparesis Occasional LLQ pain after eating fatty foods. Has chronic LBP and a hx of kidney stones. Back pain improves with taking a muscle relaxant. Patient cc: abdominal bloating come and go, heart burn, diarrhea/constipation, and some dysphagia. Denies any other GI issues. Has been undergoing evaluation for fatigue/exhaustion - Cardiology and Pulmonary Seen by a Anatomy Professor for a positive ESTEBAN Intermittent dysphagia with solids - chicken, pasta. Taking more fruits and vegetables and takes an MVI daily. Having more reflux and indigestion especially an hour after dinner at night (between 6 and 8 pm) while she is sitting. Concerned about reaction to COVID Booster injection. Feels like indigestion. Also feels wiped out a few days a week. denies fever, chills or sweating. Takes Omeprazole at bedtime - 10 or 11 pm. Diagnosed with kidney stones and scheduled for cystoscopic removal at [facility] [place]. Had CT scan recently at [facility] [place] which showed gallstones. GERD symptoms well controlled with Omeprazole 40 mg twice daily. Continues to have dysphagia with pills and nuts - eats after taking pills to help swallow her medications. Denies dysphagia with liquids. Denies diarrhea and has constipation. Having a BM every 2-3 days with laxatives. Decreased appetite and is eating lightly. Patient denies major cardiac or pulmonary problems, and has a hx of sleep apnea Denies problems with anesthesia in the past. Denies being on chronic anticoagulation. Patient denies known family history of colon polyps, colon cancer or other GI malignancy IMAGING STUDIES:?11/[address] SCAN SHOWED: 1 x 0.6 cm subsolid nodule of the left upper lobe is stable compared to 06/18/2022, although the surrounding groundglass opacity is increased compared to 11/14/2021. Based on Fleischner Society guidelines, and since the solid component remains small at < 0.6 cm, recommend annual CT to confirm stability for 5 years. No new pulmonary nodule, mass or pleural effusion. * Mild mediastinal lymphadenopathy is unchanged. * Cholelithiasis. * Bilateral nephrolithiasis without hydronephrosis. * Small simple appearing cyst or old peripancreatic fluid collection of the retroperitoneum superior to the splenic vein is stable compared to 11/14/2021. No new abnormalities in the abdomen compared to 11/14/2021. 11/2022 BARIUM SWALLOW SHOWED: 1. Slightly limited study due to inability of the patient to tolerate upright and generalized positioning for the examination due to knee pain and disabilities. 2. 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 The hypopharynx was somewhat significantly distended in the hypopharyngeal phase, however. 3. Contrast pooling in the vallecula and piriform sinuses, both which cleared upon subsequent swallows. No aspiration was evident. 4. Mild presbyesophagus. Esophagus otherwise normal. 2016 GASTRIC EMPTYING STUDY SHOWED: Only subtle retention of activity noted at the end of 4 hours. Some of the measured retention may be from superimposed bowel activity. Visually there is no significant residual activity. ENDOSCOPIC STUDIES: 2013 EGD SHOWED: IMPRESSION: 1. Superficial gastritis primarily antral in location. 2. Possibility of diffuse esophageal spasm is raised. ?COMMENT: With patients elevated BMI and increased soft tissue presence in the posterior pharynx, this is certainly consistent with risk factors for obstructive sleep ap vicente. Some of these actually have difficulty swallowing due to redundant soft tissue in the posterior pharynx, which may allow food to collect in the vallecular region, etc. The patient will be seen back in our office in approximately 6 weeks to review options for further management. 2008 colonoscopy was performed by Dr. Austin - ramon except small hemorrhoids. September, - stool FIT test was negative [facility] Medical History (Updated 07/20/24 @ 13:35 by Tonio Christianson MD) Hx of nephrolithotomy with removal of calculi Leg edema Dyspnea Pulmonary nodules Blepharitis of eyelid of left eye Morbid obesity GERD (gastroesophageal reflux disease) Asthma-COPD overlap syndrome ROSITA (obstructive sleep apnea) Surgical History History of hernia repair H/O esophagogastroduodenoscopy History of colonoscopy H/O wisdom tooth extraction History of tonsillectomy and adenoidectomy Family History Father Aneurysm Peptic ulcer disease Mother Cardiovascular disease Asthma Social History Household Members: Friend(s) Housing: House Alcohol intake: never Patient Tobacco Use Status: Never used Tobacco e-Cigarette/Vaping Use: Never Used Second Hand Smoke Exposure: No service: No Current occupational status: employed and disabled 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 Current occupational exposures/hazards: No Cognitive needs: No Hearing needs: No Vision needs: No Female Reproductive History Menstrual Age of Menarche: 7 Review of Systems Const All systems reviewed & are unremarkable except as noted in HPI and below Physical Exam Vital Signs: Last Vital Signs BP 118/77 07/20/24 13:03 BMI result Body Mass Index 56.7 Const General: healthy appearing and no acute distress Nutritional Appearance: obese Orientation/consciousness: patient oriented x3 Limitations: wheelchair HEENT Head: Yes normal to inspection Ears: hearing grossly normal bilaterally Eyes Sclerae: sclerae normal Pupils: Equal, round and reactive pupils present Neck Neck: Yes normal visual inspection Chest Chest palpation & inspection: normal inspection of the chest Resp Effort & Inspection: normal respiratory effort Auscultation: clear to auscultation bilaterally Cardio Palpation: normal PMI Rate: regular rate Rhythm: regular rhythm Heart sounds: S1 normal heart sound present, S2 normal heart sound present and no murmurs GI Palpation (GI): Soft to palpation, nontender and No hepatosplenomegaly present Auscultation: normal bowel sounds Rectal Exam - Female: deferred Skin General skin exam: no rashes or lesions noted Neuro General: patient oriented x3, gait normal and moves all extremities Cranial nerves: Yes Equal, round and reactive pupils present Psych Appearance: grossly normal Mental Status: mental status grossly normal Assessment & Plan Assessment & Plan (1) GERD (gastroesophageal reflux disease): Code(s): K21.9 - Gastro-esophageal reflux disease without esophagitis Category: Medical Qualifiers: Esophagitis bleeding: without hemorrhage Esophagitis presence: with esophagitis Qualified Code(s): K21.00 - Gastro-esophageal reflux disease with esophagitis, without bleeding (2) Cholelithiasis: Code(s): K80.20 - Calculus of gallbladder without cholecystitis without obstruction Category: Medical (3) Dysphagia, pharyngoesophageal phase: Code(s): R13.14 - Dysphagia, pharyngoesophageal phase Category: Medical (4) Bulky stools: Code(s): R19.5 - Other fecal abnormalities Category: Medical (5) Abdominal pain, chronic, left lower quadrant: Code(s): R10.32 - Left lower quadrant pain; G89.29 - Other chronic pain Category: Medical (6) Pancreatitis: Code(s): K85.90 - Acute pancreatitis without necrosis or infection, unspecified Category: Medical Plan 64 YF followed in GI for GERD, dysphagia and IBS with constipation and diarrhea. 2017 gastric emptying study showed subtle retention of activity noted at the end of 4 hours. Some of the measured retention may be from superimposed bowel activity - visually no significant residual activity. Had CT scan at [facility] which showed gallstones. GERD symptoms well controlled with Omeprazole 40 mg twice daily. Continues to have dysphagia with pills and nuts - eats after taking pills to help swallow her medications. Dysphagia felt to be related to esophageal spasm/ motility disorder 05/28/22 Fu of gallstones noted on outside CT scan. Denies RUQ or shoulder pain. Feels bloated after eating - likely related to gastroparesis Occasional LLQ pain after eating fatty foods. Has chronic LBP and a hx of kidney stones. Back pain improves with taking a muscle relaxant. HIDA scan was ordered - pt is concerned about claustrophobia and lying on the exam table for extended period of time. She was advised to hold off scheduling the HIDA scan since she does not have any biliary symptoms. Post prandial bloating is likely related to Gastroparesis. Pt was advised dietary modification. If symptoms persist, I will schedule repeat GES and EGD (Pt has COPD and sleep apnea). 03/[address] scan without contrast at [facility] showed mild to moderate retroperitoneal lymphadenopathy. A 3.2 cm lobular lesion in left upper quadrant (stable since August 2020 and increased in size since 2016) - possible peripancreatic fluid collection, retroperitoneal lymph angioma, or necrotic lymph nodes. Pt is unable to have an open or closed MRI due to severe claustrophobia. 10/2022 order placed for follow-up CT scan with contrast Patient complains of dysphagia to solids and liquids - advised further evaluation with a barium swallow. 08/05/23 Results of barium swallow and CT scan were re- reviewed with the pt. Pt is managing dysphagia symptoms with dietary modification Notes post prandial fullness associated with upper abdominal distension Has a BM daily - stools are large and on the hard side and formed Can be hard to flush once in a while - has used OTC laxatives in the past which was helpful Check stool pancreatic elastase and take senna 2-3 times a week 02/03/24 patient complains of worsening dysphagia and intermittent left lower quadrant pain. She has a known history of cricopharyngeal achalasia on previous barium swallow. Advised referral to ENT for evaluation for Botox injection versus cricopharyngeal myotomy. Pt would like to think this over and will send me a message via portal if she wants to proceed Declined Speech Pathology referral Abd CT scan (FU of peripancreatic fluid collection) - to be scheduled with Chest CT scan on 03/30/24 Stool cologuard was negative in 11/2022 On 04/07/24 @ 18:52 Tonio Christianson Wrote To Tonio Christianson Pt called and Ct results reviewed Left sided abd pain is a little less Patient advised to keep follow-up appointment as scheduled in 07/30/2024 07/10/[address] SCAN AT [facility] SHOWED: 1. Bilateral nonobstructing renal calculi with the stone burden decreased on the left and increased on the right. No obstructive uropathy. 2. Questionable 2.8 cm mildly hyperdense lesion in the upper pole of the right kidney which may represent a right renal mass. Further evaluation with the post contrast CT scan versus MRI is recommended. 3. Subcutaneous fat stranding with skin thickening at the anterior abdominal/pelvic wall. 4. Chronic findings as detailed above Patient is scheduled for a follow-up appointment with the urologist at [facility] 07/20/24 trial of dicyclomine 10 mg 3 times daily p.r.n. for abdominal pain FU in 4 months Medications: New dicyclomine 10 mg PO TID 30 days PRN 30 caps 1RF abdominal pain R10.13 - Epigastric pain Coding Level of Care Code Est Pt Level 4 (06921) Diagnoses Gastroesophageal reflux disease with esophagitis without hemorrhage K21.00 Esophagitis bleeding: without hemorrhage Esophagitis presence: with esophagitis Cholelithiasis K80.20 Dysphagia, pharyngoesophageal phase R13.14 Bulky stools R19.5 Abdominal pain, chronic, left lower quadrant R10.32; G89.29 Pancreatitis K85.90 Time Spent (min) 25
[2024-07-20 13:03] VITALS: BP 118/77; BMI 56.7
--- OUTSIDE RECORDS SUMMARY | 2024-07-20 15:43 | XMS_ITS | Clinical Summary ---
Author Organization [facility] Address [address] [place] [address] Phone Care Team Providers Care Trimmer Helper Name Role Phone Capo Davila NP Primary Care Provider [phone] Allergies Active Allergy Reactions Criticality Noted Date Comments Penicillins Hives,Rash 09/30/2017 Sulfa (Sulfonamide Antibiotics) Hives,Rash 09/11 Medications omeprazole (PriLOSEC) [address] capsule Take 1 capsule (40 mg total) by mouth 1 (one) time each day. Do not crush or chew. Active DULoxetine (CYMBALTA) [address] capsule Take 1 capsule (20 mg total) by mouth 1 (one) time each day. Do not crush or chew. Active roflumilast (DALIRESP) 500 mcg tablet 1 (one) time each day. Active atorvastatin (LIPITOR) 80 mg tablet Take 1 tablet (80 mg total) by mouth at bedtime. Active LORazepam (ATIVAN) 0.5 mg tablet Take 1 tablet (0.5 mg total) by mouth every 6 (six) hours if needed for anxiety. Active meclizine (ANTIVERT) 12.5 mg tablet Take 1 tablet (12.5 mg total) by mouth 3 (three) times a day if needed for dizziness. Active loratadine (CLARITIN REDITABS) 10 mg dispersible tablet Dissolve 1 tablet (10 mg total) on top of the tongue 1 (one) time each day. Active metFORMIN (FORTAMET) 500 mg 24 hr tablet Take 1 tablet (500 mg total) by mouth 1 (one) time each day with dinner. Do not crush, chew, or split. Active albuterol HFA (PROAIR HFA ; PROVENTIL HFA ; VENTOLIN HFA) 90 mcg/actuation inhaler Inhale 2 puffs by mouth every 6 (six) hours if needed for wheezing. Active budesonide (PULMICORT) 0.25 mg/2 mL nebulizer solution Take 2 mL (0.25 mg total) by nebulization 1 (one) time each day. Rinse mouth with water after use to reduce aftertaste and incidence of candidiasis. Do not swallow. Active ipratropium-alb uteroL (DUONEB) 0.5-2.5 mg/3 mL nebulizer solution Take 3 mL by nebulization every 6 (six) hours. Active butalbital-acet aminophen-caffe ine (FIORICET, ESGIC) 50-325-40 mg per tablet Take 1 tablet by mouth every 4 (four) hours if needed for headaches. Active cyclobenzaprine (FLEXERIL) 10 mg tablet Take 1 tablet (10 mg total) by mouth 3 (three) times a day if needed for muscle spasms. Active propranoloL (INDERAL) 10 mg tablet Take 1 tablet (10 mg total) by mouth 2 (two) times a day. Active aspirin 81 mg EC tablet Take 1 tablet (81 mg total) by mouth 1 (one) time each day. 5 Active fluticasone propionate (FLONASE) 50 mcg/actuation nasal spray Administer 1 spray into each nostril 2 (two) times a day. 4 Active nitrofurantoin, macrocrystal-mo nohydrate, (MACROBID) 100 mg capsule Take 1 capsule (100 mg total) by mouth 2 (two) times a day. for 5 days 5 Active Active Problems Problem Noted Date Diagnosed Date Chronic obstructive pulmonar y disease (CMS/[facility] V24, CMS/[facility] V28) 06/25/2024 Obstructive sleep apnea syndrome 06/25/2024 Encounters Date Type Department Care Team Description 06/26/2024 7:35 AM EDT Anesthesia Event [facility] Main OR [address] [place] [phone] Genoveva Lowry MD 06/26/2024 7:30 AM EDT - 06/26/2024 9:00 AM EDT Surgery [facility] Main OR [address] [place] [id number] Ricky Diaz MD CYSTOSCOPY W/URETEROSCOPY RETROGRADE PYELOGRAM,LASER LITHOTRIPSY, LEFT STENT [22674 (CPT??)] 06/26/2024 6:06 AM EDT - 06/26/2024 10:21 AM EDT Hospital Encounter [facility] Main OR [address] [place] [phone] Ricky Diaz MD Calculus of ureter Discharge Disposition: Home or Self Care from Last 3 Months Surgical History Surgery Date Site/Laterality Comments KIDNEY STONE SURGERY x2 ADENOIDECTOMY TONSILLECTOMY HIGH TIBIAL OSTEOTOMY HERNIA REPAIR COLONOSCOPY Medical History Medical History Date Comments COPD (chronic obstructive pu lmonary disease) ([facility] V[facility], [facility]) Sleep apnea Chronic allergic rhinitis Kidney stone Asthma Shortness of breath HL (hearing loss) Cataract right eye Migraines Hyperlipidemia Diabetes mellitus ([facility] V24, [facility] V28) Fibromyalgia GERD (gastroesophageal reflux disease) Gastroparesis Dizziness Arthritis Joint pain Anxiety Restless leg syndrome Social History Tobacco Use Types Packs/Day Years Used Date Smoking Tobacco: Never Smokeless Tobacco: Never Tobacco Cessation:Counseling Given: Not Answered Interpersonal Safety Answer Date Record ed Physical Abuse 06/26/2024 Verbal Abuse 06/26/2024 Comments No Sex and Gender Information Value Date Recorded Sex Assigned at Female 06/26/2024 6:00 AM EDT Legal Sex Female 11:52 AM EST Gender Identity Female 06/26/2024 6:00 AM EDT Sexual Orientation Straight 06/26/2024 6: 00 AM EDT Obstetrics History Last Filed Vital Signs Vital Sign Reading Time Taken Comments Blood Pressure 146/78 06/26/2024 9:35 AM EDT Pulse 92 06/26/2024 9:35 AM EDT Temperature 36.1 ??C (97 ??F) 06/26/2024 9:35 AM EDT Respiratory Rate 20 06/26/2024 9:35 AM EDT Oxygen Saturation 96% 06/26/2024 9:35 AM EDT Inhaled Oxygen Concentration - - Weight 132 kg (290 lb) 06/26/2024 6:29 AM EDT Height 160 cm (5' 3 ) 06/26/2024 6:29 AM EDT Body Mass Index 51.37 06/26/2024 6:29 AM EDT Plan of Treatment Health Maintenance Due Date Last Done Comments Breast Cancer Screening 1960 Zoster Vaccines (1 of 2) 2008 RSV Immunization Adult Patients (1 - Risk 60-74 years 1-dose series) 2018 DTaP,Tdap,and Td Vaccines (2 - Tdap) 05/26/2021 05/26/2011 Cholesterol Screening (Lipid Panel) 11/02/2023 Colorectal Cancer Screening: Colonoscopy 11/02/2023 Depression Screening 11/02/2023 Hepatitis C Screening 11/02/2023 Medicare Annual Wellness Visit 11/02/2023 Osteoporosis Screening (Bone Density Screening) 11/02/2023 Social Influencers of Health Screening 11/02/2023 COVID-19 Vaccine ( - season) 2023 04/07/2021, 07/17/2020, 06/26/2020 Influenza Vaccine (Season Ended) 2024 01/25/2023, 02/05/2022, 03/20/2021, Additional history exists Falls Risk Assessment 06/26/2025 06/26/2024 Pneumococcal Vaccine: 50+ Years (3 of 3 - PCV20 or PCV21) 08/18/2026 08/18/2021, 09/09/2018 HIB Vaccines Aged Out No longer eligi ble based on patient's age to complete this topic HPV Vaccines Aged Out No longer eligi ble based on patient's age to complete this topic Hepatitis A Vaccines Aged Out No long er eligible based on patient's age to complete this topic Hepatitis B Vaccines Aged Out No long er eligible based on patient's age to complete this topic IPV Vaccines Aged Out No longer eligi ble based on patient's age to complete this topic MMR Vaccines Aged Out No longer eligi ble based on patient's age to complete this topic Meningococcal ACWY Vaccine Aged Out N o longer eligible based on patient's age to complete this topic Meningococcal B Vaccine Aged Out No l onger eligible based on patient's age to complete this topic RSV Immunization Patients Under 20 months Aged Out No longer eligible based on patient's age to complete this topic Varicella Vaccines Aged Out No longer eligible based on patient's age to complete this topic Medical Devices Implanted Type Area Quahogger Device Identifier Shelf Expiration Date Model / Serial / Lot Stent Uret [id number] Contr Percuflex Hydroplus - [id number] - [id number] Implanted:Qty: 1 on 06/26/2024 by Ricky Diaz MD at [facility] Stents Left: Ureter [employer] Y 02/15/2027 [id number] / [id number] / [id number] Procedures Procedure Name Priority Date/Time Associated Diagnosis Comments POCT GLUCOSE BLOOD Routine 06/26/2024 8: 42 AM EDT XR UROGRAM RETROGRADE Routine 06/26/2024 8:25 AM EDT STONE ANALYSIS STAT 06/26/2024 8:22 AM EDT Calculus of ureter TH AN ENDOTRACHEAL(NO CHARGE) Routine 06/26/2024 7:56 AM EDT TN CYSTO W URETEROSCOPY/PYELOS COPY W LITHOTRIPSY INCL INDWELLING URTRL STNT 06/26/2024 7:33 AM EDT Calculus of ureter Case Notes C-ARM, HOLMIUM PROCEDURAL ECG Routine 06/26/2024 7:12 AM EDT POCT GLUCOSE BLOOD Routine 06/26/2024 6: 30 AM EDT from Last 3 Months Results * (ABNORMAL) POCT Glucose, blood (06/26/2024 8:42 AM EDT) Only the most recent of2 resultswithin the time period is included. Glucose POCT 135(H) 70 - 100 mg/dL 06/26/2024 8:42 AM EDT [facility] Blood Capillary blood specimen / Unknown 06/26/2024 8:42 AM EDT 06/26/2024 8:44 AM EDT us Ricky Diaz MD LAB POINT OF CARE TE ST DOCKED DEVICE UNSOLICITED RESULTS Final Result [facility] [address] [place] [address], [place] [phone] * XR Urogram Retrograde (06/26/2024 8:25 AM EDT) Anatomical Region Laterality Modality Body Radio Fluoroscop y 06/26/2024 8:30 AM EDT Narrative 06/26/2024 8:30 AM EDT Fluoroscopic spot radiographs obtained during a left endourologic procedure are submitted. No radiologist consultation was requested or provided during this procedure and there is no radiologist professional charge. This report is generated for documentation purposes only. The dose-area product for this procedure was 3.5795 Gy*cm2. PQRI CPT II G9500 -------- FINAL REPORT -------- Dictated By: Samy Sahni Dictated Date: 06/26/2024 08:30 ET Assigned Physician: Samy Sahni Reviewed and Electronically Signed By: Samy Sahni Signed Date: 06/26/2024 08:30 ET Workstation ID: [id number] Transcribed By: Self Edit Transcribed Date: 06/26/2024 08:30 ET Procedure Note Samy Sahni MD - 06/26/2024 Fluoroscopic spot radiographs obtained during a left endourologicprocedure are submitted. No radiologist consultation was requested orprovided during this procedure and there is no radiologist professionalcharge. This report is generated for documentation purposes only. The dose-area product for this procedure was 3.5795 Gy*cm2. PQRI CPT II G9500 -------- FINAL REPORT -------- Dictated By: Samy Sahni Dictated Date: 06/26/2024 08:30 ET Assigned Physician: Samy Sahni Reviewed and Electronically Signed By: Samy Sahni Signed Date: 06/26/2024 08:30 ET Workstation ID: [id number] Transcribed By: Self Edit Transcribed Date: 06/26/2024 08:30 ET us Ricky Diaz MD IMG FLUOROSCOPY PROCEDURES Final Result * Stone analysis (06/26/2024 8:22 AM EDT) Component(s) See below 06/30/2024 7:30 AM EDT [facility] Comment: 60% Calcium oxalate monohydrate (Whewellite) 34% Calcium oxalate dihydrate (Weddellite) 6% Carbonate apatite (Dahllite) Stone Weight 0.0238 g 06/30/2024 7:30 AM EDT [facility] Comment: This test was developed and its performance characteristics determined by [facility] in a manner consistent with CLIA requirements. This test has not been cleared or approved by the U.S. Food and Drug Administration. Test performed at [facility], [address] , [place], [place] ??[address] ? [phone] Niki Hyman MD, PhD - It Assistant Calculus Structure of left ureter / Unknown 06/26/2024 8:22 AM EDT 06/26/2024 10:34 AM EDT Ricky Diaz MD LAB BODY FLUIDS AND STOOLS ORDER ARI Final Result [facility] [address] [place] [address] * TH AN ENDOTRACHEAL(NO CHARGE) (06/26/2024 7:56 AM EDT) Danielle Link CRNA - 06/26/2024 7:56 AM EDT Danielle Mendoza CRNA ? 06/26/2024 ??7:58 AM General Information and Staff Patient location during procedure: OR Anesthesiologist: Genoveva Lowry MD Resident/BIOMEDICAL ANALYTICAL SCIENTIST: Danielle Mendoza CRNA Performed: resident/BIOMEDICAL ANALYTICAL SCIENTIST/CAA Performed by: Danielle Mendoza CRNA Authorized by: Genoveva Lowry MD ?? Intubation Additional Comments Rapid desaturation after induction; resolved promptly Airway not difficult Urgency: elective Final Airway Details Successful airway: ETT Cuffed: yes Successful intubation technique: video laryngoscopy Facilitating devices/methods: anterior pressure/BURP and intubating stylet Endotracheal tube insertion site: oral Blade: Char Blade size: #3 ETT size (mm): 7.5 Cormack-Lehane Classification: grade I - full view of glottis Placement verified by: chest auscultation Measured from: lips ETT to lips (cm): 21 Number of other approaches attempted: 0Final airway type: endotracheal airway Indications and Patient Condition Indications for airway management: anesthesia Spontaneous ventilation: present Sedation level: Yes Preoxygenated: yes Soft Tissue Damage: No Dentition Unchanged: Yes Patient position: ramp Mask difficulty assessment: 0 - not attempted Start Time: 06/26/2024 7:49 AMStop Time: 06/26/2024 7:49 AM Genoveva Lowry MD ANESTHESIA ORDERABLES Final Resu lt * ECG 12 lead - Procedural (No Charge) (06/26/2024 7:12 AM EDT) Ventricular Rate ECG 96 BPM GEMUSE Atrial Rate 96 BPM GEMUSE P-R Interval 160 ms GEMUSE QRS Duration 90 ms GEMUSE Q-T Interval 340 ms GEMUSE QTc 429 ms GEMUSE P Wave [place] 40 degrees GEMUSE R [place] 8 degrees GEMUSE T [place] 52 degrees GEMUSE ECG Interpretation Normal sinus rhythm Normal ECG When compared with ECG of 15-DEC-2011 14:27, No significant change was found Confirmed by KAYKAY GAYTAN ([id number]) on 06/26/2024 1:06:36 PM GEMUSE 06/26/2024 7:12 AM EDT 06/26/2024 1:06 PM EDT Genoveva Lowry MD ECG ORDERABLES Final Result GEMUSE from Last 3 Months Insurance [employer] MEDICARE Care Teams Trimmer Helper Relationship Specialty Start Date End Date Capo Davila NP [facility] [address] [address] PCP - General Psychology 06/26/24
== END 2024-07-20 14:07 | disposition home or self-care (01) ==
LOC: HO.HGI 13:02
PROVIDERS: PCP Family Medicine; Visit Provider Internal Medicine Gastroenterology
DX: K21.00 Gastro-esophageal reflux disease with esophagitis, without bleeding (principal); K80.20 Calculus of gallbladder without cholecystitis without obstruction; R13.14 Dysphagia, pharyngoesophageal phase; R19.5 Other fecal abnormalities; R10.32 Left lower quadrant pain; G89.29 Other chronic pain; K85.90 Acute pancreatitis without necrosis or infection, unspecified
CPT/HCPCS: 99214

== ENCOUNTER → 2024-07-20 13:01 | Outpatient (BNVA) | payer MEDICARE, SELFPAY | PROVIDERS: PCP Family Medicine; Visit Provider Internal Medicine Gastroenterology | DX: K21.00 Gastro-esophageal reflux disease with esophagitis, without bleeding (principal); K80.20 Calculus of gallbladder without cholecystitis without obstruction; R13.14 Dysphagia, pharyngoesophageal phase; R19.5 Other fecal abnormalities; R10.32 Left lower quadrant pain; G89.29 Other chronic pain; K85.90 Acute pancreatitis without necrosis or infection, unspecified | CPT/HCPCS: 99212 ==

== ENCOUNTER 2024-08-22 14:44 | Outpatient (AMB) | payer MEDICARE, SELFPAY ==
--- NOTE | 2024-08-22 14:46 | MHC.OFFVIS ---
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 Overall she has been responding very well to the respiratory therapy. Her respiratory status has improved dramatically. She has also been able to lose a good amunt f weigt with a combination of diet and also medications Daliresp. Hopefully she can lose enough weight to have her knee surgery. In the meantime she still has a diagnosis sleep apnea. She her allergy med. She does have daytime drowsiness. Her Hobbs score still elevated 12/24. the patient needs to have a sleep study at this time. 06/26/2022 the patient is here for pulmonary follow-up visit. The patient is back to her baseline. Her breathing is better. She has been very sad by the fact that she lost a good friend and roommate. She had early onset colon cancer. In regards of her pulmonary nodule she did undergo a repeat CT scan of the chest demonstrating a ground-glass nodular density measuring about 1.2 cm. Therefore, based on the fact that this nodular densities now greater than a cm and she has other pulmonary nodules will go ahead and repeat her CT scan in 6 months. In the meantime she will continue with current respiratory therapy. 12/24/2022 the patient is here for pulmonary follow-up visit. She does not feel well. Has been having increasing dyspnea in addition to cough. Moderate severity. Her respiratory therapy has been partially helpful. Over the summer she was diagnosed with migraines. She has been having hard time. She was placed on propanolol. Explained to her that possibly the propranolol is causing her respiratory symptoms to be worse. Although the propanolol seems to be helping her migraines. She will talk to her primary care doctor about potentially switching the beta-swathi to a calcium channel swathi or different agent altogether. The patient get try the Tessalon Perles. I did provide her with good Rx card that she can use to try to get it for a more reasonable cost. We also reviewed her CT scan of the chest that she had recently. We compared to the CT scan that she had back 6 months ago and also CT scan that she had a year ago. All were personally by me. It appears that this nodular density is subsolid nature and appears to be increasing size when compared to year ago. Therefore, based on the fact that is measuring 1 with 2 cm and appears to be slightly larger will go ahead and repeat the CT scan again 6 months. If he continues to change and or increase in size the patient will need to be evaluated by thoracic surgery. 06/24/2023 the patient is here for pulmonary follow-up visit. She continues to complain of significant dyspnea. Moderate severity be with minimal activity. She has been on maximum respiratory therapy with only partial resolution in her symptoms. On examination she does not have significant wheezing. She does have evidence of 2+ pitting edema in lower extremities. The patient is agreeable to taking a short course of diuretics. Based on her significant lower extremity edema and echocardiogram will be warranted. She does follow-up with cardiology here. I will let the no about her symptoms and findings. The patient did have a CT scan of the chest done May 2023. we personally reviewed the images together. It appears that she has a stable 1 cm pulmonary nodule. Subsolid nature. She will need another CT scan in a year's time. Still, no explanation for significant dyspnea except for volume overload status. Need to consider pulmonary hypertension. Therefore will request a repeat echocardiogram. 09/30/2023 the patient is here for pulmonary follow-up visit. She Is overall feeling better. Her chest tightness and wheezing has improved. She did take the short course of diuretic. also, underwent an echocardiogram which we did review together demonstrating a mild decrease in the ejection fraction in addition to some mild diastolic dysfunction. She continues use her respiratory therapy with good effect. Her last CT scan of the chest was back in 06/01/2023 demonstrating 1 cm subsolid nodular density in the right upper lobe. This appears to be stable when compared to previous. This will need a longer course follow-up secondary to the subsolid nature of it. Will discuss additional imaging when she returns in 4-6 months. 02/10/2024 the patient is here for pulmonary follow-up visit. The patient well until about a week ago. She had gone to a wedding in [place]. She stayed in hotel and felt that the air was cold and dry and she was a little uncomfortable. Her breathing started getting more labored with chest tightness and a dry cough. Her symptoms then persistent when she came back to [place]. She always call for medications but she was going to see her primary care doctor. But then she had to cancel. She has felt that her breathing has been off. She has been having to use her nebulizer at nighttime because waking up with wheezing. She is not able to expectorate anything right now. Although her cough just keeps her up. On exam she is moving good air. No significant wheezing at this time although she did her treatments before coming in. I will go ahead and send her medicines in case she develops worsening symptoms treated for an asthma exacerbation. And also something to help with the cough. The patient is due for a CT scan sometime in 03/31/2024 will follow-up with her after that. If any issues arise the patient will call for further evaluation. 05/02/2024 the patient is here for a pulmonary follow-up visit. She is finally feeling better after the last course of prednisone. She has been able to do the activities of daily living without significant shortness of breath. Denies any significant congestion. As far as her breathing medications Spiriva is no longer covered. In addition to that Brovana been difficult to use. Will go ahead and discontinue the Brovana and switch over to DuoNeb in order for her to be able to get the combination nebulized therapy in conjunction with the budesonide to provide her with triple therapy. This will be more effective in beneficial for her. If she has any issues with this regimen she can always call we can switch her back to her previous regimen. Otherwise follow-up in 4 months. She has any issues she will call for an earlier assessment. 08/22/2024 the patient is here for a pulmonary follow-up visit. Overall she is doing well from a respiratory status we can switch her Brovana to DuoNeb. Seems to be tolerating it well. She continues on the budesonide. She also continues on Daliresp. She still has issues with shortness of breath and chest tightness and wheezing. We did talk about considering Ohtuvayre as another alternative in addition to the current therapy to see if we can provide further bronchodilation improve airway capacity. In the meantime she has had multiple procedures for kidney stone removal. Then she will had a CT scan of the abdomen demonstrating what appeared to be a density on 1 of the kidneys. Ultimately underwent a CT scan of the abdomen with IV contrast which suggest that the lesion is cystic lesion. She is going to continue with either CAT scans or MRIs. I did review the CT scan of the abdomen lung windows actually played to be clear without any acute disease. The patient follow-up in 6 months if any issues arise she will call for an earlier assessment. [facility] Medical History (Updated 07/20/24 @ 13:35 by Tonio Christianson MD) Hx of nephrolithotomy with removal of calculi Leg edema Dyspnea Pulmonary nodules Blepharitis of eyelid of left eye Morbid obesity GERD (gastroesophageal reflux disease) Asthma-COPD overlap syndrome ROSITA (obstructive sleep apnea) Surgical History History of hernia repair H/O esophagogastroduodenoscopy History of colonoscopy H/O wisdom tooth extraction History of tonsillectomy and adenoidectomy Family History Father Aneurysm Peptic ulcer disease Mother Cardiovascular disease Asthma Social History Household Members: Friend(s) Housing: House Alcohol intake: never Patient Tobacco Use Status: Never used Tobacco e-Cigarette/Vaping Use: Never Used Second Hand Smoke Exposure: No service: No Current occupational status: employed and disabled 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 Current occupational exposures/hazards: No Cognitive needs: No Hearing needs: No Vision needs: No Female Reproductive History Menstrual Age of Menarche: 7 Review of Systems Const Denies chills, Denies fatigue, Denies fever(s), Denies weight gain and Denies weight loss ENT Denies dizziness Card Denies chest pain, Denies leg edema, Denies lightheadedness, Denies palpitations, Reports dyspnea on exertion, Denies orthopnea and Denies other Resp Reports cough, Reports dyspnea on exertion and Reports wheezing GI Denies hematochezia and Denies change in stool character Reports as per HPI Musc Reports abnormal gait, Denies muscle weakness, Denies numbness, Denies radiating pain into limb and Denies tingling Neuro Reports abnormal gait, Denies dizziness, Denies numbness and Denies tingling Psych Denies anxiety and Denies depression Endo Denies fatigue and Denies palpitations Aller/Immun Reports wheezing Physical Exam Vital Signs: Last Vital Signs Pulse 100 08/22/24 14:47 BP 136/68 08/22/24 14:47 Pulse Ox 96 08/22/24 14:47 Oxygen Delivery Method Room Air 08/22/24 14:47 Const General: comfortable and no acute distress Orientation/consciousness: patient oriented x3 HEENT Other: Unremarkable Head: Yes normal to inspection Neck Neck: Yes normal visual inspection Chest Chest palpation & inspection: normal inspection of the chest Resp Auscultation: no crackles, no rales, no rhonchi, no wheezes and diminished lung sounds Cardio Palpation: normal PMI Heart sounds: S1 normal heart sound present, S2 normal heart sound present, no gallops, Murmur heart sound present systolic early, II/ and at the right sternal border and no rubs GI Palpation (GI): Soft to palpation Back/Spine/Pelvis Other: unremarkable Skin General skin exam: no rashes or lesions noted Neuro General: patient oriented x3 Extrem General: No clubbing, No cyanosis and Yes edema Psych Mental Status: mental status grossly normal Assessment & Plan Assessment & Plan (1) Asthma-COPD overlap syndrome: Code(s): J44.9 - Chronic obstructive pulmonary disease, unspecified Category: Medical (2) ROSITA (obstructive sleep apnea): Code(s): G47.33 - Obstructive sleep apnea (adult) (pediatric) Category: Medical (3) GERD (gastroesophageal reflux disease): Code(s): K21.9 - Gastro-esophageal reflux disease without esophagitis Category: Medical Qualifiers: Esophagitis bleeding: without hemorrhage Esophagitis presence: with esophagitis Qualified Code(s): K21.00 - Gastro-esophageal reflux disease with esophagitis, without bleeding (4) Pulmonary nodules: Code(s): R91.8 - Other nonspecific abnormal finding of lung field Category: Medical (5) Dyspnea: Code(s): R06.00 - Dyspnea, unspecified Category: Medical Qualifiers: Dyspnea type: dyspnea on exertion Qualified Code(s): R06.09 - Other forms of dyspnea (6) Leg edema: Code(s): R60.0 - Localized edema Category: Medical Plan continue Duoneb budesonide continue Daliresp 500 mcg daily consider Ohtuvayre short-acting beta agonist follow-up in 6 months Coding Level of Care Code Est Pt Level 4 (41720) Complex EM visit Add On G2211 Diagnoses Asthma-COPD overlap syndrome J44.9 ROSITA (obstructive sleep apnea) G47.33 Gastroesophageal reflux disease with esophagitis without hemorrhage K21.00 Esophagitis bleeding: without hemorrhage Esophagitis presence: with esophagitis Pulmonary nodules R91.8 Dyspnea on exertion R06.09 Dyspnea type: dyspnea on exertion Leg edema R60.0 Time Spent (min) 17
[2024-08-22 14:47] VITALS: BP 136/68; PULSE 100; O2SAT 96
--- OUTSIDE RECORDS SUMMARY | 2024-08-22 15:51 | XMS_ITS | Clinical Summary ---
Author Organization [facility] Address [address] [place] [address] Phone Care Team Providers Care Circular Gang Saw Operator Name Role Phone Capo Davila NP Primary Care Provider [phone] Allergies Active Allergy Reactions Criticality Noted Date [...] Diagnosed Date Chronic obstructive pulmonar y disease (CMS/[facility] V24, CMS/[facility] V28) 06/25/2024 Obstructive sleep apnea syndrome 06/25/2024 Encounters Date Type Department Care Team Description 06/26/2024 7:35 AM EDT Anesthesia Event [facility] [place] [address] [place] [phone] Genoveva Lowry MD 06/26/2024 7:30 AM EDT - 06/26/2024 9:[address] [facility] OR [address] [place] [phone] Ricky Diaz MD CYSTOSCOPY W/URETEROSCOPY RETROGRADE PYELOGRAM,LASER LITHOTRIPSY, LEFT STENT [[id number] (CPT??)] 06/26/2024 6:06 AM EDT - 06/26/2024 10:21 AM EDT Hospital Encounter [facility] OR [address] [place] [phone] Ricky Diaz MD Calculus of ureter Discharge Disposition: Home or Self Care from Last 3 Months Surgical History Surgery Date Site/Laterality Comments KIDNEY STONE SURGERY x2 ADENOIDECTOMY TONSILLECTOMY HIGH TIBIAL OSTEOTOMY HERNIA REPAIR COLONOSCOPY Medical History Medical History Date Comments COPD (chronic obstructive pu lmonary disease) ([facility] V24, [facility] V28) Sleep apnea Chronic allergic rhinitis Kidney stone Asthma Shortness of breath HL (hearing loss) Cataract right eye Migraines Hyperlipidemia Diabetes mellitus ([facility] V24, [facility] V28) Fibromyalgia GERD (gastroesophageal reflux disease) Gastroparesis [...] this topic Medical Devices Implanted Type Area Roll Slicing Machine Tender Device Identifier Shelf Expiration Date Model / Serial / Lot Stent Uret [id number] Contr [employer] - [id number] - [id number] Implanted:Qty: 1 on 06/26/2024 by Rikcy Diaz MD at [facility] Stents Left: Ureter [employer]GYNECOLG Y 02/15/2027 [id number] / [id number] / [id number] Procedures Procedure Name Priority Date/Time Associated Diagnosis Comments POCT GLUCOSE BLOOD Routine 06/26/2024 8: 42 AM EDT XR UROGRAM RETROGRADE Routine 06/26/2024 8:25 AM EDT STONE ANALYSIS STAT 06/26/2024 8:22 AM EDT Calculus of ureter TH AN ENDOTRACHEAL(NO CHARGE) Routine 06/26/2024 7:56 AM EDT MT CYSTO W URETEROSCOPY/PYELOS COPY W LITHOTRIPSY INCL [...] - 100 mg/dL 06/26/2024 8:42 AM EDT [facility] Blood Capillary blood specimen / Unknown 06/26/2024 8:42 AM EDT 06/26/2024 8:44 AM EDT us Ricky Diaz MD LAB POINT OF CARE TE ST DOCKED DEVICE UNSOLICITED RESULTS Final Result [facility] [address] [place] [address], [place] [phone] * XR Urogram Retrograde (06/26/2024 8:25 AM [...] Signed Date: 06/26/2024 08:30 ET Workstation ID: [id number] Transcribed By: Self Edit Transcribed Date: 06/26/2024 [...] Signed Date: 06/26/2024 08:30 ET Workstation ID: [id number] Transcribed By: Self Edit Transcribed Date: 06/26/2024 08:30 ET us Ricky Diaz MD IMG FLUOROSCOPY PROCEDURES Final Result * Stone analysis (06/26/2024 8:22 AM EDT) Component(s) See below 06/30/2024 7:30 AM EDT [facility] Comment: 60% Calcium oxalate monohydrate (Whewellite) 34% Calcium oxalate dihydrate (Weddellite) 6% Carbonate apatite (Dahllite) Stone Weight 0.0238 g 06/30/2024 7:30 AM EDT [facility] Comment: This test was developed and its performance characteristics determined by [facility] in a manner consistent with CLIA requirements. This test has not been cleared or approved by the U.S. Food and Drug Administration. Test performed at [facility], [address] , [place], [place] ??[address] ? [phone] Niki Hyman MD, PhD - Biophysics Teacher Calculus Structure of left ureter / Unknown 06/26/2024 8:22 AM EDT 06/26/2024 10:34 AM EDT Ricky Diaz MD LAB BODY FLUIDS AND STOOLS ORDER ARI Final Result [facility] [address] [place] [address] * TH AN ENDOTRACHEAL(NO CHARGE) (06/26/2024 7:56 AM EDT) Danielle Link CRNA - 06/26/2024 7:56 AM EDT Danielle Mendoza CRNA ? 06/26/2024 ??7:58 AM General Information and Staff Patient location during procedure: OR Anesthesiologist: Gneoveva Lowry MD Resident/CUTTER HOT KNIFE: Danielle Mendoza CRNA Performed: resident/CUTTER HOT KNIFE/CAA Performed by: Danielle Mendoza CRNA Authorized by: [...] GEMUSE QTc 429 ms GEMUSE P Wave [place] 40 degrees GEMUSE R [place] 8 degrees GEMUSE T [place] 52 degrees GEMUSE ECG Interpretation Normal sinus rhythm Normal ECG When compared with ECG of 15-DEC-2011 14:27, No significant change was found Confirmed by KAYKAY GAYTAN ([id number]) on 06/26/2024 1:06:36 PM GEMUSE 06/26/2024 7:12 AM EDT 06/26/2024 1:06 PM EDT Genoveva Lowry MD ECG ORDERABLES Final Result GEMUSE from Last 3 Months Insurance [employer] MEDICARE Care Teams Circular Gang Saw Operator Relationship Specialty Start Date End Date Capo Davila NP [facility] [address] PCP - General Psychology 06/26/24
== END 2024-08-22 15:16 | disposition home or self-care (01) ==
LOC: HO.HPS 14:45
PROVIDERS: PCP Family Medicine; Visit Provider Hospitalist
DX: J44.9 Chronic obstructive pulmonary disease, unspecified (principal); G47.33 Obstructive sleep apnea (adult) (pediatric); K21.00 Gastro-esophageal reflux disease with esophagitis, without bleeding; R91.8 Other nonspecific abnormal finding of lung field; R06.09 Other forms of dyspnea; R60.0 Localized edema
CPT/HCPCS: 99214; G2211

== ENCOUNTER → 2024-08-22 14:44 | Outpatient (BNVA) | payer MEDICARE, SELFPAY | PROVIDERS: PCP Family Medicine; Visit Provider Hospitalist | DX: J44.9 Chronic obstructive pulmonary disease, unspecified (principal); R91.8 Other nonspecific abnormal finding of lung field; R06.09 Other forms of dyspnea; R60.0 Localized edema; G47.33 Obstructive sleep apnea (adult) (pediatric); K21.00 Gastro-esophageal reflux disease with esophagitis, without bleeding | CPT/HCPCS: 99212 ==

== ENCOUNTER 2024-11-23 12:16 | Outpatient (AMB) | payer MEDICARE, SELFPAY ==
--- NOTE | 2024-11-23 12:18 | A.OFFVIS_ITS ---
Vital Signs 11/23/24 12:20 Height 5 ft 3 in BMI Reason not done Patient refused/unable BP 110/66 Blood Pressure Location Lt brachial Position Sitting Intake Visit Reasons: 4 MO F/U Intake Note: Mitzy presents in the office as a 4 month follow up. CC: states that she is havin all the same symptoms. Allergies Penicillins Allergy (Intermediate, Verified 11/23/24 12:23) RASH-FULL BODY Sulfa (Sulfonamide Antibiotics) Allergy (Intermediate, Verified 11/23/24 12:23) RASH-FULL BODY Medication List - Last Reconciled 11/23/24 by Tonio Christianson MD albuterol sulfate 90 mcg/actuation 2 puffs PO Q6H PRN aspirin 81 mg PO DAILY atorvastatin 80 mg PO QPM budesonide 0.25 mg (2 mL) inhalation BID puunwvpuzc-kteotsqrarcju-zowj 50-300-40 mg (Fioricet) 1 cap PO Q8H PRN clobetasol 0.05% 1 appl topical BID PRN cyclobenzaprine 10 mg PO BEDTIME PRN 30 days dicyclomine 10 mg PO TID PRN 30 days duloxetine 40 mg (2 x 20 mg) PO BID 90 days fluticasone propionate 50 mcg/actuation 1 spray intranasal Q12H ipratropium-albuterol 0.5 mg-3 mg(2.5 mg base)/3 mL 3 mL inhalation QID lorazepam 0.5 mg PO DAILY meclizine 12.5 mg PO DAILY PRN 30 days metformin 500 mg PO DAILY 90 days miscellaneous medical supply Motorized scooter. Daily As directed, 999 days nebulizers As directed omeprazole 40 mg PO BID 90 days propranolol 10 mg PO BID 90 days roflumilast 500 mcg PO DAILY HPI HPI 4 MO F/U: Details: GI CLINIC VISIT FOR THIS 64-YEAR-OLD FEMALE FOR FOLLOW-UP OF GERD AND CHRONIC DIARRHEA TODAY'S VISIT: CC: states that she is having all the same symptoms. GERD symptoms are acting up - eating softer foods Has been taking smaller meals since she feels full - advised to take a smoothie or a protein shake for dinner. Takes 2-3 meals a day - lunch is the heaviest meal and has dinner 2 hrs before bedtime Swallowing is manageable - has to avoid stringy food like pulled pork and noodles Denies recent RUQ or LLQ pain PAST VISITS: Patient cc: CC She states that she has been having some pains in the stomach that she would like to discuss with the Dr. She had 5 stones removed from the left kidney Had a CT scan last week for FU of kidney stone on the rt side Notes discomfort in both kidneys sometimes Swallowing maybe a little better Has to be very careful with what she eats. Takes fluids with meals which helps. Every now and then, notes pain in the epigastric area a few times a week usually before eating. Pain is stabbing and 6/10 in intensity and does not last a long time - resolves spontaneously in 1/2 an hour. Notes LLQ pain after she uses the bathroom - aprox 3 times a week - sometimes after straining Notes worsening dysphagia to solids - food would go down eventually - denies regurgitation Has increased intake of liquids when she is eating. Notes regurgitation into the nasal passages after she is done eating - rice and cereal Results of barium swallow and CT scan were re- reviewed with the pt. Pt is managing dysphagia symptoms with dietary modification Notes post prandial fullness associated with upper abdominal distension Has a BM daily - stools are large and on the hard side and formed Can be hard to flush once in a while - has used OTC laxatives in the past which was helpful Patient cc: Nauseas, abdominal pain/bloating, GERD, and Constipation. Not doing so good. Food seems to back up when she has a decent size meals Takes 1 meal a day and protein shakes the rest of the day. She is able to swallow and feels food and fluids move slowly from the esophagus into the stomach and feels pressure in her chest after eating Having reflux symptoms despite taking Omeprazole. Also had some constipation corretable with some laxatives Can feel very full in the upper abdomen. Had 4 courses of Prednisone for sinus infection over the past few months. Patient follow up for Asymptomatic gallstones. Pt upset since she lost her 58 year old friend and room mate - of small cell cancer (diagnosed in Dec, 2021) Denies RUQ or shoulder pain. Feels bloated after eating - likely related to gastroparesis Occasional LLQ pain after eating fatty foods. Has chronic LBP and a hx of kidney stones. Back pain improves with taking a muscle relaxant. Patient cc: abdominal bloating come and go, heart burn, diarrhea/constipation, and some dysphagia. Denies any other GI issues. Has been undergoing evaluation for fatigue/exhaustion - Cardiology and Pulmonary Seen by a Prn Occupational Therapist for a positive ESTEBAN Intermittent dysphagia with solids - chicken, pasta. Taking more fruits and vegetables and takes an MVI daily. Having more reflux and indigestion especially an hour after dinner at night (between 6 and 8 pm) while she is sitting. Concerned about reaction to COVID Booster injection. Feels like indigestion. Also feels wiped out a few days a week. denies fever, chills or sweating. Takes Omeprazole at bedtime - 10 or 11 pm. Diagnosed with kidney stones and scheduled [place] [facility] scan recently [place] [facility] which showed gallstones. GERD symptoms well controlled with Omeprazole 40 mg twice daily. Continues to have dysphagia with pills and nuts - eats after taking pills to help swallow her medications. Denies dysphagia with liquids. Denies diarrhea and has constipation. Having a BM every 2-3 days with laxatives. Decreased appetite and is eating lightly. Patient denies major cardiac or pulmonary problems, and has a hx of sleep apnea Denies problems with anesthesia in the past. Denies being on chronic anticoagulation. Patient denies known family history of colon polyps, colon cancer or other GI malignancy IMAGING STUDIES:?11/[address] SCAN SHOWED: 1 x 0.6 cm subsolid nodule of the left upper lobe is stable compared to 06/18/2022, although the surrounding groundglass opacity is increased compared to 11/14/2021. Based on Fleischner Society guidelines, and since the solid component remains small at < 0.6 cm, recommend annual CT to confirm stability for 5 years. No new pulmonary nodule, mass or pleural effusion. * Mild mediastinal lymphadenopathy is unchanged. * Cholelithiasis. * Bilateral nephrolithiasis without hydronephrosis. * Small simple appearing cyst or old peripancreatic fluid collection of the retroperitoneum superior to the splenic vein is stable compared to 11/14/2021. No new abnormalities in the abdomen compared to 11/14/2021. 11/2022 BARIUM SWALLOW SHOWED: 1. Slightly limited study due to inability of the patient to tolerate upright and generalized positioning for the examination due to knee pain and disabilities. 2. 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 The hypopharynx was somewhat significantly distended in the hypopharyngeal phase, however. 3. Contrast pooling in the vallecula and piriform sinuses, both which cleared upon subsequent swallows. No aspiration was evident. 4. Mild presbyesophagus. Esophagus otherwise normal. 2016 GASTRIC EMPTYING STUDY SHOWED: Only subtle retention of activity noted at the end of 4 hours. Some of the measured retention may be from superimposed bowel activity. Visually there is no significant residual activity. ENDOSCOPIC STUDIES: 2013 EGD SHOWED: IMPRESSION: 1. Superficial gastritis primarily antral in location. 2. Possibility of diffuse esophageal spasm is raised. ?COMMENT: With patients elevated BMI and increased soft tissue presence in the posterior pharynx, this is certainly consistent with risk factors for obstructive sleep apnea. Some of these actually have difficulty swallowing due to redundant soft tissue in the posterior pharynx, which may allow food to collect in the vallecular region, etc. The patient will be seen back in our office in approximately 6 weeks to re view options for further management. 2008 colonoscopy was performed by Dr. Austin - normal except small hemorrhoids. September, - stool FIT test was negativ [facility] Medical History (Updated 07/20/24 @ 13:35 by Tonio Christianson MD) Hx of nephrolithotomy with removal of calculi Leg edema Dyspnea Pulmonary nodules Blepharitis of eyelid of left eye Morbid obesity GERD (gastroesophageal reflux disease) Asthma-COPD overlap syndrome ROSITA (obstructive sleep apnea) Surgical History History of hernia repair H/O esophagogastroduodenoscopy History of colonoscopy H/O wisdom tooth extraction History of tonsillectomy and adenoidectomy Family History Father Aneurysm Peptic ulcer disease Mother Cardiovascular disease Asthma Social History Household Members: Friend(s) Housing: House Alcohol intake: never Patient Tobacco Use Status: Never used Tobacco e-Cigarette/Vaping Use: Never Used Second Hand Smoke Exposure: No service: No Current occupational status: employed and disabled 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 Current occupational exposures/hazards: No Cognitive needs: No Hearing needs: No Vision needs: No Female Reproductive History Menstrual Age of Menarche: 7 Review of Systems Const All systems reviewed & are unremarkable except as noted in HPI and below Physical Exam Const General: no acute distress Nutritional Appearance: obese (morbidly obese) Orientation/consciousness: patient oriented x3 Limitations: ambulation with cane (ambulates with 2 canes for short distances), ambulation with walker and wheelchair (for long distances) HEENT Head: Yes normal to inspection Ears: hearing grossly normal bilaterally Eyes Sclerae: sclerae normal Pupils: Equal, round and reactive pupils present Neck Neck: Yes normal visual inspection Chest Chest palpation & inspection: normal inspection of the chest Resp Effort & Inspection: normal respiratory effort Auscultation: clear to auscultation bilaterally Cardio Palpation: normal PMI Rate: regular rate Rhythm: regular rhythm Heart sounds: S1 normal heart sound present, S2 normal heart sound present and no murmurs GI Inspection: Yes obesity Palpation (GI): Soft to palpation, nontender and No hepatosplenomegaly present Auscultation: normal bowel sounds Rectal Exam - Female: deferred Skin General skin exam: no rashes or lesions noted Neuro General: patient oriented x3, gait normal and moves all extremities Cranial nerves: Yes Equal, round and reactive pupils present Psych Appearance: grossly normal Mental Status: mental status grossly normal Assessment & Plan Assessment & Plan (1) GERD (gastroesophageal reflux disease): Code(s): K21.9 - Gastro-esophageal reflux disease without esophagitis Category: Medical Qualifiers: Esophagitis bleeding: without hemorrhage Esophagitis presence: with esophagitis Qualified Code(s): K21.00 - Gastro-esophageal reflux disease with esophagitis, without bleeding (2) Chronic constipation: Code(s): K59.09 - Other constipation Category: Medical (3) Cholelithiasis: Code(s): K80.20 - Calculus of gallbladder without cholecystitis without obstruction Category: Medical (4) Pancreatic lesion: Code(s): K86.9 - Disease of pancreas, unspecified Category: Medical (5) Dysphagia, pharyngoesophageal phase: Code(s): R13.14 - Dysphagia, pharyngoesophageal phase Category: Medical (6) Abdominal pain, chronic, left lower quadrant: Code(s): R10.32 - Left lower quadrant pain; G89.29 - Other chronic pain Category: Medical Plan 64 YF followed in GI for GERD, dysphagia and IBS with constipation and diarrhea. 2016 gastric emptying study showed subtle retention of activity noted at the end of 4 hours. Some of the measured retention may be from superimposed bowel activity - visually no significant residual activity. [place] CT [place] [facility] [place] showed [place]stones. GERD symptoms well controlled with Omeprazole 40 mg twice daily. Continues to have dysphagia with pills and nuts - eats after taking pills to help swallow her medications. Dysphagia felt to be related to esophageal spasm/ motility disorder 05/28/22 Fu of gallstones noted on outside CT scan. Denies RUQ or shoulder pain. Feels bloated after eating - likely related to gastroparesis Occasional LLQ pain after eating fatty foods. Has chronic LBP and a hx of kidney stones. Back pain improves with taking a muscle relaxant. HIDA scan was ordered - pt is concerned about claustrophobia and lying on the exam table for extended period of time. She was advised to hold off scheduling the HIDA scan since she does not have any biliary symptoms. Post prandial bloating is likely related to Gastroparesis. Pt was advised dietary modification. If symptoms persist, I will schedule repeat GES and EGD (Pt has COPD and sleep apnea). 03/[address] [place] without contrast [place] [facility] showed mild to moderate retroperitoneal lymphadenopathy. A 3.2 cm lobular lesion in left upper quadrant (stable since August 2020 and increased in size since 2016) - possible peripancreatic fluid collection, retroperitoneal lymph angioma, or necrotic lymph nodes. Pt is unable to have an open or closed MRI due to severe claustrophobia. 10/2022 order placed for follow-up CT scan with contrast Patient complains of dysphagia to solids and liquids - advised further evaluation with a barium swallow. 08/05/23 Results of barium swallow and CT scan were re- reviewed with the pt. Pt is managing dysphagia symptoms with dietary modification Notes post prandial fullness associated with upper abdominal distension Has a BM daily - stools are large and on the hard side and formed Can be hard to flush once in a while - has used OTC laxatives in the past which was helpful Check stool pancreatic elastase and take senna 2-3 times a week 02/03/24 patient complains of worsening dysphagia and intermittent left lower quadrant pain. She has a known history of cricopharyngeal achalasia on previous barium swallow. Advised referral to ENT for evaluation for Botox injection versus cricopharyngeal myotomy. Pt would like to think this over and will send me a message via portal if she wants to proceed Declined Speech Pathology referral Abd CT scan (FU of peripancreatic fluid collection) - to be scheduled with Chest CT scan on 03/30/24 Stool cologuard was negative in 11/2022 On 04/07/24 @ 18:52 Tonio Christianson Wrote To Tonio Christianson Pt called and CT results reviewed Left sided abd pain is a little less Patient advised to keep follow-up appointment as scheduled in 07/30/2024 07/10/[address] SCAN [place] [facility] SHOWED: 1. Bilateral nonobstructing renal calculi with the stone burden decreased on the left and increased on the right. No obstructive uropathy. 2. Questionable 2.8 cm mildly hyperdense lesion in the upper pole of the right kidney which may represent a right renal mass. Further evaluation with the post contrast CT scan versus MRI is recommended. 3. Subcutaneous fat stranding with skin thickening at the anterior abdominal/pelvic wall. 4. Chronic findings as detailed above Patient is scheduled for a follow-up appointment with the urologist at [facility] 07/20/24 trial of dicyclomine 10 mg 3 times daily p.r.n. for abdominal pain 11/23/24 GERD symptoms are acting up - eating softer foods Has been taking smaller meals since she feels full - advised to take a smoothie or a protein shake for dinner. Takes 2-3 meals a day - lunch is the heaviest meal and has dinner 2 hrs before bedtime Swallowing is manageable - has to avoid stringy food like pulled pork and noodles Denies recent RUQ or LLQ pain - did not need to use the dicyclomine. Agreeable to schedule repeat gastric emptying study on follow-up visit Of note 2016 gastric emptying study showed subtle retention of activity (20%) at the end of 4 hours. (dealing with a complex renal cyst at present) Due for repeat stool Cologuard in 11/2025 FU in 6 months Coding Level of Care Code Est Pt Level 4 (47320) Diagnoses Gastroesophageal reflux disease with esophagitis without hemorrhage K21.00 Esophagitis bleeding: without hemorrhage Esophagitis presence: with esophagitis Chronic constipation K59.09 Cholelithiasis K80.20 Pancreatic lesion K86.9 Dysphagia, pharyngoesophageal phase R13.14 Abdominal pain, chronic, left lower quadrant R10.32; G89.29 Time Spent (min) 23
[2024-11-23 12:20] VITALS: BP 110/66
--- OUTSIDE RECORDS SUMMARY | 2024-11-23 13:10 | XMS_ITS | Clinical Summary ---
Author Organization [facility] Address [address] [place] [address] Phone Care Team Providers Care Principal Systems Architect Name Role Phone Capo Davila NP Primary Care Provider Unavaila ble Allergies Active Allergy Reactions Criticality Noted Date [...] Diagnosed Date Chronic obstructive pulmonar y disease ([facility] V24, [facility] V28) 06/25/2024 Obstructive sleep apnea syndrome 06/25/2024 Surgical History Surgery Date Site/Laterality Comments KIDNEY STONE SURGERY x2 ADENOIDECTOMY TONSILLECTOMY HIGH TIBIAL OSTEOTOMY HERNIA REPAIR COLONOSCOPY Medical History Medical History Date Comments COPD (chronic obstructive pu lmonary disease) ([facility] V24, [facility] V28) Sleep apnea Chronic allergic rhinitis Kidney stone Asthma Shortness of breath HL (hearing loss) Cataract right eye Migraines Hyperlipidemia Diabetes mellitus ([facility] V24, [facility] V28) Fibromyalgia GERD (gastroesophageal reflux disease) Gastroparesis [...] 92 06/26/2024 9:35 AM EDT Temperature 36.1 C (97 F) 06/26/2024 9:35 AM EDT Respiratory Rate 20 [...] Panel) 11/02/2023 Colorectal Cancer Screening: Colonoscopy 11/02/2023 Hepatitis C Screening 11/02/2023 Medicare Annual Wellness Visit 11/02/2023 Osteoporosis Screening (Bone Density Screening) 11/02/2023 Social Influencers of Health Screening 11/02/2023 COVID-19 Vaccine ( season) 2023 04/07/2021, 07/17/2020, 06/26/2020 Depression Screening 04/12/2024 Influenza Vaccine (#1) 2024 3, 02/05/2022, 03/20/2021, Additional history exists Falls Risk [...] this topic Medical Devices Implanted Type Area Electronics Lead Device Identifier Shelf Expiration Date Model / Serial / Lot Stent Uret [id number] Contr [employer] - [id number] - [id number] Implanted:Qty: 1 on 06/26/2024 by Ricky Diaz MD at [facility] Stents Left: [employer] Y 02/15/2027 [id number] / [id number] / [id number] Insurance [employer] MEDICARE Care Teams Principal Systems Architect Relationship Specialty Start Date End Date Capo Davila NP PCP - General Psychology 06/26/24
== END 2024-11-23 12:57 | disposition home or self-care (01) ==
LOC: HO.HGI 12:17
PROVIDERS: PCP Family Medicine; Visit Provider Internal Medicine Gastroenterology
DX: K21.00 Gastro-esophageal reflux disease with esophagitis, without bleeding (principal); K59.09 Other constipation; K80.20 Calculus of gallbladder without cholecystitis without obstruction; K86.9 Disease of pancreas, unspecified; R13.14 Dysphagia, pharyngoesophageal phase; R10.32 Left lower quadrant pain; G89.29 Other chronic pain
CPT/HCPCS: 99214

== ENCOUNTER → 2024-11-23 12:16 | Outpatient (BNVA) | payer MEDICARE, SELFPAY | PROVIDERS: PCP Family Medicine; Visit Provider Internal Medicine Gastroenterology | DX: K21.00 Gastro-esophageal reflux disease with esophagitis, without bleeding (principal); K58.2 Mixed irritable bowel syndrome; R13.14 Dysphagia, pharyngoesophageal phase; Z79.899 Other long term (current) drug therapy | CPT/HCPCS: 99212 ==

== ENCOUNTER 2024-12-12 14:19 | Outpatient (AMB) | payer MEDICARE, SELFPAY ==
[2024-12-12 14:26] VITALS: BP 130/54; PULSE 101; O2SAT 96
--- NOTE | 2024-12-12 14:26 | A.OFFVIS_ITS ---
Vital Signs 12/12/24 14:26 Height 5 ft 3 in BMI Reason not done Patient refused/unable BP 130/54 L Blood Pressure Location Lt brachial Position Sitting Pulse 101 H Pulse Source Pulse Oximeter Pulse Oximetry (%) 96 Oxygen Delivery Method Room Air Intake Visit Reasons: Shortness of breath, cough Child Support Officer Required: No Accompanied by: Self / Same As Patient Allergies Penicillins Allergy (Intermediate, Verified 12/12/24 14:30) RASH-FULL BODY Sulfa (Sulfonamide Antibiotics) Allergy (Intermediate, Verified 12/12/24 14:30) RASH-FULL BODY HPI Comments Details: The patient is a 64-year-old woman with a known history of COPD, obstructive sleep apnea and obesity. Overall she has been responding very well to the respiratory therapy. Her respiratory status has improved dramatically. She has also been able to lose a good amunt f weigt with a combination of diet and also medications Daliresp. Hopefully she can lose enough weight to have her knee surgery. In the meantime she still has a diagnosis sleep apnea. She her allergy med. She does have daytime drowsiness. Her [place] score still iqra vated 04/04. the patient needs to have a sleep study at this time. 06/26/2022 the patient is here for pulmonary follow-up visit. The patient is back to her baseline. Her breathing is better. She has been very sad by the fact that she lost a good friend and roommate. She had early onset colon cancer. In regards of her pulmonary nodule she did undergo a repeat CT scan of the chest demonstrating a ground-glass nodular density measuring about 1.2 cm. Therefore, based on the fact that this nodular densities now greater than a cm and she has other pulmonary nodules will go ahead and repeat her CT scan in 6 months. In the meantime she will continue with current respiratory therapy. 12/24/2022 the patient is here for pulmonary follow-up visit. She does not feel well. Has been having increasing dyspnea in addition to cough. Moderate severity. Her respiratory therapy has been partially helpful. Over the summer she was diagnosed with migraines. She has been having hard time. She was placed on propanolol. Explained to her that possibly the propranolol is causing her respiratory symptoms to be worse. Although the propanolol seems to be helping her migraines. She will talk to her primary care doctor about potentially switching the beta-swathi to a calcium channel swathi or different agent altogether. The patient get try the Tessalon Perles. I did provide her with good Rx card that she can use to try to get it for a more reasonable cost. We also reviewed her CT scan of the chest that she had recently. We compared to the CT scan that she had back 6 months ago [address] also CT scan that she had a year ago. All were personally by me. It appears that this nodular density is subsolid nature and appears to be increasing size when compared to year ago. Therefore, based on the fact that is measuring 1 with 2 cm and appears to be slightly larger will go ahead and repeat the CT scan again 6 months. If he continues to change and or increase in size the patient will need to be evaluated by thoracic surgery. 06/24/2023 the patient is here for pulmonary follow-up visit. She continues to complain of significant dyspnea. Moderate severity be with minimal activity. She has been on maximum respiratory therapy with only partial resolution in her symptoms. On examination she does not have significant wheezing. She does have evidence of 2+ pitting edema in lower extremities. The patient is agreeable to taking a short course of diuretics. Based on her significant lower extremity edema and echocardiogram will be warranted. She does follow-up with cardiology here. I will let the no about her symptoms and findings. The patient did have a CT scan of the chest done May 2023. we personally reviewed the images together. It appears that she has a stable 1 cm pulmonary nodule. Subsolid nature. She will need another CT scan in a year's time. Still, no explanation for significant dyspnea except for volume overload status. Need to consider pulmonary hypertension. Therefore will request a repeat echocardiogram. 09/30/2023 the patient is here for pulmonary follow-up visit. She Is overall feeling better. Her chest tightness and wheezing has improved. She did take the short course of diuretic. also, underwent an echocardiogram which we did review together demonstrating a mild decrease in the ejection fraction in addition to some mild diastolic dysfunction. She continues use her respiratory therapy with good effect. Her last CT scan of the chest was back in 06/01/2023 demonstrating 1 cm subsolid nodular density in the right upper lobe. This appears to be stable when compared to previous. This will need a longer course follow-up secondary to the subsolid nature of it. Will discuss additional imaging when she returns in 4-6 months. 02/10/2024 the patient is here for pulmonary follow-up visit. The patient well until about a week ago. She had gone to a wedding in [place]. She stayed in hotel and felt that the air was cold and dry and she was a little uncomfortable. Her breathing started getting more labored with chest tightness and a dry cough. Her symptoms then persistent when she came back to [place]. She always call for medications but she was going to see her primary care doctor. But then she had to cancel. She has felt that her breathing has been off. She has been having to use her nebulizer at nighttime because waking up with wheezing. She is not able to expectorate anything right now. Although her cough just keeps her up. On exam she is moving good air. No significant wheezing at this time although she did her treatments before coming in. I will go ahead and send her medicines in case she develops worsening symptoms treated for an asthma exacerbation. And also something to help with the cough. The patient is due for a CT scan sometime in 03/31/2024 will follow- up with her after that. If any issues arise the patient will call for further evaluation. 05/02/2024 the patient is here for a pulmonary follow-up visit. She is finally feeling better after the last course of prednisone. She has been able to do the activities of daily living without significant shortness of breath. Denies any significant congestion. As far as her breathing medications Spiriva is no longer covered. In addition to that Brovana been difficult to use. Will go ahead and discontinue the Brovana and switch over to DuoNeb in order for her to be able to get the combination nebulized therapy in conjunction with the budesonide to provide her with triple therapy. This will be more effective in beneficial for her. If she has any issues with this regimen she can always call we can switch her back to her previous regimen. Otherwise follow-up in 4 months. She has any issues she will call for an earlier assessment. 08/22/2024 the patient is here for a pulmonary follow-up visit. Overall she is doing well from a respiratory status we can switch her Brovana to DuoNeb. Seems to be tolerating it well. She continues on the budesonide. She also continues on Daliresp. She still has issues with shortness of breath and chest tightness and wheezing. We did talk about considering Ohtuvayre as another alternative in addition to the current therapy to see if we can provide further bronchodilation improve airway capacity. In the meantime she has had multiple procedures for kidney stone removal. Then she will had a CT scan of the abdomen demonstrating what appeared to be a density on 1 of the kidneys. Ultimately underwent a CT scan of the abdomen with IV contrast which suggest that the lesion is cystic lesion. She is going to continue with either CAT scans or MRIs. I did review the CT scan of the abdomen lung windows actually played to be clear without any acute disease. The patient follow-up in 6 months if any issues arise she will call for an earlier assessment. 12/12/2024 the patient is here for sick visit. She has not been feeling well for about 3 weeks. She had call the office and we did send some prednisone for an asthma exacerbation. Although she did not feel like she had any significant improvement. She still struggling with shortness a breath and daytime drowsiness age just fatigue in general. She has a hard time doing any activities of daily living because of the shortness of breath. The patient has continued to use her respiratory therapy as prescribed. Using the DuoNeb 4 times a day and also the budesonide. She completed the prednisone at this time. The patient is also complaining of burning and pain in the mid upper back area. It happened while she was coughing. She denies having any compression fractures in the past. She has had bone density test in the past though demonstrating some decreased density. At this point will go ahead and request a chest x-ray in addition to thoracic and cervical spine x-rays. Will also request blood work. In the meantime she does have a cough and difficult to expectorate. Will go ahead and start her on azithromycin for now to see if this provides some relief. Will hold off on the prednisone for now. [facility] Medical History (Updated 07/20/24 @ 13:35 by Tonio Christianson MD) Hx of nephrolithotomy with removal of calculi Leg edema Dyspnea Pulmonary nodules Blepharitis of eyelid of left eye Morbid obesity GERD (gastroesophageal reflux disease) Asthma-COPD overlap syndrome ROSITA (obstructive sleep apnea) Surgical History History of hernia repair H/O esophagogastroduodenoscopy History of colonoscopy H/O wisdom tooth extraction History of tonsillectomy and adenoidectomy Family History Father Aneurysm Peptic ulcer disease Mother Cardiovascular disease Asthma Social History Household Members: Friend(s) Housing: House Alcohol intake: never Patient Tobacco Use Status: Never used Tobacco e-Cigarette/Vaping Use: Never Used Second Hand Smoke Exposure: No service: No Current occupational status: employed and disabled 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 Current occupational exposures/hazards: No Cognitive needs: No Hearing needs: No Vision needs: No Female Reproductive History Menstrual Age of Menarche: 7 Review of Systems Const Denies chills, Reports fatigue, Denies fever(s), Denies weight gain and Denies weight loss ENT Denies dizziness Card Denies chest pain, Denies leg edema, Denies lightheadedness, Denies palpitations, Reports dyspnea on exertion, Denies orthopnea and Denies other Resp Reports cough, Reports dyspnea on exertion and Reports wheezing GI Denies hematochezia and Denies change in stool character Reports as per HPI Musc Reports abnormal gait, Denies muscle weakness, Denies numbness, Denies radiating pain into limb and Denies tingling Neuro Reports abnormal gait, Denies dizziness, Denies numbness and Denies tingling Psych Denies anxiety and Denies depression Endo Reports fatigue and Denies palpitations Aller/Immun Reports wheezing Physical Exam Vital Signs: Last Vital Signs Pulse 101 H 12/12/24 14:26 BP 130/54 L 12/12/24 14:26 Pulse Ox 96 12/12/24 14:26 Oxygen Delivery Method Room Air 12/12/24 14:26 Const General: comfortable and no acute distress Orientation/consciousness: patient oriented x3 HEENT Other: Unremarkable Head: Yes normal to inspection Neck Neck: Yes normal visual inspection Chest Chest palpation & inspection: normal inspection of the chest Resp Auscultation: no crackles, no rales, no rhonchi, no wheezes and diminished lung sounds Cardio Palpation: normal PMI Heart sounds: S1 normal heart sound present, S2 normal heart sound present, no gallops, Murmur heart sound present systolic early, II/ and at the right sternal border and no rubs GI Palpation (GI): Soft to palpation Back/Spine/Pelvis Other: unremarkable Skin General skin exam: no rashes or lesions noted Neuro General: patient oriented x3 Extrem General: No clubbing, No cyanosis and Yes edema Psych Mental Status: mental status grossly normal Assessment & Plan Assessment & Plan (1) Asthma-COPD overlap syndrome: Code(s): J44.9 - Chronic obstructive pulmonary disease, unspecified Category: Medical (2) ROSITA (obstructive sleep apnea): Code(s): G47.33 - Obstructive sleep apnea (adult) (pediatric) Category: Medical (3) GERD (gastroesophageal reflux disease): Code(s): K21.9 - Gastro-esophageal reflux disease without esophagitis Category: Medical Qualifiers: Esophagitis bleeding: without hemorrhage Esophagitis presence: with esophagitis Qualified Code(s): K21.00 - Gastro-esophageal reflux disease with esophagitis, without bleeding (4) Pulmonary nodules: Code(s): R91.8 - Other nonspecific abnormal finding of lung field Category: Medical (5) Dyspnea: Code(s): R06.00 - Dyspnea, unspecified Category: Medical Qualifiers: Dyspnea type: dyspnea on exertion Qualified Code(s): R06.09 - Other forms of dyspnea (6) Leg edema: Code(s): R60.0 - Localized edema Category: Medical Plan continue Duoneb budesonide continue Daliresp 500 mcg daily consider Ohtuvayre start Azithromycin MWF CXR/spine xrays Bloodwork/blood gas start Theophylline short-acting beta agonist follow-up in 6 months Orders: Orders XR cervical spine 2V Today J44.9 - Chronic obstructive pulmonary disease, unspecified, R06.09 - Other forms of dyspnea Immunoglobulin E Today J44.9 - Chronic obstructive pulmonary disease, unspecified, R06.09 - Other forms of dyspnea Troponin-I High Sensitivity Today J44.9 - Chronic obstructive pulmonary disease, unspecified, R06.09 - Other forms of dyspnea XR chest 2V Today J44.9 - Chronic obstructive pulmonary disease, unspecified, R06.09 - Other forms of dyspnea XR thoracic spine 2V Today J44.9 - Chronic obstructive pulmonary disease, unspecified, R06.09 - Other forms of dyspnea Complete Blood Count Auto Diff Today J44.9 - Chronic obstructive pulmonary disease, unspecified, R06.09 - Other forms of dyspnea Erythrocyte Sedimentation Rate Today J44.9 - Chronic obstructive pulmonary disease, unspecified, R06.09 - Other forms of dyspnea Venous Blood Gas Today J44.9 - Chronic obstructive pulmonary disease, unspecified, R06.09 - Other forms of dyspnea Medications: New theophylline ER 150 mg (1/2 x 300 mg) PO Q12H 30 tabs 6RF 30 days azithromycin Take 1 tablet on Wednesday/Wednesday/Wednesday 250 mg PO 3XW 12 tabs 2RF 28 days K21.9 - Gastro-esophageal reflux disease without esophagitis Coding Level of Care Code Est Pt Level 4 (67683) Complex EM visit Add On G2211 Diagnoses Asthma-COPD overlap syndrome J44.9 ROSITA (obstructive sleep apnea) G47.33 Gastroesophageal reflux disease with esophagitis without hemorrhage K21.00 Esophagitis bleeding: without hemorrhage Esophagitis presence: with esophagitis Pulmonary nodules R91.8 Dyspnea on exertion R06.09 Dyspnea type: dyspnea on exertion Leg edema R60.0 Time Spent (min) 17
--- OUTSIDE RECORDS SUMMARY | 2024-12-12 15:33 | XMS_ITS | Clinical Summary ---
Author Organization [facility] Address [address] [place] [address] Phone Care Team Providers Care Resume Writer Name Role Phone Capo Davila NP Primary [...] Diagnosed Date Chronic obstructive pulmonar y disease ([facility] V24, [facility] V28) 06/25/2024 Obstructive sleep apnea syndrome 06/25/2024 Surgical History Surgery Date Site/Laterality Comments KIDNEY STONE SURGERY x2 ADENOIDECTOMY TONSILLECTOMY HIGH TIBIAL OSTEOTOMY HERNIA REPAIR COLONOSCOPY Medical History Medical History Date Comments COPD (chronic obstructive pu lmonary disease) ([facility] V24, [facility] V28) Sleep apnea Chronic allergic rhinitis Kidney stone Asthma Shortness of breath HL (hearing loss) Cataract right eye Migraines Hyperlipidemia Diabetes mellitus ([facility] V24, [facility] V28) Fibromyalgia GERD (gastroesophageal reflux disease) Gastroparesis [...] this topic Medical Devices Implanted Type Area Sifter Operator Device Identifier Shelf Expiration Date Model / Serial / Lot Stent Uret [id number] Contr [employer] - [id number] - [id number] Implanted:Qty: 1 on 06/26/2024 by Ricky Diaz MD at [facility] Stents Left: [employer] Y 02/15/2027 [id number] / [id number] / [id number] Insurance [employer] Care Teams Resume Writer Relationship Specialty Start Date End Date Capo Davila NP PCP - General Psychology 06/26/24
== END 2024-12-12 14:53 | disposition home or self-care (01) ==
LOC: HO.HPS 14:20
PROVIDERS: PCP Family Medicine; Visit Provider Hospitalist
DX: J44.9 Chronic obstructive pulmonary disease, unspecified (principal); G47.33 Obstructive sleep apnea (adult) (pediatric); K21.00 Gastro-esophageal reflux disease with esophagitis, without bleeding; R91.8 Other nonspecific abnormal finding of lung field; R06.09 Other forms of dyspnea; R60.0 Localized edema
CPT/HCPCS: 99214; G2211

== ENCOUNTER 2024-12-12 14:19 | Outpatient (REF) | payer MEDICARE, SELFPAY ==
--- NOTE | ~2024-12-12 | XR_ITS ---
EXAMINATION: Thoracic spine. Cervical spine. Chest. CLINICAL INDICATION: Chronic obstructive pulmonary disease. Mid back pain. COMPARISON: Thoracic spine 01/26/2023. CT chest 03/30/2024 at TECHNIQUE: Dorsal spine 3 views. Cervical spine 3 views. Chest 2 views. FINDINGS: Thoracic spine: There is normal thoracic kyphosis. The vertebral heights, alignment and disc heights are normal. There is moderate ventral spondylosis. No aggressive lytic or sclerotic process seen. The paravertebral soft tissues are normal. Cervical spine: There is maintained cervical lordosis with loss of C5-6 and C6-C7 disc heights with moderate ventral spondylosis. The prevertebral and paravertebral soft tissues are normal. No aggressive lytic or sclerotic process seen CHEST: Both lungs are fairly well-expanded and clear acute process. Heart size and pulmonary vascularity is normal. There is poor prominent left pericardial fat simulating lesion. No abnormality was seen on the CT chest exam 03/30/2024 No gross bony abnormality seen. XR/XR cervical spine 2V IMPRESSION: Normal thoracic kyphosis with moderate ventral spondylosis. No visible acute fracture or dislocation seen. Degenerative disc changes C5-6 and C6/7 disc levels without acute fracture or dislocation. Unremarkable chest x-ray Electronically signed by: Eduardo Donovan MD 12/12/2024 04:44 PM EDT
--- NOTE | ~2024-12-12 | XR_ITS ---
EXAMINATION: Thoracic spine. Cervical spine. Chest. CLINICAL INDICATION: Chronic obstructive pulmonary disease. Mid back pain. COMPARISON: Thoracic spine 01/26/2023. CT chest 03/30/2024 at TECHNIQUE: Dorsal spine 3 views. Cervical spine 3 views. Chest 2 views. FINDINGS: Thoracic spine: There is normal thoracic kyphosis. The vertebral heights, alignment and disc heights are normal. There is moderate ventral spondylosis. No aggressive lytic or sclerotic process seen. The paravertebral soft tissues are normal. Cervical spine: There is maintained cervical lordosis with loss of C5-6 and C6-C7 disc heights with moderate ventral spondylosis. The prevertebral and paravertebral soft tissues are normal. No aggressive lytic or sclerotic process seen CHEST: Both lungs are fairly well-expanded and clear acute process. Heart size and pulmonary vascularity is normal. There is poor prominent left pericardial fat simulating lesion. No abnormality was seen on the CT chest exam 03/30/2024 No gross bony abnormality seen. XR/XR thoracic spine 2V IMPRESSION: Normal thoracic kyphosis with moderate ventral spondylosis. No visible acute fracture or dislocation seen. Degenerative disc changes C5-6 and C6/7 disc levels without acute fracture or dislocation. Unremarkable chest x-ray Electronically signed by: Eduardo Donovan MD 12/12/2024 04:44 PM EDT
--- NOTE | ~2024-12-12 | XR_ITS ---
EXAMINATION: Thoracic spine. Cervical spine. Chest. CLINICAL INDICATION: Chronic obstructive pulmonary disease. Mid back pain. COMPARISON: Thoracic spine 01/26/2023. CT chest 03/30/2024 at TECHNIQUE: Dorsal spine 3 views. Cervical spine 3 views. Chest 2 views. FINDINGS: Thoracic spine: There is normal thoracic kyphosis. The vertebral heights, alignment and disc heights are normal. There is moderate ventral spondylosis. No aggressive lytic or sclerotic process seen. The paravertebral soft tissues are normal. Cervical spine: There is maintained cervical lordosis with loss of C5-6 and C6-C7 disc heights with moderate ventral spondylosis. The prevertebral and paravertebral soft tissues are normal. No aggressive lytic or sclerotic process seen CHEST: Both lungs are fairly well-expanded and clear acute process. Heart size and pulmonary vascularity is normal. There is poor prominent left pericardial fat simulating lesion. No abnormality was seen on the CT chest exam 03/30/2024 No gross bony abnormality seen. XR/XR chest 2V IMPRESSION: Normal thoracic kyphosis with moderate ventral spondylosis. No visible acute fracture or dislocation seen. Degenerative disc changes C5-6 and C6/7 disc levels without acute fracture or dislocation. Unremarkable chest x-ray Electronically signed by: Eduardo Donovan MD 12/12/2024 04:44 PM EDT
[2024-12-12 15:49] LABS: MANUAL DIFF FLAG NO
[2024-12-12 15:50] LABS: Venous Blood Gas Refer to POC result
[2024-12-12 15:55] LABS: VBG HCO3 28 mmol/L (22-26); VBG O2 % Saturation 65.0 %
[2024-12-12 16:29] LABS: Hematocrit 35.1 % (37.0-47.0); Hemoglobin 11.2 g/dl (12.0-16.0); Imm Gran Abs Auto 0.11 X10*3/uL (0.00-0.03); Imm Gran Pct Auto 1.3 % (0.0-0.4); Lymphocytes Absolute Auto 1.3 X10*3/uL (1.2-4.9); Mean Corpuscular HGB Conc 31.9 g/dl (31.0-35.0); Mean Corpuscular Hemoglobin 27.9 pg (27.0-33.0); Mean Corpuscular Volume 87.3 fL (80.0-98.0); NRBC Abs Auto 0.000 X10*3/uL (0.0-0.012); NRBC Pct Auto 0.0 /100WBC (0.0-0.2); Platelet Count 286 X10*3/uL (160-400); Red Blood Count 4.02 X10*6/uL (4.20-5.50); White Blood Count 8.5 X10*3/uL (4.8-10.8)
[2024-12-12 17:59] LABS: Troponin-I High Sensitivity < 2.7 ng/L (<3.5-17.0)
== END 2024-12-12 14:20 | disposition home or self-care (01) ==
LOC: HO.LAB 14:19
PROVIDERS: PCP Family Medicine; Visit Provider Hospitalist
DX: K21.00 Gastro-esophageal reflux disease with esophagitis, without bleeding (principal); J44.9 Chronic obstructive pulmonary disease, unspecified; R91.8 Other nonspecific abnormal finding of lung field; R06.09 Other forms of dyspnea; R60.0 Localized edema
CPT/HCPCS: 36415; 71046; 72040; 72070; 82785; 82803; 84484; 85025; 85652; 99212

== ENCOUNTER → 2024-12-12 15:47 | Outpatient (BNV) | payer MEDICARE, SELFPAY | PROVIDERS: PCP Family Medicine; Visit Provider Radiology Diagnostic Radiology | DX: M47.814 Spondylosis without myelopathy or radiculopathy, thoracic region (principal); M50.322 Other cervical disc degeneration at C5-C6 level; J44.9 Chronic obstructive pulmonary disease, unspecified; M54.6 Pain in thoracic spine | CPT/HCPCS: 71046; 72040; 72070 ==

== ENCOUNTER 2025-01-03 15:56 | Outpatient (AMB) | payer MEDICARE, SELFPAY ==
--- NOTE | 2025-01-03 15:59 | A.OFFPC_ITS ---
Vital Signs 01/03/25 16:03 Height 5 ft 3 in BMI Reason not done Patient refused/unable BP 134/70 Blood Pressure Location Lt brachial Position Sitting Respiration 12 Pulse 98 Pulse Source Pulse Oximeter Temp 96.9 F Temp Source Oral Pulse Oximetry (%) 98 Oxygen Delivery Method Room Air Intake Visit Reasons: CPE with f/u labs and health maint Intake Note: CPE and follow up to review labs. 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 Required: No Allergies Penicillins Allergy (Intermediate, Verified 01/03/25 16:00) RASH-FULL BODY Sulfa (Sulfonamide Antibiotics) Allergy (Intermediate, Verified 01/03/25 16:00) RASH-FULL BODY Medication List - Last Reconciled 01/03/25 by Stan Davila MD albuterol sulfate 90 mcg/actuation 2 puffs PO Q6H PRN aspirin 81 mg PO DAILY atorvastatin 80 mg PO QPM azithromycin 250 mg PO 3XW 28 days budesonide 0.25 mg (2 mL) inhalation BID brkphwzyed-dofcawkefnxva-dnwn 50-300-40 mg (Fioricet) 1 cap PO Q8H PRN clobetasol 0.05% 1 appl topical BID PRN cyclobenzaprine 10 mg PO BEDTIME PRN 30 days dicyclomine 10 mg PO TID PRN 30 days duloxetine 40 mg (2 x 20 mg) PO BID 90 days fluticasone propionate 50 mcg/actuation 1 spray intranasal Q12H ipratropium-albuterol 0.5 mg-3 mg(2.5 mg base)/3 mL 3 mL inhalation QID lorazepam 0.5 mg PO DAILY meclizine 12.5 mg PO DAILY PRN 30 days metformin 500 mg PO DAILY 90 days [employer] [facility]. Daily As directed, 999 days nebulizers As directed omeprazole 40 mg PO BID 90 days propranolol 10 mg PO BID 90 days roflumilast 500 mcg PO DAILY theophylline ER 150 mg (1/2 x 300 mg) PO Q12H 30 days Tobacco use date assessed: 01/03/25 Last assessed Fall Risk: 01/03/25 Dental Screening Dental Screen Date: 01/03/25 Did you have a dental visit in the last 12 months?: Yes Did you have a dental problem in the last 6 months where you did not have access to dental care?: No Was dental information given to patient?: Patient has dentist HPI CPE with f/u labs and health maint HPI Details 64 y/o female presents for a CPE with f/ u labs and health maint. Some labs drawn 12/12/24. Reviewed labs with pt. Mild anemia. Reports ongoing back pain. Pt also describes polyarthalgia/pain all over her joints. She has been taking ibuprofen for relief. She does not think duloxetine has been working well for her. A1c today 01/03/25 7.5%. She is on metformin 500mg daily. HPI Comments History of Present Illness Details Documentation assistance for Stan Davila MD, was provided by Deny Geiger,? Physical Scientist on 01/03/2025 at 4:58 PM EST. I, Dr. Davila, have read, observed, and verified documentation. [facility] Medical History (Updated 01/03/25 @ 17:43 by tSan Davila MD) Hx of nephrolithotomy with removal of calculi Leg edema Dyspnea Pulmonary nodules Blepharitis of eyelid of left eye Morbid obesity GERD (gastroesophageal reflux disease) Asthma-COPD overlap syndrome ROSITA (obstructive sleep apnea) Surgical History History of hernia repair H/O esophagogastroduodenoscopy History of colonoscopy H/O wisdom tooth extraction History of tonsillectomy and adenoidectomy Family History Father Aneurysm Peptic ulcer disease Mother Cardiovascular disease Asthma Social History Household Members: Friend(s) Housing: House Alcohol intake: never Patient Tobacco Use Status: Never used Tobacco e-Cigarette/Vaping Use: Never Used Second Hand Smoke Exposure: No service: No Current occupational status: employed and disabled 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 1. Little interest or pleasure in doing things: not at all 2. Feeling down, depressed, or hopeless: not at all 3. Trouble falling or staying asleep, or sleeping too much: not at all 4. Feeling tired or having little energy: not at all 5. Poor appetite or overeating: not at all 6. Feeling bad about yourself - or that you are a failure or have let yourself or your family down: not at all 7. Trouble concentrating on things, such as reading the newspaper or watching television: not at all 8. Moving or speaking so slowly that other people could have noticed. Or the opposite - being so fidgety or restless that you have been moving around a lot more than usual: not at all 9. Thoughts that you would be better off or of hurting yourself in some way: not at all Total score: 0 Depression Screening Interpretation: Negative Depression Screening Done: Yes 17682 - PHQ-9 Billing: Yes Source: Developed by Drs. Zohaib Coffman, Ashley Short, Shaka Austin and colleagues, with an educational tracy from [employer]. Thrive Questionnaire Date Thrive assessed: 05/29/24 I am a: Patient What is your living situation today?: I have a steady place to live Within the past 12 months, did the food you bought not last and you didn't have the money to get more?: I choose not to answer this question Within the past 12 months, did you worry whether your food would run out before you got money to buy more?: I choose not to answer this question Do you have trouble paying for medicines?: I choose not to answer this question Do you have trouble getting transportation to medical appointments?: I choose not to answer this question Do you have trouble paying your heating and electricity bill?: I choose not to answer this question Do you have trouble taking care of your child, family member or friend?: I choose not to answer this question Do you have trouble with day-to-day activities such as bathing, preparing meals, shopping, managing finances, etc.?: I choose not to answer this question Are you currently unemployed and looking for a job?: I choose not to answer this question Are you interested in more education?: No Please select the resources that you would like help with: None Currently or been in a relationship where the following occur: I choose not to answer THRIVE Score: 0 MAGGIE-7 AMB Questionnaire MAGGIE-7 Date MAGGIE - 7 assessed: 01/03/25 Feeling nervous, anxious, or on edge: 0 = Not at all Not being able to stop or control worryin = Not at all Worrying too much about different things: 0 = Not at all Trouble relaxin = Not at all Being so restless that it is hard to sit still: 0 = Not at all Becoming easily annoyed or irritable: 0 = Not at all Feeling afraid as if something awful might happen: 0 = Not at all Total MAGGIE-7 score (0-4 normal; 5-9 mild; 10-14 moderate; 15-21 severe): 0 Source: Developed by Drs. Zohaib Coffman, Ashley Short, Shaka Austin and colleagues, with an educational tracy from [employer]. MAGGIE-7 Assessment Billing MAGGIE-7 Assessment Tool: MAGGIE-7 Assessment 61127 Review of Systems Const Denies chills, Denies fatigue, Denies fever(s), Denies headache(s) and Denies weakness ENT Denies dizziness and Denies headache(s) Card Denies dyspnea Resp Denies cough, Denies dyspnea, Denies wheezing and Denies other (shortness of breath) Musc Denies numbness and Denies tingling Neuro Denies dizziness, Denies headache(s), Denies numbness, Denies tingling and Denies weakness Psych Denies anxiety and Denies depression Endo Denies fatigue Aller/Immun Denies wheezing Physical exam (Primary Care) Vital Signs: Last Vital Signs Temp 96.9 F 01/03/25 16:03 Pulse 98 01/03/25 16:03 Resp 12 01/03/25 16:03 BP 134/70 01/03/25 16:03 Pulse Ox 98 01/03/25 16:03 Oxygen Delivery Method Room Air 01/03/25 16:03 Tobacco/Smoking Status: Tobacco use Status Tobacco use date assessed 01/03/25 01/03/25 16:02 Patient Tobacco Use Status Never used Tobacco 01/03/25 15:59 e-Cigarette/Vaping Use Never Used 01/03/25 15:59 PHQ-9: PHQ-9 Score PHQ-9: Total score 0 01/03/25 16:21 Depression Screening Interpretation: Negative Thrive Assessment: Date of Thrive Assessment Date Thrive assessed 05/29/24 01/03/25 15:59 Currently or been in a relationship where the following occur: I choose not to answer Const General: well developed; No acute distress Nutritional Appearance: well nourished Orientation/consciousness: patient oriented x3 HENMT Head: Yes normocephalic and Yes atraumatic Eyes General: appearance normal, both eyes and all related structures Pupils: Equal, round and reactive pupils present EOM: EOMs intact bilaterally Resp Effort & Inspection: normal respiratory effort Neuro General: patient oriented x3 and gait normal Cranial nerves: Yes Equal, round and reactive pupils present Psych Affect: normal affect Results AMB Hemoglobin A1c AMB Hemoglobin A1c 7.5 % Last Edit by Dominique Church MA on 01/03/25 16:36 Coding Level of Care Code Est Pt Level 3 (75809) Est Pt Prev Care >65y(06180) Diagnoses Adult general medical exam Z00.00 Mild anemia D64.9 Diabetes E11.9 Back pain M54.9 Cervicalgia M54.2 Osteoporosis M81.0 Colon cancer screening Z12.11 Breast cancer screening by mammogram Z12.31 Polyarthralgia M25.50 Fibromyalgia M79.7 Chronic pain G89.29 Additional Codes MAGGIE-7 Assessment Billing - MAGGIE-7 Assessment Tool: MAGGIE-7 Assessment 88005 ([id number]) PHQ-9 - 23478 - PHQ-9 Billing: Yes ([id number]) Assessment & Plan Assessment & Plan (1) Adult general medical exam: Code(s): Z00.00 - Encounter for general adult medical examination without abnormal findings Category: Medical Plan: 64-year-old female presents for complete physical exam Encouraged healthy diet and activities/exercise as tolerated (2) Mild anemia: Code(s): D64.9 - Anemia, unspecified Category: Medical Plan: Stable Will continue to monitor (3) Diabetes: Code(s): E11.9 - Type 2 diabetes mellitus without complications Category: Medical Plan: A1c 7.5%. Goal is 7% She does not want to increase her metformin at this time. She is frequently on prednisone which raises her blood sugars Will give her testing supplies as she does not currently have them. Referring her to endocrinology (4) Back pain: Code(s): M54.9 - Dorsalgia, unspecified Category: Medical Plan: Neck and back pain Recent x-rays shows spondylosis but otherwise unremarkable She would like a referral to Ortho and I have made a referral to Pedro lopez at her request (5) Cervicalgia: Code(s): M54.2 - Cervicalgia Category: Medical Plan: As above (6) Osteoporosis: Code(s): M81.0 - Age-related osteoporosis without current pathological fracture Category: Medical Plan: History of osteoporosis and most recent bone density test last year Patient is concerned regarding bisphosphonates as she has GI issues and is afraid she will not tolerate this Referred to endocrinology (7) Colon cancer screening: Code(s): Z12.11 - Encounter for screening for malignant neoplasm of colon Category: Medical Plan: Followed by Dr. Christianson Up-to-date (8) Breast cancer screening by mammogram: Code(s): Z12.31 - Encounter for screening mammogram for malignant neoplasm of breast Category: Medical Plan: Up-to-date and will be due for her next mammogram in March (9) Polyarthralgia: Code(s): M25.50 - Pain in unspecified joint Category: Medical (10) Fibromyalgia: Code(s): M79.7 - Fibromyalgia Category: Medical (11) Chronic pain: Code(s): G89.29 - Other chronic pain Category: Medical Plan Neck and back pain, arthritis and polyarthralgia, fibromyalgia. Longstanding chronic pain. She uses some nonsteroidal anti-inflammatories as she is able to tolerate given GI issues, some Tylenol. We have tried gabapentin and Lyrica. We have tried amitriptyline. We have tried duloxetine at increasing doses without significant effect and she would like to decrease and discontinue this. We discussed judicious use of opioids at lowest effective doses. She says that she has had Vicodin in the past which was effective and did not cause adverse effects. Will give her a trial of Vicodin. She will follow-up in 1 month. Will check urine drug screen and have her complete pain contract. Orders: Orders AMB Hemoglobin A1c Today E11.9 - Type 2 diabetes mellitus without complications, Z13.9 - Encounter for screening, unspecified Referrals Orthopedics Referral M54.2 - Cervicalgia, M54.9 - Dorsalgia, unspecified Endocrinology Referral E11.9 - Type 2 diabetes mellitus without complications, M81.0 - Age-related osteoporosis without current pathological fracture
[2025-01-03 16:03] VITALS: BP 134/70; PULSE 98; RESP 12; TEMP 36.1; O2SAT 98
--- OUTSIDE RECORDS SUMMARY | 2025-01-03 18:00 | XMS_ITS | Clinical Summary ---
Author Organization [facility] Address [address] [place] [address] Phone Care Team Providers Care Gre Tutor Name Role Phone Capo Davila NP Primary [...] Diagnosed Date Chronic obstructive pulmonar y disease ([facility] V24, [facility] V28) 06/25/2024 Obstructive sleep apnea syndrome 06/25/2024 Surgical History Surgery Date Site/Laterality Comments KIDNEY STONE SURGERY x2 ADENOIDECTOMY TONSILLECTOMY HIGH TIBIAL OSTEOTOMY HERNIA REPAIR COLONOSCOPY Medical History Medical History Date Comments COPD (chronic obstructive pu lmonary disease) ([facility] V24, [facility] V28) Sleep apnea Chronic allergic rhinitis Kidney stone Asthma Shortness of breath HL (hearing loss) Cataract right eye Migraines Hyperlipidemia Diabetes mellitus ([facility] V24, [facility] V28) Fibromyalgia GERD (gastroesophageal reflux disease) Gastroparesis [...] 11/02/2023 Social Influencers of Health Screening 11/02/2023 Depression Screening 04/12/2024 COVID-19 Vaccine ( - season) 2024 04/07/2021, 07/17/2020, 06/26/2020 Influenza Vaccine (#1) 2024 3, 02/05/2022, 03/20/2021, [...] this topic Medical Devices Implanted Type Area Liner Man Device Identifier Shelf Expiration Date Model / Serial / Lot Stent Uret [id number] Contr P[employer]lex Hydroplus - [id number] - [id number] Implanted:Qty: 1 on 06/26/2024 by Ricky Diaz MD at [facility] Stents Left: [employer] Y 02/15/2027 [id number] / [id number] / [id number] Insurance [employer] MEDICARE Care Teams Gre Tutor Relationship Specialty Start Date End Date Capo Davila NP PCP - General Psychology 06/26/24
== END 2025-01-03 17:00 | disposition home or self-care (01) ==
LOC: HO.HMCFM 15:57
PROVIDERS: PCP Family Medicine; Visit Provider Family Medicine
DX: Z00.00 Encounter for general adult medical examination without abnormal findings (principal); M54.9 Dorsalgia, unspecified; E11.9 Type 2 diabetes mellitus without complications; M79.7 Fibromyalgia; M54.2 Cervicalgia; D64.9 Anemia, unspecified; M25.50 Pain in unspecified joint; G89.29 Other chronic pain; M81.0 Age-related osteoporosis without current pathological fracture; Z12.11 Encounter for screening for malignant neoplasm of colon; Z12.31 Encounter for screening mammogram for malignant neoplasm of breast

== ENCOUNTER → 2025-01-03 15:56 | Outpatient (BNVA) | payer MEDICARE, SELFPAY | PROVIDERS: PCP Family Medicine; Visit Provider Family Medicine | DX: Z00.00 Encounter for general adult medical examination without abnormal findings (principal); D64.9 Anemia, unspecified; E11.9 Type 2 diabetes mellitus without complications; M54.2 Cervicalgia; M81.0 Age-related osteoporosis without current pathological fracture; M79.7 Fibromyalgia; G89.29 Other chronic pain | CPT/HCPCS: 83036; 96127; 99212; 99397 ==

== ENCOUNTER 2025-02-20 14:07 | Outpatient (AMB) | payer MEDICARE, SELFPAY ==
--- NOTE | 2025-02-20 14:20 | A.OFFPC_ITS ---
Vital Signs 02/20/25 14:29 Height 5 ft 3 in Weight 275 lb BMI 48.7 BP 120/60 Blood Pressure Location Rt brachial Position Sitting Respiration 16 Pulse 100 Pulse Source Pulse Oximeter Temp 97.6 F Temp Source Oral Pulse Oximetry (%) 97 Oxygen Delivery Method Room Air Intake Visit Reasons: f/u chronic conditions -per Dr Mcwilliams Intake Note: patient is scheduled for a follow up for chronic conditions Choir Member Required: No Allergies Penicillins Allergy (Intermediate, Verified 02/20/25 14:25) RASH-FULL BODY Sulfa (Sulfonamide Antibiotics) Allergy (Intermediate, Verified 02/20/25 14:25) RASH-FULL BODY Medication List - Last Reconciled 02/20/25 by Stan Davila MD albuterol sulfate 90 mcg/actuation 2 puffs PO Q6H PRN aspirin 81 mg PO DAILY atorvastatin 80 mg PO QPM azithromycin 250 mg PO 3XW 28 days blood sugar diagnostic (Accu-Chek Guide test strips) Check blood sugar 2 times a day As directed, 90 days blood-glucose meter (Accu-Chek Guide Me Glucose Meter) Check blood sugar 2 times a day As directed, 999 days budesonide 0.25 mg (2 mL) inhalation BID njaondsypt-kacyjmhgdhskj-zbvr 50-300-40 mg (Fioricet) 1 cap PO Q8H PRN cyclobenzaprine 10 mg PO BEDTIME PRN 30 days duloxetine 20 mg PO BID fluticasone propionate 50 mcg/actuation 1 spray intranasal Q12H furosemide (Lasix) 20 mg PO DAILY PRN 30 days hydrocodone-acetaminophen 5-325 mg 0.5 tabs PO DAILY PRN 30 days ipratropium-albuterol 0.5 mg-3 mg(2.5 mg base)/3 mL 3 mL inhalation QID lancets (Accu-Chek Softclix Lancets) Check blood sugar 2 times a day As directed, 999 days lorazepam 0.5 mg PO DAILY meclizine 12.5 mg PO DAILY PRN 30 days metformin 500 mg PO DAILY 90 days miscellaneous medical supply Motorized scooter. Daily As directed, 999 days nebulizers As directed omeprazole 40 mg PO BID 90 days propranolol 10 mg PO BID 90 days roflumilast 500 mcg PO DAILY theophylline ER 150 mg (1/2 x 300 mg) PO Q12H 30 days Tobacco use date assessed: 01/03/25 Dental Screening Dental Screen Date: 01/03/25 HPI f/u chronic conditions -per Dr Kaufman. HPI Details 64 y/o female presents to f/u chronic pa in. Pt had neck, back pain, arthritis and polyarthalgia/fibromyalgia. Longstanding chronic pain. Had given her a trial of Vicodin. She notes she had felt a whole tablet of Vicodin felt too much. She notes she had felt too relaxed. HPI Comments History of Present Illness Details Documentation assistance for Stan Davila MD, was provided by Deny Geiger,? Manager Technology on 02/20/2025 at 2:49 PM EST. I, Dr. Davila, have read, observed, and verified documentation. ? PFS Medical History (Updated 01/03/25 @ 17:43 by Stan Davila MD) Hx of nephrolithotomy with removal of calculi Leg edema Dyspnea Pulmonary nodules Blepharitis of eyelid of left eye Morbid obesity GERD (gastroesophageal reflux disease) Asthma-COPD overlap syndrome ROSITA (obstructive sleep apnea) Surgical History History of hernia repair H/O esophagogastroduodenoscopy History of colonoscopy H/O wisdom tooth extraction History of tonsillectomy and adenoidectomy Family History Father Aneurysm Peptic ulcer disease Mother Cardiovascular disease Asthma Social History Household Members: Friend(s) Housing: House Alcohol intake: never Patient Tobacco Use Status: Never used Tobacco e-Cigarette/Vaping Use: Never Used Second Hand Smoke Exposure: No service: No Current occupational status: employed and disabled 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 Current occupational exposures/hazards: No Cognitive needs: No Hearing needs: No Vision needs: No Female Reproductive History Menstrual Age of Menarche: 7 Questionnaire Thrive Questionnaire Date Thrive assessed: 05/29/24 I am a: Patient What is your living situation today?: I have a steady place to live Within the past 12 months, did the food you bought not last and you didn't have the money to get more?: I choose not to answer this question Within the past 12 months, did you worry whether your food would run out before you got money to buy more?: I choose not to answer this question Do you have trouble paying for medicines?: I choose not to answer this question Do you have trouble getting transportation to medical appointments?: I choose not to answer this question Do you have trouble paying your heating and electricity bill?: I choose not to answer this question Do you have trouble taking care of your child, family member or friend?: I choose not to answer this question Do you have trouble with day-to-day activities such as bathing, preparing meals, shopping, managing finances, etc.?: I choose not to answer this question Are you currently unemployed and looking for a job?: I choose not to answer this question Are you interested in more education?: No Please select the resources that you would like help with: None Currently or been in a relationship where the following occur: I choose not to answer THRIVE Score: 0 MAGGIE-7 AMB Questionnaire MAGGIE-7 Date MAGGIE - 7 assessed: 01/03/25 Source: Developed by Drs. Zohaib Coffman, Ashley Short, Shaka Austin and colleagues, with an educational tracy from [employer]. Review of Systems Const Denies chills, Denies fatigue, Denies fever(s), Denies headache(s) and Denies weakness ENT Denies dizziness and Denies headache(s) Card Denies dyspnea Resp Denies cough, Denies dyspnea, Denies wheezing and Denies other (shortness of breath) Musc Denies numbness and Denies tingling Neuro Denies dizziness, Denies headache(s), Denies numbness, Denies tingling and Denies weakness Psych Denies anxiety and Denies depression Endo Denies fatigue Aller/Immun Denies wheezing Physical exam (Primary Care) Vital Signs: Last Vital Signs Temp 97.6 F 02/20/25 14:29 Pulse 100 02/20/25 14:29 Resp 16 02/20/25 14:29 BP 120/60 02/20/25 14:29 Pulse Ox 97 02/20/25 14:29 Oxygen Delivery Method Room Air 02/20/25 14:29 BMI result Body Mass Index 48.7 Tobacco/Smoking Status: Tobacco use Status Tobacco use date assessed 01/03/25 02/20/25 14:32 Patient Tobacco Use Status Never used Tobacco 02/20/25 14:32 e-Cigarette/Vaping Use Never Used 02/20/25 14:32 Thrive Assessment: Date of Thrive Assessment Date Thrive assessed 05/29/24 02/20/25 14:32 Currently or been in a relationship where the following occur: I choose not to answer Const General: well developed; No acute distress Nutritional Appearance: well nourished and obese morbidly obese Orientation/consciousness: patient oriented x3 HENMT Head: Yes normocephalic and Yes atraumatic Eyes General: appearance normal, both eyes and all related structures Pupils: Equal, round and reactive pupils present EOM: EOMs intact bilaterally Resp Effort & Inspection: normal respiratory effort Neuro General: patient oriented x3 and gait normal Cranial nerves: Yes Equal, round and reactive pupils present Psych Affect: normal affect Coding Level of Care Code Est Pt Level 3 (40113) Diagnoses Chronic pain G89.29 Fibromyalgia M79.7 Assessment & Plan Assessment & Plan (1) Chronic pain: Code(s): G89.29 - Other chronic pain Category: Medical (2) Fibromyalgia: Code(s): M79.7 - Fibromyalgia Category: Medical Plan Neck and back pain, arthritis and polyarthralgia, fibromyalgia. Longstanding chronic pain. She uses some nonsteroidal anti-inflammatories as she is able to tolerate, given GI issues, some Tylenol. We have tried gabapentin and Lyrica. We have tried amitriptyline. We have tried duloxetine at increasing doses without significant effect and she would like to decrease and discontinue this. We discussed judicious use of opioids at lowest effective doses. Patient notes that she tried Vicodin 1 tablet daily and felt this was actually too strong. She broke them in half and had good affect without any adverse effects. Pain contract filled out today. Will give her a script for Vicodin Discussed the terms of our pain contract agreement and will check urine drug screen. She will follow-up in 1 month. Medications: New duloxetine 20 mg PO BID 180 caps 3RF 90 days Changed From hydrocodone-acetaminophen 5-325 mg MassPat Verified. Partial Fill upon patient request. 1 tab PO DAILY 30 days PRN 10 tabs 0RF pain G89.29 - Other chronic pain, M17.0 - Bilateral primary osteoarthritis of knee, M25.50 - Pain in unspecified joint, M79.10 - Myalgia, unspecified site To hydrocodone-acetaminophen 5-325 mg Pain Contract signed. Patt Verified. Partial Fill upon patient request. 0.5 tabs PO DAILY PRN 15 tabs 0RF pain 30 days G89.29 - Other chronic pain, M17.0 - Bilateral primary osteoarthritis of knee, M25.50 - Pain in unspecified joint, M79.10 - Myalgia, unspecified site From duloxetine 30 mg PO BID 30 days 60 caps 3RF To duloxetine 20 mg PO BID
[2025-02-20 14:29] VITALS: BP 120/60; PULSE 100; RESP 16; TEMP 36.4; O2SAT 97; BMI 48.7
--- OUTSIDE RECORDS SUMMARY | 2025-02-20 15:48 | XMS_ITS | Clinical Summary ---
Author Organization [facility] Address [address] [place] [address] Phone Care Team Providers Care Cyanide Pot Tender Name Role Phone Capo Davila NP Primary [...] Diagnosed Date Chronic obstructive pulmonar y disease ([facility] V24, [facility] V28) 06/25/2024 Obstructive sleep apnea syndrome 06/25/2024 Surgical History Surgery Date Site/Laterality Comments KIDNEY STONE SURGERY x2 ADENOIDECTOMY TONSILLECTOMY HIGH TIBIAL OSTEOTOMY HERNIA REPAIR COLONOSCOPY Medical History Medical History Date Comments COPD (chronic obstructive pu lmonary disease) ([facility] V24, [facility] V28) Sleep apnea Chronic allergic rhinitis Kidney stone Asthma Shortness of breath HL (hearing loss) Cataract right eye Migraines Hyperlipidemia Diabetes mellitus ([facility] V24, [facility] V28) Fibromyalgia GERD (gastroesophageal reflux disease) Gastroparesis Dizziness Arthritis Joint pain Anxiety Restless leg syndrome Social History Tobacco Use Types Packs/Day Years Used Date Smoking Tobacco: Never Smokeless Tobacco: Never Tobacco Cessation:Counseling Given: Not Answered Interpersonal Safety Answer Date Record ed Physical Abuse Unrecognized value 06/26/2024 Verbal Abuse Unrecognized value 06/26/2024 Comments No Sex and Gender Information [...] Last Done Comments Breast Cancer Screening 1960 Colorectal Cancer Screening: Colonoscopy 1960 RSV Immunization Adult Patients (1 - Risk 50-74 years 1-dose series) 2008 Zoster Vaccines (1 of 2) 2008 DTaP,Tdap,and Td Vaccines (2 - Tdap) 05/26/2021 05/26/2011 Cholesterol Screening (Lipid Panel) 11/02/2023 Hepatitis C Screening 11/02/2023 Medicare Annual Wellness Visit 11/02/2023 Osteoporosis Screening (Bone Density Screening) 11/02/2023 Social Influencers of Health Screening 11/02/2023 Depression Screening 04/12/2024 COVID-19 Vaccine ( season) 2024 04/07/2021, 07/17/2020, 06/26/2020 Influenza Vaccine [...] this topic Medical Devices Implanted Type Area Internet Marketing Manager Device Identifier Shelf Expiration Date Model / Serial / Lot Stent Uret [id number] Contr Percuflex [employer]plus - [id number] - [id number] Implanted:Qty: 1 on 06/26/2024 by Ricky Diaz MD at [facility] Stents Left: [employer]reter [employer] Y 02/15/2027 [id number] / [id number] / [id number] Insurance [employer] MEDICARE Care Teams Cyanide Pot Tender Relationship Specialty Start Date End Date Capo Davila NP PCP - General Psychology 06/26/24
== END 2025-02-20 15:06 | disposition home or self-care (01) ==
LOC: HO.HMCFM 14:08
PROVIDERS: PCP Family Medicine; Visit Provider Family Medicine
DX: G89.29 Other chronic pain (principal); M79.7 Fibromyalgia

== ENCOUNTER → 2025-02-20 14:07 | Outpatient (BNVA) | payer MEDICARE, SELFPAY | PROVIDERS: PCP Family Medicine; Visit Provider Family Medicine | DX: M79.7 Fibromyalgia (principal); M54.2 Cervicalgia; M54.9 Dorsalgia, unspecified; G89.29 Other chronic pain | CPT/HCPCS: 99212 ==

== ENCOUNTER 2025-03-27 13:19 | Outpatient (AMB) | payer MEDICARE, MEDICAID, SELFPAY ==
--- NOTE | 2025-03-27 13:20 | MHC.OFFVIS ---
Vital Signs 03/27/25 13:21 Height 5 ft 3 in BMI Reason not done Patient refused/unable BP 160/76 H Blood Pressure Location Lt brachial Position Sitting Pulse 100 Pulse Source Pulse Oximeter Intake Visit Reasons: COPD Tower Director Required: No Director Statistical Programming: Director Statistical Programming offered & declined Accompanied by: Self / Same As Patient Allergies Penicillins Allergy (Intermediate, Verified 03/27/25 13:24) RASH-FULL BODY Sulfa (Sulfonamide Antibiotics) Allergy (Intermediate, Verified 03/27/25 13:24) RASH-FULL BODY HPI Comments Details: The patient is a 65-year-old woman with a known history of COPD, obstructive sleep apnea and obesity. Overall she has been responding very well to the respiratory therapy. Her respiratory status has improved dramatically. She has also been able to lose a good amunt f weigt with a combination of diet and also medications Daliresp. Hopefully she can lose enough weight to have her knee surgery. In the meantime she still has a diagnosis sleep apnea. She her allergy med. She does have daytime drowsiness. Her Eagle score still elevated 04/04. the patient needs to have a sleep study at this time. 06/26/2022 the patient is here for pulmonary follow-up visit. The patient is back to her baseline. Her breathing is better. She has been very sad by the fact that she lost a good friend and roommate. She had early onset colon cancer. In regards of her pulmonary nodule she did undergo a repeat CT scan of the chest demonstrating a ground-glass nodular density measuring about 1.2 cm. Therefore, based on the fact that this nodular densities now greater than a cm and she has other pulmonary nodules will go ahead and repeat her CT scan in 6 months. In the meantime she will continue with current respiratory therapy. 12/24/2022 the patient is here for pulmonary follow-up visit. She does not feel well. Has been having increasing dyspnea in addition to cough. Moderate severity. Her respiratory therapy has been partially helpful. Over the summer she was diagnosed with migraines. She has been having hard time. She was placed on propanolol. Explained to her that possibly the propranolol is causing her respiratory symptoms to be worse. Although the propanolol seems to be helping her migraines. She will talk to her primary care doctor about potentially switching the beta-swathi to a calcium channel swathi or different agent altogether. The patient get try the Tessalon Perles. I did provide her with good Rx card that she can use to try to get it for a more reasonable cost. We also reviewed her CT scan of the chest that she had recently. We compared to the CT scan that she had back 6 months ago and also CT scan that she had a year ago. All were personally by me. It appears that this nodular density is subsolid nature and appears to be increasing size when compared to year ago. Therefore, based on the fact that is measuring 1 with 2 cm and appears to be slightly larger will go ahead and repeat the CT scan again 6 months. If he continues to change and or increase in size the patient will need to be evaluated by thoracic surgery. 06/24/2023 the patient is here for pulmonary follow-up visit. She continues to complain of significant dyspnea. Moderate severity be with minimal activity. She has been on maximum respiratory therapy with only partial resolution in her symptoms. On examination she does not have significant wheezing. She does have evidence of 2+ pitting edema in lower extremities. The patient is agreeable to taking a short course of diuretics. Based on her significant lower extremity edema and echocardiogram will be warranted. She does follow-up with cardiology here. I will let the no about her symptoms and findings. The patient did have a CT scan of the chest done May 2023. we personally reviewed the images together. It appears that she has a stable 1 cm pulmonary nodule. Subsolid nature. She will need another CT scan in a year's time. Still, no explanation for significant dyspnea except for volume overload status. Need to consider pulmonary hypertension. Therefore will request a repeat echocardiogram. 09/30/2023 the patient is here for pulmonary follow-up visit. She Is overall feeling better. Her chest tightness and wheezing has improved. She did take the short course of diuretic. also, underwent an echocardiogram which we did review together demonstrating a mild decrease in the ejection fraction in addition to some mild diastolic dysfunction. She continues use her respiratory therapy with good effect. Her last CT scan of the chest was back in 06/01/2023 demonstrating 1 cm subsolid nodular density in the right upper lobe. This appears to be stable when compared to previous. This will need a longer course follow-up secondary to the subsolid nature of it. Will discuss additional imaging when she returns in 4-6 months. 02/10/2024 the patient is here for pulmonary follow-up visit. The patient well until about a week ago. She had gone to a wedding in [place]. She stayed in hotel and felt that the air was cold and dry and she was a little uncomfortable. Her breathing started getting more labored with chest tightness and a dry cough. Her symptoms then persistent when she came back to [place]. She always call for medications but she was going to see her primary care doctor. But then she had to cancel. She has felt that her breathing has been off. She has been having to use her nebulizer at nighttime because waking up with wheezing. She is not able to expectorate anything right now. Although her cough just keeps her up. On exam she is moving good air. No significant wheezing at this time although she did her treatments before coming in. I will go ahead and send her medicines in case she develops worsening symptoms treated for an asthma exacerbation. And also something to help with the cough. The patient is due for a CT scan sometime in 03/31/2024 will follow-up with her after that. If any issues arise the patient will call for further evaluation. 05/02/2024 the patient is here for a pulmonary follow-up visit. She is finally feeling better after the last course of prednisone. She has been able to do the activities of daily living without significant shortness of breath. Denies any significant congestion. As far as her breathing medications Spiriva is no longer covered. In addition to that Brovana been difficult to use. Will go ahead and discontinue the Brovana and switch over to DuoNeb in order for her to be able to get the combination nebulized therapy in conjunction with the budesonide to provide her with triple therapy. This will be more effective in beneficial for her. If she has any issues with this regimen she can always call we can switch her back to her previous regimen. Otherwise follow-up in 4 months. She has any issues she will call for an earlier assessment. 08/22/2024 the patient is here for a pulmonary follow-up visit. Overall she is doing well from a respiratory status we can switch her Brovana to DuoNeb. Seems to be tolerating it well. She continues on the budesonide. She also continues on Daliresp. She still has issues with shortness of breath and chest tightness and wheezing. We did talk about considering Ohtuvayre as another alternative in addition to the current therapy to see if we can provide further bronchodilation improve airway capacity. In the meantime she has had multiple procedures for kidney stone removal. Then she will had a CT scan of the abdomen demonstrating what appeared to be a density on 1 of the kidneys. Ultimately underwent a CT scan of the abdomen with IV contrast which suggest that the lesion is cystic lesion. She is going to continue with either CAT scans or MRIs. I did review the CT scan of the abdomen lung windows actually played to be clear without any acute disease. The patient follow-up in 6 months if any issues arise she will call for an earlier assessment. 12/12/2024 the patient is here for sick visit. She has not been feeling well for about 3 weeks. She had call the office and we did send some prednisone for an asthma exacerbation. Although she did not feel like she had any significant improvement. She still struggling with shortness a breath and daytime drowsiness age just fatigue in general. She has a hard time doing any activities of daily living because of the shortness of breath. The patient has continued to use her respiratory therapy as prescribed. Using the DuoNeb 4 times a day and also the budesonide. She completed the prednisone at this time. The patient is also complaining of burning and pain in the mid upper back area. It happened while she was coughing. She denies having any compression fractures in the past. She has had bone density test in the past though demonstrating some decreased density. At this point will go ahead and request a chest x-ray in addition to thoracic and cervical spine x-rays. Will also request blood work. In the meantime she does have a cough and difficult to expectorate. Will go ahead and start her on azithromycin for now to see if this provides some relief. Will hold off on the prednisone for now. 03/27/2025 the patient is here for pulmonary follow-up visit. The patient overall has been doing better. She did start the theophylline she found that very helpful. She has not required her rescue inhalers often. Her wheezing has improved. She does have still some shortness of breath and that is multifactorial. Moderate severity. The patient also had been on the azithromycin 3 times a week for chronic bronchitis in the anti-inflammatory properties but at this point she does not need it any longer and was not as helpful. She does continue with the nebulized therapy with good response. We also did look at her last imaging study which is a CAT scan from March 2024. She has multiple nodules. At this point she would need a repeat CAT scan to follow-up with the nodules especially the largest 1 of 9 mm. The patient will return in the spring. If any issues arise the patient should call for further recommendations. If her CAT scans abnormal I would also call her or have her come in at an earlier time. [facility] Medical History (Updated 01/03/25 @ 17:43 by Stan Davila MD) Hx of nephrolithotomy with removal of calculi Leg edema Dyspnea Pulmonary nodules Blepharitis of eyelid of left eye Morbid obesity GERD (gastroesophageal reflux disease) Asthma-COPD overlap syndrome ROSITA (obstructive sleep apnea) Surgical History History of hernia repair H/O esophagogastroduodenoscopy History of colonoscopy H/O wisdom tooth extraction History of tonsillectomy and adenoidectomy Family History Father Aneurysm Peptic ulcer disease Mother Cardiovascular disease Asthma Social History Household Members: Friend(s) Housing: House Alcohol intake: never Patient Tobacco Use Status: Never used Tobacco e-Cigarette/Vaping Use: Never Used Second Hand Smoke Exposure: No service: No Current occupational status: employed and disabled 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 Current occupational exposures/hazards: No Cognitive needs: No Hearing needs: No Vision needs: No Female Reproductive History Menstrual Age of Menarche: 7 Review of Systems Const Denies chills, Reports fatigue, Denies fever(s), Denies weight gain and Denies weight loss ENT Denies dizziness Card Denies chest pain, Denies leg edema, Denies lightheadedness, Denies palpitations, Reports dyspnea on exertion, Denies orthopnea and Denies other Resp Reports cough, Reports dyspnea on exertion and Reports wheezing GI Denies hematochezia and Denies change in stool character Reports as per HPI Musc Reports abnormal gait, Denies muscle weakness, Denies numbness, Denies radiating pain into limb and Denies tingling Neuro Reports abnormal gait, Denies dizziness, Denies numbness and Denies tingling Psych Denies anxiety and Denies depression Endo Reports fatigue and Denies palpitations Aller/Immun Reports wheezing Physical Exam Vital Signs: Last Vital Signs Pulse 100 03/27/25 13:21 BP 160/76 H 03/27/25 13:21 Const General: comfortable and no acute distress Orientation/consciousness: patient oriented x3 HEENT Other: Unremarkable Head: Yes normal to inspection Neck Neck: Yes normal visual inspection Chest Chest palpation & inspection: normal inspection of the chest Resp Auscultation: no crackles, no rales, no rhonchi, no wheezes and diminished lung sounds Cardio Palpation: normal PMI Heart sounds: S1 normal heart sound present, S2 normal heart sound present, no gallops, Murmur heart sound present systolic early, II/ and at the right sternal border and no rubs GI Palpation (GI): Soft to palpation Back/Spine/Pelvis Other: unremarkable Skin General skin exam: no rashes or lesions noted Neuro General: patient oriented x3 Extrem General: No clubbing, No cyanosis and Yes edema Psych Mental Status: mental status grossly normal Assessment & Plan Assessment & Plan (1) Asthma-COPD overlap syndrome: Code(s): J44.9 - Chronic obstructive pulmonary disease, unspecified Category: Medical (2) ROSITA (obstructive sleep apnea): Code(s): G47.33 - Obstructive sleep apnea (adult) (pediatric) Category: Medical (3) GERD (gastroesophageal reflux disease): Code(s): K21.9 - Gastro-esophageal reflux disease without esophagitis Category: Medical Qualifiers: Esophagitis bleeding: without hemorrhage Esophagitis presence: with esophagitis Qualified Code(s): K21.00 - Gastro-esophageal reflux disease with esophagitis, without bleeding (4) Pulmonary nodules: Code(s): R91.8 - Other nonspecific abnormal finding of lung field Category: Medical (5) Dyspnea: Code(s): R06.00 - Dyspnea, unspecified Category: Medical Qualifiers: Dyspnea type: dyspnea on exertion Qualified Code(s): R06.09 - Other forms of dyspnea (6) Leg edema: Code(s): R60.0 - Localized edema Category: Medical Plan continue Duoneb budesonide continue Daliresp 500 mcg daily consider Ohtuvayre completed Azithromycin MWF CT chest to f/u pulmonary nodules continue Theophylline short-acting beta agonist follow-up in 4-6 months Orders: Orders Venous Blood Gas Today J44.9 - Chronic obstructive pulmonary disease, unspecified Basic Metabolic Panel Today J44.9 - Chronic obstructive pulmonary disease, unspecified Theophylline Today J44.9 - Chronic obstructive pulmonary disease, unspecified CT chest wo IV con Today R91.1 - Solitary pulmonary nodule Coding Level of Care Code Est Pt Level 4 (13635) Diagnoses Asthma-COPD overlap syndrome J44.9 ROSITA (obstructive sleep apnea) G47.33 Gastroesophageal reflux disease with esophagitis without hemorrhage K21.00 Esophagitis bleeding: without hemorrhage Esophagitis presence: with esophagitis Pulmonary nodules R91.8 Dyspnea on exertion R06.09 Dyspnea type: dyspnea on exertion Leg edema R60.0 Time Spent (min) 18
[2025-03-27 13:21] VITALS: BP 160/76; PULSE 100
--- OUTSIDE RECORDS SUMMARY | 2025-03-27 17:20 | XMS_ITS | Clinical Summary ---
Author Organization [facility] Address [address] [place] [id number] Phone Care Team Providers Care Director Summer Sessions Name Role Phone Unavailable Primary Care Provider Unavailabl e Encounters Date Type Department Care Team Description 02/21/2025 Transcribe Orders [facility] [address] [place] [address] Stan Davila MD Type 2 diabetes mellitus with hyperglycemia, unspecified whether [place] [facility] insulin use (Primary Dx); Age-related osteoporosis without current pathological fracture from Last 3 Months Social History Tobacco Use Types Packs/Day Years Used Date Smoking Tobacco: Never Assessed Comments Unknown Sex and Gender Information Value Date Recorded Sex Assigned at Not on file Legal Sex Female 5:33 PM EST Gender Identity Not on file Sexual Orientation Not on file Plan of Treatment Not on file Medical Devices Not on file Additional Source Comments The information contained in this document represents components of the legal health record. It is not the complete legal health record.[facility]
--- OUTSIDE RECORDS SUMMARY | 2025-03-27 17:20 | XMS_ITS | Clinical Summary ---
Author Organization [facility] Address [address] [place] [address] Phone Care Team Providers Care Furniture Sprayer Name Role Phone Capo Davila NP Primary [...] Problem Noted Date Diagnosed Date Chronic obstructive pulmonary disease 06/25/2024 Obstructive sleep apnea syndrome 06/25/2024 Surgical History Surgery Date Site/Laterality Comments KIDNEY STONE SURGERY x2 ADENOIDECTOMY TONSILLECTOMY HIGH TIBIAL OSTEOTOMY HERNIA REPAIR COLONOSCOPY Medical History Medical History Date Comments COPD (chronic obstructive pu lmonary disease) ([facility] V24, [facility] V28) Sleep apnea Chronic allergic rhinitis Kidney stone Asthma Shortness of breath HL (hearing loss) Cataract right eye Migraines Hyperlipidemia Diabetes mellitus ([facility] V24, [facility] V28) Fibromyalgia GERD (gastroesophageal reflux disease) Gastroparesis [...] Orientation Straight 06/26/2024 6: 00 AM EDT Last Filed Vital Signs Vital Sign Reading [...] this topic Medical Devices Implanted Type Area Lead Manufacturing Engineer Device Identifier Shelf Expiration Date Model / Serial / Lot Stent Uret [id number] Contr Percuflex [employer] - [id number] - [id number] Implanted:Qty: 1 on 06/26/2024 by Ricky Diaz MD at [facility] Stents Left: [employer] Y 02/15/2027 [id number] / [id number] / [id number] Insurance [employer] MEDICARE Care Teams Furniture Sprayer Relationship Specialty Start Date End Date Capo Davila NP PCP - General Psychology 06/26/24
== END 2025-03-27 13:43 | disposition home or self-care (01) ==
PROVIDERS: PCP Family Medicine; Visit Provider Hospitalist
DX: J44.9 Chronic obstructive pulmonary disease, unspecified (principal); G47.33 Obstructive sleep apnea (adult) (pediatric); K21.00 Gastro-esophageal reflux disease with esophagitis, without bleeding; R91.8 Other nonspecific abnormal finding of lung field; R06.09 Other forms of dyspnea; R60.0 Localized edema
CPT/HCPCS: 99214

== ENCOUNTER → 2025-03-27 13:19 | Outpatient (BNVA) | payer MEDICARE, SELFPAY | PROVIDERS: PCP Family Medicine; Visit Provider Hospitalist | DX: J44.9 Chronic obstructive pulmonary disease, unspecified (principal); G47.33 Obstructive sleep apnea (adult) (pediatric); K21.00 Gastro-esophageal reflux disease with esophagitis, without bleeding; R91.8 Other nonspecific abnormal finding of lung field; R06.09 Other forms of dyspnea; R60.0 Localized edema | CPT/HCPCS: 99212 ==

== ENCOUNTER 2025-03-29 14:11 | Outpatient (AMB) | payer MEDICARE, MEDICAID, SELFPAY ==
--- NOTE | 2025-03-29 14:13 | MHC.PC.OV ---
Vital Signs 03/29/25 14:18 03/29/25 14:48 Height 5 ft 3 in BMI Reason not done Patient refused/unable BP 146/76 H 124/64 Blood Pressure Location Rt brachial Rt brachial Position Sitting Sitting Respiration 14 Pulse 113 H 110 H Pulse Source Pulse Oximeter Pulse Oximeter Temp 97.5 F Temp Source Temporal Artery Scan Pulse Oximetry (%) 98 Oxygen Delivery Method Room Air Intake Visit Reasons: f/u chronic pain Intake Note: Follow up on chronic px. Patient c/o bump on her nose and right eye is bothering x 1 week. Director Voice Required: No Allergies Penicillins Allergy (Intermediate, Verified 03/29/25 14:14) RASH-FULL BODY Sulfa (Sulfonamide Antibiotics) Allergy (Intermediate, Verified 03/29/25 14:14) RASH-FULL BODY Tobacco use date assessed: 03/29/25 Fall risk assessment: No Falls in past year Last assessed Fall Risk: 03/29/25 Dental Screening Dental Screen Date: 03/29/25 Did you have a dental visit in the last 12 months?: Yes Did you have a dental problem in the last 6 months where you did not have access to dental care?: No Was dental information given to patient?: Patient has dentist HPI f/u chronic pain HPI Details 65 y/o female presents to f/u chronic pain. Ongoing chronic knee pain. Notes improvement with hydrocodone. Uses sparingly and notes she relies on her other meds. Blood pressure today 146/76, 113p. 126/64, 110p upon relaxation. Notes some mild allergies. [facility] Medical History (Updated 03/29/25 @ 14:37 by Deny Geiger) Hx of nephrolithotomy with removal of calculi Leg edema Dyspnea Pulmonary nodules Blepharitis of eyelid of left eye Morbid obesity GERD (gastroesophageal reflux disease) Asthma-COPD overlap syndrome ROSITA (obstructive sleep apnea) Surgical History History of hernia repair H/O esophagogastroduodenoscopy History of colonoscopy H/O wisdom tooth extraction History of tonsillectomy and adenoidectomy Family History Father Aneurysm Peptic ulcer disease Mother Cardiovascular disease Asthma Social History Housing: House Alcohol intake: never Patient Tobacco Use Status: Never used Tobacco e-Cigarette/Vaping Use: Never Used Second Hand Smoke Exposure: No service: No Current occupational status: employed and disabled 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 Zohaib Coffman, Ashley Short, Shaka Austin and colleagues, with an educational tracy from [employer]. Review of Systems Const Denies chills, Denies fatigue, Denies fever(s), Denies headache(s) and Denies weakness ENT Denies dizziness and Denies headache(s) Card Denies dyspnea Resp Denies cough, Denies dyspnea, Denies wheezing and Denies other (shortness of breath) Musc Denies numbness and Denies tingling Neuro Denies dizziness, Denies headache(s), Denies numbness, Denies tingling and Denies weakness Psych Denies anxiety and Denies depression Endo Denies fatigue Aller/Immun Denies wheezing Physical exam (Primary Care) Vital Signs: Last Vital Signs Temp 97.5 F 03/29/25 14:18 Pulse 110 H 03/29/25 14:48 Resp 14 03/29/25 14:18 BP 124/64 03/29/25 14:48 Pulse Ox 98 03/29/25 14:18 Oxygen Delivery Method Room Air 03/29/25 14:18 Tobacco/Smoking Status: Tobacco use Status Tobacco use date assessed 03/29/25 03/29/25 14:16 Patient Tobacco Use Status Never used Tobacco 03/29/25 14:16 e-Cigarette/Vaping Use Never Used 03/29/25 14:16 Thrive Assessment: Date of Thrive Assessment Date Thrive assessed 05/29/24 03/29/25 14:16 Const General: well developed; No acute distress Nutritional Appearance: well nourished Orientation/consciousness: patient oriented x3 HENMT Head: Yes normocephalic and Yes atraumatic Eyes General: appearance normal, both eyes and all related structures Pupils: Equal, round and reactive pupils present EOM: EOMs intact bilaterally Resp Effort & Inspection: normal respiratory effort Neuro General: patient oriented x3 and gait normal Cranial nerves: Yes Equal, round and reactive pupils present Psych Affect: normal affect Coding Level of Care Code Est Pt Level 3 (40856) Diagnoses Chronic pain . Allergies T78.40XA Assessment & Plan Assessment & Plan (1) Chronic pain: Code(s): . - Other chronic pain Category: Medical Plan: Ongoing chronic knee pain. Patient notes significant improvement with hydrocodone Using sparingly and relying on her other medications as well. Will continue medication. Due for urine drug screen today (2) Allergies: Code(s): T78.40XA - Allergy, unspecified, initial encounter Category: Medical Plan: Mild allergy with some eyelid swelling/blepharitis. This appears to be local or contact reaction and not a generalized or fullface reaction. Continue allergic medication and can try a moisturizing cream on her skin that has no dyes or perfumes. If continues, she follow-up with her eye doctor regarding mild swelling Orders: Orders Drug Screen Urine Today - Other chronic pain Medications: New naloxone 4 mg/actuation (Narcan) spray 1 dose into ONE nostril; alternate nostrils w each dose until help arrives 4 mg intranasal Q3M PRN 2 ea 2RF opioid overdose 30 days - Other chronic pain Refilled hydrocodone-acetaminophen 5-325 mg Pain Contract signed. [employer] Verified. Partial Fill upon patient request. 0.5 tabs PO DAILY PRN 15 tabs 0RF pain 30 days G - Other chronic pain, M17.0 - Bilateral primary osteoarthritis of knee, M25.50 - Pain in unspecified joint, M79.10 - Myalgia, unspecified site
[2025-03-29 14:18] VITALS: BP 146/76; PULSE 113; RESP 14; TEMP 36.4; O2SAT 98
[2025-03-29 14:48] VITALS: BP 124/64; PULSE 110
--- OUTSIDE RECORDS SUMMARY | 2025-03-29 18:24 | XMS_ITS | Clinical Summary ---
Author Organization [facility] Address [address] [place] [address] Phone Care Team Providers Care Circuit Board Assembler Name Role Phone Capo Davila NP Primary [...] Comments COPD (chronic obstructive pu lmonary disease) ([facility] V24, [facility] V28) Sleep apnea Chronic allergic rhinitis Kidney stone Asthma Shortness of breath HL (hearing loss) Cataract right eye Migraines Hyperlipidemia Diabetes mellitus ([facility] V24, [facility] V28) Fibromyalgia GERD (gastroesophageal reflux disease) Gastroparesis [...] Screening 1958 Colorectal Cancer Screening: Colonoscopy 1960 Drug Screen 1960 Non-Opioid Controlled Substance Agreement 1958 RSV Immunization Adult Patients (1 - [...] this topic Medical Devices Implanted Type Area Felt Hooker Device Identifier Shelf Expiration Date Model / Serial / Lot Stent Uret [id number] Contr Percuflex Hydroplus - [id number] - [id number] Implanted:Qty: 1 on 06/26/2024 by Ricky Diaz MD at [facility] Stents Left: Ureter [employer] Y 02/15/2027 [id number] / [id number] / [id number] Insurance [place] [id number] Care Teams Circuit Board Assembler Relationship Specialty Start Date End Date Capo Davila NP PCP - General Psychology 06/26/24
--- OUTSIDE RECORDS SUMMARY | 2025-03-29 18:24 | XMS_ITS | Clinical Summary ---
Author Organization [facility] Address [address] [place] [id number] Phone Care Team Providers Care Gravity Prospecting Supervisor Name Role Phone Unavailable Primary Care Provider Unavailabl e Encounters Date Type Department Care Team Description 02/21/2025 Transcribe Orders [facility] [address] [place] [address] Stan Davila MD Type 2 diabetes mellitus with hyperglycemia, unspecified whether skilled nursing insulin use (Primary Dx); Age-related osteoporosis without [...] It is not the complete legal health record.[facility]
== END 2025-03-29 14:56 | disposition home or self-care (01) ==
LOC: HO.HMCFM 14:11
PROVIDERS: PCP Family Medicine; Visit Provider Family Medicine
DX: G89.29 Other chronic pain (principal); T78.40XA Allergy, unspecified, initial encounter

== ENCOUNTER 2025-03-29 14:11 | Outpatient (REF) | payer MEDICARE, MEDICAID, SELFPAY ==
[2025-03-29 18:52] LABS: Cannabinoid Screen Urine Not Detected (Not Detect)
== END 2025-03-29 14:12 | disposition home or self-care (01) ==
LOC: HO.LAB 14:11
PROVIDERS: PCP Family Medicine; Visit Provider Family Medicine
DX: G89.29 Other chronic pain (principal); T78.40XA Allergy, unspecified, initial encounter
CPT/HCPCS: 80307; 99212